=== PATIENT | male | born 1950 | race Caucasian/White ===

== ENCOUNTER → 2017-04-11 | Day surgery (SDC) | payer BC ==
[2017-04-01 11:55] VITALS: Ht 175.3 cm; Wt 90.9 kg
[~2017-04-11] VITALS: Ht 175.3 cm; Wt 90.9 kg
[~2017-04-11] MED LIST: ALL300 PO; ALLO300T2 PO; AMOX1TAB44 PO; ASPCH81X PO; ASPI1TAB83 PO; ASPI81TA28 PO; ATROPINE SULFATE 0.1 MG/ML 5ML SYR IV PRN; CHOL1TAB46 PO; CYAN100020 PO; EpHEDrine SULFATE INJ 50 MG/ML AMP IV PRN; FEXO1TAB49 PO; FEXO5TAB2 PO; FLUT0.15 NAE; GABA-113 PO; GABA1CAP4 PO; LIDOCAINE HCL 2% 2 ML VIAL (20MG/ML) ONE; MAGN250T22 PO; METO25TA3 PO; NTRGSL/4 UT; OMEG10007 PO; PLAVIX75 PO; PLV75 PO; PRLSR20 PO; PROPOFOL IV EMULSION 10 MG/ML 20 ML VIAL IV ONE; TELM80TA PO; TPRSR/50 PO; TRAM37.52 PO; VITAMIN B12 PO
[2017-04-11 12:46] VITALS: TEMP 36.5
--- NOTE | 2017-04-11 13:00 | Endo History and Physical ---
History & Physical Date of Service: Apr 11, 2017. Chief Complaint: DYSPHAGIA Referring Physician: DR. CERVANTES History of Present Illness For EGD Past Surgical History Hx Cardiac Surgery: Yes (HEART CATH X 2-2 STENTS PLACED) Hx Internal Defibrillator: No Hx Pacemaker: No Hx Abdominal Surgery: No Hx of Implantable Prosthesis: No Hx Post-Op Nausea and Vomiting: No Hx Cancer Surgery: No Hx Thoracic Surgery: No Hx Orthopedic: No Hx Urinary Tract Surgery: No Family History None Social History Smoking Status: Former Smoker Hx Substance Use: No Hx Alcohol Use: Yes (OCCASIONALLY) Allergies Coded Allergies: Sulfa Drugs (Verified Allergy, Mild, HIVES, 04/11/17) Dairy (Verified Allergy, Unknown, STOMACH PAIN, 04/11/17) Gluten (Verified Allergy, Unknown, ABD PAIN, 04/11/17) Statins (Verified Allergy, Unknown, MUSCLE WEAKNESS, 04/11/17) Current Medications Reported Home Medications Medications Dose Route/Sig Max Daily Dose Days Date Category Toprol-Xl (Metoprolol Succinate) 25 Mg Tabcr 25 Mg PO QAM 04/01/17 Reported Nitrostat (Nitroglycerin) 0.4 Mg Tab 0.4 Mg UT PRN 04/01/17 Reported Prilosec (Omeprazole) 20 Mg Capcr 20 Mg PO QAM 04/01/17 Reported [place]-3 (Fish Oil) 1 Ea Cap 1 Cap PO QAM 04/01/17 Reported Micardis (Telmisartan) 80 Mg Tab 80 Mg PO QAM 04/01/17 Reported Neurontin (Gabapentin) 300 Mg Cap 300 Mg PO QAM 04/01/17 Reported Conchis Allergy (Fexofenadine Hcl) 180 Mg Tab 1 Tab PO QAM 14 04/01/17 Reported Flonase Allergy Relief (Fluticasone Propionate (Nasal)) 50 Mcg/Act Spr 2 [place] JOSE LUIS QAM 04/01/17 Reported Plavix (Clopidogrel Bisulfate) 75 Mg Tab 1 Tab PO QAM 90 04/01/17 Reported [Vitamin B12] 2,500 Mg PO QAM 04/01/17 Reported Vitamin D3 (Cholecalciferol) 5,000 Unit Tab 1 Tab PO QAM 04/01/17 Reported Aspirin Chewable (Aspirin) 81 Mg Chew 81 Mg PO QAM 04/01/17 Reported Zyloprim (Allopurinol) 300 Mg Tab 300 Mg PO QAM 04/01/17 Reported Vital Signs Weight (Kilograms): 90.91 Height (Feet): 5 Height (Inches): 9 Date Time Temp Pulse Resp B/P (MAP) Pulse Ox O2 Delivery O2 Flow Rate FiO2 04/11/17 12:46 36.5 20 134/90 (105) 99 Room Air Physical Exam General Appearance: + obese Respiratory/Chest: Respiratory effort: no dyspnea Cardiovascular: Heart Auscultation: RRR Abdomen: Inspection & Palpation: soft Assessment and Plan Dysphagia for EGD and dilation
--- NOTE | 2017-04-11 13:27 | Discharge Instructions ---
Endoscopy Patient Instructions Date / Procedure(s) Performed Apr 11, 2017. EGD Allergy Information Coded Allergies: Sulfa Drugs (Verified Allergy, Mild, HIVES, 04/11/17) Dairy (Verified Allergy, Unknown, STOMACH PAIN, 04/11/17) Gluten (Verified Allergy, Unknown, ABD PAIN, 04/11/17) Statins (Verified Allergy, Unknown, MUSCLE WEAKNESS, 04/11/17) Discharge Date / Findings Apr 11, 2017. Stricture-dilated Medication Instructions Restart Stopped Medication(s): resume meds Reported Home Medications Medications Dose Route/Sig Max Daily Dose Days Date Category Toprol-Xl (Metoprolol Succinate) 25 Mg Tabcr 25 Mg PO QAM 04/01/17 Reported Nitrostat (Nitroglycerin) 0.4 Mg Tab 0.4 Mg UT PRN 04/01/17 Reported Prilosec (Omeprazole) 20 Mg Capcr 20 Mg PO QAM 04/01/17 Reported [place]-3 (Fish Oil) 1 Ea Cap 1 Cap PO QAM 04/01/17 Reported Micardis (Telmisartan) 80 Mg Tab 80 Mg PO QAM 04/01/17 Reported Neurontin (Gabapentin) 300 Mg Cap 300 Mg PO QAM 04/01/17 Reported Conchis Allergy (Fexofenadine Hcl) 180 Mg Tab 1 Tab PO QAM 14 04/01/17 Reported Flonase Allergy Relief (Fluticasone Propionate (Nasal)) 50 Mcg/Act Spr 2 [place] JOSE LUIS QAM 04/01/17 Reported Plavix (Clopidogrel Bisulfate) 75 Mg Tab 1 Tab PO QAM 90 04/01/17 Reported [Vitamin B12] 2,500 Mg PO QAM 04/01/17 Reported Vitamin D3 (Cholecalciferol) 5,000 Unit Tab 1 Tab PO QAM 04/01/17 Reported Aspirin Chewable (Aspirin) 81 Mg Chew 81 Mg PO QAM 04/01/17 Reported Zyloprim (Allopurinol) 300 Mg Tab 300 Mg PO QAM 04/01/17 Reported Provider Instructions Activity Restrictions - No exercising or heavy lifting for 24 hours. - Do not drink alcohol the day of the procedure. - Do not drive a car or operate machinery until the day after the procedure. - Do not make any important decisions or sign important papers in 24 hours after the procedure. Following Day: - Return to full activity which may include returning to work/school. Diet Start your diet with liquids and light foods (jello, soup, juice, toast). Then eat your usual diet if not nauseated. Treatment For Common After Affects For mild abdominal pain, bloating, or excessive gas: - Rest - Eat lightly - Lie on right side Follow-Up Information Follow-up with DR. CERVANTES as scheduled Anesthesia Information What You Should Know You have had a procedure that required some medicine to reduce anxiety and discomfort. This treatment is called moderate sedation. After receiving the treatment, you may be sleepy, but you will be able to breathe on your own. The effects of the treatment may last for several hours. Follow these instructions along with Activity/Diet recommendations noted above: * Do NOT do anything where dizziness or clumsiness would be dangerous. * Rest quietly at home today, then you can be up and about tomorrow. * Have a responsible person stay with you the rest of today. * You may have had an I.V. today. If so, you may take the dressing off later today. Recommendations Call your doctor if: * Trouble breathing * Continuous vomiting for more than 24 hours * Temperature above 101 degrees * Severe abdominal pain or bloating * Pain not relieved by pain medicine ordered * There is increased drainage or redness from any incision * A large amount of rectal bleeding greater than 2-3 tablespoons. (If you had a polyp/s removed or have hemorrhoids, a small amount of blood - from the rectum is to be expected.) * You have any unanswered questions or concerns. IN THE EVENT OF A SERIOUS EMERGENCY, GO TO THE NEAREST EMERGENCY ROOM Your discharge instructions were prepared by provider Damon Leyva. Patient Instructions Signature Page Marcus Smith Patient (or Guardian) Signature/Date: I have read and understand the instructions given to me by my caregivers. Caregiver/RN/Doctor Signature/Date: The above-named patient and/or guardian has received patient instructions on this date. + Original Patient Signature Page (only) stays with chart. Please make copy for patient.
--- NOTE | 2017-04-11 13:33 | GI REPORT ---
Procedure Date: 04/11/2017 1:15 PM Procedure: Upper GI endoscopy Indications: Dysphagia Medicines: Propofol total dose 320 mg IV, Lidocaine 80 mg IV Complications: No immediate complications. Estimated Blood Loss: Estimated blood loss was minimal. Procedure: Pre-Anesthesia Assessment: - Prior to the procedure, a History and Physical was performed, and patient medications, allergies and sensitivities were reviewed. The patient's tolerance of previous anesthesia was reviewed. - The risks and benefits of the procedure and the sedation options and risks were discussed with the patient. All questions were answered and informed consent was obtained. After obtaining informed consent, the endoscope was passed under direct vision. Throughout the procedure, the patient's blood pressure, pulse, and oxygen saturations were monitored continuously. The scope was introduced through the mouth, and advanced to the second part of duodenum. The upper GI endoscopy was accomplished without difficulty. The patient tolerated the procedure well. Findings: A small hiatus hernia was present. A mild Schatzki ring (acquired) was found at the gastroesophageal junction. A guidewire was placed and the scope was withdrawn. Dilation was performed at the gastroesophageal junction with a Savary dilator with no resistance at 48 Fr, 51 Fr and 54 Fr. Localized mild inflammation characterized by erosions and erythema was found in the gastric antrum. The examined duodenum was normal. Impression: - Small hiatus hernia. - Mild Schatzki ring. - Gastritis. - Normal examined duodenum. - Dilation attempted at the gastroesophageal junction. Successful. - No specimens collected. Recommendation: - Discharge patient to home (ambulatory). - Continue present medications. - Return to GI clinic at appointment to be scheduled. Damon Leyva M.D. Damon Leyva MD 04/11/2017 1:32:18 PM This report has been signed electronically. Note Initiated On: 04/11/2017 1:15 PM I attest to the content of the Intraoperative Record and orders documented therein, exceptions below
--- NOTE | 2017-04-11 13:38 | Anesthesiology Progress Note ---
Anesthesia Post Op Note Date & Time Apr 11, 2017 at 13:37 Vital Signs Vital Signs Past 12 Hours Date Time Temp Pulse Resp B/P (MAP) Pulse Ox O2 Delivery O2 Flow Rate FiO2 04/11/17 12:46 36.5 20 134/90 (105) 99 Room Air Notes Mental Status: alert / awake / arousable, participated in evaluation Pt Amnestic to Procedure: Yes Nausea / Vomiting: adequately controlled Pain: adequately controlled Airway Patency, RR, SpO2: stable & adequate BP & HR: stable & adequate Hydration State: stable & adequate Anesthetic Complications: no major complications apparent
[2017-04-11 14:11] VITALS: BP 127/84; PULSE 73; O2SAT 98
== END | disposition home or self-care (01) ==
LOC: C.GI 12:07
PROVIDERS: ATTEND Internal Medicine Gastroenterology
DX: R13.10 Dysphagia, unspecified (principal); K44.9 Diaphragmatic hernia without obstruction or gangrene; K22.2 Esophageal obstruction; K29.70 Gastritis, unspecified, without bleeding; I10 Essential (primary) hypertension; I25.10 Atherosclerotic heart disease of native coronary artery without angina pectoris; I25.2 Old myocardial infarction; E66.9 Obesity, unspecified; Z68.29 Body mass index [BMI] 29.0-29.9, adult; Z90.89 Acquired absence of other organs; Z88.2 Allergy status to sulfonamides; Z91.011 Allergy to milk products; Z98.818 Other dental procedure status; Z87.891 Personal history of nicotine dependence; Z79.02 Long term (current) use of antithrombotics/antiplatelets

== ENCOUNTER 2017-04-29 15:12 | Emergency (ER) | payer BC ==
[~2017-04-29] VITALS: Ht 177.8 cm; Wt 96.0 kg
[~2017-04-29 15:12] MED LIST changes: -ALL300 PO; -AMOX1TAB44 PO; -ASPI1TAB83 PO; -ASPI81TA28 PO; -ATROPINE SULFATE 0.1 MG/ML 5ML SYR IV PRN; -CYAN100020 PO; -EpHEDrine SULFATE INJ 50 MG/ML AMP IV PRN; -FEXO5TAB2 PO; -GABA1CAP4 PO; -LIDOCAINE HCL 2% 2 ML VIAL (20MG/ML) ONE; -MAGN250T22 PO; -PLV75 PO; -PROPOFOL IV EMULSION 10 MG/ML 20 ML VIAL IV ONE; -TPRSR/50 PO; -TRAM37.52 PO
[2017-04-29 15:17] VITALS: TEMP 36.4; Ht 177.8 cm; Wt 96.0 kg
[2017-04-29 16:05] LABS: BASO % 0.7 %; BASO ABS # 0.04 K/uL (0-0.2); COMPLETE YES; EOS % 10.7 %; HEMATOCRIT 47.9 % (42-52); IG% 0.4 %; LYMPH % 39.9 %; LYMPH ABS # 2.23 K/uL (1.2-3.4); MEAN CELL VOLUME 105.5 fL (80-100); MEAN CORPUSCULAR HGB CONC 35.1 g/dl (32-36); MEAN PLATELET VOLUME 9.7 fL (7.4-10.4); MONO % 8.1 %; NEUT % 40.2 %; PLATELET COUNT 181 K/uL (130-400); RED BLOOD COUNT 4.54 M/uL (4.7-6.1); WHITE BLOOD COUNT 5.59 K/uL (4.8-10.8)
--- NOTE | 2017-04-29 16:05 | DIAGNOSTIC IMAGING REPORT ---
CHEST ONE VIEW PORTABLE CLINICAL HISTORY: Evaluate Fever/Sepsis fever COMPARISON STUDY: 07/19/2015 FINDINGS: The bones soft tissues and hemidiaphragms are normal. The cardiomediastinal silhouette is normal. The lungs are clear. The pulmonary vasculature is normal. IMPRESSION: Negative chest. The above report was generated using voice recognition software. It may contain grammatical, syntax or spelling errors. Electronically signed by: Roman Alaniz M.D. 04/29/2017 4:04 PM Dictated Date/Time: 04/29/2017 4:03 PM
[2017-04-29] MEDS ORDERED: CYAN100020 PO (16:12)
[2017-04-29] MEDS ORDERED: ALL300 PO (16:12)
[2017-04-29] MEDS ORDERED: PLV75 PO (16:12)
[2017-04-29] MEDS ORDERED: FEXO5TAB2 PO (16:12)
[2017-04-29] MEDS ORDERED: TPRSR/50 PO (16:12)
[2017-04-29] MEDS ORDERED: GABA1CAP4 PO (16:12)
[2017-04-29] MEDS ORDERED: ASPI81TA28 PO (16:12)
[2017-04-29] MEDS ORDERED: MAGN250T22 PO (16:12)
[2017-04-29 16:14] LABS: PROTHROMBIN TIME (PATIENT) 10.5 SECONDS (9.0-12.0)
[2017-04-29 16:51] LABS: ALT/SGPT 40 U/L (12-78); BLOOD UREA NITROGEN 15 mg/dl (7-18); CALCIUM 8.7 mg/dl (8.5-10.1); CARBON DIOXIDE 26 mmol/L (21-32); CHLORIDE 110 mmol/L (98-107); CREATININE 0.84 mg/dl (0.60-1.40); GLUCOSE 86 mg/dl (70-99); SODIUM 146 mmol/L (136-145)
[2017-04-29 16:53] LABS: ALKALINE PHOSPHATASE 72 U/L (45-117)
[2017-04-29 17:36] LABS: POTASSIUM 3.7 mmol/L (3.5-5.1)
[2017-04-29 18:31] VITALS: BP 152/96; PULSE 74; O2SAT 95
--- NOTE | 2017-04-29 18:44 | EMERGENCY ROOM VISIT NOTE ---
History Report prepared by Jermaine: Michelle Miller Under the Supervision of: Dr. Jac Hillman D.O. First contact with patient: 15:42 Chief Complaint: DIZZY Stated Complaint: HEART Nursing Triage Summary: pt to the ED today after being seen at [facility] for dizziness and diaphoresis, pt had a ekg there and they declined transport pt has no c/o chest pain History of Present Illness The patient is a 67 year old male who presents to the Emergency Room with complaints of dizziness starting yesterday. The patient was walking [place] when he started having severe diaphoresis, fatigue, dizziness, and nausea. He has a history of similar symptoms occurring with heart attack and just prior to his stent placement in 2011. 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 The patient also has a history of vertigo. He currently denies any pain. He denies chest pain, shortness of breath, or any other complaints. Source of History: patient Onset: yesterday Position: other (global) Symptom Intensity: No pain Quality: other (dizziness) Associated Symptoms: + diaphoresis, + nausea, + fatigue, No chest pain, No SOB Review of Systems See HPI for pertinent positives & negatives. A total of 10 systems reviewed and were otherwise negative. Past Medical & Surgical Medical Problems: (1) Benign essential hypertension (2) Bronchitis (3) Hx of 3 stents (4) Hx of myocardial infarction (5) Hypertension (6) Kidney stone (7) Kidney stones (8) Stented coronary artery (9) Stomach problems Family History Cancer Diabetes mellitus Heart disease Hypertension Social History Smoking Status: Former Smoker Alcohol Use: other Marital Status: Housing Status: lives with significant other Occupation Status: unemployed Current/Historical Medications Scheduled Allopurinol (Allopurinol), 300 MG PO QAM Aspirin (Aspirin Ec), 81 MG PO QAM Cholecalciferol (Vitamin D3), 5,000 INTER.UNIT PO QAM Clopidogrel Bisulfate (Clopidogrel), 75 MG PO QAM Cyanocobalamin (Vitamin B12), 1,000 MCG PO QAM Fish Oil ([place]-3), 1 CAP PO QAM Fluticasone Propionate (Nasal) (Flonase Allergy Relief), 2 SPRAYS JOSE LUIS QAM Gabapentin (Gabapentin), 300 MG PO QAM Magnesium Oxide (Magnesium), 250 MG PO QAM Metoprolol Succinate (Metoprolol Succinate ER), 50 MG PO QAM Omeprazole (Prilosec), 20 MG PO BID Telmisartan (Micardis), 80 MG PO QAM Scheduled PRN Fexofenadine-Pseudoephedrine (Conchis-D 12 Hour Allergy), 1 TAB PO DAILY PRN for Allergy Symptoms Nitroglycerin (Nitrostat), 0.4 MG UT UD PRN for Chest Pain Allergies Coded Allergies: Sulfa Drugs (Verified Allergy, Mild, HIVES, 04/11/17) Dairy (Verified Allergy, Unknown, STOMACH PAIN, 04/11/17) Gluten (Verified Allergy, Unknown, ABD PAIN, 04/11/17) Statins (Verified Allergy, Unknown, MUSCLE WEAKNESS, 04/11/17) Baclofen (Verified Adverse Reaction, Unknown, Tired and sluggish, 04/29/17) Physical Exam Vital Signs Date Time Temp Pulse Resp B/P (MAP) Pulse Ox O2 Delivery O2 Flow Rate FiO2 04/29/17 18:31 74 20 152/96 95 Room Air 04/29/17 17:02 72 16 149/104 98 Room Air 04/29/17 16:23 67 16 98 Room Air 04/29/17 15:42 70 04/29/17 15:17 36.4 68 18 137/88 95 Room Air Physical Exam CONSTITUTIONAL/VITAL SIGNS: Reviewed / noted above. GENERAL: Non-toxic in appearance. INTEGUMENTARY: Warm, dry, and [place]. HEAD: Normocephalic. EYES: without scleral icterus or trauma. ENT/OROPHARYNX: clear and moist. LYMPHADENOPATHY/NECK: Is supple without lymphadenopathy or meningismus. RESPIRATORY: Lungs clear and equal. CARDIOVASCULAR: Regular rate and rhythm. GI/ABDOMEN: Soft and nontender. No organomegaly or pulsatile mass. No rebound or guarding. Normal bowel sounds. EXTREMITIES: Warm and well perfused. BACK: No CVA tenderness. NEUROLOGICAL: Intact without focal deficits. PSYCHIATRIC: normal affect. MUSCULOSKELETAL: Normally developed with good muscle tone. Medical Decision & Procedures ER Provider Diagnostic Interpretation: X ray results and stated below per my interpretation and radiology interpretation. CHEST ONE VIEW PORTABLE CLINICAL HISTORY: Evaluate Fever/Sepsis fever COMPARISON STUDY: 07/19/2015 FINDINGS: The bones soft tissues and hemidiaphragms are normal. The cardiomediastinal silhouette is normal. The lungs are clear. The pulmonary vasculature is normal. IMPRESSION: Negative chest. The above report was generated using voice recognition software. It may contain grammatical, syntax or spelling errors. Electronically signed by: Roman Alaniz M.D. 04/29/2017 4:04 PM Dictated Date/Time: 04/29/2017 4:03 PM Laboratory Results 04/29/17 15:50 Red Blood Count 4.54, Mean Corpuscular Volume 105.5, Mean Corpuscular Hemoglobin 37.0, Mean Corpuscular Hemoglobin Concent 35.1, Mean Platelet Volume 9.7, Neutrophils (%) (Auto) 40.2, Lymphocytes (%) (Auto) 39.9, Monocytes (%) ( Auto) 8.1, Eosinophils (%) (Auto) 10.7, Basophils (%) (Auto) 0.7, Neutrophils # (Auto) 2.25, Lymphocytes # (Auto) 2.23, Monocytes # (Auto) 0.45, Eosinophils # ( Auto) 0.60, Basophils # (Auto) 0.04 04/29/17 15:50 04/29/17 17:09 Test 04/29/17 15:50 04/29/17 17:09 White Blood Count 5.59 K/uL (4.8-10.8) Red Blood Count 4.54 M/uL (4.7-6.1) Hemoglobin 16.8 g/dL (14.0-18.0) Hematocrit 47.9 % (42-52) Mean Corpuscular Volume 105.5 fL (80-100) Mean Corpuscular Hemoglobin 37.0 pg (25-34) Mean Corpuscular Hemoglobin Concent 35.1 g/dl (32-36) Platelet Count 181 K/uL (130-400) Mean Platelet Volume 9.7 fL (7.4-10.4) Neutrophils (%) (Auto) 40.2 % Lymphocytes (%) (Auto) 39.9 % Monocytes (%) (Auto) 8.1 % Eosinophils (%) (Auto) 10.7 % Basophils (%) (Auto) 0.7 % Neutrophils # (Auto) 2.25 K/uL (1.4-6.5) Lymphocytes # (Auto) 2.23 K/uL (1.2-3.4) Monocytes # (Auto) 0.45 K/uL (0.11-0.59) Eosinophils # (Auto) 0.60 K/uL (0-0.5) Basophils # (Auto) 0.04 K/uL (0-0.2) RDW Standard Deviation 55.5 fL (36.4-46.3) RDW Coefficient of Variation 14.3 % (11.5-14.5) Immature Granulocyte % (Auto) 0.4 % Immature Granulocyte # (Auto) 0.02 K/uL (0.00-0.02) Prothrombin Time 10.5 SECONDS (9.0-12.0) Prothromb Time International Ratio 1.0 (0.9-1.1) Activated Partial Thromboplast Time 25.9 SECONDS (21.0-31.0) Partial Thromboplastin Ratio 1.0 Anion Gap 10.0 mmol/L (3-11) Est Creatinine Clear Calc Drug Dose 97.9 ml/min Estimated GFR () 104.3 Estimated GFR (Non- 90.0 BUN/Creatinine Ratio 18.0 (10-20) Calcium Level 8.7 mg/dl (8.5-10.1) Total Bilirubin 0.6 mg/dl (0.2-1) Alanine Aminotransferase (ALT/SGPT) 40 U/L (12-78) Alkaline Phosphatase 72 U/L (45-117) Creatine Kinase MB < 0.5 ng/ml (0.5-3.6) Creatine Kinase MB Ratio (0-3.0) Troponin I < 0.015 ng/ml (0-0.045) Total Protein 7.1 gm/dl (6.4-8.2) Albumin 3.5 gm/dl (3.4-5.0) Direct Bilirubin 0.2 mg/dl (0-0.2) Aspartate Amino Transf (AST/SGOT) 29 U/L (15-37) Total Creatine Kinase 92 U/L (39-308) Laboratory results as stated above per my review. ECG Indication: other (Dizziness) Rate (beats per minute): 63 Rhythm: normal sinus Findings: no acute ischemic change, no ectopy, other (Low voltage) ED Course 1542: Previous medical records were reviewed. The patient was evaluated in room B08. A complete history and physical examination was performed. 1839: On reevaluation, the patient is feeling better. I discussed the results and findings with the patient. He verbalized agreement of the treatment plan. He was discharged home. Medical Decision Medication Reconciliation: I attest that I have personally reviewed the patient' s current medication list. Blood pressure Screening: Patient was found to have normal blood pressure on screening and does not require follow-up. Differential includes acute coronary syndrome, myocardial infarction, CVA, TIA, anemia, infection, pneumonia, UTI, pyelonephritis, poor nutrition, dehydration, electrolyte disturbance,hypoglycemia. This is a 67-year-old male who presents to the ED with a chief complaint of fatigue and a little dizziness as well as a little nausea. The patient states that also he [place] His vital signs are normal. His physical exam was unremarkable. An EKG shows a normal sinus rhythm. His blood work was unremarkable including his cardiac enzymes, CBC and chemistry panel. Chest x-ray did not show acute disease. The patient was told results. He is felt to be stable for discharge and outpatient follow-up. Impression Primary Impression: Dizziness Additional Impression: Fatigue Scribe Attestation The scribe's documentation has been prepared under my direction and personally reviewed by me in its entirety. I confirm that the note above accurately reflects all work, treatment, procedures, and medical decision making performed by me. Departure Information Dispostion Home / Self-Care Referrals Jay Shearer M.D. (PCP) Forms HOME CARE DOCUMENTATION FORM, IMPORTANT VISIT INFORMATION Patient Instructions My [facility] Additional Instructions Follow-up with your doctor for further care and evaluation in 1-2 days. Return to the emergency department for worsening or new symptoms or any concerns. You have been examined and treated today on an emergency basis only. This is not a substitute for, or an effort to provide, complete comprehensive medical care. It is impossible to recognize and treat all injuries or illnesses in a single emergency department visit. It is therefore important that you follow up closely with your doctor. Call as soon as possible for an appointment. Problem Qualifiers
== END 2017-04-29 18:52 | disposition home or self-care (01) ==
LOC: C.EDB 15:20
DX: R42 Dizziness and giddiness (principal); R53.83 Other fatigue; I25.2 Old myocardial infarction; Z95.5 Presence of coronary angioplasty implant and graft; I10 Essential (primary) hypertension; Z87.442 Personal history of urinary calculi; Z80.9 Family history of malignant neoplasm, unspecified; Z83.3 Family history of diabetes mellitus; Z82.49 Family history of ischemic heart disease and other diseases of the circulatory system; Z87.891 Personal history of nicotine dependence; Z79.82 Long term (current) use of aspirin; Z79.899 Other long term (current) drug therapy

== ENCOUNTER → 2017-06-28 | Outpatient (CLI) | payer BC ==
[~2017-06-28] MED LIST changes: +ALL300 PO; -ALLO300T2 PO; +AMOX1TAB44 PO; -ASPCH81X PO; +ASPI1TAB83 PO; +ASPI81TA28 PO; +CYAN100020 PO; -FEXO1TAB49 PO; +FEXO5TAB2 PO; -GABA-113 PO; +GABA1CAP4 PO; +MAGN250T22 PO; -METO25TA3 PO; -PLAVIX75 PO; +PLV75 PO; +TPRSR/50 PO; -VITAMIN B12 PO
--- NOTE | 2017-06-28 16:43 | DIAGNOSTIC IMAGING REPORT ---
SINUSES WITH BRAIN LAB CLINICAL HISTORY: CHRONIC SINUSITIS. COMPARISON STUDY: No previous studies for comparison. FINDINGS: Visualized portions of the intracranial contents are unremarkable on this unenhanced exam. Mastoid air cells are clear. There is no fluid within the middle ears. Ossicles are intact. Orbits are unremarkable. There is moderate polypoid mucosal thickening of the ethmoid and frontal sinuses. There is mild mucosal thickening of the maxillary and sphenoid sinuses. Ostiomeatal complexes are patent. Frontoethmoidal recesses are occluded. Sphenoethmoidal recesses are occluded. There is no bony destruction. No mass is identified within the nasal cavity or the sinuses. There is a miguel angel bullosa of the right middle turbinate. There is mild leftward deviation of the nasal septum with spur formation. The cribriform plate is intact. IMPRESSION: 1. Moderate mucosal thickening of the ethmoid and frontal sinuses with mild mucosal thickening of the maxillary and sphenoid sinuses. Occluded bilateral frontoethmoidal and sphenoethmoidal recesses. 2. Cocha bullosa of the right middle turbinate. 3. No bone destruction. Electronically signed by: Minh Leon M.D. 06/28/2017 4:41 PM Dictated Date/Time: 06/28/2017 4:36 PM
== END | disposition home or self-care (01) ==
LOC: C.CTS 16:14
PROVIDERS: ATTEND Otolaryngology
DX: J32.9 Chronic sinusitis, unspecified (principal)

== ENCOUNTER → 2017-08-26 | Day surgery (SDC) | payer BC ==
--- NOTE | 2017-07-13 16:09 | PAT Medication Instructions ---
Service Date Jul 13, 2017. Current Home Medication List Allopurinol (Allopurinol), 300 MG PO QAM Amoxicillin & Pot Clavulanate (Amoxicillin/Clavulanate P), 875 MG PO BID Aspirin (Aspirin Ec), 81 MG PO QAM Cholecalciferol (Vitamin D3), 5,000 INTER.UNIT PO QAM Clopidogrel Bisulfate (Clopidogrel), 75 MG PO QAM Cyanocobalamin (Vitamin B12), 1,000 MCG PO QAM Fexofenadine-Pseudoephedrine (Conchis-D 12 Hour Allergy), 1 TAB PO DAILY PRN for Allergy Symptoms Fish Oil ([place]-3), 1 CAP PO QAM Fluticasone Propionate (Nasal) (Flonase Allergy Relief), 2 SPRAYS JOSE LUIS QAM PRN for sinus congestion Magnesium Oxide (Magnesium), 500 MG PO QAM Nitroglycerin (Nitrostat), 0.4 MG UT UD PRN for Chest Pain Omeprazole (Prilosec), 20 MG PO QPM Telmisartan (Micardis), 80 MG PO QAM Medication Instructions For Your Scheduled Surgery - Check with surgeon and compliance intern for instructions: Aspirin (Aspirin Ec), 81 MG PO QAM Clopidogrel Bisulfate (Clopidogrel), 75 MG PO QAM - Hold the following medications starting 07/14/17: Fish Oil ([place]-3), 1 CAP PO QAM - Hold the following medications the morning of surgery: Telmisartan (Micardis), 80 MG PO QAM Magnesium Oxide (Magnesium), 500 MG PO QAM Fexofenadine-Pseudoephedrine (Conchis-D 12 Hour Allergy), 1 TAB PO DAILY PRN for Allergy Symptoms Cholecalciferol (Vitamin D3), 5,000 INTER.UNIT PO QAM Cyanocobalamin (Vitamin B12), 1,000 MCG PO QAM - Take the following medications the morning of surgery with a sip of water: Nitroglycerin (Nitrostat), 0.4 MG UT UD PRN for Chest Pain (if needed) Allopurinol (Allopurinol), 300 MG PO QAM. Amoxicillin & Pot Clavulanate (Amoxicillin/Clavulanate P), 875 MG PO BID Fluticasone Propionate (Nasal) (Flonase Allergy Relief), 2 SPRAYS JOSE LUIS QAM PRN for sinus congestion (if needed) - Take the following medications as scheduled the night before surgery: Omeprazole (Prilosec), 20 MG PO QPM Nitroglycerin (Nitrostat), 0.4 MG UT UD PRN for Chest Pain (if needed) Fluticasone Propionate (Nasal) (Flonase Allergy Relief), 2 SPRAYS JOSE LUIS QAM PRN for sinus congestion (if needed) Fexofenadine-Pseudoephedrine (Conchis-D 12 Hour Allergy), 1 TAB PO DAILY PRN for Allergy Symptoms (if needed) Amoxicillin & Pot Clavulanate (Amoxicillin/Clavulanate P), 875 MG PO BID If you have any questions please call us at [phone] or [phone] or [phone]
[2017-07-13 16:36] LABS: BASO % 0.7 %; BASO ABS # 0.05 K/uL (0-0.2); COMPLETE YES; EOS % 2.9 %; HEMATOCRIT 44.7 % (42-52); IG% 0.5 %; LYMPH % 24.9 %; LYMPH ABS # 1.83 K/uL (1.2-3.4); MEAN CELL VOLUME 103.7 fL (80-100); MEAN CORPUSCULAR HEMOGLOBIN 36.7 pg (25-34); MEAN CORPUSCULAR HGB CONC 35.3 g/dl (32-36); MEAN PLATELET VOLUME 9.5 fL (7.4-10.4); MONO % 9.3 %; NEUT % 61.7 %; PLATELET COUNT 159 K/uL (130-400); RED BLOOD COUNT 4.31 M/uL (4.7-6.1); WHITE BLOOD COUNT 7.34 K/uL (4.8-10.8)
[2017-07-13 16:44] LABS: BUN/CREATININE RATIO 19.1 (10-20); CALCIUM 9.4 mg/dl (8.5-10.1); CREATININE 1.2 mg/dl (0.60-1.40)
--- NOTE | 2017-08-25 14:06 | History and Physical ---
History & Physical Date Aug 25, 2017. Chief Complaint sinus infections History of Present Illness The patient is a 67 year old male with complaints of chronic sinusitis and polyposis Past Medical/Surgical History Medical Problems: (1) Benign essential hypertension (2) Bronchitis (3) Hx of 3 stents (4) Hx of myocardial infarction (5) Hypertension (6) Kidney stone (7) Kidney stones (8) Stented coronary artery (9) Stomach problems Additional History Hepatic Disease: No Endocrine Disorder: No Kidney Disease: Yes Hypertension: Yes Heart Disease: Yes Bleeding Tendencies: No Infectious Diseases: No Allergies Coded Allergies: Sulfa Drugs (Verified Allergy, Mild, HIVES, 07/13/17) Baclofen (Verified Adverse Reaction, Unknown, Tired and sluggish, 07/13/17) Dairy (Unverified Adverse Reaction, Unknown, STOMACH PAIN, 08/23/17) Gluten (Unverified Adverse Reaction, Unknown, ABD PAIN, 08/23/17) Statins (Unverified Adverse Reaction, Unknown, MUSCLE WEAKNESS, 08/23/17) Home Medications Scheduled Allopurinol (Allopurinol), 300 MG PO QAM Amoxicillin & Pot Clavulanate (Amoxicillin/Clavulanate P), 875 MG PO BID Aspirin (Aspirin Ec), 81 MG PO QAM Aspirin (Aspirin), 1 TAB PO DAILY Cholecalciferol (Vitamin D3), 5,000 INTER.UNIT PO QAM Clopidogrel Bisulfate (Clopidogrel), 75 MG PO QAM Cyanocobalamin (Vitamin B12), 1,000 MCG PO QAM Fish Oil (Girdler-3), 1 CAP PO QAM Magnesium Oxide (Magnesium), 500 MG PO QAM Omeprazole (Prilosec), 20 MG PO QPM Telmisartan (Micardis), 80 MG PO QAM Scheduled PRN Fexofenadine-Pseudoephedrine (Conchis-D 12 Hour Allergy), 1 TAB PO DAILY PRN for Allergy Symptoms Fluticasone Propionate (Nasal) (Flonase Allergy Relief), 2 SPRAYS JOSE LUIS QAM PRN for sinus congestion Nitroglycerin (Nitrostat), 0.4 MG UT UD PRN for Chest Pain Physical Examination Skin: warm/dry, no rash Eyes: normal inspection, EOMI, sclerae normal ENT: normal ENT inspection, pharynx normal Head: normocephalic, atraumatic Neck: supple, no adenopathy, trachea midline Respiratory/Chest: lungs clear, normal breath sounds, no respiratory distress Cardiovascular: regular rate, rhythm, no edema, no murmur Abdomen / GI: normal bowel sounds, non tender Back: normal inspection Extremities: normal inspection, normal range of motion Neurologic/Psych: no motor/sensory deficits, alert, normal reflexes, oriented x 3 Diagnosis chronic sinusitis and polyposis Plan of Treatment endoscopic sinus surgery
[~2017-08-26] VITALS: Ht 177.8 cm; Wt 96.4 kg
[~2017-08-26] MED LIST changes: +ACETAMINOPHEN 1000 MG/100 ML IV IV ONE; +ATROPINE SULFATE 0.1 MG/ML 5ML SYR IV PRN; +BACITRACIN OINT 15 GM TUBE ONE; +CEFAZOLIN 2000MG IV PUSH 10 ML IV SCH; +CISATRACURIUM BESYLATE IV SOLN 2 MG/ML 10 ML VIAL ONE; +ESMOLOL HCL 10 MG/ML 10 ML VIAL ONE; +EpHEDrine SULFATE INJ 50 MG/ML AMP IV PRN; +EpINEphrine INJ 1MG/ML AMP 1 MG/ML AMP ONE; +FENTANYL CITRATE INJ 50 MCG/1 ML 2 ML VIAL IV PRN; +FENTANYL CITRATE INJ 50 MCG/1 ML 2 ML VIAL ONE; +FLUMAZENIL 0.1 MG/1 ML 10 ML VIAL IV PRN; -GABA1CAP4 PO; +GELATIN SPONGE 12-7MM ONE; +GLYCOPYRROLATE INJ 0.2 MG/ML VIAL ONE; +HYDROCODONE/ACETAMOPHEN 5/325MG TAB PO PRN; +HydrALAZINE HCL 20 MG/ML VIAL IV. PRN; +HydrALAZINE HCL 20 MG/ML VIAL ONE; +LACTATED RINGER'S 1000ML 1,000 ML IV SCH; +LIDO 2%/EPINEPHRINE 1:100000 20 ML VIAL INFIL ONE; +LIDOCAINE 4% INH SOLN 4 ML BTL ONE; +METOPROLOL TARTRATE 1 MG/ML VIAL ONE; +MIDAZOLAM HCL 1 MG/ML 2ML VIAL ONE; +NALOXONE HCL 0.4 MG/1 ML VIAL/CARP IV PRN; +NEOSTIGMINE METHYLSULFATE 5 MG/5 ML SYR ONE; +NURSING VERBAL MED ORDER ONE; +ONDANSETRON INJ 2 MG/ML 2 ML VIAL IV PRN; +ONDANSETRON INJ 2 MG/ML 2 ML VIAL ONE; +PROPOFOL IV EMULSION 10 MG/ML 20 ML VIAL IV ONE; +SODIUM CHLORIDE 0.9% 1000ML 1,000 ML IV SCH; +SUCCINYLCHOLINE CHLORIDE 20 MG/ML 10 ML VIAL IV ONE; -TPRSR/50 PO; +TRAM37.52 PO
--- NOTE | 2017-08-26 07:10 | History & Physical Bridge Note ---
H&P Re-Evaluation Bridge Note: I have examined the patient, reviewed the History & Physical and in the interval since the performance of the History & Physical I have noted the following changes of clinical significance: No changes noted
[2017-08-26 07:30] VITALS: BP 127/91; PULSE 75; TEMP 36.4; O2SAT 98; Ht 177.8 cm; Wt 96.4 kg
--- NOTE | 2017-08-26 10:48 | Discharge Instructions-SurgCtr ---
Discharge Instructions Date of Service Aug 26, 2017. Visit Reason for Visit: Chronic Sinusitis, Polyps Discharge Discharge Diagnosis / Problem: same Discharge Goals Goal(s): Improve function, Improve disease control Activity Recommendations Activity Limitations: resume your previous activity Anesthesia . Post Anesthesia Instructions: If you have had General Anesthesia or IV Sedation: * Do not drive today. * Resume driving when surgeon permits. * Do not make important decisions or sign legal documents today. * Call surgeon for: 1. Temperature elevations greater than 101 degrees F. 2. Uncontrollable pain. 3. Excessive bleeding. 4. Persistent nausea and vomiting. 5. Medication intolerance (nausea, vomiting or rash). * For nausea and vomiting use only clear liquids such as: tea, soda, bouillon until nausea subsides, then gradually increase diet as tolerated. * If you have any concerns or questions, call your surgeon's office. If physician is unavailable and it is an emergency, call 911 or go to the nearest emergency room. . Instructions / Follow-Up Instructions / Follow-Up ACTIVITY RECOMMENDATIONS: * Being up and around is good, but no strenuous activity, heavy lifting or physical exertion for one week. * Keep your head elevated 30 degrees when lying down or sleeping. * Do not blow your nose for 48 hours, sniff back instead. * Avoid hot showers. OVER THE COUNTER MEDICATIONS: * You may use Tylenol * Avoid aspirin or aspirin containing products, e.g. as they may increase bleeding. SPECIAL CARE INSTRUCTIONS: * Expect to have bloody drainage from your nose and/or down your throat for one to three days. Change drip pad as needed. * Begin irrigating your nose with saline solution today, at least six to ten times per day and sniff back to help remove old clots or crust. * You may experience nasal and facial congestion, pain and pressure, this is normal. * Please call with any significant and/or progressive pain, redness, swelling around the eyes, visual changes, fever of 101.5 degrees F, active bleeding or any problems or concerns. * If active bleeding occurs, spray the nose three times at one minute intervals with Afrin spray and call or cell phone: . If unable to reach the doctor, go to the nearest Emergency Department. Special Diet: * Avoid extremely hot fluids. FOLLOW UP VISIT: Follow-up Visit with Dr. Pollock If not already scheduled, please call to schedule. Diet Recommendations Home Diet: no limitations Procedures Procedures Performed: Endoscopic Sinus Surgery of Right and Left Frontal and sphenoid sinusotomies, Right and left total ethmoidectomies, right and left maxillary sinusotomies with computer guidance Pending Studies Studies pending at discharge: no Medical Emergencies . Who to Call and When: Medical Emergencies: If at any time you feel your situation is an emergency, please call 911 immediately. . Non-Emergent Contact Non-Emergency issues call your: Primary Care Provider . . "Provider Documentation" section prepared by Linda Pollock. . [place] Drug Monitoring Program Search Results: no issues identified
--- NOTE | 2017-08-26 11:49 | Anesthesiology Progress Note ---
Anesthesia Post Op Note Date & Time Aug 26, 2017 at 11:49 Vital Signs Pain Intensity: 5 Vital Signs Past 12 Hours Date Time Temp Pulse Resp B/P (MAP) Pulse Ox O2 Delivery O2 Flow Rate FiO2 08/26/17 11:40 80 20 140/98 94 Room Air 08/26/17 11:30 78 12 121/90 94 Room Air 08/26/17 11:20 73 13 146/97 93 Room Air 08/26/17 11:10 79 18 145/90 97 Oxymask 2 08/26/17 11:00 79 13 146/91 99 Oxymask 10 08/26/17 10:50 83 16 150/95 95 Oxymask 10 08/26/17 10:44 36.2 81 12 144/98 95 Oxymask 10 08/26/17 07:30 36.4 75 20 127/91 (103) 98 Room Air Notes Mental Status: alert / awake / arousable, participated in evaluation Pt Amnestic to Procedure: Yes Nausea / Vomiting: adequately controlled Pain: adequately controlled Airway Patency, RR, SpO2: stable & adequate BP & HR: stable & adequate Hydration State: stable & adequate Anesthetic Complications: no major complications apparent
[2017-08-26 12:35] VITALS: BP 144/90; PULSE 96; TEMP 36.4; O2SAT 94
[2017-08-26 13:06] VITALS: BP 147/85; PULSE 96; O2SAT 95
[2017-08-26 13:35] VITALS: BP 139/85; PULSE 110; TEMP 36.5; O2SAT 94
--- NOTE | 2017-08-26 13:53 | Anesthesiology Progress Note ---
Anesthesia Progress Note Date of Service Aug 26, 2017. Progress Notes at 1350, pt was administered metoprolol 3 mg iv for HR 114
[2017-08-26 14:20] VITALS: BP 143/90; PULSE 98; TEMP 36.5; O2SAT 94
--- NOTE | 2017-08-29 07:02 | OPERATIVE REPORT ---
DATE OF OPERATION: 08/26/2017 PREOPERATIVE DIAGNOSES: Chronic sinusitis and polyposis. POSTOPERATIVE DIAGNOSES: Same. PROCEDURES: Right and left frontal, right and left sphenoid, right and left total ethmoid and right and left maxillary sinus antrostomies. SURGEON: Dr. Pollock ANESTHESIA: General endotracheal. COMPLICATIONS: None. BLOOD LOSS: 50 mL. HISTORY OF PRESENT ILLNESS: This gentleman presented with significant recurrent chronic sinusitis and significant polyposis, aggravating his sleep apnea. DESCRIPTION OF PROCEDURE: The patient was brought to the operating room and placed in the supine position. General endotracheal anesthesia was induced, prepped with Betadine paint and draped in the usual sterile manner. Nose decongested with cottonoids with a solution of 4 mL of 4% Xylocaine mixed with 1 mL of epinephrine. Injection of 2% Xylocaine, 1:100,000 strength epinephrine was also used. BrainLAB device calibrated and used for an entire procedure. The right sphenoid was cannulated with a guidewire and dilated using the 6-mm balloon with BrainLAB computer guidance. The left sphenoid was also dilated. The right maxillary sinus was cannulated with the guidewire and dilated using the 6-mm balloon as was the left maxillary sinus. The left nasofrontal duct was cannulated with the guidewire with BrainLAB computer guidance and dilated using the 6-mm balloon. The guidewire was left in place as a marker as the catheter was withdrawn. The frontal sinusotomy was performed by following the guidewire superiorly using the shaver coupled with the BrainLAB device to remove the anterior wall and then the posterior wall of the agger nasi cell, which was filled with polyps and also removing polyps from around the nasofrontal duct that leaving most of the mucosa and the nasofrontal duct intact. At this point, total ethmoidectomy was performed, removing a large polyp for biopsy and then opening up the bullae ethmoidalis and then going through the ground lamella into the posterior ethmoid air cells. The posterior most ethmoid air cell was delineated along with the skull base and lamina papyracea. These structures were followed anteriorly with the BrainLAB device and with the shaver to exonerate all the posterior and then all the anterior ethmoid air cell. The ethmoids were totally filled with polyps. At this point, the sphenoid ostia was identified and then opened by removing polypoid mucosa at the anterior face and also at the inferior border of the superior turbinate. Maxillary sinus had been opened by removing polyps at the anterior wall of the bullae ethmoidalis blocking the maxillary ostia. The right frontal sinusotomy, sphenoidotomy, total ethmoidectomy and maxillary sinus antrostomy was performed in a similar manner. Propel stents were placed with a mini stent in each nasofrontal duct and with 1 regular stent in each ethmoid cavity. The patient tolerated the procedure well and was taken to recovery area in satisfactory condition. I attest to the content of the Intraoperative Record and any orders documented therein. Any exception s are noted below.
== END | disposition home or self-care (01) ==
LOC: C.ACU 06:16
PROVIDERS: ATTEND Otolaryngology
DX: J32.9 Chronic sinusitis, unspecified (principal); J33.8 Other polyp of sinus; I25.10 Atherosclerotic heart disease of native coronary artery without angina pectoris; I25.2 Old myocardial infarction; I10 Essential (primary) hypertension; Z95.5 Presence of coronary angioplasty implant and graft; Z79.82 Long term (current) use of aspirin; Z79.899 Other long term (current) drug therapy

== ENCOUNTER → 2017-09-02 | Outpatient (CLI) | payer BC ==
[~2017-09-02] MED LIST changes: -ACETAMINOPHEN 1000 MG/100 ML IV IV ONE; -AMOX1TAB44 PO; -ASPI1TAB83 PO; -ATROPINE SULFATE 0.1 MG/ML 5ML SYR IV PRN; -BACITRACIN OINT 15 GM TUBE ONE; -CEFAZOLIN 2000MG IV PUSH 10 ML IV SCH; -CISATRACURIUM BESYLATE IV SOLN 2 MG/ML 10 ML VIAL ONE; -ESMOLOL HCL 10 MG/ML 10 ML VIAL ONE; -EpHEDrine SULFATE INJ 50 MG/ML AMP IV PRN; -EpINEphrine INJ 1MG/ML AMP 1 MG/ML AMP ONE; -FENTANYL CITRATE INJ 50 MCG/1 ML 2 ML VIAL IV PRN; -FENTANYL CITRATE INJ 50 MCG/1 ML 2 ML VIAL ONE; -FLUMAZENIL 0.1 MG/1 ML 10 ML VIAL IV PRN; -GELATIN SPONGE 12-7MM ONE; -GLYCOPYRROLATE INJ 0.2 MG/ML VIAL ONE; -HYDROCODONE/ACETAMOPHEN 5/325MG TAB PO PRN; -HydrALAZINE HCL 20 MG/ML VIAL IV. PRN; -HydrALAZINE HCL 20 MG/ML VIAL ONE; -LACTATED RINGER'S 1000ML 1,000 ML IV SCH; -LIDO 2%/EPINEPHRINE 1:100000 20 ML VIAL INFIL ONE; -LIDOCAINE 4% INH SOLN 4 ML BTL ONE; -METOPROLOL TARTRATE 1 MG/ML VIAL ONE; -MIDAZOLAM HCL 1 MG/ML 2ML VIAL ONE; -NALOXONE HCL 0.4 MG/1 ML VIAL/CARP IV PRN; -NEOSTIGMINE METHYLSULFATE 5 MG/5 ML SYR ONE; -NURSING VERBAL MED ORDER ONE; -ONDANSETRON INJ 2 MG/ML 2 ML VIAL IV PRN; -ONDANSETRON INJ 2 MG/ML 2 ML VIAL ONE; -PROPOFOL IV EMULSION 10 MG/ML 20 ML VIAL IV ONE; -SODIUM CHLORIDE 0.9% 1000ML 1,000 ML IV SCH; -SUCCINYLCHOLINE CHLORIDE 20 MG/ML 10 ML VIAL IV ONE
== END | disposition home or self-care (01) ==
LOC: C.LAB1850 13:20
PROVIDERS: ATTEND Internal Medicine Cardiovascular Disease
DX: E78.00 Pure hypercholesterolemia, unspecified (principal)

== ENCOUNTER → 2017-12-22 | Outpatient (CLI) | payer BC ==
[~2017-12-22] MED LIST changes: -TRAM37.52 PO
--- NOTE | 2017-12-22 16:12 | DIAGNOSTIC IMAGING REPORT ---
R HAND MIN 3 VIEWS ROUTINE HISTORY: 67 years-old Male UNSPECIFIED INJURY OF RIGHT WRIST, HAND, AND FINGERS acute right hand pain status post fall COMPARISON: None available TECHNIQUE: 3 views of the right hand FINDINGS: The bones are mildly demineralized. Mild radiocarpal with moderate first carpometacarpal and [id number] multidigit interphalangeal degenerative changes are noted. Mild marginal spurring about the distal radioulnar joint. Subcortical cystic changes seen within the scaphoid and capitate. No acute fracture or subluxation is identified. No opaque foreign body. IMPRESSION: Degenerative changes as above without acute fracture or subluxation. The above report was generated using voice recognition software. It may contain grammatical, syntax or spelling errors. Electronically signed by: Carlos Jackson M.D. 12/22/2017 4:11 PM Dictated Date/Time: 12/22/2017 4:09 PM
== END | disposition home or self-care (01) ==
LOC: C.RAD1850 15:44
PROVIDERS: ATTEND Family Medicine
DX: M19.041 Primary osteoarthritis, right hand (principal); M19.031 Primary osteoarthritis, right wrist

== ENCOUNTER → 2018-05-31 | Outpatient (CLI) | payer BC ==
[~2018-05-31] MED LIST changes: +LIDO1PAD2 TD
== END | disposition home or self-care (01) ==
LOC: C.RDSM 14:30
PROVIDERS: ATTEND Orthopaedic Surgery
DX: M25.561 Pain in right knee (principal)

== ENCOUNTER 2019-02-24 07:19 | Observation (INO) ==
[2019-02-24] MEDS ORDERED: ONDANSETRON INJ 2 MG/ML 2 ML VIAL IV STA (07:31)
[2019-02-24] MEDS ORDERED: NITROGLYCERIN 2% OINTMENT 30GM TUBE EXT STA (07:31)
[2019-02-24] MEDS ORDERED: ASPIRIN CHEW 324 MG PO STA (07:31)
--- NOTE | 2019-02-24 07:45 | Emergency Department Note ---
Entered by Dinah Nicolas acting as a scribe for History of Present Illness General Chief complaint: Chest Pain Stated complaint: THINKS HAVING HEART ATTACK Time Seen by Provider: 02/24/19 07:25 Source: patient History of Present Illness Onset (ago): hour(s) 6 Location: chest Pain Consistency: + other (episode) Maximum Pain Intensity: 2 Quality: + other (pressure) Relieved By: not by medication (metoprolol) Associated symptoms: + diaphoresis, + nausea/vomiting (nausea) and + other (hypertension); no chest pain and no shortness of breath The patient is a 69 year old male that is presenting to the Emergency Room with complaints of an episode of chest pressure that started this morning around 0100. The patient reports that he has some associated diaphoresis, nausea and hypertension that started at the same time. He denies any shortness of breath. He notes that he is currently experiencing the same symptoms. The patient states that he took one Metoprolol this morning without relief in symptoms. He reports that he has a history of heart disease and has had two coronary stents placed. He notes that he had a heart attack in 2006 and had the first stent place. He states that he had the second stent placed after a near heart attack in 2011. He reports that he did not experience any chest pain with his past heart attacks. He notes that he was prescribed nitroglycerin but that he did not take it today. The patient reports that he was taking blood pressure medication in the past but discontinued it due to recurrent hypotensive episodes. He notes that his blood pressure is usually within range but that it was a little high when it was measured 4 days ago. The patients notes that the patient had a nerve cauterization procedure earlier in the week and that the patient is currently experiencing post-concussion symptoms following a fall at [facility]. Home Medications Home Medications Medication Instructions Recorded Confirmed Type allopurinol 300 mg PO DAILY 07/07/18 02/24/19 History clopidogrel [Plavix] 75 mg PO DAILY 07/07/18 02/24/19 History multivitamin 1 tab PO DAILY 07/07/18 02/24/19 History rosuvastatin [Crestor] 5 mg PO DAILY 07/07/18 02/24/19 History cholecalciferol (vitamin D3) 5,000 unit PO DAILY 09/03/18 02/24/19 History [Vitamin D3] cyanocobalamin (vitamin B-12) 1,000 mcg PO DAILY 09/03/18 02/24/19 History [Vitamin B-12] fluticasone propionate [Flonase 1 spray INTRANASAL DAILY PRN 09/03/18 02/24/19 History Allergy Relief] magnesium oxide 400 mg PO DAILY 09/03/18 02/24/19 History omeprazole magnesium [Prilosec OTC] 20 mg PO DAILY PRN 09/03/18 02/24/19 History ondansetron HCl [Zofran] 4 mg PO DAILY #10 tab 09/03/18 02/24/19 Rx tramadol 50 mg tablet 50 mg PO DAILY PRN tab 02/13/19 02/24/19 History Allergies Allergy/AdvReac Type Severity Reaction Status Date / Time Sulfa (Sulfonamide Allergy Mild HIVES AND Verified 02/24/19 08:08 Antibiotics) ITHCING baclofen AdvReac Mild Tired and Verified 02/24/19 08:08 sluggish gluten AdvReac Mild ABD PAIN Verified 02/24/19 08:08 milk AdvReac Mild STOMACH Verified 02/24/19 08:08 PAIN Wevywcx-Jim-Fty Reductase AdvReac Mild MUSCLE Verified 02/24/19 08:08 Inhibitor WEAKNESS Past Med/Surg History Medical History Encounter for pre-operative examination Hx of myocardial infarction (Resolved) Hypertension (Chronic) Bronchitis (Chronic) Stomach problems (Chronic) Kidney stones (Chronic) Hiatal hernia (Acute) GERD (gastroesophageal reflux disease) Hyperlipidemia Hypertension Kidney stones Myocardial Infarction 7-10 YEARS AGO Osteoarthritis Surgical History History of cardiac cath History of heart artery stent 7-10 YEARS AGO INSERTED>ODESSA History of tonsillectomy Polyp, nasal Family History Mother Family history of diabetes mellitus Social History Preferred Language: Chilean Communication Ability: Effective Visual Impairment: Limited Hearing Ability: Normal 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 and A total of 10 systems reviewed and were otherwise negative Physical Exam Vital Signs Vital Signs - 24 hr 02/24/19 07:21 02/24/19 07:31 02/24/19 08:06 Temperature 36.5 C Temperature Source Oral Sepsis Recent Fever Within 48 Hours No Sepsis New/Unexplained Change in Mental Status No Sepsis Action Taken by Nursing No Action Required Pulse Rate 92 H 76 78 Pulse Rate [Right Finger] Pulse Rate from SpO2 Sensor 79 Pulse Rhythm Regular Pulse Rhythm [Right Finger] Pulse Strength [Right Finger] Respiratory Rate 18 20 19 Respiratory Effort / Characteristics Non-Labored Spontaneous Respiratory Depth Normal Respiratory Pattern Regular Blood Pressure 218/127 H 179/118 H Blood Pressure [Right Arm] Blood Pressure Mean 157 138 Blood Pressure Mean [Right Arm] Blood Pressure Position Sitting Blood Pressure Position [Right Arm] Pulse Oximetry 94 93 93 Oxygen Delivery Method Room Air Room Air 02/24/19 08:16 02/24/19 08:20 02/24/19 08:30 Temperature Temperature Source Sepsis Recent Fever Within 48 Hours Sepsis New/Unexplained Change in Mental Status Sepsis Action Taken by Nursing Pulse Rate 63 73 78 Pulse Rate [Right Finger] Pulse Rate from SpO2 Sensor 70 67 79 Pulse Rhythm Pulse Rhythm [Right Finger] Pulse Strength [Right Finger] Respiratory Rate 11 L 13 15 Respiratory Effort / Characteristics Respiratory Depth Respiratory Pattern Blood Pressure 179/110 H Blood Pressure [Right Arm] Blood Pressure Mean 133 Blood Pressure Mean [Right Arm] Blood Pressure Position Blood Pressure Position [Right Arm] Pulse Oximetry 92 92 92 Oxygen Delivery Method 02/24/19 08:40 02/24/19 08:50 02/24/19 08:55 Temperature Temperature Source Sepsis Recent Fever Within 48 Hours Sepsis New/Unexplained Change in Mental Status Sepsis Action Taken by Nursing Pulse Rate 80 83 83 Pulse Rate [Right Finger] Pulse Rate from SpO2 Sensor 81 82 83 Pulse Rhythm Pulse Rhythm [Right Finger] Pulse Strength [Right Finger] Respiratory Rate 14 13 16 Respiratory Effort / Characteristics Respiratory Depth Respiratory Pattern Blood Pressure 170/110 H Blood Pressure [Right Arm] Blood Pressure Mean 130 Blood Pressure Mean [Right Arm] Blood Pressure Position Blood Pressure Position [Right Arm] Pulse Oximetry 91 93 93 Oxygen Delivery Method 02/24/19 09:00 02/24/19 09:10 02/24/19 09:20 Temperature Temperature Source Sepsis Recent Fever Within 48 Hours Sepsis New/Unexplained Change in Mental Status Sepsis Action Taken by Nursing Pulse Rate 81 84 84 Pulse Rate [Right Finger] Pulse Rate from SpO2 Sensor 83 84 84 Pulse Rhythm Pulse Rhythm [Right Finger] Pulse Strength [Right Finger] Respiratory Rate 16 16 17 Respiratory Effort / Characteristics Respiratory Depth Respiratory Pattern Blood Pressure 174/105 H Blood Pressure [Right Arm] Blood Pressure Mean 128 Blood Pressure Mean [Right Arm] Blood Pressure Position Blood Pressure Position [Right Arm] Pulse Oximetry 94 94 92 Oxygen Delivery Method 02/24/19 09:50 02/24/19 12:14 Temperature 36.6 C 36.5 C Temperature Source Oral Oral Sepsis Recent Fever Within 48 Hours Sepsis New/Unexplained Change in Mental Status Sepsis Action Taken by Nursing Pulse Rate 77 Pulse Rate [Right Finger] 73 66 Pulse Rate from SpO2 Sensor Pulse Rhythm Pulse Rhythm [Right Finger] Regular Pulse Strength [Right Finger] Normal Respiratory Rate 18 18 Respiratory Effort / Characteristics Non-Labored Spontaneous Respiratory Depth Normal Respiratory Pattern Regular Blood Pressure Blood Pressure [Right Arm] 178/100 H 165/96 H Blood Pressure Mean Blood Pressure Mean [Right Arm] 126 119 Blood Pressure Position Blood Pressure Position [Right Arm] Sitting Sitting Pulse Oximetry 93 95 Oxygen Delivery Method Room Air Room Air GENERAL: Patient is in no acute distress. HEENT: No acute trauma, normocephalic atraumatic, mucous membranes moist, no nasal congestion, no scleral icterus. NECK: No stridor, no adenopathy, no meningismus, trachea is midline. LUNGS: Clear to auscultation bilaterally, no wheeze, no rhonchi, breath sounds equal. HEART: Without murmurs gallops or rubs, regular rate and rhythm. ABDOMEN: Soft, nontender, bowel sounds positive, no hernias, no peritonitis. EXTREMITIES: No cyanosis or edema, full range of motion of all the joints without pain or difficulty, no signs for acute trauma. NEUROLOGIC: Oriented x 3, no acute motor or sensory deficits, no focal weakness. SKIN: No rash, no jaundice, no diaphoresis. Course 07:The patient was evaluated in room A03. A complete history and physical examination was performed. 0804: I updated the patient on his current lab and imaging results. The patient is resting comfortably but states that he continues to experience some nausea at this time. 0827: I discussed the patient's case with SARKIS Donis, who will evaluate the patient for further management and care. 0835: Upon reevaluation, the patient is resting comfortably. I discussed laboratory and radiographic results with the patient. He verbalized agreement of the treatment plan. The patient will be evaluated for further management and care. Consultations Consultation #1: I discussed the patient's case with SARKIS Donis, who will evaluate the patient for further management and care. Time: 08:27 Administered Medications Heparin Sodium (Porcine) (Heparin Sodium (Porcine)) 5,000 units SQ Q8 EDMUND Stop: 03/26/19 13:59 Last Admin: 02/24/19 14:08 Dose: Not Given Documented by: [id number] Ioversol (Optiray 320 125ml) 120 ml IV ONCE PRN PRN Reason: Interaction Checking Stop: 02/28/19 11:42 Last Admin: 02/24/19 11:44 Dose: 120 ml Documented by: [id number] Discontinued Medications Aspirin (Aspirin) 324 mg PO NOW STA Stop: 02/24/19 07:32 Last Admin: 02/24/19 07:50 Dose: 324 mg Documented by: [id number] Hydralazine HCl (Hydralazine Hcl) 5 mg IV NOW ONE Stop: 02/24/19 08:08 Last Admin: 02/24/19 08:22 Dose: 5 mg Documented by: [id number] Nitroglycerin (Nitro-Bid 2%) 2 inch EXT NOW STA Stop: 02/24/19 07:32 Last Admin: 02/24/19 07:50 Dose: 2 inch Documented by: [id number] Ondansetron HCl (Zofran) 4 mg IV NOW STA Stop: 02/24/19 07:32 Last Admin: 02/24/19 07:51 Dose: 4 mg Documented by: [id number] Medical Decision Making Differential Diagnosis Differential diagnosis includes: Etiologies such as angina, [place], hypertensive emergency, electrolyte, imbalance, anemia, musculoskeletal pain, pneumonia as well as other were entertained. Medical Records Attestation: I reviewed the patient's medical records. Home Medications Current Medication List: was personally reviewed by me Laboratory Data Attestation: I reviewed the patient's lab results. Result diagrams: 02/24/19 07:44 02/24/19 10:04 Lab Results 02/24/19 02/24/19 02/24/19 Range/Units 07:44 07:44 07:44 WBC 5.28 (4.8-10.8) K/uL RBC 4.64 L (4.7-6.1) M/uL Hgb 16.8 (14.0-18.0) g/dL Hct 46.0 (42-52) % MCV 99.1 (80-100) fL MCH 36.2 H (25-34) pg MCHC 36.5 H (32-36) g/dL RDW Std Deviation 47.0 H (36.4-46.3) fL RDW Coeff of Joseph 13.0 (11.5-14.5) % Plt Count 144 (130-400) K/uL MPV 9.4 (7.4-10.4) fL Immature Gran % (Auto) 2.1 % Neut % (Auto) 70.2 % Lymph % (Auto) 18.4 % [place] % (Auto) 9.1 % Eos % (Auto) 0.0 % Baso % (Auto) 0.2 % Immature Gran # (Auto) 0.11 H (0.00-0.02) K/uL Neut # (Auto) 3.71 (1.4-6.5) K/uL Lymph # (Auto) 0.97 L (1.2-3.4) K/uL [place] # (Auto) 0.48 (0.11-0.59) K/uL Eos # (Auto) 0.00 (0-0.5) K/uL Baso # (Auto) 0.01 (0-0.2) K/uL PT 9.9 (9.0-12.0) Seconds INR 1.0 (0.9-1.1) APTT 25.6 (21.0-31.0) Seconds PTT Ratio 0.9 D-Dimer (0-500) ug/L FEU Sodium 140 (136-145) mmol/L Potassium 3.7 (3.5-5.1) mmol/L Chloride 105 (98-107) mmol/L Carbon Dioxide 23 (21-32) mmol/L Anion Gap 12.0 H (3-11) BUN 17 (7-18) mg/dl Creatinine 0.78 (0.6-1.4) mg/dl Est Cr Clr Drug Dosing 102.5 ml/min Est GFR ( Amer) 106.0 Est GFR (Non-Af Amer) 91.5 BUN/Creatinine Ratio 21.8 H (10-20) Glucose 100 H (70-99) mg/dl Estimat Average Glucose mg/dl Hemoglobin A1c (4.5-5.6) % Calcium 9.0 (8.5-10.1) mg/dl Magnesium 1.8 (1.8-2.4) mg/dl Total Bilirubin 0.6 (0.2-1) mg/dl AST 39 H (15-37) U/L ALT 49 (12-78) U/L Alkaline Phosphatase 67 (45-117) U/L Troponin I < 0.015 (0-0.045) ng/ml Total Protein 7.3 (6.4-8.2) gm/dl Albumin 3.6 (3.4-5.0) gm/dl Globulin 3.7 (2.5-4.0) gm/dl Albumin/Globulin Ratio 1.0 (0.9-2) Lipase 156 (73-393) U/L 02/24/19 02/24/19 02/24/19 Range/Units 10:04 10:04 10:04 WBC (4.8-10.8) K/uL RBC (4.7-6.1) M/uL Hgb (14.0-18.0) g/dL Hct (42-52) % MCV (80-100) fL MCH (25-34) pg MCHC (32-36) g/dL RDW Std Deviation (36.4-46.3) fL RDW Coeff of Joseph (11.5-14.5) % Plt Count (130-400) K/uL MPV (7.4-10.4) fL Immature Gran % (Auto) % Neut % (Auto) % Lymph % (Auto) % [place] % (Auto) % Eos % (Auto) % Baso % (Auto) % Immature Gran # (Auto) (0.00-0.02) K/uL Neut # (Auto) (1.4-6.5) K/uL Lymph # (Auto) (1.2-3.4) K/uL [place] # (Auto) (0.11-0.59) K/uL Eos # (Auto) (0-0.5) K/uL Baso # (Auto) (0-0.2) K/uL PT (9.0-12.0) Seconds INR (0.9-1.1) APTT (21.0-31.0) Seconds PTT Ratio D-Dimer 1560 H* (0-500) ug/L FEU Sodium 139 (136-145) mmol/L Potassium 3.9 (3.5-5.1) mmol/L Chloride 107 (98-107) mmol/L Carbon Dioxide 23 (21-32) mmol/L Anion Gap 9.0 (3-11) BUN 18 (7-18) mg/dl Creatinine 0.71 (0.6-1.4) mg/dl Est Cr Clr Drug Dosing 112.6 ml/min Est GFR ( Amer) 110.2 Est GFR (Non-Af Amer) 95.1 BUN/Creatinine Ratio 24.9 H (10-20) Glucose 109 H (70-99) mg/dl Estimat Average Glucose mg/dl Hemoglobin A1c (4.5-5.6) % Calcium 8.9 (8.5-10.1) mg/dl Magnesium (1.8-2.4) mg/dl Total Bilirubin (0.2-1) mg/dl AST (15-37) U/L ALT (12-78) U/L Alkaline Phosphatase (45-117) U/L Troponin I < 0.015 (0-0.045) ng/ml Total Protein (6.4-8.2) gm/dl Albumin (3.4-5.0) gm/dl Globulin (2.5-4.0) gm/dl Albumin/Globulin Ratio (0.9-2) Lipase (73-393) U/L 02/24/19 Range/Units 10:04 WBC (4.8-10.8) K/uL RBC (4.7-6.1) M/uL Hgb (14.0-18.0) g/dL Hct (42-52) % MCV (80-100) fL MCH (25-34) pg MCHC (32-36) g/dL RDW Std Deviation (36.4-46.3) fL RDW Coeff of Joseph (11.5-14.5) % Plt Count (130-400) K/uL MPV (7.4-10.4) fL Immature Gran % (Auto) % Neut % (Auto) % Lymph % (Auto) % [place] % (Auto) % Eos % (Auto) % Baso % (Auto) % Immature Gran # (Auto) (0.00-0.02) K/uL Neut # (Auto) (1.4-6.5) K/uL Lymph # (Auto) (1.2-3.4) K/uL [place] # (Auto) (0.11-0.59) K/uL Eos # (Auto) (0-0.5) K/uL Baso # (Auto) (0-0.2) K/uL PT (9.0-12.0) Seconds INR (0.9-1.1) APTT (21.0-31.0) Seconds PTT Ratio D-Dimer (0-500) ug/L FEU Sodium (136-145) mmol/L Potassium (3.5-5.1) mmol/L Chloride (98-107) mmol/L Carbon Dioxide (21-32) mmol/L Anion Gap (3-11) BUN (7-18) mg/dl Creatinine (0.6-1.4) mg/dl Est Cr Clr Drug Dosing ml/min Est GFR ( Amer) Est GFR (Non-Af Amer) BUN/Creatinine Ratio (10-20) Glucose (70-99) mg/dl Estimat Average Glucose 108 mg/dl Hemoglobin A1c 5.4 (4.5-5.6) % Calcium (8.5-10.1) mg/dl Magnesium (1.8-2.4) mg/dl Total Bilirubin (0.2-1) mg/dl AST (15-37) U/L ALT (12-78) U/L Alkaline Phosphatase (45-117) U/L Troponin I (0-0.045) ng/ml Total Protein (6.4-8.2) gm/dl Albumin (3.4-5.0) gm/dl Globulin (2.5-4.0) gm/dl Albumin/Globulin Ratio (0.9-2) Lipase (73-393) U/L Imaging Data Radiologist's Impression: Radiology results as stated below per my review and the radiologist's interpretation: XR chest 1V portable CLINICAL HISTORY: Chest Pain dyspnea COMPARISON STUDY: 04/19/2018 FINDINGS: The bones soft tissues and hemidiaphragms are normal. The cardiomediastinal silhouette is normal. The lungs are clear. The pulmonary vasculature is normal. IMPRESSION: Negative chest. The above report was generated using voice recognition software. It may contain grammatical, syntax or spelling errors. Electronically signed by: Roman Alaniz M.D. 02/24/2019 7:55 AM ECG Data Attestation: I personally reviewed and interpreted this ECG as follows: Indication: chest pain Rate (beats per minute): 85 Rhythm: normal sinus Findings: + RBBB (incomplete); no PVC and no ST elevation Blood Pressure Blood Pressure Findings: Elevated blood pressure Blood Pressure Disposition: further management by hospitalist MDM Narrative There is no leukocytosis or concerning anemia. No coagulopathy. No significant electrolyte abnormality or kidney failure. No findings suggestive of hepatitis or pancreatitis. EKG shows a sinus rhythm, no acute ischemia. Cardiac enzyme testing x1 is not consistent with acute cardiac injury. Chest film does not show mediastinal widening, pneumothorax or pneumonia. The patient presents with left-sided chest pressure, sweating and nausea. He has a cardiac history. He was quite hypertensive upon ED arrival. Patient received Nitropaste, 2 inches. He was given 4 baby aspirin orally. He received 4 mg of IV Zofran for nausea. He received IV hydralazine. Patient's blood pressure is improving but still high, he feels slightly better overall. The patient requires a hospital stay. His blood pressure is quite high, he presents with chest pain which certainly could be cardiac in etiology. Further cardiac work-up and monitoring is required. I talked to the patient, I spoke with case management. The on-call hospitalist was consulted. Impression & Plan Precordial chest pain, Hypertensive emergency Discharge Plan Visit Data *Final* Discharge Date/Time: 02/24/19 09:32 Chief Complaint: Chest Pain Stated Complaint: THINKS HAVING HEART ATTACK ED Provider: Geoffrey Cruz Discharge Problem: Precordial chest pain, Hypertensive emergency Patient Disposition: Admitted As Inpatient Discharge Instructions Interventions: ED Discharge Assessment Last Done: 02/24/19 09:32 The scribe's documentation has been prepared under my direction and personally reviewed by me in its entirety. I confirm that the note above accurately reflects all work, treatment, procedures, and medical decision making performed by me.
--- NOTE | 2019-02-24 07:57 | XRay Report ---
XR chest 1V portable CLINICAL HISTORY: Chest Pain dyspnea COMPARISON STUDY: 04/19/2018 FINDINGS: The bones soft tissues and hemidiaphragms are normal. The cardiomediastinal silhouette is n ormal. The lungs are clear. The pulmonary vasculature is normal. IMPRESSION: Negative chest. The above report was generated using voice recognition software. It may contain grammatical, syntax or spelling errors. Electronically signed by: Roman Alaniz M.D. 02/24/2019 7:55 AM
[2019-02-24 07:58] LABS: Basophils # (auto) 0.01 K/uL (0-0.2); Basophils % (auto) 0.2 %; Hemoglobin 16.8 g/dL (14.0-18.0); Immature Granulocytes # (auto) 0.11 K/uL (0.00-0.02); Immature Granulocytes % (auto) 2.1 %; Lymphocytes # (auto) 0.97 K/uL (1.2-3.4); Lymphocytes % (auto) 18.4 %; Mean Corpuscular Hgb Conc 36.5 g/dL (32-36); Mean Corpuscular Volume 99.1 fL (80-100); Mean Platelet Volume 9.4 fL (7.4-10.4); Monocytes # (auto) 0.48 K/uL (0.11-0.59); Monocytes % (auto) 9.1 %; Neutrophils # (auto) 3.71 K/uL (1.4-6.5); Neutrophils % (auto) 70.2 %; Platelet Count 144 K/uL (130-400); Red Blood Count 4.64 M/uL (4.7-6.1); White Blood Count 5.28 K/uL (4.8-10.8)
[2019-02-24] MEDS ORDERED: HydrALAZINE HCL 20 MG/ML VIAL IV ONE (08:07)
[2019-02-24 08:08] LABS: Partial Thromboplastin Ratio 0.9; Partial Thromboplastin Time 25.6 Seconds (21.0-31.0); Prothrombin Time 9.9 Seconds (9.0-12.0)
[2019-02-24 08:13] LABS: Blood Urea Nitrogen 17 mg/dl (7-18); Carbon Dioxide 23 mmol/L (21-32); Chloride 105 mmol/L (98-107); Est GFR (Non-African American) 91.5; Potassium 3.7 mmol/L (3.5-5.1); Sodium 140 mmol/L (136-145)
[2019-02-24 08:14] LABS: Alanine Aminotransferase 49 U/L (12-78); Albumin Level 3.6 gm/dl (3.4-5.0); Aspartate Aminotransferase 39 U/L (15-37); BUN Creatinine Ratio 21.8 (10-20); Creatinine Clr Calc Pharmacy 102.5 ml/min; Glucose 100 mg/dl (70-99); Magnesium 1.8 mg/dl (1.8-2.4)
[2019-02-24 08:18] LABS: Alkaline Phosphatase 67 U/L (45-117); Bilirubin,Total 0.6 mg/dl (0.2-1); Globulin 3.7 gm/dl (2.5-4.0); Total Protein 7.3 gm/dl (6.4-8.2); Troponin I < 0.015 ng/ml (0-0.045)
[2019-02-24] MEDS ORDERED: ONDANSETRON INJ 2 MG/ML 2 ML VIAL IV PRN (09:09)
[2019-02-24] MEDS ORDERED: ALUMINUM/MAGNESIUM SUSP 30 ML UDC PO PRN (09:09)
[2019-02-24] MEDS ORDERED: ACETAMINOPHEN 325 MG TAB PO PRN (09:09)
[2019-02-24] MEDS ORDERED: MoRPHine SULFATE 2 MG/ML CARP IV PRN (09:09)
[2019-02-24] MEDS ORDERED: MAGNESIUM HYDROXIDE SUSP 30 ML UDC PO PRN (09:09)
[2019-02-24] MEDS ORDERED: POLYETHYLENE (MIRALAX) 17 GM PACK PO PRN (09:09)
[2019-02-24] MEDS ORDERED: NITROGLYCERIN SL 0.4 MG/TAB TAB SL PRN (09:09)
[2019-02-24] MEDS ORDERED: ZOLPIDEM TARTRATE 5 MG TAB PO PRN (09:09)
--- NOTE | 2019-02-24 09:15 | History & Physical Report ---
Date of Service February 24, 2019 Assessment & Plan (1) Precordial chest pain: Patient has history of CAD acute MS with 2 stents, now has left chest pain, Cardiac enzymes troponin is negative x1 for now, EKG unremarkable, Will observation, cardiac enzymes troponin x2 Set more, checking d-dimer, Continue home cardiac medicine, which include aspirin, Plavix, Crestor, patient currently not on beta-tevin, now has accelerated hypertension, will start beta-tevin, Check a fasting lipid panel, adjust Crestor as needed Check HbA1c, Optimize blood pressure control, Because a history of MS and stent will have cardiology consultation Present on Admission?: Yes (2) Hypertensive emergency: See above, hydralazine as needed, (3) Headache above the eye region: Recent pain management orbital injection for the nerve block local has some bluish well follow-up (4) Compression fracture: Is not new, and L4-L5, will follow up, (5) Frequent falls: Increase activity, PT OT evaluation and treatment (6) Gait instability: (7) Thoracic facet syndrome: See above (8) Spinal stenosis: See above (9) Lumbar facet joint syndrome: See above Discussed with patient about patient's condition and care plan, answered all questions, Patient is a full code, DVT prophylaxis ordered with heparin every 8, History of Present Illness Chest pain and accelerated hypertension, 69 year old male with past medical history of hypertension, headache, compression fracture L4-L5, frequent fall, gait instability, spinal stenosis, history of myocardial infarction and stent, hypertension presenting to the Emergency Room with complaints of an episode of chest pressure that started this morning around 0100. The patient reports he did not fall asleep last night because of seasonal allergy , with drainage and nose congestion, he has chest pain started in the onset, in the left anterior chest, 2.5 out of 10, constant, without pain, some associated diaphoresis, nausea and hypertension that started at the same time. He denies any shortness of breath, or he arrived to the emergency room he was continued experiencing the same symptoms, took one Metoprolol this morning without relief in symptoms. History of heart disease and has had two coronary stents placed, had a heart attack in 2006 and had the first stent place. He states that he had the second stent placed after a heart attack in 2011m , reports that he did not experience any chest pain with his past heart attacks. He was prescribed nitroglycerin but that he did not take it today Has been taking blood pressure medication in the past but discontinued it due to recurrent hypotensive episodes. Had a nerve cauterization procedure in both left and right because of lower back pain back pain management earlier in the week and that the patient is currently experiencing post-concussion symptoms following a fall at [facility]. He had a nerve block by pain management for near right-sided headache, no recent remaining bluish in their right orbital skin. Currently patient has no chest pain after unable to Nitropatch. Review of system is unremarkable, denies fever chills, denies chest pain, denies cough sputum sinus uppercase, denied nausea vomiting abdominal pain diarrhea constipation, denies dysuria urgency and frequency is, no facial droop is noted speech is a local weakness, Primary Care Provider: Jay Shearer MD Allergies Allergy/AdvReac Type Severity Reaction Status Date / Time Sulfa (Sulfonamide Allergy Mild HIVES AND Verified 02/24/19 08:08 Antibiotics) ITHCING baclofen AdvReac Mild Tired and Verified 02/24/19 08:08 sluggish gluten AdvReac Mild ABD PAIN Verified 02/24/19 08:08 milk AdvReac Mild STOMACH Verified 02/24/19 08:08 PAIN [id number]-Qpo Reductase AdvReac Mild MUSCLE Verified 02/24/19 08:08 Inhibitor WEAKNESS Home Medications Home Medications Medication Instructions Recorded Confirmed Type allopurinol 300 mg PO DAILY 07/07/18 02/24/19 History clopidogrel [Plavix] 75 mg PO DAILY 07/07/18 02/24/19 History multivitamin 1 tab PO DAILY 07/07/18 02/24/19 History rosuvastatin [Crestor] 5 mg PO DAILY 07/07/18 02/24/19 History cholecalciferol (vitamin D3) 5,000 unit PO DAILY 09/03/18 02/24/19 History [Vitamin D3] cyanocobalamin (vitamin B-12) 1,000 mcg PO DAILY 09/03/18 02/24/19 History [Vitamin B-12] fluticasone propionate [Flonase 1 spray INTRANASAL DAILY PRN 09/03/18 02/24/19 History Allergy Relief] magnesium oxide 400 mg PO DAILY 09/03/18 02/24/19 History omeprazole magnesium [Prilosec OTC] 20 mg PO DAILY PRN 09/03/18 02/24/19 History ondansetron HCl [Zofran] 4 mg PO DAILY #10 tab 09/03/18 02/24/19 Rx tramadol 50 mg tablet 50 mg PO DAILY PRN tab 02/13/19 02/24/19 History Past Med/Surg History Medical History Encounter for pre-operative examination Hx of myocardial infarction (Resolved) Hypertension (Chronic) Bronchitis (Chronic) Stomach problems (Chronic) Kidney stones (Chronic) Hiatal hernia (Acute) GERD (gastroesophageal reflux disease) Hyperlipidemia Hypertension Kidney stones Myocardial Infarction 7-10 YEARS AGO Osteoarthritis Surgical History History of cardiac cath History of heart artery stent 7-10 YEARS AGO INSERTED>[facility] History of tonsillectomy Polyp, nasal Family History Mother Family history of diabetes mellitus Social History Preferred Language: Beninese Communication Ability: Effective Visual Impairment: Limited Hearing Ability: Normal Beliefs That Will Affect Care: None marital status: Current Living Situation: Spouse Feels Safe at Home: Yes Smoking Status: Former smoker Second Hand Exposure: No Hx Alcohol Use: Yes Alcohol type: wine Hx Substance Use: No Physical Exam Physical Exam: General Appearance: Moderate obesity, no uncomfortable, WD/WN, no apparent distress, Eyes: Right orbital Medial part has bluish, no local swelling or bleeding, normal inspection, PERRL, EOMI, sclerae normal ENT: normal ENT inspection, hearing grossly normal, pharynx normal Neck: supple, no adenopathy, thyroid normal, no JVD, no carotid bruits, trachea midline Respiratory/Chest: chest non-tender, normal breath sounds, no respiratory distress, no accessory muscle use, breath sounds, rales, wheezing Cardiovascular: regular rate, rhythm, no JVD, no murmur Abdomen: normal bowel sounds, non tender, soft, no organomegaly, Extremities: normal range of motion, non-tender, normal inspection, no pedal edema, no calf tenderness, normal capillary refill, pelvis stable, joint has no limited range of motion, capillary refill is normal, no cyanosis clubbing Neurologic/Psychiatric: prepress operator II-XII nml as tested, no motor/sensory deficits, alert, normal mood/affect, oriented x 3 Skin: normal color, warm/dry, no rash Lymphatic: no adenopathy Results & Data Vital Signs (Past 12 Hours) Vital Signs Temp Pulse Resp BP Pulse Ox 02/24/19 08:20 73 13 92 02/24/19 08:16 63 11 L 92 02/24/19 08:06 78 19 179/118 H 93 02/24/19 07:31 76 20 93 02/24/19 07:21 36.5 C 92 H 18 218/127 H 94 Laboratory Results - last 24 hr 02/24/19 02/24/19 02/24/19 07:44 07:44 07:44 WBC 5.28 RBC 4.64 L Hgb 16.8 Hct 46.0 MCV 99.1 MCH 36.2 H MCHC 36.5 H RDW Std Deviation 47.0 H RDW Coeff of Joseph 13.0 Plt Count 144 MPV 9.4 Immature Gran % (Auto) 2.1 Neut % (Auto) 70.2 Lymph % (Auto) 18.4 [place] % (Auto) 9.1 Eos % (Auto) 0.0 Baso % (Auto) 0.2 Immature Gran # (Auto) 0.11 H Neut # (Auto) 3.71 Lymph # (Auto) 0.97 L [place] # (Auto) 0.48 Eos # (Auto) 0.00 Baso # (Auto) 0.01 PT 9.9 INR 1.0 APTT 25.6 PTT Ratio 0.9 Sodium 140 Potassium 3.7 Chloride 105 Carbon Dioxide 23 Anion Gap 12.0 H BUN 17 Creatinine 0.78 Est Cr Clr Drug Dosing 102.5 Est GFR ( Amer) 106.0 Est GFR (Non-Af Amer) 91.5 BUN/Creatinine Ratio 21.8 H Glucose 100 H Calcium 9.0 Magnesium 1.8 Total Bilirubin 0.6 AST 39 H ALT 49 Alkaline Phosphatase 67 Troponin I < 0.015 Total Protein 7.3 Albumin 3.6 Globulin 3.7 Albumin/Globulin Ratio 1.0 Lipase 156 Code Status & VTE Plan Code Status Full code, VTE Prophylaxis Plan VTE Prophylaxis will be ordered: Yes
[2019-02-24] MEDS ORDERED: FLUTICASONE PROPIONATE NA SPR 16 GM BTL NAE PRN (09:32)
[2019-02-24] MEDS ORDERED: TRAMADOL HCL 50 MG TABLET PO PRN (09:32)
[2019-02-24] MEDS ORDERED: PANTOprazole 40 MG TAB PO PRN (09:32)
[2019-02-24 10:56] LABS: D Dimer 1560 ug/L FEU (0-500)
[2019-02-24 11:14] LABS: BUN Creatinine Ratio 24.9 (10-20); Calcium 8.9 mg/dl (8.5-10.1); Creatinine Clr Calc Pharmacy 112.6 ml/min; Est GFR (African American) 110.2; Est GFR (Non-African American) 95.1; Potassium 3.9 mmol/L (3.5-5.1)
[2019-02-24] MEDS ORDERED: OPTIRAY 320 125ml IV PRN (11:43)
[2019-02-24 11:49] LABS: Estimated Average Glucose 108 mg/dl; Hemoglobin A1C 5.4 % (4.5-5.6)
--- NOTE | 2019-02-24 12:00 | CT Scan Report ---
CT angio chest PE protocol CT DOSE: 790.78 mGy.cm HISTORY: Chest pain PE TECHNIQUE: Multiaxial CT images of the chest were performed following the intravenous administration of contrast to evaluate the pulmonary arteries. Maximal intensity projection images were also obtaine d. A dose lowering technique was utilized adhering to the principles of ALARA. COMPARISON STUDY: None. FINDINGS: There is a normal caliber thoracic aorta with no evidence for dissection. There is no evide nce for pulmonary embolus. No pleural effusions. No pneumothorax. The liver and spleen are unremarkab le. No mediastinal or hilar lymphadenopathy. The central airways are patent. The lungs are clear. Sub sternal extension of the right thyroid. IMPRESSION: No evidence for pulmonary embolus. The lungs are clear. The above report was generated using voice recognition software. It may contain grammatical, syntax or spelling errors. Electronically signed by: Roman Alaniz M.D. 02/24/2019 11:58 AM
[2019-02-24] MEDS ORDERED: HEPARIN SOD 5,000 UNIT/0.5 ML VIAL SQ SCH (14:00)
--- NOTE | 2019-02-24 15:20 | Cardiology Consultation ---
Date of Consultation February 24, 2019 Assessment & Plan (1) Precordial chest pain: Patient of fairly extended episode of chest discomfort. The chest discomfort itself was atypical in that it was not associated with exertion and somewhat positional in nature. He also described the character as similar to discomfort he has had lying on the left side previously. Patient was more concerned about the diaphoresis and nausea. However, despite prolonged episodes of the symptoms he has not had elevations in his biomarkers. I do not believe this symptoms represented acute coronary syndrome. I think he can continue his outpatient medical therapy which consists of clopidogrel and rosuvastatin (2) Hypertension: Patient blood pressure is mildly elevated over the course of this week. In the past he has had some difficulty with hypotension. However, this was on multiple antihypertensive agents. I think given his history of myocardial infarction and recent blood pressures he could be discharged on 20/5 milligrams of metoprolol succinate taken once daily. (3) Hx of myocardial infarction: The patient had discontinued his Plavix recently in order to facilitate his pain interventions. However, he was taking it later in the week. I do not believe his current symptoms represent an acute coronary syndrome or any problems related to missing his Plavix. However, he should reinstitute the Plavix and resume the statin. As noted above I think he could probably tolerate some low-dose metoprolol succinate as well. He did not have symptoms of chest discomfort associated with his prior interventions. According to his in the patient's some of his symptoms involve diaphoresis and nausea. However, he has frequent sweating at nighttime. He also had some nausea possibly related to his allergies. Again, he had a prolonged episode of symptoms without elevation of biomarkers and is feeling well this morning. History of Present Illness Reason for Consultation: Chest pain Requesting Physician: Allison Attending Physician: Nik Cooper MD, PhD, [facility] History of Present Illness The patient is a 69-year-old gentleman with a history of coronary disease having previously undergone percutaneous intervention on 2 occasions who experienced an episode of chest discomfort last evening. Patient states that he has been suffering from seasonal allergies and associated postnasal drainage. This kept him awake for most of the evening. He states that approximately 1 a.m. he began to experience some left upper pectoral and shoulder discomfort. This felt as if it was discomfort associated with lying on his left side. In fact, it was positional. The symptoms resolved significantly when lying on his back. However, the symptoms waxed and waned in severity for several hours. Patient has some associated diaphoresis and also felt somewhat nauseated. He took his blood pressure over the course of the evening and found that this was elevated. Based on this constellation of symptoms he sought medical attention at [facility]. He was administered nitroglycerin on arrival with some improvement in his symptoms. He has not had a recurrence of the symptoms since admission. The patient and his states that at the time of his prior interventions he did experience some diaphoresis and nausea. He has not experienced chest pain associated with heart attacks in the past. Patient states that he generally were sweat pants to bed at night and often times will have sweating. He felt that the nausea he had was related to his postnasal drainage. His nausea has resolved currently in 8th a small breakfast today. In the past patient was quite active, but he did suffer a fall this past year which resulted in a right orbital fracture. He also has some persistent back discomfort. The patient recently was evaluated by the pain management service and underwent nerve ablation as well as injection around the right orbit for pain control. Currently ambulates with a walking stick. He is limited by his back pain. Allergies Allergy/AdvReac Type Severity Reaction Status Date / Time Sulfa (Sulfonamide Allergy Mild HIVES AND Verified 02/24/19 08:08 Antibiotics) ITHCING baclofen AdvReac Mild Tired and Verified 02/24/19 08:08 sluggish gluten AdvReac Mild ABD PAIN Verified 02/24/19 08:08 milk AdvReac Mild STOMACH Verified 02/24/19 08:08 PAIN Jxyfehh-[id number]-Tnk Reductase AdvReac Mild MUSCLE Verified 02/24/19 08:08 Inhibitor WEAKNESS Home Medications Home Medications Medication Instructions Recorded Confirmed Type allopurinol 300 mg PO DAILY 07/07/18 02/24/19 History clopidogrel [Plavix] 75 mg PO DAILY 07/07/18 02/24/19 History multivitamin 1 tab PO DAILY 07/07/18 02/24/19 History rosuvastatin [Crestor] 5 mg PO DAILY 07/07/18 02/24/19 History cholecalciferol (vitamin D3) 5,000 unit PO DAILY 09/03/18 02/24/19 History [Vitamin D3] cyanocobalamin (vitamin B-12) 1,000 mcg PO DAILY 09/03/18 02/24/19 History [Vitamin B-12] fluticasone propionate [Flonase 1 spray INTRANASAL DAILY PRN 09/03/18 02/24/19 History Allergy Relief] magnesium oxide 400 mg PO DAILY 09/03/18 02/24/19 History omeprazole magnesium [Prilosec OTC] 20 mg PO DAILY PRN 09/03/18 02/24/19 History ondansetron HCl [Zofran] 4 mg PO DAILY #10 tab 09/03/18 02/24/19 Rx tramadol 50 mg tablet 50 mg PO DAILY PRN tab 02/13/19 02/24/19 History Patient History Medical History Encounter for pre-operative examination Hx of myocardial infarction (Resolved) Hypertension (Chronic) Bronchitis (Chronic) Stomach problems (Chronic) Kidney stones (Chronic) Hiatal hernia (Acute) GERD (gastroesophageal reflux disease) Hyperlipidemia Hypertension Kidney stones Myocardial Infarction 7-10 YEARS AGO Osteoarthritis Surgical History History of cardiac cath History of heart artery stent 7-10 YEARS AGO INSERTED>[place] History of tonsillectomy Polyp, nasal Family History Mother Family history of diabetes mellitus Social History Preferred Language: Setswana Communication Ability: Effective Visual Impairment: Limited Hearing Ability: Normal Ticket Marker Required: No Beliefs That Will Affect Care: None marital status: Current Living Situation: Spouse Other Information That Helps Us Care for You: No Feels Safe at Home: Yes Safety Concerns: Feels Safe At This Time Smoking Status: Former smoker Tobacco Type: cigarettes Do You Dip or Chew Tobacco: No Smoking End Date: 2008 Second Hand Exposure: No Tobacco Cessation Education Requested by Patient: No Hx Alcohol Use: Yes Alcohol type: wine Hx Substance Use: No Review of Systems Review of Systems: All systems reviewed & are unremarkable except as noted in HPI & below Patient did have diaphoresis and chills last night. No objective fevers. His blood pressures been slightly elevated over the course of the last week. He denies any lower extremity edema. He has not had orthopnea. Physical Exam Physical Exam: The patient is alert and oriented. Mood and affect appeared normal. He answered all questions appropriately. HEENT: Pupils are equal and reactive to light and accommodation. Extraocular movements are intact. The sclerae are anicteric. Neuro: Cranial nerves intact Neck: Patient's neck is supple. He has palpable carotid pulses bilaterally without bruits on auscultation. There is no evidence of jugular venous distention. The thyroid is not enlarged. Lungs: Clear to auscultation bilaterally. He has good air movement without use of accessory muscles. No rales wheezes or rhonchi. Cardiac: Heart demonstrates a regular rate and rhythm. Normal S1 and S2. No murmurs on examination. Chest: No reproducible pain with palpation in left upper pectoral area. Pulses: The patient has palpable radial pulses bilaterally that are equal in intensity Extremities: There was no evidence of hypoperfusion. There is no cyanosis or clubbing. There is no edema. Skin: I did not appreciate any rashes on examination today. Results & Data Vital Signs (Past 12 Hours) Vital Signs Temp Pulse Pulse Resp BP BP Pulse Ox 02/24/19 15:04 36.8 C 57 L 16 156/90 H 96 02/24/19 12:14 36.5 C 66 18 165/96 H 95 02/24/19 09:50 36.6 C 77 73 18 178/100 H 93 02/24/19 09:20 84 17 92 02/24/19 09:10 84 16 94 02/24/19 09:00 81 16 174/105 H 94 02/24/19 08:55 83 16 170/110 H 93 02/24/19 08:50 83 13 93 02/24/19 08:40 80 14 91 02/24/19 08:30 78 15 179/110 H 92 02/24/19 08:20 73 13 92 02/24/19 08:16 63 11 L 92 02/24/19 08:06 78 19 179/118 H 93 02/24/19 07:31 76 20 93 02/24/19 07:21 36.5 C 92 H 18 218/127 H 94 Laboratory Results Abnormal Lab Results 02/24/19 02/24/19 02/24/19 07:44 07:44 07:44 WBC 5.28 RBC 4.64 L Hgb 16.8 Hct 46.0 MCV 99.1 MCH 36.2 H MCHC 36.5 H RDW Std Deviation 47.0 H RDW Coeff of Joseph 13.0 Plt Count 144 MPV 9.4 Immature Gran % (Auto) 2.1 Neut % (Auto) 70.2 Lymph % (Auto) 18.4 [place] % (Auto) 9.1 Eos % (Auto) 0.0 Baso % (Auto) 0.2 Immature Gran # (Auto) 0.11 H Neut # (Auto) 3.71 Lymph # (Auto) 0.97 L [place] # (Auto) 0.48 Eos # (Auto) 0.00 Baso # (Auto) 0.01 PT 9.9 INR 1.0 APTT 25.6 PTT Ratio 0.9 D-Dimer Sodium 140 Potassium 3.7 Chloride 105 Carbon Dioxide 23 Anion Gap 12.0 H BUN 17 Creatinine 0.78 Est Cr Clr Drug Dosing 102.5 Est GFR ( Amer) 106.0 Est GFR (Non-Af Amer) 91.5 BUN/Creatinine Ratio 21.8 H Glucose 100 H Estimat Average Glucose Hemoglobin A1c Calcium 9.0 Magnesium 1.8 Total Bilirubin 0.6 AST 39 H ALT 49 Alkaline Phosphatase 67 Troponin I < 0.015 Total Protein 7.3 Albumin 3.6 Globulin 3.7 Albumin/Globulin Ratio 1.0 Lipase 156 02/24/19 02/24/19 02/24/19 10:04 10:04 10:04 WBC RBC Hgb Hct MCV MCH MCHC RDW Std Deviation RDW Coeff of Joseph Plt Count MPV Immature Gran % (Auto) Neut % (Auto) Lymph % (Auto) [place] % (Auto) Eos % (Auto) Baso % (Auto) Immature Gran # (Auto) Neut # (Auto) Lymph # (Auto) [place] # (Auto) Eos # (Auto) Baso # (Auto) PT INR APTT PTT Ratio D-Dimer 1560 H* Sodium 139 Potassium 3.9 Chloride 107 Carbon Dioxide 23 Anion Gap 9.0 BUN 18 Creatinine 0.71 Est Cr Clr Drug Dosing 112.6 Est GFR ( Amer) 110.2 Est GFR (Non-Af Amer) 95.1 BUN/Creatinine Ratio 24.9 H Glucose 109 H Estimat Average Glucose Hemoglobin A1c Calcium 8.9 Magnesium Total Bilirubin AST ALT Alkaline Phosphatase Troponin I < 0.015 Total Protein Albumin Globulin Albumin/Globulin Ratio Lipase 02/24/19 10:04 WBC RBC Hgb Hct MCV MCH MCHC RDW Std Deviation RDW Coeff of Joseph Plt Count MPV Immature Gran % (Auto) Neut % (Auto) Lymph % (Auto) [place] % (Auto) Eos % (Auto) Baso % (Auto) Immature Gran # (Auto) Neut # (Auto) Lymph # (Auto) [place] # (Auto) Eos # (Auto) Baso # (Auto) PT INR APTT PTT Ratio D-Dimer Sodium Potassium Chloride Carbon Dioxide Anion Gap BUN Creatinine Est Cr Clr Drug Dosing Est GFR ( Amer) Est GFR (Non-Af Amer) BUN/Creatinine Ratio Glucose Estimat Average Glucose 108 Hemoglobin A1c 5.4 Calcium Magnesium Total Bilirubin AST ALT Alkaline Phosphatase Troponin I Total Protein Albumin Globulin Albumin/Globulin Ratio Lipase Diagnostic Findings Chest x-ray obtained at the time admission not reveal any acute cardiopulmonary process Chest CTA at the time of admission did not reveal any evidence of aortic dissection or pulmonary embolus ECG Additional Comments: Normal sinus rhythm with right bundle branch block. No acute ST or T-wave changes
--- NOTE | 2019-02-24 18:36 | Discharge Summary ---
Date of Service February 24, 2019 Principal Diagnosis 25 min, Discharge Data Allergies Allergy/AdvReac Type Severity Reaction Status Date / Time Sulfa (Sulfonamide Allergy Mild HIVES AND Verified 02/24/19 08:08 Antibiotics) ITHCING baclofen AdvReac Mild Tired and Verified 02/24/19 08:08 sluggish gluten AdvReac Mild ABD PAIN Verified 02/24/19 08:08 milk AdvReac Mild STOMACH Verified 02/24/19 08:08 PAIN Muxgony-Irw-Mfw Reductase AdvReac Mild MUSCLE Verified 02/24/19 08:08 Inhibitor WEAKNESS Consultations 02/24/19 08:28 ED Decision to Admit Stat 02/24/19 12:28 Consult Cardiology Routine Ordered Studies 02/24/19 10:58 CT angio chest PE protocol Stat Hospital Course (1) Precordial chest pain: Patient has history of CAD acute IA with 2 stents, now has left chest pain, Cardiac enzymes troponin is negative x1 for now, EKG unremarkable, Will observation, cardiac enzymes troponin x2 Set more, checking d-dimer, Continue home cardiac medicine, which include aspirin, Plavix, Crestor, patient currently not on beta-tevin, now has accelerated hypertension, will start beta-tevin, Check a fasting lipid panel, adjust Crestor as needed Check HbA1c, Optimize blood pressure control, Because a history of IA and stent will have cardiology consultation In the afternoon, Patient went to go home, I feel he is not ready to be discharged yet He has Precordial chest pain and Hypertension emergency , And he has significant history of blood pressure fluctuation, Patient has significant medical history of medicine noncompliant, he discontinued medications by himself, I believe he needs more observation and education in the hospital, Even through for the fast lipid panel, HbA1c studies etc, I need to get the information to optimize his care and follow-up to find out what is going on, His recent blood pressure was 156/91, He needs to have 3 sets of cardiac enzymes troponin negative now I can discharge him home, He now only has 2 sets therefore, based on all of the above medical conditions I do not feel he is ready to be discharged pt is [id number], competent to make decision for him self, I told him that [facility] is not ready fro me to discharge him yet, he will be in risks of worsening medical conditions, chest pain, worsening BP, and even .. he is competent to make decision for himself, and want to leave with all risks by himself, I told him he can come back to emergency room, or call pcp if he change minds and want to be treated. (2) Hypertensive emergency: See above, hydralazine as needed, (3) Headache above the eye region: Recent pain management orbital injection for the nerve block local has some bluish well follow-up (4) Compression fracture: Is not new, and L4-L5, will follow up, (5) Frequent falls: Increase activity, PT OT evaluation and treatment (6) Gait instability: (7) Thoracic facet syndrome: See above (8) Spinal stenosis: See above (9) Lumbar facet joint syndrome: See above Discussed with patient about patient's condition and care plan, answered all questions, Patient is a full code, DVT prophylaxis ordered with heparin every 8, Total Time Total Time Spent Total Time Spent (In Minutes): 25 Discharge Plan Discharge Items Disposition: Against Medical Advice Admission Data Admit Date/Time: 02/24/19 09:11 Attending Provider: Nik Cooper Admit Provider: Nik Cooper Primary Care Provider: Jay Shearer Other Providers: Marcos Villa ; Roque Feldman Service: Telemetry Other HI Date/Time DO NOT enter until pt leaves facility: 02/24/19 16:05
[2019-02-25] MEDS ORDERED: ONDANSETRON 4 MG TAB PO PRN (09:00)
[2019-02-25] MEDS ORDERED: MULTIVITAMIN TAB PO SCH (09:00)
[2019-02-25] MEDS ORDERED: CHOLECALCIFEROL 1,000 UNITS TAB PO SCH (09:00)
[2019-02-25] MEDS ORDERED: ROSUVASTATIN CALCIUM 5 MG TAB PO SCH (09:00)
[2019-02-25] MEDS ORDERED: ASPIRIN 81 MG ECTAB PO SCH (09:00)
[2019-02-25] MEDS ORDERED: CLOPIDOGREL BISULFATE 75 MG TAB PO SCH (09:00)
[2019-02-25] MEDS ORDERED: ALLOPURINOL 300 MG TAB PO SCH (09:00)
[2019-02-25] MEDS ORDERED: MAGNESIUM OXIDE 400 MG TAB PO SCH (09:00)
[2019-02-25] MEDS ORDERED: CYANOCOBALAMIN 500 MCG TABLET (VITAMIN B-12) PO SCH (09:00)
== END 2019-02-24 16:05 | disposition left against medical advice (07) ==
LOC: 2S 07:19 → ED 07:19 → 2S 09:32

== ENCOUNTER 2019-10-22 03:11 | Observation (INO) ==
[2019-10-22] MEDS ORDERED: NITROGLYCERIN 2% OINTMENT 30GM TUBE EXT ONE (03:25)
[2019-10-22] MEDS ORDERED: ASPIRIN 81 MG CHEW PO STA (03:25)
[2019-10-22] MEDS ORDERED: NITROGLYCERIN 2% OINTMENT 30GM TUBE ONE (03:31)
[2019-10-22] MEDS ORDERED: ASPIRIN CHEW 324 MG ONE (03:32)
[2019-10-22 03:43] LABS: Basophils # (auto) 0.03 K/uL (0-0.2); Basophils % (auto) 0.3 %; Eosinophils # (auto) 0.21 K/uL (0-0.5); Eosinophils % (auto) 2.1 %; Hematocrit (blood only) 43.9 % (42-52); Hemoglobin 14.8 g/dL (14.0-18.0); Immature Granulocytes # (auto) 0.04 K/uL (0.00-0.02); Immature Granulocytes % (auto) 0.4 %; Lymphocytes % (auto) 19.8 %; Mean Corpuscular Hgb Conc 33.7 g/dL (32-36); Mean Corpuscular Volume 106.8 fL (80-100); Mean Platelet Volume 9.7 fL (7.4-10.4); Monocytes # (auto) 1.18 K/uL (0.11-0.59); Monocytes % (auto) 11.7 %; Neutrophils # (auto) 6.63 K/uL (1.4-6.5); Neutrophils % (auto) 65.7 %; Platelet Count 191 K/uL (130-400); RDW Coefficient of Variation 13.1 % (11.5-14.5); RDW Standard Deviation 51.4 fL (36.4-46.3); Red Blood Count 4.11 M/uL (4.7-6.1); White Blood Count 10.09 K/uL (4.8-10.8)
[2019-10-22 04:01] LABS: Alanine Aminotransferase 16 U/L (12-78); Albumin Level 3.1 gm/dl (3.4-5.0); Aspartate Aminotransferase 15 U/L (15-37); BUN Creatinine Ratio 16.4 (10-20); Blood Urea Nitrogen 9 mg/dl (7-18); Calcium 8.7 mg/dl (8.5-10.1); Carbon Dioxide 24 mmol/L (21-32); Chloride 107 mmol/L (98-107); Creatinine Clr Calc Pharmacy 151.7 ml/min; Est GFR (African American) 123.3; Est GFR (Non-African American) 106.4; Glucose 101 mg/dl (70-99); Lipase 168 U/L (73-393); Magnesium 1.6 mg/dl (1.8-2.4); Potassium 3.7 mmol/L (3.5-5.1); Sodium 137 mmol/L (136-145)
[2019-10-22 04:12] LABS: Albumin Globulin Ratio 0.8 (0.9-2); Alkaline Phosphatase 63 U/L (45-117); Bilirubin,Total 0.4 mg/dl (0.2-1); Globulin 4.1 gm/dl (2.5-4.0); Total Protein 7.2 gm/dl (6.4-8.2); Troponin I < 0.015 ng/ml (0-0.045)
[2019-10-22 04:16] LABS: Partial Thromboplastin Time 27.3 Seconds (21.0-31.0); Prothrombin Time 9.8 Seconds (9.0-12.0)
[2019-10-22] MEDS ORDERED: NITROGLYCERIN SL 0.4 MG/TAB TAB SL STA (04:18)
--- NOTE | 2019-10-22 04:30 | Emergency Department Note ---
ED Visit Note I saw this patient in conjunction with Kong Campbell PA-C. The patient was complaining of some more discomfort in the upper chest/neck as well as his elbow which she describes as being consistent with a previous heart attack. The patient currently has nitroglycerin paste in place but will receive some sublingual nitro. His blood pressure is stable at this time. The patient will require further evaluation for inpatient care. .
--- NOTE | 2019-10-22 04:45 | Emergency Department Note ---
History of Present Illness General Chief complaint: Cardiac Assessment Stated complaint: CHEST DISCOMFORT,LFT SHOULDER AND ARM PAIN Time Seen by Provider: 10/22/19 03:23 History of Present Illness Maximum Pain Intensity: 6 This is a 69-year-old male presenting to the emergency department for evaluation of chest pain for the past 1-1/2 days. The patient states that at times his pain will radiate into his left side shoulder and left neck. He does have a history of heart attack in the past and is on Plavix. The patient does not identify aggravating or alleviating factors. He has some chronic shortness of breath that is not different from normal. He describes the pain as an aching bone sensation. He does have nitroglycerin at home, but did not try using this. He does not take aspirin on a daily basis as he has difficulty using it regularly. The patient's discomfort is currently rated a 6/10. No recent travel history. No recent URI symptoms. Home Medications Home Medications Medication Instructions Recorded Confirmed Type allopurinol 300 mg PO DAILY 07/07/18 10/22/19 History multivitamin 1 tab PO DAILY 07/07/18 10/22/19 History cholecalciferol (vitamin D3) 5,000 unit PO DAILY 09/03/18 10/22/19 History [Vitamin D3] cyanocobalamin (vitamin B-12) 1,000 mcg PO DAILY 09/03/18 10/22/19 History [Vitamin B-12] fluticasone propionate [Flonase 1 spray INTRANASAL DAILY PRN 09/03/18 10/22/19 History Allergy Relief] magnesium oxide 400 mg PO DAILY 09/03/18 10/22/19 History tramadol 50 mg tablet 50 mg PO DAILY PRN tab 02/13/19 10/22/19 History metoprolol succinate 25 mg 75 mg PO DAILY tab 03/26/19 10/22/19 History tablet,extended release 24 hr rosuvastatin 5 mg tablet 5 mg PO DAILY #90 tab 07/27/19 10/22/19 Rx nitroglycerin 0.4 mg sublingual 0.4 mg SL Q5M PRN #100 tab 08/01/19 10/22/19 Rx tablet clopidogrel 75 mg tablet 75 mg PO DAILY #90 tab 09/12/19 10/22/19 Rx famotidine [Pepcid] 20 mg PO DAILY 10/22/19 10/22/19 History Allergies Allergy/AdvReac Type Severity Reaction Status Date / Time zolpidem [From Ambien] Allergy Severe " Verified 10/22/19 04:28 Hallucinates and sleepwalks" gabapentin Allergy Intermediate " [place] Verified 10/22/19 04:28 like " out of body" Sulfa (Sulfonamide Allergy Mild HIVES AND Verified 10/22/19 04:28 Antibiotics) ITHCING baclofen AdvReac Mild Tired and Verified 10/22/19 04:28 sluggish gluten AdvReac Mild ABD PAIN Verified 10/22/19 04:28 milk AdvReac Mild STOMACH Verified 10/22/19 04:28 PAIN Myypyzm-[id number]-[id number] Reductase AdvReac Mild MUSCLE Verified 10/22/19 04:28 Inhibitor WEAKNESS Past Med/Surg History Medical History Bronchitis (Chronic) Encounter for pre-operative examination GERD (gastroesophageal reflux disease) Hiatal hernia (Acute) Hx of myocardial infarction (Resolved) Hyperlipidemia Hypertension (Chronic) Hypertension Kidney stones (Chronic) Kidney stones Myocardial Infarction 7-10 YEARS AGO Osteoarthritis Stomach problems (Chronic) Surgical History History of cardiac cath History of heart artery stent 7-10 YEARS AGO INSERTED>[place] History of tonsillectomy Polyp, nasal Social History Preferred Language: Estonian Communication Ability: Effective Visual Impairment: Limited Hearing Ability: Normal Mechanical Detailer Required: No Beliefs That Will Affect Care: None marital status: Current Living Situation: Spouse Feels Safe at Home: Yes Smoking Status: Never smoker Tobacco Type: cigarettes ; Second Hand Exposure: No ; Hx Alcohol Use: Yes Alcohol type: wine Hx Substance Use: No Review of Systems A total of 10 systems reviewed and were otherwise negative Physical Exam Vital Signs Vital Signs - 24 hr 10/22/19 03:13 10/22/19 03:24 10/22/19 03:38 Temperature 36.6 C Temperature Source Oral Pulse Rate 96 H Pulse Rate [Right Finger] Pulse Rhythm [Right Finger] Pulse Strength [Right Finger] Respiratory Rate 20 Respiratory Effort / Characteristics Non-Labored Spontaneous Respiratory Depth Normal Respiratory Pattern Blood Pressure 135/82 Blood Pressure [Right Arm] Blood Pressure Mean 99 Blood Pressure Mean [Right Arm] Blood Pressure Position Sitting Pulse Oximetry 95 94 98 Oxygen Delivery Method Room Air Room Air Room Air Oxygen Flow Rate Sepsis Recent Fever Within 48 Hours No Sepsis Action Taken by Nursing No Action Required 10/22/19 04:21 10/22/19 04:29 Temperature Temperature Source Pulse Rate Pulse Rate [Right Finger] 92 H Pulse Rhythm [Right Finger] Regular Pulse Strength [Right Finger] Normal Respiratory Rate 20 Respiratory Effort / Characteristics Non-Labored Spontaneous Respiratory Depth Normal Respiratory Pattern Regular Blood Pressure Blood Pressure [Right Arm] 128/72 Blood Pressure Mean Blood Pressure Mean [Right Arm] 90 Blood Pressure Position Pulse Oximetry 95 94 Oxygen Delivery Method Room Air Nasal Cannula Oxygen Flow Rate 2 Sepsis Recent Fever Within 48 Hours Sepsis Action Taken by Nursing VITALS: Vitals are noted on the nurse's note and reviewed by myself. Vital signs stable. GENERAL: Well-developed, well-nourished, white male, who is in no acute distress and resting comfortably. Patient is cooperative with the examination. HEAD: Normocephalic atraumatic. EARS: External ear normal. External auditory canals clear, tympanic membranes pearly vargas without erythema or effusion bilaterally. EYES: Pupils equal round and reactive to light and accommodation. Conjunctivae without injection, sclerae without icterus. Extraocular movements intact. NOSE: Patent, turbinates without inflammation or discharge. MOUTH: Mucous membranes moist. Tonsils are not enlarged. Pharynx without erythema, blood, or exudate. Uvula midline. Airway patent. NECK: Supple without nuchal rigidity. No lymphadenopathy. No thyromegaly. Cervical spine is nontender. HEART: Regular rate and rhythm without murmurs gallops or rubs. LUNGS: Clear to auscultation bilaterally without wheezes, rales or rhonchi. No retractions or accessory muscle use. ABDOMEN: Positive normal bowel sounds x 4. Soft, nontender, without masses or organomegaly. No guarding or rebound tenderness. MUSCULOSKELETAL: No muscle atrophy, erythema, or edema noted. Full range of motion in all extremities. NEURO: Patient was alert and oriented to person place and time. CN II through XII grossly intact. SKIN: The skin was without rashes, erythema, edema, or bruising. Capillary refill less than 2 seconds. Course Administered Medications Discontinued Medications Aspirin (Aspirin Chew) 324 mg PO NOW STA Stop: 10/22/19 03:26 Last Admin: 10/22/19 03:40 Dose: 324 mg Documented by: [id number] Aspirin (Aspirin) Confirm Administered Dose 324 mg .ROUTE .STK-MED ONE Stop: 10/22/19 03:33 Last Admin: 10/22/19 03:40 Dose: Not Given Documented by: [id number] Nitroglycerin (Nitro-Bid 2%) 1 inch EXT NOW ONE Stop: 10/22/19 03:26 Last Admin: 10/22/19 03:40 Dose: 1 inch Documented by: [id number] Nitroglycerin (Nitro-Bid 2%) Confirm Administered Dose 18 inch .ROUTE .STK-MED ONE Stop: 10/22/19 03:32 Last Admin: 10/22/19 03:40 Dose: Not Given Documented by: [id number] Nitroglycerin (Nitrostat) 0.4 mg SL NOW STA Stop: 10/22/19 04:19 Last Admin: 10/22/19 04:22 Dose: 0.4 mg Documented by: [id number] Medical Decision Making Differential Diagnosis Differential diagnosis includes, but is not limited to: Myocardial infarction, dysrhythmia, pericarditis, pneumothorax, aortic aneurysm/dissection, DVT/PE, anxiety, GERD, PUD, electrolyte imbalance, thyroid disorder, pneumonia, bronchitis, pancreatitis, and others Laboratory Data Result diagrams: 10/22/19 03:34 10/22/19 03:34 Lab Results 10/22/19 10/22/19 10/22/19 Range/Units 03:34 03:34 03:34 WBC 10.09 (4.8-10.8) K/uL RBC 4.11 L (4.7-6.1) M/uL Hgb 14.8 (14.0-18.0) g/dL Hct 43.9 (42-52) % MCV 106.8 H (80-100) fL MCH 36.0 H (25-34) pg MCHC 33.7 (32-36) g/dL RDW Std Deviation 51.4 H (36.4-46.3) fL RDW Coeff of Joseph 13.1 (11.5-14.5) % Plt Count 191 (130-400) K/uL MPV 9.7 (7.4-10.4) fL Immature Gran % (Auto) 0.4 % Neut % (Auto) 65.7 % Lymph % (Auto) 19.8 % [place] % (Auto) 11.7 % Eos % (Auto) 2.1 % Baso % (Auto) 0.3 % Immature Gran # (Auto) 0.04 H (0.00-0.02) K/uL Neut # (Auto) 6.63 H (1.4-6.5) K/uL Lymph # (Auto) 2.00 (1.2-3.4) K/uL [place] # (Auto) 1.18 H (0.11-0.59) K/uL Eos # (Auto) 0.21 (0-0.5) K/uL Baso # (Auto) 0.03 (0-0.2) K/uL PT 9.8 (9.0-12.0) Seconds INR 1.0 (0.9-1.1) APTT 27.3 (21.0-31.0) Seconds PTT Ratio 1.0 Sodium 137 (136-145) mmol/L Potassium 3.7 (3.5-5.1) mmol/L Chloride 107 (98-107) mmol/L Carbon Dioxide 24 (21-32) mmol/L Anion Gap 6.0 (3-11) BUN 9 (7-18) mg/dl Creatinine 0.54 L (0.6-1.4) mg/dl Est Cr Clr Drug Dosing 151.7 ml/min Est GFR ( Amer) 123.3 Est GFR (Non-Af Amer) 106.4 BUN/Creatinine Ratio 16.4 (10-20) Glucose 101 H (70-99) mg/dl Calcium 8.7 (8.5-10.1) mg/dl Magnesium 1.6 L (1.8-2.4) mg/dl Total Bilirubin 0.4 (0.2-1) mg/dl AST 15 (15-37) U/L ALT 16 (12-78) U/L Alkaline Phosphatase 63 (45-117) U/L Troponin I < 0.015 (0-0.045) ng/ml Total Protein 7.2 (6.4-8.2) gm/dl Albumin 3.1 L (3.4-5.0) gm/dl Globulin 4.1 H (2.5-4.0) gm/dl Albumin/Globulin Ratio 0.8 L (0.9-2) Lipase 168 (73-393) U/L TSH 2.650 (0.300-4.500) uIu/ml ECG Data Additional Comments: Sinus rhythm @[address] elevation Incomplete right bundle branch block ECG When compared with ECG of 24-FEB-2019 07:28, Fusion complexes are now Present QT has shortened MDM Narrative Physical exam and history were performed. Nursing notes, EMR, and Medication List were personally reviewed. Patient appears to have chest pain symptoms bringing him to the ER tonight. On examination the patient does not appear toxic, but his story is concerning as he does have a history of cardiac disease. EKG was performed as above without acute ST elevation. He was placed on the nuclear monitoring technician. IV access was established and labs were obtained. The patient was given 324 mg aspirin as well as Nitropaste. The case was discussed with my attending who also independently evaluated the patient. The patient's blood work is as above and was reviewed. He does not have a significantly elevated white blood cell count or gross anemia. Lipase and transaminases are not diagnostic. Magnesium is normal. TSH shows euthyroid state. Troponin x1 is negative. Chest x-ray is without significant obvious a cute findings. He remained in normal sinus rhythm with a rate in the low 90s on the nuclear monitoring technician. On reevaluation the patient did not have significant relief with the Nitropaste. I did give him a sublingual nitro, and this almost completely relieved his symptoms. He continues to be stable and nontoxic. Overall he does not appear well for discharge home. The case was discussed with the on-call hospitalist who agreed to evaluate the patient here in the ER. Please see their dictation for further patient course, plan, and disposition. The chart was completed utilizing [employer] Speech Voice Recognition Software. Grammatical errors, random word insertions, pronoun errors, and incomplete sentences are an occasional consequence of this system due to software limitations, ambient noise, and hardware issues. Any formal questions or concerns about the content, text, or information contained within the body of this dictation should be directly addressed to the provider for clarification. . Impression & Plan Atypical chest pain, Unstable angina pectoris Discharge Plan Visit Data Chief Complaint: Cardiac Assessment Stated Complaint: CHEST DISCOMFORT,LFT SHOULDER AND ARM PAIN ED Provider: Botti,Judith A ED Midlevel Provider: Kong Campbell Discharge Problem: Atypical chest pain, Unstable angina pectoris Forms Stand Alone Forms: My [facility] Prescriptions Prescriptions: No Action tramadol 50 mg tablet 50 mg PO DAILY PRN (Reason: Pain) RF: 0 metoprolol succinate 25 mg tablet extended release 24 hr 75 mg PO DAILY RF: 0 rosuvastatin [Crestor] 5 mg tablet 5 mg PO DAILY Qty: 90 RF: 3 nitroglycerin 0.4 mg tablet, sublingual 0.4 mg SL Q5M PRN (Reason: chest pain) Qty: 100 RF: 1 clopidogrel [Plavix] 75 mg tablet 75 mg PO DAILY Qty: 90 RF: 3 famotidine [Pepcid] 20 mg Tablet 20 mg PO DAILY RF: 0 multivitamin Tablet 1 tab PO DAILY RF: 0 allopurinol 300 mg Tablet 300 mg PO DAILY RF: 0 cyanocobalamin (vitamin B-12) [Vitamin B-12] 1,000 mcg Tablet 1,000 mcg PO DAILY RF: 0 magnesium oxide 400 mg (241.3 mg magnesium) Tablet 400 mg PO DAILY RF: 0 fluticasone propionate [Flonase Allergy Relief] 50 mcg/actuation [place],Suspension 1 spray INTRANASAL DAILY PRN (Reason: Allergy Symptoms) RF: 0 cholecalciferol (vitamin D3) [Vitamin D3] 5,000 unit Tablet 5,000 unit PO DAILY RF: 0 Referrals Referrals: Jay Shearer MD [Primary Care Provider] -
[2019-10-22] MEDS ORDERED: MAGNESIUM SULFATE / D5W 1 GM/100 ML BAG IV ONE (04:46)
--- NOTE | 2019-10-22 05:13 | History & Physical Report ---
Date of Service October 22, 2019 Assessment & Plan (1) Chest pain: obs PCU serial trops prn NTG Consult cardiology known to Dr. Lozano DVT prophlaxis = SCDs and Lovenox. (2) CAD (coronary artery disease): Continue Plavix Aspirin has caused increased GERD symptoms. Continue metoprolol (3) Lumbago: continue prn tramadol (4) Esophageal reflux: continue Pepcid (5) Hypertension: stable (6) Hypomagnesemia: minimally low. Will replace. recheck with next trop. History of Present Illness 69 y/o male presented to the ED with intermittent chest pain over the previous 36 hours. Pain radiates to his left neck and left shoulder. He is concerned in that this is similar to the symptoms he had with previous PA. He has chronic SOB in which there has been no change. Pain was initially 6/10. After NTG he is pain free. No F/C, cough, N/V/D, or headache. Primary Care Provider: Jay Shearer MD Allergies Allergy/AdvReac Type Severity Reaction Status Date / Time zolpidem [From Ambien] Allergy Severe " Verified 10/22/19 04:28 Hallucinates and sleepwalks" gabapentin Allergy Intermediate " [place] Verified 10/22/19 04:28 like " out of body" Sulfa (Sulfonamide Allergy Mild HIVES AND Verified 10/22/19 04:28 Antibiotics) ITHCING baclofen AdvReac Mild Tired and Verified 10/22/19 04:28 sluggish gluten AdvReac Mild ABD PAIN Verified 10/22/19 04:28 milk AdvReac Mild STOMACH Verified 10/22/19 04:28 PAIN [id number] Reductase AdvReac Mild MUSCLE Verified 10/22/19 04:28 Inhibitor WEAKNESS Home Medications Home Medications Medication Instructions Recorded Confirmed Type allopurinol 300 mg PO DAILY 07/07/18 10/22/19 History multivitamin 1 tab PO DAILY 07/07/18 10/22/19 History cholecalciferol (vitamin D3) 5,000 unit PO DAILY 09/03/18 10/22/19 History [Vitamin D3] cyanocobalamin (vitamin B-12) 1,000 mcg PO DAILY 09/03/18 10/22/19 History [Vitamin B-12] fluticasone propionate [Flonase 1 spray INTRANASAL DAILY PRN 09/03/18 10/22/19 History Allergy Relief] magnesium oxide 400 mg PO DAILY 09/03/18 10/22/19 History tramadol 50 mg tablet 50 mg PO DAILY PRN tab 02/13/19 10/22/19 History metoprolol succinate 25 mg 75 mg PO DAILY tab 03/26/19 10/22/19 History tablet,extended release 24 hr rosuvastatin 5 mg tablet 5 mg PO DAILY #90 tab 07/27/19 10/22/19 Rx nitroglycerin 0.4 mg sublingual 0.4 mg SL Q5M PRN #100 tab 08/01/19 10/22/19 Rx tablet clopidogrel 75 mg tablet 75 mg PO DAILY #90 tab 09/12/19 10/22/19 Rx famotidine [Pepcid] 20 mg PO DAILY 10/22/19 10/22/19 History Past Med/Surg History Medical History Bronchitis (Chronic) Encounter for pre-operative examination GERD (gastroesophageal reflux disease) Hiatal hernia (Acute) Hx of myocardial infarction (Resolved) Hyperlipidemia Hypertension (Chronic) Hypertension Kidney stones (Chronic) Kidney stones Myocardial Infarction 7-10 YEARS AGO Osteoarthritis Stomach problems (Chronic) Surgical History History of cardiac cath History of heart artery stent 7-10 YEARS AGO INSERTED>[place] History of tonsillectomy Polyp, nasal Family History Mother Family history of diabetes mellitus Social History Preferred Language: Bel[place]ian Communication Ability: Effective Visual Impairment: Limited Hearing Ability: Normal Railway Station Manager Required: No Beliefs That Will Affect Care: None marital status: Current Living Situation: Spouse Feels Safe at Home: Yes Smoking Status: Never smoker Tobacco Type: cigarettes ; Second Hand Exposure: No ; Hx Alcohol Use: Yes Alcohol type: wine Hx Substance Use: No Review of Systems Review of Systems: Constitutional- no fever; no weight loss Eyes- no acute visual changes ENT- no sinus drainage; no pharyngitis Pulmonary- As in HPI Cardiac- As in HPI GI- no nausea, no vomiting, no diarrhea, no melena, no hematochezia - no dysuria, no hematuria Musculoskeletal- + chronic back pain, no myalgias Derm- no rashes, no new skin lesions. Hematologic- no unusual bruising, no unusual bleeding Lymphatics- no adenopathy Endocrine- no polyuria or polydipsia; no heat or cold intolerance Neuro- no headaches, no focal neurologic symptoms Psych- no anxiety, no depression Physical Exam Physical Exam: General- adult male, NAD Head- atraumatic Eyes- PERRL, EOMI, anicteric ENT- oropharynx clear Neck- supple, no JVD, no adenopathy, no thyromegaly. Lungs- CTA b/l no R/R/W. Heart- regular rhythm; no murmur, no gallop, no rub appreciated Abdomen- normal bowel sounds, soft, nontender. Extremities- no pretibial edema, no calf tenderness; peripheral pulses intact Neuro- alert, oriented x 3; PERRL, EOMI; relationship specialist II-XII grossly intact, non-focal. Skin- warm & dry Results & Data Vital Signs (Past 12 Hours) Vital Signs Temp Pulse Pulse Resp BP BP Pulse Ox 10/22/19 04:29 94 10/22/19 04:21 92 H 20 128/72 95 10/22/19 03:38 98 10/22/19 03:24 94 10/22/19 03:13 36.6 C 96 H 20 135/82 95 Laboratory Results Laboratory Results WBC 10.09 K/uL (4.8-10.8) 10/22/19 03:34 RBC 4.11 M/uL (4.7-6.1) L 10/22/19 03:34 Hgb 14.8 g/dL (14.0-18.0) 10/22/19 03:34 Hct 43.9 % (42-52) 10/22/19 03:34 MCV 106.8 fL (80-100) H 10/22/19 03:34 MCH 36.0 pg (25-34) H 10/22/19 03:34 MCHC 33.7 g/dL (32-36) 10/22/19 03:34 RDW Std Deviation 51.4 fL (36.4-46.3) H 10/22/19 03:34 RDW Coeff of Joseph 13.1 % (11.5-14.5) 10/22/19 03:34 Plt Count 191 K/uL (130-400) 10/22/19 03:34 MPV 9.7 fL (7.4-10.4) 10/22/19 03:34 Immature Gran % (Auto) 0.4 % 10/22/19 03:34 Neut % (Auto) 65.7 % 10/22/19 03:34 Lymph % (Auto) 19.8 % 10/22/19 03:34 [place] % (Auto) 11.7 % 10/22/19 03:34 Eos % (Auto) 2.1 % 10/22/19 03:34 Baso % (Auto) 0.3 % 10/22/19 03:34 Immature Gran # (Auto) 0.04 K/uL (0.00-0.02) H 10/22/19 03:34 Neut # (Auto) 6.63 K/uL (1.4-6.5) H 10/22/19 03:34 Lymph # (Auto) 2.00 K/uL (1.2-3.4) 10/22/19 03:34 [place] # (Auto) 1.18 K/uL (0.11-0.59) H 10/22/19 03:34 Eos # (Auto) 0.21 K/uL (0-0.5) 10/22/19 03:34 Baso # (Auto) 0.03 K/uL (0-0.2) 10/22/19 03:34 PT 9.8 Seconds (9.0-12.0) 10/22/19 03:34 INR 1.0 (0.9-1.1) 10/22/19 03:34 APTT 27.3 Seconds (21.0-31.0) 10/22/19 03:34 PTT Ratio 1.0 10/22/19 03:34 Sodium 137 mmol/L (136-145) 10/22/19 03:34 Potassium 3.7 mmol/L (3.5-5.1) 10/22/19 03:34 Chloride 107 mmol/L (98-107) 10/22/19 03:34 Carbon Dioxide 24 mmol/L (21-32) 10/22/19 03:34 Anion Gap 6.0 (3-11) 10/22/19 03:34 BUN 9 mg/dl (7-18) 10/22/19 03:34 Creatinine 0.54 mg/dl (0.6-1.4) L 10/22/19 03:34 Est Cr Clr Drug Dosing 151.7 ml/min 10/22/19 03:34 Est GFR ( Amer) 123.3 10/22/19 03:34 Est GFR (Non-Af Amer) 106.4 10/22/19 03:34 BUN/Creatinine Ratio 16.4 (10-20) 10/22/19 03:34 Glucose 101 mg/dl (70-99) H 10/22/19 03:34 Calcium 8.7 mg/dl (8.5-10.1) 10/22/19 03:34 Magnesium 1.6 mg/dl (1.8-2.4) L 10/22/19 03:34 Total Bilirubin 0.4 mg/dl (0.2-1) 10/22/19 03:34 AST 15 U/L (15-37) 10/22/19 03:34 ALT 16 U/L (12-78) 10/22/19 03:34 Alkaline Phosphatase 63 U/L (45-117) 10/22/19 03:34 Troponin I < 0.015 ng/ml (0-0.045) 10/22/19 03:34 Total Protein 7.2 gm/dl (6.4-8.2) 10/22/19 03:34 Albumin 3.1 gm/dl (3.4-5.0) L 10/22/19 03:34 Globulin 4.1 gm/dl (2.5-4.0) H 10/22/19 03:34 Albumin/Globulin Ratio 0.8 (0.9-2) L 10/22/19 03:34 Lipase 168 U/L (73-393) 10/22/19 03:34 TSH 2.650 uIu/ml (0.300-4.500) 10/22/19 03:34 Code Status & VTE Plan VTE Prophylaxis Plan VTE Prophylaxis will be ordered: Yes PG Care Time/CCT Total # of Minutes Spent Total Time Spent: 55 Total Time Spent with Patient: Total time spent is greater than 50% in coordination of care (as documented) at patient's floor/unit and/or counseling patient:
[2019-10-22] MEDS ORDERED: MoRPHine SULFATE 4 MG/ML 1 ML CARP\\VIAL IV PRN (05:24)
[2019-10-22] MEDS ORDERED: TRAMADOL HCL 50 MG TABLET PO PRN (05:24)
[2019-10-22] MEDS ORDERED: ONDANSETRON INJ 2 MG/ML 2 ML VIAL IV PRN (05:24)
[2019-10-22] MEDS ORDERED: NITROGLYCERIN SL 0.4 MG/TAB TAB SL PRN (05:24)
[2019-10-22] MEDS ORDERED: ACETAMINOPHEN 325 MG TAB PO PRN (05:24)
--- NOTE | 2019-10-22 06:34 | XRay Report ---
XR chest 2V PA/lateral CLINICAL HISTORY: Chest pain COMPARISON STUDY: Chest radiograph and chest CT February 24, 2019. FINDINGS: Patient is rotated. A small hiatal hernia is present. There is cardiomegaly without evidenc e for pulmonary edema. Linear bibasilar opacities favor atelectasis. There is no evidence for pulmona ry edema. Cardiomediastinal silhouette is stable. IMPRESSION: 1. No acute cardiopulmonary findings. 2. Linear bibasilar opacities suggestive of atelectasis. 3. Cardiomegaly without evidence for pulmonary edema. ACT 112: Negative or not required by law. Electronically signed by: Minh Leon M.D. 10/22/2019 6:33 AM
[2019-10-22] MEDS ORDERED: ENOXAPARIN INJ 40 MG/0.4 ML SYR SQ SCH (07:00)
[2019-10-22] MEDS ORDERED: MAGNESIUM OXIDE 400 MG TAB PO SCH (09:00)
[2019-10-22] MEDS ORDERED: CHOLECALCIFEROL 1,000 UNITS TAB PO SCH (09:00)
[2019-10-22] MEDS ORDERED: CLOPIDOGREL BISULFATE 75 MG TAB PO SCH (09:00)
[2019-10-22] MEDS ORDERED: MULTIVITAMIN TAB PO SCH (09:00)
[2019-10-22] MEDS ORDERED: allopurinoL 300 MG TAB PO SCH (09:00)
[2019-10-22] MEDS ORDERED: FAMOTIDINE 20 MG TAB PO SCH (09:00)
[2019-10-22] MEDS ORDERED: CYANOCOBALAMIN 500 MCG TABLET (VITAMIN B-12) PO SCH (09:00)
[2019-10-22] MEDS ORDERED: ROSUVASTATIN CALCIUM 5 MG TAB PO SCH (09:00)
[2019-10-22] MEDS ORDERED: METOPROLOL SUCC 25MG EXT REL TAB PO SCH (09:00)
[2019-10-22 10:05] LABS: Magnesium 1.8 mg/dl (1.8-2.4); Troponin I < 0.015 ng/ml (0-0.045)
[2019-10-22] MEDS ORDERED: ATROPINE SULFATE 0.1 MG/ML 10ML SYR IV ONE (12:08)
[2019-10-22] MEDS ORDERED: METOPROLOL TARTRATE 1 MG/ML VIAL IV ONE (12:09)
[2019-10-22] MEDS ORDERED: DOBUTamine HCL 12.5 MG/ML 20 ML VIAL IV ONE (12:09)
--- NOTE | 2019-10-22 13:48 | Discharge Summary ---
Date of Service October 22, 2019 Admission HPI Per Admitting Provider 69 y/o male presented to the ED with intermittent chest pain over the previous 36 hours. Pain radiates to his left neck and left shoulder. He is concerned in that this is similar to the symptoms he had with previous FL. He has chronic SOB in which there has been no change. Pain was initially 6/10. After NTG he is pain free. No F/C, cough, N/V/D, or headache. Primary Care Provider: Jay Shearer MD Principal Diagnosis Chest pain Discharge Exam Constitutional WD/WN, vitals as above Eyes PERRL, conjunctivae normal, anicteric sclerae ENMT external ear and nose normal, oropharynx normal Neck trachea midline, no thyromegaly Respiratory normal respiratory effort, lungs clear to auscultation Cardiovascular RRR, no murmur, no edema Gastrointestinal (Abdomen) normal bowel sounds, soft, nontender, no hepatosplenomegaly Musculoskeletal no cyanosis or clubbing, extremities motor strength 5/5 Skin no rashes, warm and dry Neurologic patellar DTR's 2+ bilat, sensation intact and PERRL, EOMI, accommodation nl, no face palsy, no dysarthria Psychiatric A+Ox3, euthymic affect Lymphatic no cervical or axillary lymphadenopathy Discharge Data Allergies Allergy/AdvReac Type Severity Reaction Status Date / Time zolpidem [From Ambien] Allergy Severe " Verified 10/22/19 04:28 Hallucinates and sleepwalks" gabapentin Allergy Intermediate " [place] Verified 10/22/19 04:28 like " out of body" Sulfa (Sulfonamide Allergy Mild HIVES AND Verified 10/22/19 04:28 Antibiotics) ITHCING baclofen AdvReac Mild Tired and Verified 10/22/19 04:28 sluggish gluten AdvReac Mild ABD PAIN Verified 10/22/19 04:28 milk AdvReac Mild STOMACH Verified 10/22/19 04:28 PAIN [id number]-Ext Reductase AdvReac Mild MUSCLE Verified 10/22/19 04:28 Inhibitor WEAKNESS Consultations 10/22/19 04:38 ED Decision to Admit Stat 10/22/19 05:24 Consult Cardiology Routine Hospital Course (1) Chest pain: EKG without ischemic changes troponin negative x [address] Lozano, his outpatient release coordinator recommended dobutamine stress echo this was normal, no signs of ischemia discharged to home (2) CAD (coronary artery disease): Continue Plavix continue Crestor 5mg Continue metoprolol 75mg daily (3) Lumbago: continue prn tramadol (4) Esophageal reflux: continue Pepcid (5) Hypertension: stable (6) Hypomagnesemia: minimally low. replaced IV Total Time Total Time Spent Total Time Spent (In Minutes): 25 minutes Total Time Includes: Examination of the Patient, Discharge Planning and Medication Reconciliation Discharge Plan Discharge Items Patient Disposition: Home - Self-Care Reason For Visit: CHEST PAIN Discharge Diagnosis: Chest pain, non-cardiac negative dobutamine stress echo today Condition on Discharge: Good Goals: improve nutrition, get rest follow up with PCP Activity: Resume your previous activity Driving/Machine Use: No limitations Weightbearing: Full weightbearing Non-emergency contact: Primary Care Provider Call non-emergency contact if: you have any medication questions, your symptoms worsen and you have a fever Follow-up/Referrals: Jay Shearer MD [Primary Care Provider] - Diet: Heart Healthy Addtl Attending Provider Instructions: Medications: no changes Chest pain: no evidence of acute ischemia troponin negative x 2 sets dobutamine stress echo normal okay for d/c to home per cardiology FOLLOW UP - no need for acute follow up as the chest pain is non-cardiac if you continue to have issues then call for appt with Dr. Shearer Pending Studies at Discharge: No Stand-Alone Forms: My [facility], Smoking Cessation Medications and DC Order Prescriptions: Continued tramadol 50 mg tablet 50 mg PO DAILY PRN (Reason: Pain) RF: 0 metoprolol succinate 25 mg tablet extended release 24 hr 75 mg PO DAILY RF: 0 rosuvastatin [Crestor] 5 mg tablet 5 mg PO DAILY Qty: 90 RF: 3 nitroglycerin 0.4 mg tablet, sublingual 0.4 mg SL Q5M PRN (Reason: chest pain) Qty: 100 RF: 1 clopidogrel [Plavix] 75 mg tablet 75 mg PO DAILY Qty: 90 RF: 3 famotidine [Pepcid] 20 mg Tablet 20 mg PO DAILY RF: 0 multivitamin Tablet 1 tab PO DAILY RF: 0 allopurinol 300 mg Tablet 300 mg PO DAILY RF: 0 cyanocobalamin (vitamin B-12) [Vitamin B-12] 1,000 mcg Tablet 1,000 mcg PO DAILY RF: 0 magnesium oxide 400 mg (241.3 mg magnesium) Tablet 400 mg PO DAILY RF: 0 fluticasone propionate [Flonase Allergy Relief] 50 mcg/actuation [place],Suspension 1 spray INTRANASAL DAILY PRN (Reason: Allergy Symptoms) RF: 0 cholecalciferol (vitamin D3) [Vitamin D3] 5,000 unit Tablet 5,000 unit PO DAILY RF: 0 Discharge Orders: Discharge Order (Routine); Ordered 10/22/19 Ordered By: Rajesh Vo Admission Data Admit Date/Time: 10/22/19 04:46 Attending Provider: Rajesh Vo Admit Provider: Paco Evans Primary Care Provider: Jay Shearer Other Providers: Paco Evans ; Stevan Lozano Other Interventions: Discharge Summary Assessment (RN) Last Done: 10/22/19 14:23 DC Date/Time DO NOT enter until pt leaves facility: 10/22/19 15:10
--- NOTE | 2019-10-22 14:05 | Cardiology Consultation ---
Date of Consultation October 22, 2019 Assessment & Plan (1) Chest pain: The patient's description of chest discomfort is not consistent with classic angina pectoris. If his 2nd troponin is normal, would proceed with a dobutamine stress test to rule out myocardial ischemia. (2) CAD (coronary artery disease): The patient has known coronary artery disease having suffered an inferoposterior WA back in October 2006. This resulted in a BALAJI in the mid RCA. Also had a BALAJI placed in the proximal LAD back in March 2012 because of an acute coronary syndrome. Continue medical management. (3) Hypertension: Adequate control on current medical regimen. (4) Hyperlipidemia: Continue rosuvastatin. History of Present Illness Attending Physician: Rajesh Vo DO History of Present Illness Mr. Smith is a 69-year-old male admitted earlier today with a chest pain syndrome. Discussed size was order to assist in his management. Of note, the patient is well known to me from the outpatient setting. The patient was in his usual state of health until approximately 1 a.m. today. He woke from sleep because of right upper chest discomfort along with left shoulder and left elbow discomfort. There were no other associated symptoms such as shortness of breath, nausea, vomiting, or diaphoresis. The patient was quite concerned and therefore, presented to the emergency room for further care. The patient has been active on a daily basis caring for his home. He has not experienced any exertional angina pectoris. He further denies syncope, presyncope, PND, orthopnea, palpitations, lower extremity edema, and claudication. The patient does carry a history of coronary artery disease. He suffered infero posterior WA back in October 2006. He had a BALAJI placed in the mid RCA at that time. He also had a BALAJI placed in the proximal LAD back in March of 2012 because of an acute coronary syndrome. Lad had luminal irregularities at the time of that catheterization. The patient has done well from a cardiac perspective since that time. His medications reviewed in detail. Past medical and surgical history 1. Coronary artery disease-see above 2. Mid RCA BALAJI-October 2016 3. Proximal LAD BALAJI-March 2012 4. Hypertension 5. Hypercholesterolemia 6. GERD 7. Depression 8. Allergic rhinitis 9. Right renal artery PTCA Social history and with his No tobacco Social alcohol Family history Father is 98 and has a pacemaker Mother from CHF at age 78 Review of systems A 10 point review of systems was undertaken and negative except for that described above. Allergies Allergy/AdvReac Type Severity Reaction Status Date / Time zolpidem [From Ambien] Allergy Severe " Verified 10/22/19 04:28 Hallucinates and sleepwalks" gabapentin Allergy Intermediate " [place] Verified 10/22/19 04:28 like " out of body" Sulfa (Sulfonamide Allergy Mild HIVES AND Verified 10/22/19 04:28 Antibiotics) ITHCING baclofen AdvReac Mild Tired and Verified 10/22/19 04:28 sluggish gluten AdvReac Mild ABD PAIN Verified 10/22/19 04:28 milk AdvReac Mild STOMACH Verified 10/22/19 04:28 PAIN [id number]-Hbs Reductase AdvReac Mild MUSCLE Verified 10/22/19 04:28 Inhibitor WEAKNESS Home Medications Home Medications Medication Instructions Recorded Confirmed Type allopurinol 300 mg PO DAILY 07/07/18 10/22/19 History multivitamin 1 tab PO DAILY 07/07/18 10/22/19 History cholecalciferol (vitamin D3) 5,000 unit PO DAILY 09/03/18 10/22/19 History [Vitamin D3] cyanocobalamin (vitamin B-12) 1,000 mcg PO DAILY 09/03/18 10/22/19 History [Vitamin B-12] fluticasone propionate [Flonase 1 spray INTRANASAL DAILY PRN 09/03/18 10/22/19 History Allergy Relief] magnesium oxide 400 mg PO DAILY 09/03/18 10/22/19 History tramadol 50 mg tablet 50 mg PO DAILY PRN tab 02/13/19 10/22/19 History metoprolol succinate 25 mg 75 mg PO DAILY tab 03/26/19 10/22/19 History tablet,extended release 24 hr rosuvastatin 5 mg tablet 5 mg PO DAILY #90 tab 07/27/19 10/22/19 Rx nitroglycerin 0.4 mg sublingual 0.4 mg SL Q5M PRN #100 tab 08/01/19 10/22/19 Rx tablet clopidogrel 75 mg tablet 75 mg PO DAILY #90 tab 09/12/19 10/22/19 Rx famotidine [Pepcid] 20 mg PO DAILY 10/22/19 10/22/19 History Patient History Medical History Bronchitis (Chronic) Encounter for pre-operative examination GERD (gastroesophageal reflux disease) Hiatal hernia (Acute) Hx of myocardial infarction (Resolved) Hyperlipidemia Hypertension (Chronic) Hypertension Kidney stones (Chronic) Kidney stones Myocardial Infarction 7-10 YEARS AGO Osteoarthritis Stomach problems (Chronic) Surgical History History of cardiac cath History of heart artery stent 7-10 YEARS AGO INSERTED>[place] History of tonsillectomy Polyp, nasal Family History Mother Family history of diabetes mellitus Social History Preferred Language: Turkmen Communication Ability: Effective Visual Impairment: Limited Hearing Ability: Normal 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 HEENT exam is negative. Neck is supple with full carotid upstrokes. There are no carotid bruits. Jugular venous pressure is flat at 90. There is no thyromegaly. Cardiovascular exam reveals a regular rhythm with a normal S1 and S2. No S3, S4, or murmurs are noted. Lungs are clear without rales, rhonchi, or wheezes. Abdomen is soft and nontender without bruits. Extremities reveal intact radial artery and posterior tibial pulses bilaterally. There is no peripheral edema. Results & Data Vital Signs (Past 12 Hours) Vital Signs Temp Pulse Pulse Resp BP BP Pulse Ox 10/22/19 11:15 36.8 C 81 18 128/83 94 10/22/19 07:53 37.0 C 90 22 154/96 H 93 10/22/19 05:25 36.7 C 84 18 145/95 H 95 10/22/19 04:29 94 10/22/19 04:21 92 H 20 128/72 95 10/22/19 03:38 98 10/22/19 03:24 94 10/22/19 03:13 36.6 C 96 H 20 135/82 95 Laboratory Results CBC notes a hemoglobin of 14.8, hematocrit 43.4, white count 10.1, platelet count [id number]. Electrolytes notice sodium 137, potassium 3.7, chloride 107, bicarb 24, BUN 9, creatinine 0.54, glucose of 101. Initial troponin was undetectable less than 0.015. Diagnostic Findings EKG notes normal sinus rhythm and incomplete right bundle-branch block. Chest x-ray shows no acute disease. PG Care Time/CCT Total # of Minutes Spent Total Time Spent with Patient: Total time spent is greater than 50% in coordination of care (as documented) at patient's floor/unit and/or counseling patient:
--- NOTE | 2019-10-22 15:09 | Electrocardiogram Report ---
Test Reason : Blood Pressure : / mmHG Vent. Rate : 095 BPM Atrial Rate : 095 BPM P-R Int : 168 ms QRS Dur : 104 ms QT Int : 358 ms P-R-T Axes : 061 -14 024 degrees QTc Int : 449 ms Sinus rhythm Low voltage QRS Incomplete right bundle branch block Borderline ECG When compared with ECG of 24-FEB-2019 07:28, QT has shortened Confirmed by Stevan Lozano ([id number]) on 10/22/2019 3:09:06 PM Referred By: REFERRED SELF Confirmed By:Stevan Lozano
== END 2019-10-22 15:10 | disposition home or self-care (01) ==
LOC: ED 03:11 → 2S 03:11 → SUATTDRO 04:46 → 2S 05:11

== ENCOUNTER 2022-11-27 18:18 | Inpatient (IN) ==
--- NOTE | 2022-11-27 18:51 | Emergency Department Note ---
Impression & Plan Generalized weakness, Rhabdomyolysis, Leukocytosis, Acute hypokalemia, Hypomagnesemia, Elevated lactic acid level, Non-ST elevation [place] (NSTEMI) ED Provider Note HISTORY OF PRESENT ILLNESS: Patient is a 72-year-old male presenting with generalized weakness. Patient reportedly has been "sliding" out of bed in his recliner multiple times over the last week. He reports he tries to stand up but is unable to secondary to bilateral lower extremity weakness. Denies any recent cough or fevers. He slid out of bed this morning and was on the ground for 3 hours unable to get up befo re his found him and called 911. Patient denies striking his head or loss of consciousness with the falls. Denies any chest pain, shortness of breath or lightheadedness prior to the episodes. He is currently complaining of pain in his lower back. Denies any bowel or bladder incontinence. Denies any saddle anesthesia denies any numbness or tingling down the legs. Patient is normally ambulatory without assistive devices. However, over the last week he has been using a walker that he got from his sister secondary to his worsening weakness. ROS: as above PHYSICAL EXAM: Constitutional: Patient appears in no acute distress. HENT: Head: Normocephalic and atraumatic. Eyes: EOMI, PERRL Mouth/Throat: Mucous membranes moist. Neck: Trachea midline. Neck supple. Cardiovascular: RRR, No murmurs, rubs or gallops. Intact distal pulses. Pulmonary/Chest: No respiratory distress. Breath sounds clear and equal bilaterally. No wheezes or rales. No chest wall tenderness to palpation. Abdominal: BS +. Abdomen soft, no tenderness, rebound or guarding. Back: No paraspinal tenderness, no CVA tenderness. Lower lumbar midline TTP. No stepoffs. Musculoskeletal: No edema, tenderness or deformity noted. Skin: Warm and dry. No rash, erythema, pallor or cyanosis Psychiatric: Appropriate mood and affect for situation. Neurological: Alert and keenly responsive. CN II-XII grossly intact, moving al l extremities equally and fully. MDM: - Vitals signs stable. - History obtained via patient. Patient presents with generalized weakness for the last week. Patient reportedly has been having generalized weakness and inability to ambulate for the last week. He is normally ambulatory without assistive devices, but in the last week he has been using a walker that he got from his sister to help him ambulate. Patient has had multiple episodes in which he slides out of his recliner onto the floor slides out of bed onto the floor secondary to his weakness throughout this week. Denies any fevers. Denies any saddle anesthesia. Denies any bowel or bladder incontinence. Denies any chest pain or shortness of breath. Patient slid out of bed this morning and laid on the ground for 3 hours prior to his finding him and calling 911 for assistance. - Chronic conditions affecting care: CAD (s/p PCI); HTN; HLD - Differential diagnoses include, but are not limited to: ACS; pneumonia; UTI; viral syndrome; spinal fracture - Order placed for continuous cardiac monitoring. At this time, monitor showed rate of 82 bpm with normal sinus rhythm, per my interpretation. - External medical records reviewed. - EKG reviewed by myself showed normal sinus rhythm. No acute ischemic changes. Rate 80 bpm. QTc 482. Normal intervals. Noted to have a poor baseline. - Laboratory workup interpreted by myself showed leukocytosis (WBC 22.27); hypokalemia (K 3.3); slightly elevated anion gap (13 - likely secondary to lactic acidosis); normal creatinine (1.02); hypomagnesemia (Mg 1.5); elevated CK (1786); elevated troponin (23.6); elevated lactate (2.4); elevated procalcitonin - CXR negative for acute cardiopulmonary pathology, per my interpretation. - CT lumbar spine negative for acute fractures, but noted to have old L2 compression deformity. - Patient's weakness likely secondary to his sepsis. Unknown source at this time. UA to be collected. - Patient given 2L NS in ER. Blood cultures obtained. IV vancomycin and cefepime ordered for sepsis coverage. - Hospitalist, Dr. Paredes, consulted for admission. - [facility] I provided 42 minutes of critical care time to this patient's care outside of billable procedures. ASSESSMENT AND PLAN: Diagnosis: generalized weakness; rhabdomyolysis; NSTEMI; hypokalemia; leukocytosis; hypomagnesemia; elevated lactate; sepsis; elevated procalcitonin Plan: admit Past Med/Surg History Medical History Allergic rhinitis Angina pectoris Arteriosclerotic coronary artery disease Benign essential hypertension (10/09/12) Bronchitis Depression Encounter for pre-operative examination Excessive sweating GERD (gastroesophageal reflux disease) Hiatal hernia Hx of myocardial infarction Hyperlipidemia Hypertension Hypertension Kidney stones Kidney stones Lateral plantar neuropathy Lightheadedness Myocardial Infarction Nasal congestion with rhinorrhea Numbness Osteoarthritis Post concussion syndrome Presence of stent in artery Stomach problems Surgical History History of cardiac cath History of heart artery stent History of tonsillectomy Polyp, nasal Stented coronary artery (10/09/12) Family History Mother Family history of diabetes mellitus Heart disease Father Heart disease Sister Asthma Other No family history of adverse response to anesthesia No family history of bleeding disorder Social History Smoking Status: Never smoker Second Hand Exposure: No; Hx Alcohol Use: Yes Alcohol type: wine Alcohol Intake Frequency: 4 or More x per/Week Alcohol Intake Frequency Comment: 1-2 glasses per day Hx Substance Use: No Preferred Language: Slovenian Communication Ability: Effective Visual Impairment: Limited Hearing Ability: Normal Cooker Operator Required: No Beliefs That Will Affect Care: None marital status: Current Living Situation: Spouse current occupational status: retired Feels Safe at Home: Yes Assistive Devices: Cane Allergies Allergies Allergy/AdvReac Type Severity Reaction Status Date / Time soy Allergy Severe THROAT Verified 11/27/22 20:01 TIGHTENED W/SOY SAUCE Sulfa (Sulfonamide Allergy Intermediate HIVES AND Verified 11/27/22 19:57 Antibiotics) ITHCING zolpidem [From Ambien] AdvReac Severe " Verified 11/27/22 19:57 Hallucinates and sleepwalks" baclofen AdvReac Intermediate Tired and Verified 11/27/22 19:57 sluggish gabapentin AdvReac Intermediate " [place] Verified 11/27/22 19:57 like " out of body" gluten AdvReac Intermediate ABD PAIN Verified 11/27/22 19:57 milk AdvReac Intermediate STOMACH Verified 11/27/22 19:57 PAIN Lofxjlp-DOF-ZdA Reductase AdvReac Intermediate MUSCLE Verified 11/27/22 19:57 Inhibitor WEAKNESS [Qtipwzf-Fth-Adi Reductase Inhibitor] Home Meds Home Medications Medication Instructions Recorded Confirmed allopurinol 300 mg tablet 300 mg PO DAILY 07/07/18 11/27/22 multivitamin 1 tab PO DAILY 07/07/18 11/27/22 cholecalciferol (vitamin D3) 125 5,000 unit PO DAILY 09/03/18 11/27/22 mcg (5,000 unit) tablet (Vitamin D3) fluticasone propionate 50 1 spray intranasal DAILY PRN 09/03/18 11/27/22 mcg/actuation nasal Congestion spray,suspension (Flonase Allergy Relief) tramadol 50 mg tablet 50 mg PO DAILY PRN Pain 02/13/19 11/27/22 omeprazole 20 mg capsule,delayed 20 mg PO DAILY 05/12/20 11/27/22 release azelastine 137 mcg (0.1 %) nasal 2 spray intranasal DAILY PRN 11/27/22 11/27/22 spray aerosol Congestion Previous Rx's Medication Instructions Recorded nitroglycerin 0.4 mg sublingual 0.4 mg sublingual Q5M PRN chest 08/01/19 tablet pain #100 tabs magnesium chloride 64 mg 64 mg PO BID #180 tabs 03/19/22 (magnesium chloride) tablet,delayed release clopidogrel 75 mg tablet (Plavix) 75 mg PO DAILY #90 tabs 07/16/22 metoprolol succinate 25 mg 75 mg PO DAILY 90 days #270 tabs 07/16/22 tablet,extended release 24 hr rosuvastatin 5 mg tablet (Crestor) 5 mg PO DAILY #90 tabs 07/16/22 cyanocobalamin (vitamin B-12) 1,000 mcg IM .COMPLEX #1 mL 09/02/22 1,000 mcg/mL injection solution Results & Data (ED) Vital Signs Vital Signs - 24 hr 11/27/22 18:27 11/27/22 19:53 Temperature 36.5 C Temperature Source Oral Pulse Rate 83 75 Pulse Rhythm Regular Pulse Strength Normal Respiratory Rate 18 18 Respiratory Effort / Characteristics Non-Labored Respiratory Depth Normal Blood Pressure 115/69 Blood Pressure Mean 84 Pulse Oximetry 96 95 Oxygen Delivery Method Room Air Room Air Sepsis Recent Fever Within 48 Hours No Sepsis New/Unexplained Change in Mental Status No Sepsis Action Taken by Nursing No Action Required Laboratory Data 11/27/22 18:34 11/27/22 18:34 Lab Results 11/27/22 11/27/22 11/27/22 Range/Units 18:34 18:34 18:34 WBC 22.27 H (4.8-10.8) K/ul RBC 4.04 L (4.70-6.10) M/uL Hgb 15.1 (14.0-18.0) g/dl Hct 42.2 (42.0-52.0) % MCV 104.5 H (80.0-100.0) fL MCH 37.4 H (25.0-34.0) pg MCHC 35.8 (32.0-36.0) g/dL RDW Std Deviation 51.2 H (36.4-46.3) fL RDW Coeff of Joseph 13.2 (11.5-14.5) % Plt Count 299 (130-400) K/uL MPV 9.3 L (9.4-12.4) fL Immature Gran % (Auto) 1.8 % Neut % (Auto) 86.8 % Lymph % (Auto) 3.3 % [place] % (Auto) 7.3 % Eos % (Auto) 0.1 % Baso % (Auto) 0.7 % Neut # (Auto) 19.33 H (1.40-6.50) K/uL Lymph # (Auto) 0.73 L (1.2-3.4) K/uL [place] # (Auto) 1.63 H (0.11-0.59) K/uL Eos # (Auto) 0.02 (0-0.50) K/uL Baso # (Auto) 0.15 (0-0.2) K/uL Immature Gran # (Auto) 0.41 H (0.01-0.20) K/uL Toxic Granulation 2+ Dohle Bodies 1+ Tear Drop Cells 1+ Acanthocytes (Spur) 1+ Sodium 134 L (136-145) mmol/L Potassium 3.3 L (3.5-5.1) mmol/L Chloride 95 L (98-107) mmol/L Carbon Dioxide 26 (21-32) mmol/L Anion Gap 13 H (3-11) BUN 19 (6-23) mg/dl Creatinine 1.02 (0.6-1.4) mg/dl Est Cr Clr Drug Dosing Not Reportable Est GFR ( Amer) 84.1 ml/min Est GFR (Non-Af Amer) 72.6 ml/min BUN/Creatinine Ratio 18.6 (10-20) Glucose 107 H (70-99(Fasting)) mg/dl Lactate (0.4-2.0) mmol/L Calcium 9.7 (8.5-10.1) mg/dl Magnesium 1.5 L (1.7-2.4) mg/dl Total Bilirubin 1.1 H (0.2-1.0) mg/dl AST 46 H (13-39) U/L ALT 14 (7-52) U/L Alkaline Phosphatase 109 H (34-104) U/L Total Creatine Kinase 1786 H (30-223) U/L Troponin I High Sens 23.6 H (0-20) pg/ml Total Protein 7.5 (6.0-8.3) gm/dl Albumin 3.6 (3.4-5.0) gm/dl Globulin 3.9 (2.5-4.0) gm/dl Albumin/Globulin Ratio 0.9 (0.9-2) Procalcitonin (0-0.5) ng/ml TSH 2.813 (0.300-4.500) uIu/ml 11/27/22 11/27/22 Range/Units 18:34 19:16 WBC (4.8-10.8) K/ul RBC (4.70-6.10) M/uL Hgb (14.0-18.0) g/dl Hct (42.0-52.0) % MCV (80.0-100.0) fL MCH (25.0-34.0) pg MCHC (32.0-36.0) g/dL RDW Std Deviation (36.4-46.3) fL RDW Coeff of Joseph (11.5-14.5) % Plt Count (130-400) K/uL MPV (9.4-12.4) fL Immature Gran % (Auto) % Neut % (Auto) % Lymph % (Auto) % [place] % (Auto) % Eos % (Auto) % Baso % (Auto) % Neut # (Auto) (1.40-6.50) K/uL Lymph # (Auto) (1.2-3.4) K/uL [place] # (Auto) (0.11-0.59) K/uL Eos # (Auto) (0-0.50) K/uL Baso # (Auto) (0-0.2) K/uL Immature Gran # (Auto) (0.01-0.20) K/uL Toxic Granulation Dohle Bodies Tear Drop Cells Acanthocytes (Spur) Sodium (136-145) mmol/L Potassium (3.5-5.1) mmol/L Chloride (98-107) mmol/L Carbon Dioxide (21-32) mmol/L Anion Gap (3-11) BUN (6-23) mg/dl Creatinine (0.6-1.4) mg/dl Est Cr Clr Drug Dosing Est GFR ( Amer) ml/min Est GFR (Non-Af Amer) ml/min BUN/Creatinine Ratio (10-20) Glucose (70-99(Fasting)) mg/dl Lactate 2.4 H* (0.4-2.0) mmol/L Calcium (8.5-10.1) mg/dl Magnesium (1.7-2.4) mg/dl Total Bilirubin (0.2-1.0) mg/dl AST (13-39) U/L ALT (7-52) U/L Alkaline Phosphatase (34-104) U/L Total Creatine Kinase (30-223) U/L Troponin I High Sens (0-20) pg/ml Total Protein (6.0-8.3) gm/dl Albumin (3.4-5.0) gm/dl Globulin (2.5-4.0) gm/dl Albumin/Globulin Ratio (0.9-2) Procalcitonin 6.22 H (0-0.5) ng/ml TSH (0.300-4.500) uIu/ml Administered Medications Sodium Chloride (Nss 1000ml) 2,000 mls @ 999 mls/hr IV .Q2H1M ONE Stop: 11/27/22 21:28 Last Admin: 11/27/22 19:56 Dose: 999 mls/hr Documented By: BJB Discontinued Medications Cefepime HCl (Maxipime) 2,000 mg in 20 mls @ 5 mls/min IV NOW STA; Protocol Stop: 11/27/22 19:44 Last Admin: 11/27/22 19:57 Dose: 5 mls/min Documented By: BJB Imaging Data Radiologist's Impression: Chest X-Ray 11/27/22 18:44 XR chest 1V portable HISTORY: weakness COMPARISON: Chest and left rib series 11/23/2022. FINDINGS: A few bibasilar linear densities likely representing subsegmental atelectasis. Emphysema is noted. No evidence for pulmonary edema. The heart is top normal in size. Old, healed bilateral rib fractures. IMPRESSION: Emphysema. Otherwise, no acute process within the chest. ACT 112: Negative or not required by law. Electronically signed by: Chase Quarles M.D. 11/27/2022 6:[address] 11/27/22 18:[address] DOSE: 799.27 mGy.cm HISTORY: low back pain; bilateral lower extremity weakness TECHNIQUE: Multiaxial CT images of the lumbar spine were performed and reformatted in the sagittal and coronal plane without the use of contrast. A dose lowering technique was utilized adhering to the principles of ALARA. COMPARISON: Lumbar spine MRI 10/02/2022. FINDINGS: There is an old moderate super endplate compression fracture at L2, unchanged. No acute fracture or subluxation within the lumbar spine. Ikez-[id number]-azqsxnzx central canal narrowing at L4-L5, unchanged. Paravertebral soft tissues are unremarkable. IMPRESSION: 1. No acute fracture or subluxation within the lumbar spine. 2. Old L2 compression deformity again noted. ACT 112: Negative or not required by law. Electronically signed by: Chase Quarles M.D. 11/27/2022 7:34 PM Discharge Plan Visit Data Chief Complaint: Fall ED Provider: Bella Barragan Discharge Problem: Generalized weakness, Rhabdomyolysis, Leukocytosis, Acute hypokalemia, Hypomagnesemia, Elevated lactic acid level, Non-ST elevation [place] (NSTEMI) Patient Disposition: Admitted As Inpatient Forms Stand Alone Forms: [facility] [place] [facility] Prescriptions Prescriptions: No Action tramadol 50 mg tablet 50 mg PO DAILY PRN (Reason: Pain) nitroglycerin 0.4 mg tablet, sublingual 0.4 mg SL Q5M PRN (Reason: chest pain) Qty: 100 1RF Rx Instructions: until response; do not exceed 3 doses per episode magnesium chloride 64 mg tablet,delayed release (DR/EC) 64 mg PO BID Qty: 180 1RF rosuvastatin [Crestor] 5 mg tablet 5 mg PO DAILY Qty: 90 3RF metoprolol succinate 25 mg tablet extended release 24 hr 75 mg PO DAILY 90 Days Qty: 270 3RF Rx Instructions: 3 tablet dose clopidogrel [Plavix] 75 mg tablet 75 mg PO DAILY Qty: 90 3RF cyanocobalamin (vitamin B-12) 1,000 mcg/mL solution 1,000 mcg IM .COMPLEX Qty: 1 4RF Rx Instructions: ON HOLD PER SPOUSE1,000 mcg IM ONCE A MONTH; omeprazole 20 mg capsule,delayed release(DR/EC) 20 mg PO DAILY multivitamin Tablet 1 tab PO DAILY allopurinol 300 mg Tablet 300 mg PO DAILY fluticasone propionate [Flonase Allergy Relief] 50 mcg/actuation [place],Suspension 1 spray INTRANASAL DAILY PRN (Reason: Congestion) cholecalciferol (vitamin D3) [Vitamin D3] 5,000 unit Tablet 5,000 unit PO DAILY azelastine 137 mcg (0.1 %) aerosol,spray 2 spray intranasal DAILY PRN (Reason: Congestion) Referrals Referrals: Jay Shearer MD [Primary Care Provider] -
--- NOTE | 2022-11-27 19:01 | XRay Report ---
XR chest 1V portable HISTORY: weakness COMPARISON: Chest and left rib series 11/23/2022. FINDINGS: A few bibasilar linear densities likely representing subsegmental atelectasis. Emphysema is noted. No evidence for pulmonary edema. The heart is top normal in size. Old, healed bilateral rib f ractures. IMPRESSION: Emphysema. Otherwise, no acute process within the chest. ACT 112: Negative or not required by law. Electronically signed by: Chase Quarles M.D. 11/27/2022 6:59 PM
[2022-11-27 19:26] LABS: Alanine Aminotransferase 14 U/L (7-52); Albumin Globulin Ratio 0.9 (0.9-2); Albumin Level 3.6 gm/dl (3.4-5.0); Alkaline Phosphatase 109 U/L (34-104); Anion Gap 13 (3-11); Aspartate Aminotransferase 46 U/L (13-39); BUN Creatinine Ratio 18.6 (10-20); Bilirubin,Total 1.1 mg/dl (0.2-1.0); Blood Urea Nitrogen 19 mg/dl (6-23); Calcium 9.7 mg/dl (8.5-10.1); Carbon Dioxide 26 mmol/L (21-32); Chloride 95 mmol/L (98-107); Creatine Kinase 1786 U/L (30-223); Est GFR (African American) 84.1 ml/min; Est GFR (Non-African American) 72.6 ml/min; Globulin 3.9 gm/dl (2.5-4.0); Glucose 107 mg/dl (70-99(Fasting)); Magnesium 1.5 mg/dl (1.7-2.4); Potassium 3.3 mmol/L (3.5-5.1); Sodium 134 mmol/L (136-145); Total Protein 7.5 gm/dl (6.0-8.3)
[2022-11-27 19:27] LABS: Hematocrit (blood only) 42.2 % (42.0-52.0); Hemoglobin 15.1 g/dl (14.0-18.0); Mean Corpuscular Hemoglobin 37.4 pg (25.0-34.0); Mean Corpuscular Hgb Conc 35.8 g/dL (32.0-36.0); Mean Corpuscular Volume 104.5 fL (80.0-100.0); Mean Platelet Volume 9.3 fL (9.4-12.4); Platelet Count 299 K/uL (130-400); RDW Coefficient of Variation 13.2 % (11.5-14.5); RDW Standard Deviation 51.2 fL (36.4-46.3); Red Blood Count 4.04 M/uL (4.70-6.10); White Blood Count 22.27 K/ul (4.8-10.8)
[2022-11-27] MEDS ORDERED: SODIUM CHLORIDE 0.9% 1000ML 2,000 ML IV ONE (19:28)
[2022-11-27] MEDS ORDERED: MAG SULFATE 50% 1GM/2ML VIAL IV ONE (19:29)
[2022-11-27 19:32] LABS: Troponin I High Sensitivity 23.6 pg/ml (0-20)
--- NOTE | 2022-11-27 19:37 | CT Scan Report ---
LUMBAR SPINE CT CT DOSE: 799.27 mGy.cm HISTORY: low back pain; bilateral lower extremity weakness TECHNIQUE: Multiaxial CT images of the lumbar spine were performed and reformatted in the sagittal an d coronal plane without the use of contrast. A dose lowering technique was utilized adhering to the principles of ALARA. COMPARISON: Lumbar spine MRI 10/02/2022. FINDINGS: There is an old moderate super endplate compression fracture at L2, unchanged. No acute fra cture or subluxation within the lumbar spine. Uozk-ws-qzzurvyh central canal narrowing at L4-L5, unch anged. Paravertebral soft tissues are unremarkable. IMPRESSION: 1. No acute fracture or subluxation within the lumbar spine. 2. Old L2 compression deformity again noted. ACT 112: Negative or not required by law. Electronically signed by: Chase Quarles M.D. 11/27/2022 7:34 PM
[2022-11-27] MEDS ORDERED: VANCOMYCIN HCL 2,000 MG in SODIUM CHLORIDE 0.9% 500 ML IV ONE (19:41)
[2022-11-27] MEDS ORDERED: VANCOMYCIN CONSULT ACTIVE PRN (19:41)
[2022-11-27] MEDS ORDERED: CEFEPIME 2,000 MG/20 ML VIAL IV STA (19:41)
[2022-11-27 20:00] LABS: Acanthocytes 1+; Basophils # (auto) 0.15 K/uL (0-0.2); Basophils % (auto) 0.7 %; Dohle Bodies 1+; Eosinophils # (auto) 0.02 K/uL (0-0.50); Eosinophils % (auto) 0.1 %; Immature Granulocytes # (auto) 0.41 K/uL (0.01-0.20); Immature Granulocytes % (auto) 1.8 %; Lymphocytes # (auto) 0.73 K/uL (1.2-3.4); Lymphocytes % (auto) 3.3 %; Monocytes # (auto) 1.63 K/uL (0.11-0.59); Monocytes % (auto) 7.3 %; Neutrophils # (auto) 19.33 K/uL (1.40-6.50); Neutrophils % (auto) 86.8 %; Tear Drop Cells 1+; Toxic Granulation 2+
[2022-11-27] MEDS ORDERED: MAGNESIUM SULFATE / D5W 1 GM/100 ML BAG IV SCH (20:00)
[2022-11-27 20:21] LABS: Base Excess ABG 0.9 mEq/L (-9-1.8); HCO3 ABG 24 mmol/L (19-24); Oxygen Saturation ABG 98.4 % (90-95); PCO2 ABG 33 mmHg (35-46); PO2 ABG 88 mmHg (80-95); pH ABG 7.47 (7.35-7.45)
[2022-11-27 20:22] LABS: Allen Test POS (Pos)
[2022-11-27] MEDS ORDERED: POTASSIUM CHLORIDE CRTAB 20 MEQ TABCR PO STA (22:02)
[2022-11-27] MEDS ORDERED: MAGNESIUM SULFATE / D5W 1 GM/100 ML BAG IV ONE (22:02)
[2022-11-27] MEDS ORDERED: ONDANSETRON INJ 2 MG/ML 2 ML VIAL IV PRN (22:02)
[2022-11-27] MEDS ORDERED: POLYETHYLENE (MIRALAX) 17 GM PACK PO PRN (22:02)
[2022-11-27] MEDS ORDERED: ACETAMINOPHEN 325 MG TAB PO PRN (22:02)
--- NOTE | 2022-11-27 22:06 | History & Physical Report ---
Date of Service November 27, 2022 Assessment & Plan (1) Generalized weakness: Plan: 72yo male with history of HTN, HLP, CAD with progressive weakness an functional decline over the last 3 weeks. Patient now ambulating with a walker. He has had frequent falls at home requiring assistance to get off the floor. Most recently fell today and was on the floor for several hours before his called him and called EMS. Concern for underlying infectious process - patient with neutrophil predominant leukocytosis with WBC=22.27 with elevated N:L ratio and bands. He had slightly elevated lactate level of 2.4 on arrival which has normalized to 1.6 after IVF as well as an elevated procalcitonin of 6.22. Infectious workup thus far shows CXR with no infiltrate. Blood cultures have been ordered, not yet drawn. Of note, patient received Cefepime prior to blood cultures. UA is ordered and not yet sent. Possible sources include skin/soft tissue infection of buttocks vs perirectal abscess. Also must consider epidural abscess in patient with worsening back pain, bilateral LE weakness and suspected infection. Patient is presently afebrile and HD stable. Overall non-toxic in appearance. -Admit to medical with telemetry -Follow blood culture results -Follow UA results -CT of the Abdomen and Pelvis ordered -Continue empiric Vancomycin and Cefepime -Tylenol as needed for fever -Morphine as needed for pain -PT/OT evaluation -Fall precautions (2) Leukocytosis: Plan: Patient with leukocytosis, elevated lactate and procalcitonin. Unclear source of infection thus far. Awaiting further workup - blood cultures, UA, CT Abd/Pelvis -Empiric Vancomycin and Cefepime -Repeat CBC in AM (3) Rhabdomyolysis: Plan: Elevation of EX=1828 in setting of fall with down time of approximately 3 hours earlier today. Renal function is intact. UA is pending. Patient has received 2L IVF thus far -Continue LR 125mL/hr x 2 liters -Repeat CK in AM (4) Hypertension: Plan: Blood pressure well controlled. -Continue Metoprolol 75mg po daily -Continue to monitor (5) Hypercholesterolemia: Plan: Chronic. On Crestor 5mg po daily -Hold Crestor in setting of elevated CK (6) CAD (coronary artery disease): Plan: Patient with history of CAD. No chest pain or SOB. He does have a mild elevation of troponin of 23.6 -Holding Crestor -Continue Metoprolol -Continue Plavix 75mg po daily -Telemetry monitoring -Repeat troponin in AM F/E/N - LR at 125mL/hr x 2 liters, K 40mEq PO, Mg x 2 gm, repeat chemistry and Mg in AM, AHA diet as tolerated Ppx - Lovenox Code - Full per discussion with patient Dispo - Admit to medical with telemetry History of Present Illness Chief Complaint: generalized weakness, fatigue and falls Primary Care Provider: Jay Shearer MD Marcus Smith is a 72yo male with history of HTN, HLP, CAD, GERD and idiopathic neuropathy presenting with progressive weakness and multiple falls. Patient reports that he fell and hit his ribs three weeks ago. He was seen in clinic - no fractures - thought possibly ribs were bruised. Since then he has had progressive functional decline. He reports worsening pain in his low back as well as equal weakness in his legs bilaterally. Due to his back pain and weakness he has been using a walker to ambulate in his home. He fell earlier this week and was unable to get up from the floor. His called the neighbor to assist him. Over the last two days patient has not been able to sit up due to pain in his back. He has been sitting in a recliner chair and laying in bed. This morning he slid out of bed and was unable to get up. He was on the ground for 3 hours. His found him and called 911. Patient denies head trauma or LOC. He denies chest pain, cough, SOB, palpitations. He has full recollection of his falling events. He denies saddle anesthesia or change in bowels or bladder function. He does report subjective fevers and chills as well as pain in the buttock and perirectal area. He has nausea associated with the pain, poor appetite and decreased oral intake. measured a Tm at home of 100. In the ER he is afebrile, HD stable, NAD. ER Course: NSS x 2L Cefepime 2gm Magnesium 1gm Vancomycin being infused presently Allergies Allergy/AdvReac Type Severity Reaction Status Date / Time soy Allergy Severe THROAT Verified 11/27/22 20:01 TIGHTENED W/SOY SAUCE Sulfa (Sulfonamide Allergy Intermediate HIVES AND Verified 11/27/22 19:57 Antibiotics) ITHCING zolpidem [From Ambien] AdvReac Severe " Verified 11/27/22 19:57 Hallucinates and sleepwalks" baclofen AdvReac Intermediate Tired and Verified 11/27/22 19:57 sluggish gabapentin AdvReac Intermediate " [place] Verified 11/27/22 19:57 like " out of body" gluten AdvReac Intermediate ABD PAIN Verified 11/27/22 19:57 milk AdvReac Intermediate STOMACH Verified 11/27/22 19:57 PAIN Bfqdtzb-LRC-TzO Reductase AdvReac Intermediate MUSCLE Verified 11/27/22 19:57 Inhibitor WEAKNESS [Vqgywdo-Yez-Mbo Reductase Inhibitor] Home Medications Medication Instructions Recorded Confirmed Type allopurinol 300 mg tablet 300 mg PO DAILY 07/07/18 11/27/22 History multivitamin 1 tab PO DAILY 07/07/18 11/27/22 History cholecalciferol (vitamin D3) 125 5,000 unit PO DAILY 09/03/18 11/27/22 History mcg (5,000 unit) tablet (Vitamin D3) fluticasone propionate 50 1 spray intranasal DAILY PRN 09/03/18 11/27/22 History mcg/actuation nasal Congestion spray,suspension (Flonase Allergy Relief) tramadol 50 mg tablet 50 mg PO DAILY PRN Pain 02/13/19 11/27/22 History nitroglycerin 0.4 mg sublingual 0.4 mg sublingual Q5M PRN chest 08/01/19 11/27/22 Rx tablet pain #100 tabs omeprazole 20 mg capsule,delayed 20 mg PO DAILY 05/12/20 11/27/22 History release magnesium chloride 64 mg 64 mg PO BID #180 tabs 03/19/22 11/27/22 Rx (magnesium chloride) tablet,delayed release clopidogrel 75 mg tablet (Plavix) 75 mg PO DAILY #90 tabs 07/16/22 11/27/22 Rx metoprolol succinate 25 mg 75 mg PO DAILY 90 days #270 tabs 07/16/22 11/27/22 Rx tablet,extended release 24 hr rosuvastatin 5 mg tablet (Crestor) 5 mg PO DAILY #90 tabs 07/16/22 11/27/22 Rx cyanocobalamin (vitamin B-12) 1,000 mcg IM .COMPLEX #1 mL 09/02/22 11/27/22 Rx 1,000 mcg/mL injection solution azelastine 137 mcg (0.1 %) nasal 2 spray intranasal DAILY PRN 11/27/22 11/27/22 History spray aerosol Congestion Past Med/Surg History Medical History Allergic rhinitis Angina pectoris Arteriosclerotic coronary artery disease Benign essential hypertension (10/09/12) Bronchitis Depression Excessive sweating GERD (gastroesophageal reflux disease) Hiatal hernia Hx of myocardial infarction Hyperlipidemia Kidney stones Lateral plantar neuropathy Lightheadedness Myocardial Infarction 7-10 YEARS AGO Nasal congestion with rhinorrhea Numbness Osteoarthritis Post concussion syndrome Presence of stent in artery Stomach problems Surgical History History of cardiac cath History of heart artery stent 7-10 YEARS AGO INSERTED>[place] History of tonsillectomy Polyp, nasal Stented coronary artery (10/09/12) Family History Mother Family history of diabetes mellitus Heart disease Father Heart disease Sister Asthma Other No family history of adverse response to anesthesia No family history of bleeding disorder Social History Smoking Status: Never smoker Second Hand Exposure: No; Hx Alcohol Use: Yes Alcohol type: wine Alcohol Intake Frequency: 4 or More x per/Week Alcohol Intake Frequency Comment: 1-2 glasses per day Hx Substance Use: No Preferred Language: Croatian Communication Ability: Effective Visual Impairment: Limited Hearing Ability: Normal Nurse Quality Required: No Beliefs That Will Affect Care: None marital status: Current Living Situation: Spouse current occupational status: retired Feels Safe at Home: Yes Assistive Devices: Cane Review of Systems Review of Systems: All systems reviewed & are unremarkable except as noted in HPI & below Physical Exam Physical Exam: General: patient uncomfortable in bed, NAD, non-toxic in appearance, AA&O x 4 Skin: warm, dry, intact HEENT: NC/AT, PERRL, EOMI, anicteric sclera, conjunctiva without injection, external ear normal to inspection and nontender, nares patent, moist mucus membranes, dentition intact, no oropharyngeal lesions, neck supple, trachea midline, no LAD, no thyromegaly, no JVD Heart: +S1/S2, regular, no m/r/g Lungs: equal air entry bilaterally, no rales/rhonchi/wheezes Abd: +BS, soft, NT/ND, no masses/organomegaly/ascites Ext: warm, 2+ pulses in UE/LE bilaterally, no clubbing/cyanosis or edema Neuro: nonfocal, patient AA&O x 4, speech intact, no facial droop, moving all extremities on command with equal strength 5/5 Warmth, tenderness and induration of buttocks, no fluctuance. No obvious perirectal abscess on palpation. No crepitus. Tenderness at left lumbar paraspinal musculature. No fullness or fluctuance Results & Data Results & Data ([facility]) Vital Signs (Past 12 Hours) Vital Signs Temp Pulse Resp BP BP Pulse Ox O2 Del Method 11/27/22 20:07 16 138/80 98 11/27/22 19:53 75 18 95 Room Air 11/27/22 18:27 36.5 C 83 18 115/69 96 Room Air Laboratory Results Laboratory Results WBC 22.27 K/ul (4.8-10.8) H 11/27/22 18:34 RBC 4.04 M/uL (4.70-6.10) L 11/27/22 18:34 Hgb 15.1 g/dl (14.0-18.0) 11/27/22 18:34 Hct 42.2 % (42.0-52.0) 11/27/22 18:34 MCV 104.5 fL (80.0-100.0) H 11/27/22 18:34 MCH 37.4 pg (25.0-34.0) H 11/27/22 18:34 MCHC 35.8 g/dL (32.0-36.0) 11/27/22 18:34 RDW Std Deviation 51.2 fL (36.4-46.3) H 11/27/22 18:34 RDW Coeff of Joseph 13.2 % (11.5-14.5) 11/27/22 18:34 Plt Count 299 K/uL (130-400) 11/27/22 18:34 MPV 9.3 fL (9.4-12.4) L 11/27/22 18:34 Immature Gran % (Auto) 1.8 % 11/27/22 18:34 Neut % (Auto) 86.8 % 11/27/22 18:34 Lymph % (Auto) 3.3 % 11/27/22 18:34 [place] % (Auto) 7.3 % 11/27/22 18:34 Eos % (Auto) 0.1 % 11/27/22 18:34 Baso % (Auto) 0.7 % 11/27/22 18:34 Neut # (Auto) 19.33 K/uL (1.40-6.50) H 11/27/22 18:34 Lymph # (Auto) 0.73 K/uL (1.2-3.4) L 11/27/22 18:34 [place] # (Auto) 1.63 K/uL (0.11-0.59) H 11/27/22 18:34 Eos # (Auto) 0.02 K/uL (0-0.50) 11/27/22 18:34 Baso # (Auto) 0.15 K/uL (0-0.2) 11/27/22 18:34 Immature Gran # (Auto) 0.41 K/uL (0.01-0.20) H 11/27/22 18:34 Toxic Granulation 2+ 11/27/22 18:34 Dohle Bodies 1+ 11/27/22 18:34 Tear Drop Cells 1+ 11/27/22 18:34 Acanthocytes (Spur) 1+ 11/27/22 18:34 ABG pH 7.47 (7.35-7.45) H 11/27/22 20:13 ABG pCO2 33 mmHg (35-46) L 11/27/22 20:13 ABG pO2 88 mmHg (80-95) 11/27/22 20:13 ABG HCO3 24 mmol/L (19-24) 11/27/22 20:13 ABG O2 Saturation 98.4 % (90-95) H 11/27/22 20:13 ABG Base Excess 0.9 mEq/L (-9-1.8) 11/27/22 20:13 Miguel Test POS (Pos) 11/27/22 20:13 Oxygen Given ROOM AIR 11/27/22 20:13 Sodium 134 mmol/L (136-145) L 11/27/22 18:34 Potassium 3.3 mmol/L (3.5-5.1) L 11/27/22 18:34 Chloride 95 mmol/L (98-107) L 11/27/22 18:34 Carbon Dioxide 26 mmol/L (21-32) 11/27/22 18:34 Anion Gap 13 (3-11) H 11/27/22 18:34 BUN 19 mg/dl (6-23) 11/27/22 18:34 Creatinine 1.02 mg/dl (0.6-1.4) 11/27/22 18:34 Est Cr Clr Drug Dosing Not Reportable 11/27/22 18:34 Est GFR ( Amer) 84.1 ml/min 11/27/22 18:34 Est GFR (Non-Af Amer) 72.6 ml/min 11/27/22 18:34 BUN/Creatinine Ratio 18.6 (10-20) 11/27/22 18:34 Glucose 107 mg/dl (70-99(Fasting)) H 11/27/22 18:34 Lactate 1.6 mmol/L (0.4-2.0) 11/27/22 21:05 Calcium 9.7 mg/dl (8.5-10.1) 11/27/22 18:34 Magnesium 1.5 mg/dl (1.7-2.4) L 11/27/22 18:34 Total Bilirubin 1.1 mg/dl (0.2-1.0) H 11/27/22 18:34 AST 46 U/L (13-39) H 11/27/22 18:34 ALT 14 U/L (7-52) 11/27/22 18:34 Alkaline Phosphatase 109 U/L (34-104) H 11/27/22 18:34 Total Creatine Kinase 1786 U/L (30-223) H 11/27/22 18:34 Troponin I High Sens 23.6 pg/ml (0-20) H 11/27/22 18:34 Total Protein 7.5 gm/dl (6.0-8.3) 11/27/22 18:34 Albumin 3.6 gm/dl (3.4-5.0) 11/27/22 18:34 Globulin 3.9 gm/dl (2.5-4.0) 11/27/22 18:34 Albumin/Globulin Ratio 0.9 (0.9-2) 11/27/22 18:34 Procalcitonin 6.22 ng/ml (0-0.5) H 11/27/22 18:34 TSH 2.813 uIu/ml (0.300-4.500) 11/27/22 18:34 SARS-CoV-2, RNA, NAAT NEGATIVE (NEGATIVE) 11/27/22 19:56 Impressions Chest X-Ray 11/27/22 18:44 XR chest 1V portable HISTORY: weakness COMPARISON: Chest and left rib series 11/23/2022. FINDINGS: A few bibasilar linear densities likely representing subsegmental atelectasis. Emphysema is noted. No evidence for pulmonary edema. The heart is top normal in size. Old, healed bilateral rib fractures. IMPRESSION: Emphysema. Otherwise, no acute process within the chest. ACT 112: Negative or not required by law. Electronically signed by: Chase Quarles M.D. 11/27/2022 6:[address] 11/27/22 18:[address] DOSE: 799.27 mGy.cm HISTORY: low back pain; bilateral lower extremity weakness TECHNIQUE: Multiaxial CT images of the lumbar spine were performed and reformatted in the sagittal and coronal plane without the use of contrast. A dose lowering technique was utilized adhering to the principles of ALARA. COMPARISON: Lumbar spine MRI 10/02/2022. FINDINGS: There is an old moderate super endplate compression fracture at L2, unchanged. No acute fracture or subluxation within the lumbar spine. Sglg-na-qmzjuhwe central canal narrowing at L4-L5, unchanged. Paravertebral soft tissues are unremarkable. IMPRESSION: 1. No acute fracture or subluxation within the lumbar spine. 2. Old L2 compression deformity again noted. ACT 112: Negative or not required by law. Electronically signed by: Chase Quarles M.D. 11/27/2022 7:34 PM Code Status & VTE Plan VTE Prophylaxis Plan VTE Prophylaxis will be ordered: Yes PG Care Time/CCT Total # of Minutes Spent Total Time Spent with Patient: Total time spent is greater than 50% in coordination of care (as documented) at patient's floor/unit and/or counseling patient: Coding Level of Care Code 77771 INT INP/OBS CARE 3/75MIN Diagnoses Generalized weakness R53.1 Leukocytosis D72.829 Rhabdomyolysis M62.82 Hypertension I10 Hypercholesterolemia E78.00 CAD (coronary artery disease) I25.10
[2022-11-28] MEDS: LACTATED RINGER'S 1,000 ML IV SCH ×2 (00:51→08:09)
[2022-11-28] MEDS: ENOXAPARIN INJ 40 MG/0.4 ML SYR SQ SCH ×2 (00:52→20:05)
[2022-11-28] MEDS: MoRPHine SULFATE 2 MG/ML CARP IV PRN ×2 (01:51→13:45)
[2022-11-28] MEDS ORDERED: CEFEPIME 2,000 MG in SYRINGE 0 ML IV SCH (04:00)
[2022-11-28] MEDS ORDERED: VANCOMYCIN HCL 750 MG in SODIUM CHLORIDE 0.9% 250 ML IV SCH (06:00)
[2022-11-28 06:42] LABS: Hematocrit (blood only) 36.5 % (42.0-52.0); Mean Corpuscular Hemoglobin 36.8 pg (25.0-34.0); Mean Corpuscular Hgb Conc 35.6 g/dL (32.0-36.0); Mean Corpuscular Volume 103.4 fL (80.0-100.0); Mean Platelet Volume 9.4 fL (9.4-12.4); Platelet Count 260 K/uL (130-400); RDW Coefficient of Variation 13.2 % (11.5-14.5); RDW Standard Deviation 49.6 fL (36.4-46.3); Red Blood Count 3.53 M/uL (4.70-6.10); White Blood Count 18.18 K/ul (4.8-10.8)
[2022-11-28 07:32] LABS: Albumin Level 2.8 gm/dl (3.4-5.0); BUN Creatinine Ratio 25.8 (10-20); Bilirubin Direct 0.3 mg/dl (0-0.2); Bilirubin,Total 0.9 mg/dl (0.2-1.0); Calcium 8.5 mg/dl (8.5-10.1); Creatinine Clr Calc Pharmacy 125.5 ml/min; Est GFR (African American) 114.1 ml/min; Est GFR (Non-African American) 98.4 ml/min; Magnesium 1.7 mg/dl (1.7-2.4); Potassium 3.3 mmol/L (3.5-5.1); Total Protein 6.1 gm/dl (6.0-8.3); Troponin I High Sensitivity 28.9 pg/ml (0-20)
[2022-11-28] MEDS ORDERED: POTASSIUM CHLORIDE CRTAB 20 MEQ TABCR PO ONE (07:37)
[2022-11-28 07:40] LABS: Appearance Urine Cloudy (Clear); Bacteria Urine Automated Negative (Negative); Blood Urine Negative (Negative); Color Urine Dark Yellow; Epithelial Cell Urine Auto >30 /lpf (0-5); Glucose Urine UA Negative (Negative); Ketones Urine 1+ (Negative); Leukocyte Esterase Urine 1+ (Negative); Nitrite Urine Negative (Negative); Protein Urine 1+ (Negative); RBC Urine Automated 0-4 /hpf (0-4); Urobilinogen Urine Negative (Negative)
[2022-11-28 07:45] LABS: Bilirubin Urine 1+ (Negative)
--- NOTE | 2022-11-28 08:04 | Hospitalist Progress Note ---
Date of Service November 28, 2022 Assessment & Plan (1) Generalized weakness: (2) Leukocytosis: (3) Rhabdomyolysis: (4) Hypertension: (5) Hypercholesterolemia: (6) CAD (coronary artery disease): Plan Pt is a 72 yo male with PMH of HTN, HLD, DC s/p stenting, GERD, and arthritis p resenting with increasing weakness over the past few weeks culminating in a fall where he was unable to get up. He was on the floor for several hours before he was found and EMS was called. Perirectal abscess - pt with neutrophil predominant leukocytosis with WBC 22.27, procal 6.22 upon admission - slightly elevated lactate level of 2.4 on arrival which decreased to 1.6 after IVF - CTAP showed complex multiloculated perirectal abscess, concern for gas forming infection - blood cultures pending (patient received cefepime x1 prior to blood cultures) - d/c cefepime, start zosyn for additional anaerobic coverage, continue vanco - continue morphine for pain, tylenol for fever - surgery consulted for abscess management Generalized weakness - multifactorial including perirectal abscess, progression of neuropathy, and deconditioning - lumbar CT neg for fracture, showed old L2 compression deformity - PT/OT ordered Rhabdomyolysis - CK 1786 upon admission in setting of fall with down time of approximately 3 hours earlier today; repeat CK 1553 - Cr stable, UA neg for blood - pt received 2L in ER, another 2L on the floor Hypertension - continue metoprolol 75mg PO daily Hypercholesterolemia - on home crestor 5mg PO daily - continue to hold crestor in setting of elevated CK CAD (coronary artery disease) - denies chest pain, SOB - troponin slightly elevated at 23, will trend to peak - hold crestor, continue metoprolol and plavix 75mg po daily FEN: LR at 125mL/hr, K 40mEq PO, gluten free/lactose intolerant diet DVT ppx: lovenox 40 mg daily Code status: Full Dispo: med/surg w/ tele Admission and Anticipated Discharge Date Admission Date: November 27, 2022 Supervising Physician Co-Signing Physician Notes Resident Physician Supervision Note: I independently interviewed and examined the patient and verified the mahmood history and physical, reviewed labs and image studies and agree with resident findings and care plan. Subjective Pt is a 72 yo male with PMH of HTN, HLD, DC s/p stenting, GERD, and arthritis presenting with increasing weakness over the past few weeks culminating in a fall where he was unable to get up. He was on the floor for several hours before he was found and EMS was called. Pt seen at bedside this AM. He explains that he is "tired of falling." He has a hx of bilateral lower extremity neuropathy. He cannot feel his feet and he says his entire legs are numb. He is experiencing some back pain which make it hard for him to move even in bed. He does not recall any inciting invite that may have triggered a fall other than his neuropathy. He denies fevers/chills, N/V/D, and productive cough at home. He denies new chest pain, SOB, abdominal pain, or leg pains. Review of Systems Review of Systems: All systems reviewed & are unremarkable except as noted in HPI & below Physical Exam Constitutional: NAD. Vitals WNL. Eyes: no conjunctival abnormality Respiratory: Limited d/t patient's inability to sit forward/roll. CTA bilaterally while listening anteriorly. Non labored breathing. Cardiovascular: RRR. No murmur noted. No LE edema. Gastrointestinal (Abdomen): Nontender, +BS. No masses noted. Skin: no rashes, warm and dry Neurologic: Sensation changed/decreased in BL lower extremities. Psychiatric: Alert. Mood and affect congruent. Results & Data Results & Data ([facility]) Vital Signs (Past 12 Hours) Vital Signs Temp Pulse Pulse Resp BP BP Pulse Ox 11/28/22 07:50 94 H 11/27/22 22:47 83 11/27/22 21:49 11/27/22 21:49 36.7 C 83 18 146/91 H 95 11/28/22 04:00 37.7 C H 79 20 126/76 92 11/27/22 20:07 16 138/80 98 O2 Del Method 11/28/22 07:50 11/27/22 22:47 11/27/22 21:49 Room Air 11/27/22 21:49 Room Air 11/28/22 04:00 Room Air 11/27/22 20:07 Resident Activity Tracking Resident Involvement: Resident Care Provided Care Provided: Adult Hospital Medicine
[2022-11-28] MEDS: CLOPIDOGREL BISULFATE 75 MG TAB PO SCH (08:05)
[2022-11-28] MEDS: allopurinoL 300 MG TAB PO SCH (08:05)
[2022-11-28] MEDS: METOPROLOL SUCC 25MG EXT REL TAB PO SCH (08:05)
[2022-11-28] MEDS: PANTOprazole 40 MG TAB PO SCH (08:05)
[2022-11-28] MEDS: traMADol HCL 50 MG TABLET PO PRN (08:07)
[2022-11-28] MEDS: DOCUSATE SODIUM 100 MG CAP PO PRN (08:07)
[2022-11-28] MEDS ORDERED: ROSUVASTATIN CALCIUM 5 MG TAB PO SCH (09:00)
[2022-11-28] MEDS ORDERED: OPTIRAY 350 100ml IV ONE (09:42)
--- NOTE | 2022-11-28 10:19 | CT Scan Report ---
CT OF THE ABDOMEN AND PELVIS WITH CONTRAST CLINICAL HISTORY: Leukocytosis. Evaluate for perirectal abscess. COMPARISON STUDY: CT of the abdomen and pelvis November 16, 2011 and abdominal ultrasound March 23 2. TECHNIQUE: Following IV administration of 90 mL of Optiray, axial images of the abdomen and pelvis we re obtained from the lung bases to the proximal femurs. Images were reviewed in the axial, sagittal, and coronal planes. IV contrast was administered without complication. Automated exposure control wa s utilized for the study. A dose lowering technique was utilized adhering to the principles of ALARA . CT DOSE: 786.48 mGy.cm FINDINGS: A trace left pleural effusion is noted within the lower hemithorax. Multiple healing bilate ral lower rib fractures are noted. No pneumatosis, free air or portal venous gas is present. There is a moderate sized hiatal hernia. A 2 cm lateral segment hepatic cyst is present. There is no biliary or pancreatic ductal dilatation. Spleen, adrenal glands and pancreas are unremarkable. Multiple small bilateral renal calculi measure up to 4 mm. There are no ureteral calculi. No hydronephrosis. The bl adder is distended. 1.3 cm left renal lesion is difficult to characterize given its small size but fa vors a cyst. There is no evidence for a bowel obstruction. There is colonic diverticulosis. The appen krista is normal. Note is made of a large complex left perirectal gas and fluid containing collection consistent with a n abscess with mass effect upon the rectum. There is associated rectal wall thickening with stranding . The largest component of the abscess measures 8.7 x 7.1 x 5.9 cm. This communicates with an additio nal component within the medial for the right buttock that measures 6.8 x 5.1 x 3.7 cm. This multiloc ulated abscess has associated transsphincteric and supralevator components. In addition, there are mu ltiple locules of gas within the subcutaneous tissues of the left inferior buttock. This could be due to a gas-forming infectious process or contained perforation. Associated prominent lymph nodes are l ikely reactive. IMPRESSION: 1. Large complex multiloculated perirectal abscess with transsphincteric and supralevator components, as described above. Largest component of the abscess along the left lateral wall of the rectum with mass effect upon the rectum, measures 8.7 x 7.1 x 5.9 cm. This communicates with a smaller abscess wi thin the medial fold of the right buttock that measures 6.8 x 5.1 x 3.7 cm. Locules of soft tissue ga s within the left buttock could represent a gas forming infectious process such as necrotizing fascii tis or be due to a contained perforation. Surgical consultation is recommended. 2. Bilateral nephrolithiasis. No ureteral calculi or hydronephrosis. Distended bladder. 3. Multiple healing bilateral lower rib fractures. Trace left pleural effusion. 4. No bowel obstruction. Colonic diverticulosis. ACT 112: Negative or not required by law. Electronically signed by: Minh Leon M.D. 11/28/2022 10:17 AM
[2022-11-28] MEDS ORDERED: PIPERACILLIN/TAZOBACTAM 3.375 GM (over 30 mins) IV ONE (11:15)
--- NOTE | 2022-11-28 12:02 | Anesthesiology Consultation ---
Date of Service November 28, 2022 Assessment & Plan Chart Review Chart Review: Acceptable Risk for Surgery and Patient NOT seen in Pre Admission Testing Consults Requested none ASA [id number] Proposed Anesthesia Anesthesia Type: General History Height/Weight Height: 5 ft 10 in Weight: 99.5 kg Allergies Allergy/AdvReac Type Severity Reaction Status Date / Time soy Allergy Severe THROAT Verified 11/27/22 20:01 TIGHTENED W/SOY SAUCE Sulfa (Sulfonamide Allergy Intermediate HIVES AND Verified 11/27/22 19:57 Antibiotics) ITHCING zolpidem [From Ambien] AdvReac Severe " Verified 11/27/22 19:57 Hallucinates and sleepwalks" baclofen AdvReac Intermediate Tired and Verified 11/27/22 19:57 sluggish gabapentin AdvReac Intermediate " [place] Verified 11/27/22 19:57 like " out of body" gluten AdvReac Intermediate ABD PAIN Verified 11/27/22 19:57 milk AdvReac Intermediate STOMACH Verified 11/27/22 19:57 PAIN [id number] Reductase AdvReac Intermediate MUSCLE Verified 11/27/22 19:57 Inhibitor WEAKNESS [Khucgnt-Wpt-Tot Reductase Inhibitor] Medications Home Medications Medication Instructions Recorded Confirmed Last Taken allopurinol 300 mg tablet 300 mg PO DAILY 07/07/18 11/27/22 11/27/22 multivitamin 1 tab PO DAILY 07/07/18 11/27/22 11/27/22 cholecalciferol (vitamin D3) 125 5,000 unit PO DAILY 09/03/18 11/27/22 11/27/22 mcg (5,000 unit) tablet (Vitamin D3) fluticasone propionate 50 1 spray intranasal DAILY PRN 09/03/18 11/27/22 Unknown mcg/actuation nasal Congestion spray,suspension (Flonase Allergy Relief) tramadol 50 mg tablet 50 mg PO DAILY PRN Pain 02/13/19 11/27/22 Unknown nitroglycerin 0.4 mg sublingual 0.4 mg sublingual Q5M PRN chest 08/01/19 11/27/22 Unknown tablet pain #100 tabs omeprazole 20 mg capsule,delayed 20 mg PO DAILY 05/12/20 11/27/22 11/27/22 release magnesium chloride 64 mg 64 mg PO BID #180 tabs 03/19/22 11/27/22 11/27/22 08:00 (magnesium chloride) tablet,delayed release clopidogrel 75 mg tablet (Plavix) 75 mg PO DAILY #90 tabs 07/16/22 11/27/22 11/27/22 metoprolol succinate 25 mg 75 mg PO DAILY 90 days #270 tabs 07/16/22 11/27/22 11/27/22 tablet,extended release 24 hr rosuvastatin 5 mg tablet (Crestor) 5 mg PO DAILY #90 tabs 07/16/22 11/27/22 11/27/22 cyanocobalamin (vitamin B-12) 1,000 mcg IM .COMPLEX #1 mL 09/02/22 11/27/22 Unknown 1,000 mcg/mL injection solution azelastine 137 mcg (0.1 %) nasal 2 spray intranasal DAILY PRN 11/27/22 11/27/22 Unknown spray aerosol Congestion Active Medications Generic Name Dose Route Start Last Admin Trade Name Freq PRN Reason Stop Dose Admin Allopurinol 300 mg 11/28/22 09:00 11/28/22 08:05 Allopurinol 300 Mg Tab PO 12/28/22 08:59 300 mg DAILY EDMUND Administration Clopidogrel Bisulfate 75 mg 11/28/22 09:00 11/28/22 08:05 Clopidogrel Bisulfate 75 Mg Tab PO 12/28/22 08:59 75 mg DAILY EDMUND Administration Docusate Sodium 100 mg 11/27/22 22:02 11/28/22 08:07 Docusate Sodium 100 Mg Cap PO 12/27/22 22:01 100 mg BID PRN Administration Constipation Enoxaparin Sodium 40 mg 11/27/22 22:15 11/28/22 00:52 Enoxaparin Inj 40 Mg/0.4 Ml Syr SQ 12/27/22 22:14 40 mg HS EDMUND Administration Lactated Ringer's 1,000 mls @ 125 mls/hr 11/27/22 22:02 11/28/22 08:09 Lr IV 11/28/22 14:01 125 mls/hr .Q8H EDMUND Administration Vancomycin HCl 750 mg/ Sodium 265 mls @ 200 mls/hr 11/28/22 06:00 11/28/22 08:33 Chloride IV 11/30/22 05:59 Infused Q12H EDMUND Infusion Protocol Metoprolol Succinate 75 mg 11/28/22 09:00 02/12/23 08:05 Metoprolol Succ 25mg Ext Rel Tab PO 12/28/22 08:59 75 mg DAILY EDMUND Administration Morphine Sulfate 2 mg 11/27/22 22:24 11/28/22 01:51 Morphine Sulfate 2 Mg/Ml Carp IV 12/11/22 22:23 2 mg Q4H PRN Administration Pain Pantoprazole Sodium 40 mg 11/28/22 09:00 11/28/22 08:05 Pantoprazole 40 Mg Tab PO 12/28/22 08:59 40 mg DAILY EDMUND Administration Polyethylene Glycol 17 gm 11/27/22 22:02 11/28/22 08:07 Polyethylene (Miralax) 17 Gm Pack PO 12/27/22 22:01 17 gm DAILY PRN Administration Constipation Tramadol HCl 50 mg 11/27/22 22:02 11/28/22 08:07 Tramadol Hcl 50 Mg Tablet PO 12/27/22 22:01 50 mg DAILY PRN Administration Pain Past Medical History Medical History Allergic rhinitis Angina pectoris Arteriosclerotic coronary artery disease Benign essential hypertension (10/09/12) Bronchitis Depression Excessive sweating GERD (gastroesophageal reflux disease) Hiatal hernia Hx of myocardial infarction Hyperlipidemia Kidney stones Lateral plantar neuropathy Lightheadedness Myocardial Infarction 7-10 YEARS AGO Nasal congestion with rhinorrhea Numbness Osteoarthritis Post concussion syndrome Presence of stent in artery Stomach problems Exercise / Class Metabolic Activity III < 4 Walking/Shop/Light housework Past Family History Family History Mother Family history of diabetes mellitus Heart disease Father Heart disease Sister Asthma Other No family history of adverse response to anesthesia No family history of bleeding disorder Past Surgical History Surgical History History of cardiac cath History of heart artery stent 7-10 YEARS AGO INSERTED>[place] History of tonsillectomy Polyp, nasal Stented coronary artery (10/09/12) Past Anesthesia History No Hx of Anesthesia Complications and No Family Hx of Anesthesia Complications History of PONV No Hx of PONV and No Hx of Motion Sickness Social History Smoking Status: Never smoker tobacco type: cigarettes Hx Alcohol Use: Yes Alcohol type: wine alcohol intake frequency: holidays/special occasions only Hx Substance Use: No substance use type: does not use Physical Exam Vital Signs Last Vital Signs Temp 37.4 C 11/28/22 11:32 Pulse 92 H 11/28/22 11:32 Resp 16 11/28/22 11:32 BP 123/69 11/28/22 11:32 Pulse Ox 95 11/28/22 11:32 O2 Del Method 11/28/22 11:32 Testing Laboratory Results 11/28/22 06:02 11/28/22 06:02 Urine Color Dark Yellow 11/28/22 06:45 Urine Appearance Cloudy (Clear) A 11/28/22 06:45 Urine pH 5.0 (4.5-7.5) 11/28/22 06:45 Ur Specific [place] 1.030 (1.000-1.030) 11/28/22 06:45 Urine Protein 1+ (Negative) H 11/28/22 06:45 Urine Glucose (UA) Negative (Negative) 11/28/22 06:45 Urine Ketones 1+ (Negative) H 11/28/22 06:45 Urine Nitrite Negative (Negative) 11/28/22 06:45 Ur Leukocyte Esterase 1+ (Negative) H 11/28/22 06:45 Urine WBC (Auto) 10-30 /hpf (0-5) H 11/28/22 06:45 Urine RBC (Auto) 0-4 /hpf (0-4) 11/28/22 06:45 U Hyaline Cast (Auto) 5-10 /lpf (0-5) H 11/28/22 06:45 U Epithel Cells (Auto) >30 /lpf (0-5) H 11/28/22 06:45 Urine Bacteria (Auto) Negative (Negative) 11/28/22 06:45 Electrocardiogram Date: 11/27/22 Findings: + NSR @ (@ 80;low voltage qrs;septal infarct age?) and + NSST changes Chest X-Ray Date: 11/27/22 Findings: + NAD and + other (c/w COPD/emphysema) Stress Test Date: 10/22/19 Type: DSE Findings: + WNL
--- NOTE | 2022-11-28 12:32 | Pharmacy Report ---
Pharmacy PK ABX Note - Date of Service November 28, 2022 - Assessment and Plan Assessment 72 year old M receiving vancomycin and zosyn for treatment of perirectal abscess. Blood cultures pending. Renal function stable. Day # 2 of antimicrobial therapy. Plan Vancomycin * Loading dose: 2000 mg IV x 1 * Maintenance dose: 1250 mg IV every 12 hours * Regimen is predicted to achieve target AUC/KIMBERLY of 400-600 mg/L.hr * Will obtain a level around steady state, or sooner if clinically indicated Pharmacy will continue to follow and will adjust dose/frequency as necessary. Thank you. Pharmacy has transitioned to AUC monitoring for vancomycin. AUC/KIMBERLY is the preferred PK/PD target and is associated with decreased risk of nephrotoxicity compared to traditional trough targets.
--- NOTE | 2022-11-28 12:47 | Surgery Consultation ---
Date of Consultation November 28, 2022 Assessment & Plan (1) Emily-rectal abscess: pt is a 72 year-old male who was admitted to hospital for CT scan finding- emily- rectal abscess, IMP: emily-rectal abscess, plan, I recommend to do I/D emily-rectal abscess, D/W benefits, risks and alternatives of the surgery, the risks - infection, bleeding, sepsis. multiple organs failure, fistula, injury other organs, may need more surgery, [place], DVT, stroke, , pt and his understood, they agreed with the surgery, pt signed informed consent, I answered all questions, pt had food at 8: 00AM this morning, may go to OR at 4:00 PM History of Present Illness Reason for Consultation: perirectal abscess Requesting Physician: Geena Savage MD Attending Physician: Geena Savage MD History of Present Illness Chief Complaint: generalized weakness, fatigue and falls Primary Care Provider: Jay Shearer MD Marcus Smith is a 72yo male with history of HTN, HLP, CAD, GERD and idiopathic neuropathy presenting with progressive weakness and multiple falls. Patient reports that he fell and hit his ribs three weeks ago. He was seen in clinic - no fractures - thought possibly ribs were bruised. Since then he has had progressive functional decline. He reports worsening pain in his low back as well as equal weakness in his legs bilaterally. Due to his back pain and weakness he has been using a walker to ambulate in his home. He fell earlier this week and was unable to get up from the floor. His called the neighbor to assist him. Over the last two days patient has not been able to sit up due to pain in his back. He has been sitting in a recliner chair and laying in bed. This morning he slid out of bed and was unable to get up. He was on the ground for 3 hours. His found him and called 911. Patient denies head trauma or LOC. He denies chest pain, cough, SOB, palpitations. He has full recollection of his falling events. He denies saddle anesthesia or change in bowels or bladder function. He does report subjective fevers and chills as well as pain in the buttock and perirectal area. He has nausea associated with the pain, poor appetite and decreased oral intake. measured a Tm at home of 100. In the ER he is afebrile, HD stable, NAD. ER Course: NSS x 2L Cefepime 2gm Magnesium 1gm Vancomycin being infused presently I ( Katarina Aburto MD ) got a call for consult perirectal abscess, I reviewed pt's H/P, labs and Ct scan with pt and his , Allergies Allergy/AdvReac Type Severity Reaction Status Date / Time soy Allergy Severe THROAT Verified 11/27/22 20:01 TIGHTENED W/SOY SAUCE Sulfa (Sulfonamide Allergy Intermediate HIVES AND Verified 11/27/22 19:57 Antibiotics) ITHCING zolpidem [From Ambien] AdvReac Severe " Verified 11/27/22 19:57 Hallucinates and sleepwalks" baclofen AdvReac Intermediate Tired and Verified 11/27/22 19:57 sluggish gabapentin AdvReac Intermediate " [place] Verified 11/27/22 19:57 like " out of body" gluten AdvReac Intermediate ABD PAIN Verified 11/27/22 19:57 milk AdvReac Intermediate STOMACH Verified 11/27/22 19:57 PAIN Wxtoqjc-XZO-HhX Reductase AdvReac Intermediate MUSCLE Verified 11/27/22 19:57 Inhibitor WEAKNESS [Tkizdad-Dnm-Wnx Reductase Inhibitor] Home Medications Medication Instructions Recorded Confirmed Type allopurinol 300 mg tablet 300 mg PO DAILY 07/07/18 11/27/22 Histo ry multivitamin 1 tab PO DAILY 07/07/18 11/27/22 History cholecalciferol (vitamin D3) 125 5,000 unit PO DAILY 09/03/18 3 History mcg (5,000 unit) tablet (Vitamin D3) fluticasone propionate 50 1 spray intranasal DAILY PRN 09/03/1811/27 History mcg/actuation nasal Congestion spray,suspension (Flonase Allergy Relief) tramadol 50 mg tablet 50 mg PO DAILY PRN Pain 02/13/19 11/27/22 Histo ry nitroglycerin 0.4 mg sublingual 0.4 mg sublingual Q5M PRN chest 08/01/19 11/27/22 Rx tablet pain #100 tabs omeprazole 20 mg capsule,delayed 20 mg PO DAILY 05/12/20 3 History release magnesium chloride 64 mg 64 mg PO BID #180 tabs 03/19/22 11/27/22 Rx (magnesium chloride) tablet,delayed release clopidogrel 75 mg tablet (Plavix) 75 mg PO DAILY #90 tabs 07/16/22 Rx metoprolol succinate 25 mg 75 mg PO DAILY 90 days #270 tabs 07/16/22 11/27/22 Rx tablet,extended release 24 hr rosuvastatin 5 mg tablet (Crestor) 5 mg PO DAILY #90 tabs 07/16/22 Rx cyanocobalamin (vitamin B-12) 1,000 mcg IM .COMPLEX #1 mL 09/02/22 Rx 1,000 mcg/mL injection solution azelastine 137 mcg (0.1 %) nasal 2 spray intranasal DAILY PRN 11/27/22 11/27/22 History spray aerosol Congestion Past Med/Surg History Medical History Allergic rhinitis Angina pectoris Arteriosclerotic coronary artery disease Benign essential hypertension (10/09/12) Bronchitis Depression Excessive sweating GERD (gastroesophageal reflux disease) Hiatal hernia Hx of myocardial infarction Hyperlipidemia Kidney stones Lateral plantar neuropathy Lightheadedness Myocardial Infarction 7-10 YEARS AGONasal congestion with rhinorrhea Numbness Osteoarthritis Post concussion syndrome Presence of stent in artery Stomach problems Surgical History History of cardiac cath History of heart artery stent 7-10 YEARS AGO [place] Polyp, nasal Stented coronary artery (10/09/12) Family History Mother Family history of diabetes mellitus Heart diseaseFather Heart diseaseSister AsthmaOther No family history of adverse response to anesthesia No family history of bleeding disorder Social History Smoking Status: Never smoker Second Hand Exposure: No; Hx Alcohol Use: Yes Alcohol type: wine Alcohol Intake Frequency: 4 or More x per/Week Alcohol Intake Frequency Comment: 1-2 glasses per day Hx Substance Use: No Preferred Language: Georgian Communication Ability: Effective Visual Impairment: Limited Hearing Ability: Normal Practical Nursing Teacher Required: No Beliefs That Will Affect Care: None marital status: Current Living Situation: Spouse current occupational status: retired Feels Safe at Home: Yes Assistive Devices: Cane Review of Systems Review of Systems: All systems reviewed & are unremarkable except as noted in HPI & below Allergies Allergy/AdvReac Type Severity Reaction Status Date / Time soy Allergy Severe THROAT Verified 11/27/22 20:01 TIGHTENED W/SOY SAUCE Sulfa (Sulfonamide Allergy Intermediate HIVES AND Verified 11/27/22 19:57 Antibiotics) ITHCING zolpidem [From Ambien] AdvReac Severe " Verified 11/27/22 19:57 Hallucinates and sleepwalks" baclofen AdvReac Intermediate Tired and Verified 11/27/22 19:57 sluggish gabapentin AdvReac Intermediate " [place] Verified 11/27/22 19:57 like " out of body" gluten AdvReac Intermediate ABD PAIN Verified 11/27/22 19:57 milk AdvReac Intermediate STOMACH Verified 11/27/22 19:57 PAIN Yqcytdw-IRF-ApB Reductase AdvReac Intermediate MUSCLE Verified 11/27/22 19:57 Inhibitor WEAKNESS [Pordfiv-Zby-Wpx Reductase Inhibitor] Home Medications Medication Instructions Recorded Confirmed Type allopurinol 300 mg tablet 300 mg PO DAILY 07/07/18 11/27/22 History multivitamin 1 tab PO DAILY 07/07/18 11/27/22 History cholecalciferol (vitamin D3) 125 5,000 unit PO DAILY 09/03/18 11/27/22 History mcg (5,000 unit) tablet (Vitamin D3) fluticasone propionate 50 1 spray intranasal DAILY PRN 09/03/18 11/27/22 History mcg/actuation nasal Congestion spray,suspension (Flonase Allergy Relief) tramadol 50 mg tablet 50 mg PO DAILY PRN Pain 02/13/19 11/27/22 History nitroglycerin 0.4 mg sublingual 0.4 mg sublingual Q5M PRN chest 08/01/19 11/27/22 Rx tablet pain #100 tabs omeprazole 20 mg capsule,delayed 20 mg PO DAILY 05/12/20 11/27/22 History release magnesium chloride 64 mg 64 mg PO BID #180 tabs 03/19/22 11/27/22 Rx (magnesium chloride) tablet,delayed release clopidogrel 75 mg tablet (Plavix) 75 mg PO DAILY #90 tabs 07/16/22 11/27/22 Rx metoprolol succinate 25 mg 75 mg PO DAILY 90 days #270 tabs 07/16/22 11/27/22 Rx tablet,extended release 24 hr rosuvastatin 5 mg tablet (Crestor) 5 mg PO DAILY #90 tabs 07/16/22 11/27/22 Rx cyanocobalamin (vitamin B-12) 1,000 mcg IM .COMPLEX #1 mL 09/02/22 11/27/22 Rx 1,000 mcg/mL injection solution azelastine 137 mcg (0.1 %) nasal 2 spray intranasal DAILY PRN 11/27/22 11/27/22 History spray aerosol Congestion Patient History Medical History Allergic rhinitis Angina pectoris Arteriosclerotic coronary artery disease Benign essential hypertension (10/09/12) Bronchitis Depression Excessive sweating GERD (gastroesophageal reflux disease) Hiatal hernia Hx of myocardial infarction Hyperlipidemia Kidney stones Lateral plantar neuropathy Lightheadedness Myocardial Infarction 7-10 YEARS AGO Nasal congestion with rhinorrhea Numbness Osteoarthritis Post concussion syndrome Presence of stent in artery Stomach problems Surgical History History of cardiac cath History of heart artery stent 7-10 YEARS AGO INSERTED>[place] History of tonsillectomy Polyp, nasal Stented coronary artery (10/09/12) Family History Mother Family history of diabetes mellitus Heart disease Father Heart disease Sister Asthma Other No family history of adverse response to anesthesia No family history of bleeding disorder Social History Smoking Status: Never smoker Second Hand Exposure: No; Hx Alcohol Use: Yes Alcohol type: wine Alcohol Intake Frequency: 4 or More x per/Week Alcohol Intake Frequency Comment: 1-2 glasses per day Hx Substance Use: No Preferred Language: Georgian Communication Ability: Effective Visual Impairment: Limited Hearing Ability: Normal Practical Nursing Teacher Required: No Beliefs That Will Affect Care: None marital status: Current Living Situation: Spouse current occupational status: retired Other Information That Helps Us Care for You: No Feels Safe at Home: Yes Safety Concerns: Feels Safe At This Time Assistive Devices: Cane and Walker Assistive Devices Comment: uses cane and walker at home at times; not always Physical Exam Constitutional: WD/WN, vitals as above Eyes: PERRL, conjunctivae normal, anicteric sclerae Neck: trachea midline, no thyromegaly Respiratory: normal respiratory effort, lungs clear to auscultation Cardiovascular: RRR, no murmur, no edema Gastrointestinal (Abdomen): soft, NT, Nd , BS +, rectal exam- redness and tenderness at right and left buttock area, size about 10 x 12 cm, each, no drainage, Neurologic: patellar DTR's 2+ bilat, sensation intact Psychiatric: A+Ox3, euthymic affect Results & Data ([facility]) Vital Signs (Past 12 Hours) Vital Signs Temp Pulse Pulse Resp BP Pulse Ox O2 Del Method 11/28/22 11:32 37.4 C 92 H 16 123/69 95 Room Air 11/28/22 09:24 Room Air 11/28/22 08:14 36.7 C 93 H 18 159/80 H 96 Room Air 11/28/22 07:50 94 H 11/28/22 04:00 37.7 C H 79 20 126/76 92 Room Air Laboratory Results Abnormal lab results 11/27/22 11/27/22 11/27/22 Range/Units 18:34 18:34 18:34 WBC 22.27 H (4.8-10.8) K/ul RBC 4.04 L (4.70-6.10) M/uL Hgb (14.0-18.0) g/dl Hct (42.0-52.0) % MCV 104.5 H (80.0-100.0) fL MCH 37.4 H (25.0-34.0) pg RDW Std Deviation 51.2 H (36.4-46.3) fL MPV 9.3 L (9.4-12.4) fL Neut # (Auto) 19.33 H (1.40-6.50) K/uL Lymph # (Auto) 0.73 L (1.2-3.4) K/uL [place] # (Auto) 1.63 H (0.11-0.59) K/uL Immature Gran # (Auto) 0.41 H (0.01-0.20) K/uL ABG pH (7.35-7.45) ABG pCO2 (35-46) mmHg ABG O2 Saturation (90-95) % Sodium 134 L (136-145) mmol/L Potassium 3.3 L (3.5-5.1) mmol/L Chloride 95 L (98-107) mmol/L Anion Gap 13 H (3-11) BUN/Creatinine Ratio (10-20) Glucose 107 H (70-99(Fasting)) mg/dl Lactate (0.4-2.0) mmol/L Magnesium 1.5 L (1.7-2.4) mg/dl Total Bilirubin 1.1 H (0.2-1.0) mg/dl Direct Bilirubin (0-0.2) mg/dl AST 46 H (13-39) U/L Alkaline Phosphatase 109 H (34-104) U/L Total Creatine Kinase 1786 H (30-223) U/L Troponin I High Sens 23.6 H (0-20) pg/ml Albumin (3.4-5.0) gm/dl Procalcitonin 6.22 H (0-0.5) ng/ml Urine Appearance (Clear) Urine Protein (Negative) Urine Ketones (Negative) Urine Bilirubin (Negative) Ur Leukocyte Esterase (Negative) Urine WBC (Auto) (0-5) /hpf U Hyaline Cast (Auto) (0-5) /lpf U Epithel Cells (Auto) (0-5) /lpf Granular Casts (0) /lpf 11/27/22 11/27/22 11/28/22 Range/Units 19:16 20:13 06:02 WBC 18.18 H (4.8-10.8) K/ul RBC 3.53 L (4.70-6.10) M/uL Hgb 13.0 L (14.0-18.0) g/dl Hct 36.5 L (42.0-52.0) % MCV 103.4 H (80.0-100.0) fL MCH 36.8 H (25.0-34.0) pg RDW Std Deviation 49.6 H (36.4-46.3) fL MPV (9.4-12.4) fL Neut # (Auto) (1.40-6.50) K/uL Lymph # (Auto) (1.2-3.4) K/uL [place] # (Auto) (0.11-0.59) K/uL Immature Gran # (Auto) (0.01-0.20) K/uL ABG pH 7.47 H (7.35-7.45) ABG pCO2 33 L (35-46) mmHg ABG O2 Saturation 98.4 H (90-95) % Sodium (136-145) mmol/L Potassium (3.5-5.1) mmol/L Chloride (98-107) mmol/L Anion Gap (3-11) BUN/Creatinine Ratio (10-20) Glucose (70-99(Fasting)) mg/dl Lactate 2.4 H* (0.4-2.0) mmol/L Magnesium (1.7-2.4) mg/dl Total Bilirubin (0.2-1.0) mg/dl Direct Bilirubin (0-0.2) mg/dl AST (13-39) U/L Alkaline Phosphatase (34-104) U/L Total Creatine Kinase (30-223) U/L Troponin I High Sens (0-20) pg/ml Albumin (3.4-5.0) gm/dl Procalcitonin (0-0.5) ng/ml Urine Appearance (Clear) Urine Protein (Negative) Urine Ketones (Negative) Urine Bilirubin (Negative) Ur Leukocyte Esterase (Negative) Urine WBC (Auto) (0-5) /hpf U Hyaline Cast (Auto) (0-5) /lpf U Epithel Cells (Auto) (0-5) /lpf Granular Casts (0) /lpf 11/28/22 11/28/22 Range/Units 06:02 06:45 WBC (4.8-10.8) K/ul RBC (4.70-6.10) M/uL Hgb (14.0-18.0) g/dl Hct (42.0-52.0) % MCV (80.0-100.0) fL MCH (25.0-34.0) pg RDW Std Deviation (36.4-46.3) fL MPV (9.4-12.4) fL Neut # (Auto) (1.40-6.50) K/uL Lymph # (Auto) (1.2-3.4) K/uL [place] # (Auto) (0.11-0.59) K/uL Immature Gran # (Auto) (0.01-0.20) K/uL ABG pH (7.35-7.45) ABG pCO2 (35-46) mmHg ABG O2 Saturation (90-95) % Sodium 135 L (136-145) mmol/L Potassium 3.3 L (3.5-5.1) mmol/L Chloride (98-107) mmol/L Anion Gap (3-11) BUN/Creatinine Ratio 25.8 H (10-20) Glucose 126 H (70-99(Fasting)) mg/dl Lactate (0.4-2.0) mmol/L Magnesium (1.7-2.4) mg/dl Total Bilirubin (0.2-1.0) mg/dl Direct Bilirubin 0.3 H (0-0.2) mg/dl AST 41 H (13-39) U/L Alkaline Phosphatase (34-104) U/L Total Creatine Kinase 1553 H (30-223) U/L Troponin I High Sens 28.9 H (0-20) pg/ml Albumin 2.8 L (3.4-5.0) gm/dl Procalcitonin (0-0.5) ng/ml Urine Appearance Cloudy A (Clear) Urine Protein 1+ H (Negative) Urine Ketones 1+ H (Negative) Urine Bilirubin 1+ H (Negative) Ur Leukocyte Esterase 1+ H (Negative) Urine WBC (Auto) 10-30 H (0-5) /hpf U Hyaline Cast (Auto) 5-10 H (0-5) /lpf U Epithel Cells (Auto) >30 H (0-5) /lpf Granular Casts 1-5 H (0) /lpf Diagnostic Findings CT OF THE ABDOMEN AND PELVIS WITH CONTRAST CLINICAL HISTORY: Leukocytosis. Evaluate for perirectal abscess. COMPARISON STUDY: CT of the abdomen and pelvis November 16, 2011 and abdominal ultrasound March 23, 2022. TECHNIQUE: Following IV administration of 90 mL of Optiray, axial images of the abdomen and pelvis were obtained from the lung bases to the proximal femurs. Images were reviewed in the axial, sagittal, and coronal planes. IV contrast was administered without complication. Automated exposure control was utilized for the study. A dose lowering technique was utilized adhering to the principles of ALARA. CT DOSE: 786.48 mGy.cm FINDINGS: A trace left pleural effusion is noted within the lower hemithorax. Multiple healing bilateral lower rib fractures are noted. No pneumatosis, free air or portal venous gas is present. There is a moderate sized hiatal hernia. A 2 cm lateral segment hepatic cyst is present. There is no biliary or pancreatic ductal dilatation. Spleen, adrenal glands and pancreas are unremarkable. Multiple small bilateral renal calculi measure up to 4 mm. There are no ureteral calculi. No hydronephrosis. The bladder is distended. 1.3 cm left renal lesion is difficult to characterize given its small size but favors a cyst. There is no evidence for a bowel obstruction. There is colonic diverticulosis. The appendix is normal. Note is made of a large complex left perirectal gas and fluid containing collection consistent with an abscess with mass effect upon the rectum. There is associated rectal wall thickening with stranding. The largest component of the abscess measures 8.7 x 7.1 x 5.9 cm. This communicates with an additional component within the medial for the right buttock that measures 6.8 x 5.1 x 3.7 cm. This multiloculated abscess has associated transsphincteric and supralevator components. In addition, there are multiple locules of gas within the subcutaneous tissues of the left inferior buttock. This could be due to a gas- forming infectious process or contained perforation. Associated prominent lymph nodes are likely reactive. IMPRESSION: 1. Large complex multiloculated perirectal abscess with transsphincteric and supralevator components, as described above. Largest component of the abscess along the left lateral wall of the rectum with mass effect upon the rectum, measures 8.7 x 7.1 x 5.9 cm. This communicates with a smaller abscess within the medial fold of the right buttock that measures 6.8 x 5.1 x 3.7 cm. Locules of soft tissue gas within the left buttock could represent a gas forming infectious process such as necrotizing fasciitis or be due to a contained perforation. Surgical consultation is recommended. 2. Bilateral nephrolithiasis. No ureteral calculi or hydronephrosis. Distended bladder. 3. Multiple healing bilateral lower rib fractures. Trace left pleural effusion. 4. No bowel obstruction. Colonic diverticulosis.
--- NOTE | 2022-11-28 12:59 | History & Physical Bridge Note ---
Date of Service November 28, 2022 History & Physical Bridge Note I have examined the patient, reviewed the History & Physical and in the interval since the performance of the History & Physical I have noted the following changes of clinical significance: no changes noted
[2022-11-28] MEDS ORDERED: BACITRACIN OINT 15 GM TUBE ONE (14:28)
[2022-11-28] MEDS ORDERED: LIDOCAINE 1% LOCAL 20 ML VIAL ONE (14:29)
[2022-11-28] MEDS ORDERED: GELATIN SPONGE 12-7MM ONE (14:29)
[2022-11-28] MEDS ORDERED: BUPIVACAINE 0.5 % 5 MG/1 ML MPF 30ML VIAL ONE (14:29)
[2022-11-28] MEDS ORDERED: fentaNYL citrate 100 MCG/2 ML VIAL ONE (14:34)
[2022-11-28] MEDS ORDERED: LIDOCAINE 2% MPF LOCAL 5 ML VIAL INFIL ONE (14:35)
[2022-11-28] MEDS ORDERED: PROPOFOL IV EMULSION 10 MG/ML 20 ML VIAL IV ONE ×3 (14:35→15:34)
[2022-11-28] MEDS ORDERED: ONDANSETRON INJ 2 MG/ML 2 ML VIAL ONE (14:35)
[2022-11-28] MEDS ORDERED: ROCURONIUM BROMIDE 10 MG/ML 5 ML VIAL IV ONE (14:36)
[2022-11-28] MEDS ORDERED: ePHEDrine sulfate 50 MG/ML AMP IV PRN (14:59)
[2022-11-28] MEDS ORDERED: LABETALOL HCL IV 5 MG/ML 20ML IV PRN (14:59)
[2022-11-28] MEDS ORDERED: NALOXONE HCL 0.4 MG/1 ML VIAL/CARP IV PRN (14:59)
[2022-11-28] MEDS ORDERED: PROMETHAZINE HCL 12.5 MG in SODIUM CHLORIDE 0.9% 50 ML IV PRN (14:59)
[2022-11-28] MEDS ORDERED: FLUMAZENIL 0.1 MG/1 ML 10 ML VIAL IV PRN (14:59)
[2022-11-28] MEDS ORDERED: fentaNYL citrate 100 MCG/2 ML VIAL IV PRN (14:59)
[2022-11-28] MEDS ORDERED: ONDANSETRON INJ 2 MG/ML 2 ML VIAL IV PRN (14:59)
[2022-11-28] MEDS ORDERED: ATROPINE SULFATE 0.1 MG/ML 10ML SYR IV PRN (14:59)
[2022-11-28] MEDS ORDERED: PHENYLEPHRINE 100MCG/ML 5ML SYR ONE (15:18)
[2022-11-28] MEDS ORDERED: SUCCINYLCHOLINE 100MG/5ML SYR IV ONE (15:18)
[2022-11-28] MEDS ORDERED: PHENYLEPHRINE HCL 10 MG/ML VIAL ONE (15:28)
[2022-11-28] MEDS ORDERED: ceFAZolin 330 MG/ML 1 GM VIAL ONE (15:29)
[2022-11-28] MEDS ORDERED: SODIUM CHLORIDE 0.9% INJ 10 ML VIAL ONE (15:29)
[2022-11-28] MEDS ORDERED: ceFAZolin 330 MG/ML 1 GM VIAL IM ONE (15:33)
--- NOTE | 2022-11-28 15:50 | Post Operative Brief Note ---
Immediate Post Op Note v1 Date of Surgery November 28, 2022 Pre & Post Diagnosis Operation Date: 11/28/22 13:00 Pre-Op Diagnosis: Emily-rectal abscess Post-Op Diagnosis: Emily-rectal abscess I identified the patient and participated in the time-out.: Yes Procedure Operation Date: 11/28/22 13:00 Incision and drainage bilateral emily-rectal abscess Surgeon Katarina Aburto MD [employer] Estimated Blood Loss 5 Findings Consistent with Post-Op Diagnosis significant bilateral perirectal abscess, wound culture sent Fluids 400ml Drains Stoll Catheter (stoll catheter present upon arrival to floor) and Filomena Drain Complications 2 filomena drainage at right and left buttock, packing wound with 1/4 inch kerlex Disposition Accompanied Patient To Recovery: Yes
--- NOTE | 2022-11-28 16:43 | Anesthesiology Progress Note ---
Date of Service November 28, 2022 Anesthesia Post Procedure Vital Signs Vital Signs: Temp Pulse Pulse Pulse Resp BP BP 11/28/22 16:20 89 11/28/22 16:36 37.1 C 82 20 11/28/22 16:25 86 24 11/28/22 16:15 85 20 11/28/22 16:06 36.2 C L 81 18 11/28/22 11:32 37.4 C 92 H 16 11/28/22 09:24 11/28/22 08:14 36.7 C 93 H 18 11/28/22 07:50 94 H 11/27/22 22:47 83 11/27/22 21:49 11/27/22 21:49 36.7 C 83 18 11/28/22 04:00 37.7 C H 79 20 11/27/22 20:07 16 138/80 11/27/22 19:53 75 18 11/27/22 18:27 36.5 C 83 18 115/69 BP Pulse Ox O2 Del Method O2 Flow Rate 11/28/22 16:20 11/28/22 16:36 101/67 93 Room Air 11/28/22 16:25 116/76 94 Oxymask 4 11/28/22 16:15 108/72 95 Oxymask 6 11/28/22 16:06 109/75 96 Oxymask 10 11/28/22 11:32 123/69 95 Room Air 11/28/22 09:24 Room Air 11/28/22 08:14 159/80 H 96 Room Air 11/28/22 07:50 11/27/22 22:47 11/27/22 21:49 Room Air 11/27/22 21:49 146/91 H 95 Room Air 11/28/22 04:00 126/76 92 Room Air 11/27/22 20:07 98 11/27/22 19:53 95 Room Air 11/27/22 18:27 96 Room Air Pain Intensity Buttock: Pain Intensity: 7 Left Ribs: Pain Intensity: 7 Transfer of Care Handoff Completed per policy Notes Mental Status: alert / awake / arousable Patient Amnestic to Procedure: Yes Nausea / Vomiting: adequately controlled Pain: adequately controlled Airway Patency, RR, SpO2: stable & adequate BP & HR: stable & adequate Hydration State: stable & adequate Anesthetic Complications: no major complications apparent
[2022-11-28] MEDS ORDERED: AZELASTINE HCL 0.1% NASAL 200 SPRAYS/27,400 MCG BTL PRN (17:03)
[2022-11-28] MEDS ORDERED: CYANOCOBALAMIN 1000 MCG/ML VIAL IM SCH (17:03)
[2022-11-28] MEDS ORDERED: FLUTICASONE PROPIONATE NA SPR 16 GM BTL PRN (17:03)
[2022-11-28] MEDS ORDERED: NITROGLYCERIN SL 0.4 MG/TAB TAB SL PRN (17:03)
[2022-11-28] MEDS: VANCOMYCIN HCL 1,250 MG in SODIUM CHLORIDE 0.9% 250 ML IV SCH (17:10)
[2022-11-28] MEDS: PIPERACILLIN/TAZOBACTAM 3.375 GM in DEXTROSE 5% 100 ML IV SCH (17:33)
[2022-11-28] MEDS: MAGNESIUM CHLORIDE W/CALCIUM 64MG DELAYED REL TAB PO SCH (20:07)
[2022-11-29] MEDS: PIPERACILLIN/TAZOBACTAM 3.375 GM in DEXTROSE 5% 100 ML IV SCH ×3 (00:44→16:18)
[2022-11-29] MEDS: VANCOMYCIN HCL 1,250 MG in SODIUM CHLORIDE 0.9% 250 ML IV SCH ×2 (04:56→16:18)
--- NOTE | 2022-11-29 05:48 | Electrocardiogram Report ---
Test Reason : Blood Pressure : / mmHG Vent. Rate : 080 BPM Atrial Rate : 080 BPM P-R Int : 164 ms QRS Dur : 088 ms QT Int : 418 ms P-R-T Axes : 015 -07 -52 degrees QTc Int : 482 ms Poor data quality, interpretation may be adversely affected Normal sinus rhythm Low voltage QRS Possible Septal infarct (cited on or before 29-OCT-2022) Abnormal ECG When compared with ECG of 29-OCT-2022 15:05, Questionable change in initial forces of Anteroseptal leads T wave inversion now evident in Anterolateral leads Confirmed by Edward Jones ([id number]) on 11/29/2022 5:48:05 AM Referred By: REFERRED SELF Confirmed By:Edward Jones
[2022-11-29 06:02] LABS: Hematocrit (blood only) 32.1 % (42.0-52.0); Hemoglobin 11.5 g/dl (14.0-18.0); Mean Corpuscular Hemoglobin 37.8 pg (25.0-34.0); Mean Corpuscular Hgb Conc 35.8 g/dL (32.0-36.0); Mean Corpuscular Volume 105.6 fL (80.0-100.0); Mean Platelet Volume 9.5 fL (9.4-12.4); Platelet Count 204 K/uL (130-400); RDW Coefficient of Variation 13.5 % (11.5-14.5); RDW Standard Deviation 52.7 fL (36.4-46.3); Red Blood Count 3.04 M/uL (4.70-6.10)
[2022-11-29 06:14] LABS: Albumin Globulin Ratio 0.9 (0.9-2); Albumin Level 2.6 gm/dl (3.4-5.0); BUN Creatinine Ratio 19.7 (10-20); Calcium 8.1 mg/dl (8.5-10.1); Creatinine Clr Calc Pharmacy 127.5 ml/min; Est GFR (African American) 114.8 ml/min; Est GFR (Non-African American) 99.1 ml/min; Globulin 2.9 gm/dl (2.5-4.0); Potassium 3.2 mmol/L (3.5-5.1); Total Protein 5.5 gm/dl (6.0-8.3)
[2022-11-29 06:30] LABS: Basophils # (auto) 0.05 K/uL (0-0.2); Basophils % (auto) 0.4 %; Dohle Bodies 1+; Eosinophils # (auto) 0.02 K/uL (0-0.50); Eosinophils % (auto) 0.2 %; Immature Granulocytes # (auto) 0.19 K/uL (0.01-0.20); Immature Granulocytes % (auto) 1.5 %; Lymphocytes # (auto) 0.87 K/uL (1.2-3.4); Lymphocytes % (auto) 6.6 %; Monocytes % (auto) 6.1 %; Neutrophils # (auto) 11.17 K/uL (1.40-6.50); Neutrophils % (auto) 85.2 %; Toxic Granulation 2+
--- NOTE | 2022-11-29 07:11 | Hospitalist Progress Note ---
Date of Service November 29, 2022 Assessment & Plan (1) Generalized weakness: (2) Leukocytosis: (3) Rhabdomyolysis: (4) Hypertension: (5) Hypercholesterolemia: (6) CAD (coronary artery disease): Plan Pt is a 72 yo male with PMH of HTN, HLD, [place] s/p stenting, GERD, and arthritis p resenting with increasing weakness over the past few weeks culminating in a fall where he was unable to get up. He was on the floor for several hours before he was found and EMS was called. Perirectal abscess s/p I&D (11/28) - pt with neutrophil predominant leukocytosis with WBC 22.27, procal 6.22 upon admission - slightly elevated lactate level of 2.4 on arrival which decreased to 1.6 after IVF - CTAP showed complex multiloculated perirectal abscess, concern for gas forming infection - blood cultures neg (patient received cefepime x1 prior to blood cultures) - wound cultures pending, MRSA nares pending - continue zosyn and vanco today, consider dropping vanco and switching to augmentin tomorrow - continue morphine for pain, tylenol for fever Generalized weakness - multifactorial including perirectal abscess, progression of neuropathy, and deconditioning - lumbar CT neg for fracture, showed old L2 compression deformity - PT/OT ordered; recommending short term rehab Rhabdomyolysis - CK 1786 upon admission in setting of fall with down time of approximately 3 hours earlier today; repeat CK 1553 - Cr stable, UA neg for blood - pt received 2L in ER, another 2L on the floor Hypertension - continue metoprolol 75mg PO daily Hypercholesterolemia - on home crestor 5mg PO daily - continue to hold crestor in setting of elevated CK CAD (coronary artery disease) - denies chest pain, SOB - troponin 28 - hold crestor, continue metoprolol and plavix 75mg po daily FEN: K 60mEq IV, gluten free/lactose intolerant diet DVT ppx: lovenox 40 mg daily Code status: Full Dispo: med/surg w/ tele Admission and Anticipated Discharge Date Admission Date: November 27, 2022 Supervising Physician Co-Signing Physician Notes I personally examined the patient and verified all mahmood points of history and exam, discussed case, and agree with decision making with Dr Belle nuñez. no new complaints. appreciate surgical input. vitals noted nad heent nc at mmm breathing unlabored no accessory muscles good effort skin no rashes no pallor or icterus perirectal abscess - s/p I&D. continue abx - can drop vanco - likely wean to augmentin weakness/deconditioning - continue PT/OT will need rehab placement - agreeable. otherwise as above Subjective Pt is a 72 yo male with PMH of HTN, HLD, [place] s/p stenting, GERD, and arthritis presenting with increasing weakness over the past few weeks culminating in a fall where he was unable to get up. He was on the floor for several hours before he was found and EMS was called. Pt feeling much better this morning. Yesterday, he underwent I&D of bilateral perirectal abscesses. He denies new symptoms of chest pain or SOB. Review of Systems Review of Systems: All systems reviewed & are unremarkable except as noted in HPI & below Physical Exam Constitutional: NAD. Vitals WNL. Eyes: no conjunctival abnormality Respiratory: CTA bilaterally. No rhonchi, wheezing, or crackles. Non labored breathing. Cardiovascular: RRR. No murmur noted. No LE edema. Psychiatric: Alert. Mood and affect congruent. Results & Data Results & Data ([facility]) Vital Signs (Past 12 Hours) Vital Signs Temp Pulse Pulse Resp BP Pulse Ox O2 Del Method 11/29/22 07:04 70 11/29/22 03:31 37 C 82 18 128/77 92 Room Air 11/28/22 23:19 86 11/28/22 22:51 37.2 C 83 18 136/76 94 Room Air 11/28/22 19:15 36.9 C 82 18 107/68 94 Room Air Resident Activity Tracking Resident Involvement: Resident Care Provided Care Provided: Adult Hospital Medicine
[2022-11-29] MEDS: POTASSIUM CHLORIDE / WTR 10 MEQ/100 ML PLCT IV SCH ×6 (07:32→12:38)
[2022-11-29] MEDS: MULTIVITAMIN TAB PO SCH (08:23)
[2022-11-29] MEDS: METOPROLOL SUCC 25MG EXT REL TAB PO SCH (08:23)
[2022-11-29] MEDS: CLOPIDOGREL BISULFATE 75 MG TAB PO SCH (08:23)
[2022-11-29] MEDS: allopurinoL 300 MG TAB PO SCH (08:23)
[2022-11-29] MEDS: PANTOprazole 40 MG TAB PO SCH (08:23)
[2022-11-29] MEDS: MAGNESIUM CHLORIDE W/CALCIUM 64MG DELAYED REL TAB PO SCH ×2 (08:23→22:03)
[2022-11-29] MEDS: CHOLECALCIFEROL 5,000 UNITS 125 MCG TAB PO SCH (08:23)
--- NOTE | 2022-11-29 08:50 | Operative Report (OR) ---
DATE OF PROCEDURE: 11/28/2022. PREOPERATIVE DIAGNOSIS: Perirectal abscess. POSTOPERATIVE DIAGNOSIS: Bilateral perirectal abscess. OPERATION: Incision and drainage of bilateral perirectal abscess. SURGEON: Katarina Aburto MD. ANESTHESIA: General. ESTIMATED BLOOD LOSS: About 5 mL FINDINGS: Bilateral perirectal abscess. The wound culture sent. Significant larger abscess on the pelvic area. COMPLICATIONS: None. INDICATIONS FOR THE PROCEDURE: This is a 72-year-old gentleman who was admitted to the hospital for CT finding of perirectal abscess and after I reviewed the patient's history and physical exam, labs, and CT scan with the patient and the patient's , I recommended to do incision and drainage of perirectal abscess bilateral. I did talk to the patient and about the benefit, risk, alternate procedure. I indicated the risks may include, but not limited to, such as bleeding, infection, recurrence, fistula, sepsis, multiple organ failure, myocardial infarction, DVT, stroke, even . The patient and patient's understands. The patient signed informed consent and I answered all questions. DETAILS OF PROCEDURE: After we identified the patient and verified the procedure, we brought the patient to the OR, put the patient in the supine position on the OR table. The patient received SCD on bilateral legs to prevent DVT. Also, patient received 1 gram vancomycin IV for prophylactic antibiotic. The patient received general anesthesia without difficulty. Then, we put the patient in the lithotomy position on the OR table. The rectal area was prepped and draped in routine sterile fashion. After timeout, I made a right-sided buttock area incision near the rectal about a 3 cm length, immediately a lot of pus with gas came out. We sent a wound culture. The patient had a large pelvic area with abscess. At this moment, we made another 2 cm incision on the left side buttock area about 2 cm and then there was some pus and gas come out also. Once we cleared all the pus and the area come out, we used 1 gram Ancef to 1 liter normal saline to flush the abscess. Hemostasis obtained. Then put one- quarter inch Fabens on the right side incision deep to the abscess pelvic area. Then, I used 3-0 nylon to fix the Filomena drainage on the skin. Then, we did packing with one-inch Kerlix packing the wound and then we put another Filomena drainage on the left side incision into the abscess cavity. Then, I used 3-0 nylon to fix the Fabens drainage on the skin. Again, we used one-inch Kerlix packing on the incision, left side. Hemostasis obtained. Then put the dressing on. The patient tolerated the procedure well. All instrument, needle and sponge counts were correct x2 at the end of the case, also on the left side incision area, we also sent a wound culture. The patient was transferred to recovery room in stable condition. After the procedure, I did talk to the patient's about the OR finding and the procedure we did. She understands. Job ID: [id number] MTDD
[2022-11-29] MEDS ORDERED: NON-FORMULARY MEDICATION (Omeprazole 20 mg capsule,delayed release(DR/EC)) PO SCH (09:00)
[2022-11-29] MEDS: traMADol HCL 50 MG TABLET PO PRN (09:09)
--- NOTE | 2022-11-29 16:46 | Surgery Progress Note ---
Date of Service November 29, 2022 Assessment & Plan (1) Marsha-rectal abscess: Plan: pt is a 72 year-old male who was admitted to hospital for CT scan finding- marsha- rectal abscess, IMP: marsha-rectal abscess, plan, I recommend to do I/D marsha-rectal abscess, D/W benefits, risks and alternatives of the surgery, the risks - infection, bleeding, sepsis. multiple organs failure, fistula, injury other organs, may need more surgery, [place], DVT, stroke, , pt and his understood, they agreed with the surgery, pt signed informed consent, I answered all questions, pt had food at 8: 00AM this morning, may go to OR at 4:00 PM 11/29/2022 4:[address] Aburto F/U S/P I/D marsha-rectal abscess, POD 1 pt is doing better, no fever, continue iv antibiotic, OOB will F/U, Admission and Anticipated Discharge Date Admission Date: November 27, 2022 Supervising Physician Co-Signing Physician Notes Resident Physician Supervision Note: I independently interviewed and examined the patient and verified the mahmood history and physical, reviewed labs and image studies and agree with resident findings and care plan. Subjective Pt is a 72 yo male with PMH of HTN, HLD, [place] s/p stenting, GERD, and arthritis presenting with increasing weakness over the past few weeks culminating in a fall where he was unable to get up. He was on the floor for several hours before he was found and EMS was called. Pt feeling much better this morning. Yesterday, he underwent I&D of bilateral perirectal abscesses. He denies new symptoms of chest pain or SOB. 11/29/2022 4:42Pm Dr. Aburto, F/U S/P I/D marsha-rectal abscess, POD 1 pt is doing much better, no fever, no pain on wound sites, Physical Exam Constitutional: WD/WN, vitals as above Eyes: PERRL, conjunctivae normal, anicteric sclerae Neck: trachea midline, no thyromegaly Respiratory: normal respiratory effort, lungs clear to auscultation Cardiovascular: RRR, no murmur, no edema Gastrointestinal (Abdomen): the wound is less drainage, less redness, Neurologic: patellar DTR's 2+ bilat, sensation intact Psychiatric: A+Ox3, euthymic affect Results & Data ([facility]) Vital Signs (Past 12 Hours) Vital Signs Temp Pulse Pulse Resp BP Pulse Ox O2 Del Method 11/29/22 16:00 36.6 C 68 20 116/76 95 Room Air 11/29/22 15:29 65 11/29/22 12:00 36.7 C 67 18 109/70 93 Room Air 11/29/22 08:00 37 C 76 18 119/72 94 Room Air 11/29/22 07:04 70 Laboratory Results Abnormal lab results 11/29/22 11/29/22 Range/Units 05:39 05:39 WBC 13.10 H (4.8-10.8) K/ul RBC 3.04 L (4.70-6.10) M/uL Hgb 11.5 L (14.0-18.0) g/dl Hct 32.1 L (42.0-52.0) % MCV 105.6 H (80.0-100.0) fL MCH 37.8 H (25.0-34.0) pg RDW Std Deviation 52.7 H (36.4-46.3) fL Neut # (Auto) 11.17 H (1.40-6.50) K/uL Lymph # (Auto) 0.87 L (1.2-3.4) K/uL Fountain # (Auto) 0.80 H (0.11-0.59) K/uL Potassium 3.2 L (3.5-5.1) mmol/L Calcium 8.1 L (8.5-10.1) mg/dl Total Protein 5.5 L (6.0-8.3) gm/dl Albumin 2.6 L (3.4-5.0) gm/dl
--- NOTE | 2022-11-29 17:08 | Billing Data ---
Date of Service November 29, 2022 Coding Level of Care Code 05500 SUB INP/OBS CARE
[2022-11-29] MEDS: ENOXAPARIN INJ 40 MG/0.4 ML SYR SQ SCH (22:02)
[2022-11-29] MEDS: oxyCODONE/ACETAMINOPHEN 5mg/325mg TAB PO PRN (22:05)
[2022-11-30] MEDS: PIPERACILLIN/TAZOBACTAM 3.375 GM in DEXTROSE 5% 100 ML IV SCH ×2 (01:23→09:21)
[2022-11-30] MEDS ORDERED: VANCOMYCIN LEVEL ONE (04:30)
[2022-11-30] MEDS: MoRPHine SULFATE 2 MG/ML CARP IV PRN ×2 (05:06→09:31)
[2022-11-30] MEDS: VANCOMYCIN HCL 1,250 MG in SODIUM CHLORIDE 0.9% 250 ML IV SCH (05:06)
[2022-11-30 07:26] LABS: Hematocrit (blood only) 33.6 % (42.0-52.0); Hemoglobin 11.8 g/dl (14.0-18.0); Mean Corpuscular Hgb Conc 35.1 g/dL (32.0-36.0); Mean Corpuscular Volume 105.3 fL (80.0-100.0); Mean Platelet Volume 9.5 fL (9.4-12.4); Platelet Count 193 K/uL (130-400); RDW Coefficient of Variation 13.5 % (11.5-14.5); Red Blood Count 3.19 M/uL (4.70-6.10); White Blood Count 9.35 K/ul (4.8-10.8)
[2022-11-30 07:40] LABS: BUN Creatinine Ratio 19.6 (10-20); Calcium 8.3 mg/dl (8.5-10.1); Creatinine Clr Calc Pharmacy 150.1 ml/min; Est GFR (African American) 123.6 ml/min; Est GFR (Non-African American) 106.6 ml/min; Potassium 3.5 mmol/L (3.5-5.1)
--- NOTE | 2022-11-30 07:42 | Hospitalist Progress Note ---
Date of Service November 30, 2022 Assessment & Plan (1) Generalized weakness: (2) Leukocytosis: (3) Rhabdomyolysis: (4) Hypertension: (5) Hypercholesterolemia: (6) CAD (coronary artery disease): Plan Pt is a 72 yo male with PMH of HTN, HLD, [place] s/p stenting, GERD, and arthritis presenting with increasing weakness over the past few weeks culminating in a fall where he was unable to get up. He was on the floor for several hours before he was found and EMS was called. Perirectal abscess s/p I&D (11/28) - pt with neutrophil predominant leukocytosis with WBC 22.27, procal 6.22 upon admission - slightly elevated lactate level of 2.4 on arrival which decreased to 1.6 after IVF - CTAP showed complex multiloculated perirectal abscess, concern for gas forming infection - blood cultures neg (patient received cefepime x1 prior to blood cultures) - wound cultures show GI microbiota, MRSA nares neg - d/c vanco, switch zosyn to augmentin 875 mg BID - continue morphine for pain, tylenol for fever Generalized weakness - multifactorial including perirectal abscess, progression of neuropathy, and deconditioning - lumbar CT neg for fracture, showed old L2 compression deformity - PT/OT ordered; recommending short term rehab - CM working on referrals Rhabdomyolysis - CK 1786 upon admission in setting of fall with down time of approximately 3 hours; repeat CK 1553 - Cr stable, UA neg for blood - pt received 4L IVF total Hypertension - continue metoprolol 75mg PO daily Hypercholesterolemia - on home crestor 5mg PO daily - continue to hold crestor in setting of elevated CK CAD (coronary artery disease) - denies chest pain, SOB - troponin 28 - hold crestor, continue metoprolol and plavix 75mg po daily FEN: K 40 meq PO, gluten free/lactose intolerant diet DVT ppx: lovenox 40 mg daily Code status: Full Dispo: med/surg w/ tele, pending short term rehab Admission and Anticipated Discharge Date Admission Date: November 27, 2022 Subjective Pt is a 72 yo male with PMH of HTN, HLD, [place] s/p stenting, GERD, and arthritis presenting with increasing weakness over the past few weeks culminating in a fall where he was unable to get up. He was on the floor for several hours before he was found and EMS was called. Pt states he is feeling the same this AM. No new chest pain or SOB. He is having some sacral pain, mostly at night. He is also having some trouble sleeping. He has taken melatonin in the past but it led to sleep walking. Review of Systems Review of Systems: All systems reviewed & are unremarkable except as noted in HPI & below Physical Exam Constitutional: NAD. Vitals WNL. Eyes: no conjunctival abnormality Respiratory: CTA bilaterally. No rhonchi, wheezing, or crackles. Non labored breathing. Cardiovascular: RRR. No murmur noted. No LE edema. Psychiatric: Alert. Mood and affect congruent. Results & Data Results & Data ([facility]) Vital Signs (Past 12 Hours) Vital Signs Temp Pulse Pulse Resp BP BP Pulse Ox 11/30/22 07:36 85 11/30/22 07:21 36.8 C 84 18 130/72 90 11/30/22 04:00 36.8 C 79 20 132/77 93 11/30/22 00:11 79 11/29/22 23:00 36.9 C 75 18 123/72 94 O2 Del Method 11/30/22 07:36 11/30/22 07:21 Room Air 11/30/22 04:00 Room Air 11/30/22 00:11 11/29/22 23:00 Room Air Resident Activity Tracking Resident Involvement: Resident Care Provided Care Provided: Adult Hospital Medicine
[2022-11-30] MEDS ORDERED: POTASSIUM CHLORIDE CRTAB 20 MEQ TABCR PO ONE (07:44)
[2022-11-30] MEDS: METOPROLOL SUCC 25MG EXT REL TAB PO SCH (09:07)
[2022-11-30] MEDS: MAGNESIUM CHLORIDE W/CALCIUM 64MG DELAYED REL TAB PO SCH ×2 (09:07→19:23)
[2022-11-30] MEDS: PANTOprazole 40 MG TAB PO SCH (09:08)
[2022-11-30] MEDS: CLOPIDOGREL BISULFATE 75 MG TAB PO SCH (09:08)
[2022-11-30] MEDS: MULTIVITAMIN TAB PO SCH (09:08)
[2022-11-30] MEDS: CHOLECALCIFEROL 5,000 UNITS 125 MCG TAB PO SCH (09:08)
[2022-11-30] MEDS: allopurinoL 300 MG TAB PO SCH (09:08)
[2022-11-30] MEDS: oxyCODONE/ACETAMINOPHEN 5mg/325mg TAB PO PRN ×2 (10:45→19:22)
--- NOTE | 2022-11-30 14:09 | Surgery Progress Note ---
Date of Service November 30, 2022 Assessment & Plan (1) Emily-rectal abscess: Plan: POD # 2 s/p incision and drainage or perirectal abscess x 2 -afebrile, vss - moderate pain - adequate urine output via stoll Plan: Continue antibiotics Continue pain management as needed Wound dressing as needed Wound care per wound nurse, will need wound care follow-up on discharge bowel regimen: stool softener bid discontinue stoll catheter highly recommended pt/ot ambulate Dr. milligan has seen patient agrees with above. Admission and Anticipated Discharge Date Admission Date: November 27, 2022 Subjective still having moderate perirectal pain still having drainage no fevers tolerating diet still has stoll catheter in Physical Exam Constitutional: WD/WN, vitals as above cooperative, comfortable and + overweight; no acute distress and not ill appearing sitting up at bedside chair Neck: normal visual inspection and trachea midline Respiratory: normal respiratory effort; no respiratory distress Gastrointestinal (Abdomen): Perirectal /wound exam not completed today: wound nurse note and wound images reviewed. Skin: no rashes, warm and dry Psychiatric: Orientation: alert and oriented x 3 Results & Data ([facility]) Vital Signs (Past 12 Hours) Vital Signs Temp Pulse Pulse Resp BP Pulse Ox O2 Del Method 11/30/22 12:05 75 158/92 H 11/30/22 10:46 36.6 C 79 18 166/101 H 95 Room Air 11/30/22 07:36 85 11/30/22 07:21 36.8 C 84 18 130/72 90 Room Air 11/30/22 04:00 36.8 C 79 20 132/77 93 Room Air Laboratory Results 11/30/22 11/30/22 Range/Units 06:56 06:56 WBC 9.35 (4.8-10.8) K/ul RBC 3.19 L (4.70-6.10) M/uL Hgb 11.8 L (14.0-18.0) g/dl Hct 33.6 L (42.0-52.0) % MCV 105.3 H (80.0-100.0) fL MCH 37.0 H (25.0-34.0) pg MCHC 35.1 (32.0-36.0) g/dL RDW Std Deviation 52.0 H (36.4-46.3) fL RDW Coeff of Joseph 13.5 (11.5-14.5) % Plt Count 193 (130-400) K/uL MPV 9.5 (9.4-12.4) fL Sodium 136 (136-145) mmol/L Potassium 3.5 (3.5-5.1) mmol/L Chloride 105 (98-107) mmol/L Carbon Dioxide 25 (21-32) mmol/L Anion Gap 6 (3-11) BUN 10 (6-23) mg/dl Creatinine 0.51 L (0.6-1.4) mg/dl Est Cr Clr Drug Dosing 150.1 ml/min Est GFR ( Amer) 123.6 ml/min Est GFR (Non-Af Amer) 106.6 ml/min BUN/Creatinine Ratio 19.6 (10-20) Glucose 93 (70-99(Fasting)) mg/dl Calcium 8.3 L (8.5-10.1) mg/dl Microbiology 11/28/22 15:28 Gram Stain - Final Buttock,Right Aerobic and Anaerobic Culture - Preliminary Moderate counts mixed probable gastrointestinal microbiota. 11/28/22 15:28 Gram Stain - Final Buttock,Left Aerobic and Anaerobic Culture - Preliminary Moderate counts mixed probable gastrointestinal microbiota. 11/28/22 06:45 Urine Culture - Final Urine,Clean Catch No growth - less than 1,000 colonies/mL. 11/27/22 22:32 Aerobic Blood Culture - Preliminary Blood No growth in Aerobic bottle after 48 hours. Anaerobic Blood Culture - Final 11/27/22 22:32 Aerobic Blood Culture - Preliminary Blood No growth in Aerobic bottle after 48 hours. Anaerobic Blood Culture - Preliminary No growth in Anaerobic bottle after 48 hours.
[2022-11-30] MEDS: AMOXICILLIN/CLAVULANATE 875 MG TAB PO SCH (16:56)
--- NOTE | 2022-11-30 19:09 | Billing Data ---
Date of Service November 30, 2022 Coding Level of Care Code 68126 SUB INP/OBS CARE
[2022-11-30] MEDS: ENOXAPARIN INJ 40 MG/0.4 ML SYR SQ SCH (19:22)
[2022-12-01 04:36] LABS: A calco-baum cmplx NotReported Not Detected (NotDetected); Bact fragilis Not Reported Not Detected (NotDetected); C auris Not Reported Not Detected (NotDetected); Calbicans Not Reported Not Detected (NotDetected); Candida glabrata Not Reported Not Detected (NotDetected); Candida krusei Not Reported Not Detected (NotDetected); Cneoformans/gatti Not Reported Not Detected (NotDetected); Cparapsilosis Not Reported Not Detected (NotDetected); Ctropicalis Not Reported Not Detected (NotDetected); E cloacae compx Not Reported Not Detected (NotDetected); Efaecalis Not Reported Not Detected (NotDetected); Efaecium Not Reported Not Detected (NotDetected); Enterobacterales Not Reported Not Detected (NotDetected); Escherichia coli Not Reported Not Detected (NotDetected); H influenzae Not Reported Not Detected (NotDetected); K aerogenes Not Reported Not Detected (NotDetected); Koxytoca Not Reported Not Detected (NotDetected); Kpneumoniae grp Not Reported Not Detected (NotDetected); Lmonocyt Not Reported Not Detected (NotDetected); N meningitidis Not Reported Not Detected (NotDetected); P aeruginosa Not Reported Not Detected (NotDetected); Proteus spp Not Reported Not Detected (NotDetected); Salmonella spp Not Reported Not Detected (NotDetected); Smarcescens Not Reported Not Detected (NotDetected); Staph lugdunensis Not Reported Not Detected (NotDetected); Staph spp. Not Reported Not Detected (NotDetected); Staphaureus Not Reported Not Detected (NotDetected); Staphepi Not Reported Not Detected (NotDetected); Stenmaltophilia Not Reported Not Detected (NotDetected); Strep agal(GrpB) Not Reported Not Detected (NotDetected); Strep pneum Not Reported Not Detected (NotDetected); Strep pyog (GrpA) Not Reported Not Detected (NotDetected); Strep spp Not Reported Not Detected (NotDetected)
--- NOTE | 2022-12-01 07:14 | Hospitalist Progress Note ---
Date of Service December 01, 2022 Assessment & Plan (1) Emily-rectal abscess: (2) Generalized weakness: (3) Rhabdomyolysis: (4) Hypertension: (5) Hypercholesterolemia: (6) CAD (coronary artery disease): (7) Frequent falls: Plan Pt is a 72 yo male with PMH of HTN, HLD, [place] s/p stenting, GERD, and arthritis presenting with increasing weakness over the past few weeks culminating in a fall where he was unable to get up. He was on the floor for several hours before he was found and EMS was called. Perirectal abscess s/p I&D (11/28) - pt with neutrophil predominant leukocytosis with WBC 22.27, procal 6.22 upon admission - slightly elevated lactate level of 2.4 on arrival which decreased to 1.6 after IVF - CTAP showed complex multiloculated perirectal abscess, concern for gas forming infection - 1/2 anaerobic blood cultures grew gram pos bacilli- most likely a contaminant(patient received cefepime x1 prior to blood cultures) - wound cultures show GI microbiota, MRSA nares neg - continue augmentin 875 mg BID (day 4 of total ABX use) - continue morphine for pain, tylenol for fever - pt to follow with wound care upon discharge Generalized weakness - multifactorial including perirectal abscess, progression of neuropathy, and deconditioning - lumbar CT neg for fracture, showed old L2 compression deformity - PT/OT ordered; recommending short term rehab - CM working on referrals; P2P today Rhabdomyolysis- stable - CK 1786 upon admission in setting of fall with down time of approximately 3 hours; repeat CK 1553 - Cr stable, UA neg for blood - pt received 4L IVF total Hypertension - continue metoprolol 75mg PO daily Hypercholesterolemia - on home crestor 5mg PO daily - continue to hold crestor in setting of elevated CK CAD (coronary artery disease) - denies chest pain, SOB - troponin 28 - hold crestor, continue metoprolol and plavix 75mg po daily FEN: gluten free/lactose intolerant diet DVT ppx: lovenox 40 mg daily Code: Full Dispo: med/surg w/ tele, pending short term rehab Admission and Anticipated Discharge Date Admission Date: November 27, 2022 Supervising Physician Co-Signing Physician Notes I personally examined the patient and verified all mahmood points of history and exam, discussed case, and agree with decision making with Dr Odonnell doing better overall, no new complaints. Awaiting rehab. vitals noted nad heent nc at mmm breathing unlabored no accessory muscles good effort skin no rashes no pallor or icterus perirectal abscess - s/p I&D. Continue wound care and antibiotics (now on P.o. Augmentin) weakness/deconditioning - continue PT/OT will need rehab placementawaiting bedstable once bed available. Dysphagiahas had prior esophageal strictures. Nothing compatible with need for acute intervention at this time, discussed close outpatient follow-up. otherwise as above Subjective Pt is a 72 yo male with PMH of HTN, HLD, [place] s/p stenting, GERD, and arthritis presenting with increasing weakness over the past few weeks culminating in a fall where he was unable to get up. He was on the floor for several hours before he was found and EMS was called. Pt seen this morning. He is feeling about the same as yesterday. His left sided buttock seems to be bothering him moreso than the right (which is different than previously). Otherwise, he denies any new chest pains, SOB, abdominal pains, or leg pains. Review of Systems Review of Systems: All systems reviewed & are unremarkable except as noted in HPI & below Physical Exam Constitutional: NAD. Vitals WNL. Eyes: no conjunctival abnormality Respiratory: CTA bilaterally. No rhonchi, wheezing, or crackles. Non labored breathing. Cardiovascular: RRR. No murmur noted. No LE edema. Skin: no rashes, warm and dry Psychiatric: Alert. Mood and affect congruent. Results & Data Results & Data ([facility]) Vital Signs (Past 12 Hours) Vital Signs Temp Pulse Pulse Resp BP Pulse Ox O2 Del Method 12/01/22 03:00 37.8 C H 80 20 173/92 H 92 Room Air 12/01/22 00:00 84 11/30/22 22:00 36.9 C 85 18 154/82 H 96 Room Air Resident Activity Tracking Resident Involvement: Resident Care Provided Care Provided: Adult Hospital Medicine
[2022-12-01 08:24] LABS: Hematocrit (blood only) 34.2 % (42.0-52.0); Hemoglobin 12.1 g/dl (14.0-18.0); Mean Corpuscular Hemoglobin 37.3 pg (25.0-34.0); Mean Corpuscular Hgb Conc 35.4 g/dL (32.0-36.0); Mean Corpuscular Volume 105.6 fL (80.0-100.0); Mean Platelet Volume 9.7 fL (9.4-12.4); Platelet Count 203 K/uL (130-400); RDW Coefficient of Variation 13.5 % (11.5-14.5); RDW Standard Deviation 52.8 fL (36.4-46.3); Red Blood Count 3.24 M/uL (4.70-6.10); White Blood Count 8.74 K/ul (4.8-10.8)
[2022-12-01] MEDS: oxyCODONE/ACETAMINOPHEN 5mg/325mg TAB PO PRN ×2 (08:28→16:11)
[2022-12-01] MEDS: AMOXICILLIN/CLAVULANATE 875 MG TAB PO SCH ×2 (08:28→16:10)
[2022-12-01 09:12] LABS: Creatinine Clr Calc Pharmacy 153.2 ml/min; Est GFR (African American) 124.6 ml/min; Est GFR (Non-African American) 107.5 ml/min; Potassium 3.6 mmol/L (3.5-5.1)
[2022-12-01] MEDS: MAGNESIUM CHLORIDE W/CALCIUM 64MG DELAYED REL TAB PO SCH ×2 (09:22→19:50)
[2022-12-01] MEDS: allopurinoL 300 MG TAB PO SCH (09:22)
[2022-12-01] MEDS: traMADol HCL 50 MG TABLET PO PRN (09:22)
[2022-12-01] MEDS: CHOLECALCIFEROL 5,000 UNITS 125 MCG TAB PO SCH (09:22)
[2022-12-01] MEDS: MULTIVITAMIN TAB PO SCH (09:22)
[2022-12-01] MEDS: PANTOprazole 40 MG TAB PO SCH (09:22)
[2022-12-01] MEDS: CLOPIDOGREL BISULFATE 75 MG TAB PO SCH (09:23)
[2022-12-01] MEDS: METOPROLOL SUCC 25MG EXT REL TAB PO SCH (09:23)
[2022-12-01] MEDS: DOCUSATE SODIUM 100 MG CAP PO PRN (09:24)
--- NOTE | 2022-12-01 12:35 | Surgery Progress Note ---
Date of Service December 01, 2022 Assessment & Plan (1) Emily-rectal abscess: Plan: POD # 3 s/p incision and drainage or perirectal abscess x 2 -afebrile, vss - moderate pain - 1/2 + blood cultures for gram + bacilli Plan: Continue antibiotics Continue pain management as needed Wound dressing as needed Wound care per wound nurse, will need wound care follow-up on discharge bowel regimen: stool softener bid, miralax as needed pt/ot ambulate Okay from surgical standpoint for discharge to rehab once bed available and follow-up with wound care center established. Dr. milligan has seen patient agrees with above. Admission and Anticipated Discharge Date Admission Date: November 27, 2022 Subjective still having moderate pain but seems to slowly be improving. Percocet helps with pain. no n,v, tolerating diet urinating without difficulty since stoll removed Physical Exam Constitutional: WD/WN, vitals as above cooperative; no acute distress and not ill appearing Neck: normal visual inspection and trachea midline Skin: no rashes, warm and dry Psychiatric: Orientation: alert and oriented x 3 Results & Data ([facility]) Vital Signs (Past 12 Hours) Vital Signs Temp Pulse Pulse Resp BP Pulse Ox O2 Del Method 12/01/22 11:51 36.7 C 74 18 143/97 H 94 Room Air 12/01/22 07:50 Room Air 12/01/22 07:54 36.5 C 80 18 152/85 H 93 Room Air 12/01/22 06:00 81 12/01/22 03:00 37.8 C H 80 20 173/92 H 92 Room Air Laboratory Results 12/01/22 12/01/22 11/27/22 Range/Units 07:34 07:34 22:32 WBC 8.74 (4.8-10.8) K/ul RBC 3.24 L (4.70-6.10) M/uL Hgb 12.1 L (14.0-18.0) g/dl Hct 34.2 L (42.0-52.0) % MCV 105.6 H (80.0-100.0) fL MCH 37.3 H (25.0-34.0) pg MCHC 35.4 (32.0-36.0) g/dL RDW Std Deviation 52.8 H (36.4-46.3) fL RDW Coeff of Joseph 13.5 (11.5-14.5) % Plt Count 203 (130-400) K/uL MPV 9.7 (9.4-12.4) fL Sodium 136 (136-145) mmol/L Potassium 3.6 (3.5-5.1) mmol/L Chloride 103 (98-107) mmol/L Carbon Dioxide 25 (21-32) mmol/L Anion Gap 8 (3-11) BUN 7 (6-23) mg/dl Creatinine 0.50 L (0.6-1.4) mg/dl Est Cr Clr Drug Dosing 153.2 ml/min Est GFR ( Amer) 124.6 ml/min Est GFR (Non-Af Amer) 107.5 ml/min BUN/Creatinine Ratio 14.0 (10-20) Glucose 89 (70-99(Fasting)) mg/dl Calcium 8.0 L (8.5-10.1) mg/dl Bld Cult ID Panel PCR PCR Panel Negative (NotDetected) Microbiology 11/27/22 22:32 Aerobic Blood Culture - Preliminary Blood No growth in Aerobic bottle after 48 hours. Anaerobic Blood Culture - Preliminary Gram positive bacilli 11/28/22 15:28 Gram Stain - Final Buttock,Right Aerobic and Anaerobic Culture - Preliminary Moderate counts mixed probable gastrointestinal microbiota. 11/28/22 15:28 Gram Stain - Final Buttock,Left Aerobic and Anaerobic Culture - Preliminary Moderate counts mixed probable gastrointestinal microbiota. 11/28/22 06:45 Urine Culture - Final Urine,Clean Catch No growth - less than 1,000 colonies/mL.
--- NOTE | 2022-12-01 17:40 | Billing Data ---
Date of Service December 01, 2022 Coding Level of Care Code 87110 SUB INP/OBS CARE
--- NOTE | 2022-12-01 17:40 | Billing Data ---
Date of Service December 01, 2022 Coding Level of Care Code 38404 SUB INP/OBS CARE
[2022-12-01] MEDS: MoRPHine SULFATE 2 MG/ML CARP IV PRN (19:49)
[2022-12-01] MEDS: ENOXAPARIN INJ 40 MG/0.4 ML SYR SQ SCH (19:50)
[2022-12-02] MEDS: MoRPHine SULFATE 2 MG/ML CARP IV PRN ×3 (03:04→21:08)
[2022-12-02] MEDS: oxyCODONE/ACETAMINOPHEN 5mg/325mg TAB PO PRN ×3 (08:31→21:58)
[2022-12-02 08:35] LABS: Hematocrit (blood only) 35.3 % (42.0-52.0); Hemoglobin 12.5 g/dl (14.0-18.0); Mean Corpuscular Hemoglobin 36.8 pg (25.0-34.0); Mean Corpuscular Hgb Conc 35.4 g/dL (32.0-36.0); Mean Corpuscular Volume 103.8 fL (80.0-100.0); Mean Platelet Volume 9.2 fL (9.4-12.4); Platelet Count 190 K/uL (130-400); RDW Coefficient of Variation 13.6 % (11.5-14.5); RDW Standard Deviation 52.5 fL (36.4-46.3); White Blood Count 8.81 K/ul (4.8-10.8)
[2022-12-02 09:05] LABS: BUN Creatinine Ratio 9.8 (10-20); Calcium 8.4 mg/dl (8.5-10.1); Creatinine Clr Calc Pharmacy 125.3 ml/min; Est GFR (African American) 114.8 ml/min; Est GFR (Non-African American) 99.1 ml/min; Potassium 3.8 mmol/L (3.5-5.1)
[2022-12-02] MEDS: MAGNESIUM CHLORIDE W/CALCIUM 64MG DELAYED REL TAB PO SCH ×2 (09:34→21:08)
[2022-12-02] MEDS: METOPROLOL SUCC 25MG EXT REL TAB PO SCH (09:37)
[2022-12-02] MEDS: AMOXICILLIN/CLAVULANATE 875 MG TAB PO SCH ×2 (09:39→18:40)
[2022-12-02] MEDS: MULTIVITAMIN TAB PO SCH (09:40)
[2022-12-02] MEDS: CHOLECALCIFEROL 5,000 UNITS 125 MCG TAB PO SCH (09:41)
[2022-12-02] MEDS: PANTOprazole 40 MG TAB PO SCH (09:42)
[2022-12-02] MEDS: CLOPIDOGREL BISULFATE 75 MG TAB PO SCH (09:43)
[2022-12-02] MEDS: allopurinoL 300 MG TAB PO SCH (09:43)
--- NOTE | 2022-12-02 12:37 | Surgery Progress Note ---
Date of Service December 02, 2022 Assessment & Plan (1) Emily-rectal abscess: Plan: POD # 3 s/p incision and drainage or perirectal abscess x 2 -afebrile, vss - moderate pain - 1/2 + blood cultures for gram + bacilli Plan: Continue antibiotics Continue pain management as needed Wound dressing as needed Wound care per wound nurse, will need wound care follow-up on discharge bowel regimen: stool softener bid, miralax as needed pt/ot ambulate Okay from surgical standpoint for discharge to rehab once bed available and follow-up with wound care center established. Dr. milligan has seen patient agrees with above. 12/02/2022 12:[address] Milligan POD # 4 s/p incision and drainage or perirectal abscess x 2 -afebrile, vss - moderate pain - 1/2 + blood cultures for gram + bacilli Plan: Continue antibiotics Continue pain management as needed Wound dressing as needed Wound care per wound nurse, will need wound care follow-up on discharge bowel regimen: stool softener bid, miralax as needed pt/ot ambulate Okay from surgical standpoint for discharge to rehab once bed available and follow-up with [facility] wound care center established. Follow up Dr. Milligan 2 weeks, Admission and Anticipated Discharge Date Admission Date: November 27, 2022 Supervising Physician Co-Signing Physician Notes I personally examined the patient and verified all mahmood points of history and exam, discussed case, and agree with decision making with Dr Odonnell doing better overall, no new complaints. Awaiting rehab. vitals noted nad heent nc at mmm breathing unlabored no accessory muscles good effort skin no rashes no pallor or icterus perirectal abscess - s/p I&D. Continue wound care and antibiotics (now on P.o. Augmentin) weakness/deconditioning - continue PT/OT will need rehab placementawaiting bedstable once bed available. Dysphagiahas had prior esophageal strictures. Nothing compatible with need for acute intervention at this time, discussed close outpatient follow-up. otherwise as above Subjective still having moderate pain but seems to slowly be improving. Percocet helps with pain. no n,v, tolerating diet urinating without difficulty since stoll removed 12/02/2022 12:[address] Milligan 1) Emily-rectal abscess: Plan: POD # 4 s/p incision and drainage or perirectal abscess x 2 -afebrile, vss - moderate pain - 1/2 + blood cultures for gram + bacilli Physical Exam Constitutional: WD/WN, vitals as above Eyes: PERRL, conjunctivae normal, anicteric sclerae Neck: trachea midline, no thyromegaly Respiratory: normal respiratory effort, lungs clear to auscultation Cardiovascular: RRR, no murmur, no edema Skin: the wounds are dry, mild redness, no significant drainage, Neurologic: patellar DTR's 2+ bilat, sensation intact Psychiatric: A+Ox3, euthymic affect Results & Data ([facility]) Vital Signs (Past 12 Hours) Vital Signs Temp Pulse Pulse Resp BP BP Pulse Ox 12/02/22 11:11 36.7 C 76 16 143/88 H 95 12/02/22 11:01 12/02/22 10:45 12/02/22 09:57 90 124/80 12/02/22 07:32 36.7 C 81 16 158/88 H 95 12/02/22 07:13 77 12/02/22 03:20 37.1 C 79 18 160/97 H 96 O2 Del Method 12/02/22 11:11 Room Air 12/02/22 11:01 Room Air 12/02/22 10:45 Room Air 12/02/22 09:57 12/02/22 07:32 Room Air 12/02/22 07:13 12/02/22 03:20 Room Air Laboratory Results Abnormal lab results 12/02/22 12/02/22 Range/Units 08:12 08:12 RBC 3.40 L (4.70-6.10) M/uL Hgb 12.5 L (14.0-18.0) g/dl Hct 35.3 L (42.0-52.0) % MCV 103.8 H (80.0-100.0) fL MCH 36.8 H (25.0-34.0) pg RDW Std Deviation 52.5 H (36.4-46.3) fL MPV 9.2 L (9.4-12.4) fL BUN/Creatinine Ratio 9.8 L (10-20) Calcium 8.4 L (8.5-10.1) mg/dl
--- NOTE | 2022-12-02 15:37 | Hospitalist Progress Note ---
Date of Service December 02, 2022 Assessment & Plan (1) Emily-rectal abscess: (2) Generalized weakness: (3) Rhabdomyolysis: (4) Hypertension: (5) Hypercholesterolemia: (6) CAD (coronary artery disease): (7) Frequent falls: (8) Gram-negative bacteremia: Plan Pt is a 72 yo male with PMH of HTN, HLD, [place] s/p stenting, GERD, and arthritis presenting with increasing weakness over the past few weeks culminating in a fall where he was unable to get up. He was on the floor for several hours before he was found and EMS was called. Perirectal abscess s/p I&D (11/28) - pt with neutrophil predominant leukocytosis with WBC 22.27, procal 6.22 upon admission - slightly elevated lactate level of 2.4 on arrival which decreased to 1.6 after IVF - CTAP showed complex multiloculated perirectal abscess, concern for gas forming infection - 1/2 anaerobic blood cultures grew gram neg bacilli (patient received cefepime x1 prior to blood cultures) - wound cultures show GI microbiota, MRSA nares neg - continue augmentin 875 mg BID (day 5/14 of total ABX use) - continue morphine for pain, tylenol for fever - pt to follow with wound care after completing rehab Gram neg bacteremia - as above Generalized weakness - multifactorial including perirectal abscess, progression of neuropathy, and deconditioning - lumbar CT neg for fracture, showed old L2 compression deformity - PT/OT ordered; recommending short term rehab - CM working on placement- auth approved, waiting on a bed Rhabdomyolysis- stable - CK 1786 upon admission in setting of fall with down time of approximately 3 hours; repeat CK 1553 - Cr stable, UA neg for blood - pt received 4L IVF total Hypertension - continue metoprolol 75mg PO daily Hypercholesterolemia - on home crestor 5mg PO daily - continue to hold crestor in setting of elevated CK CAD (coronary artery disease) - denies chest pain, SOB - troponin 28 - hold crestor, continue metoprolol and plavix 75mg po daily FEN: gluten free/lactose intolerant diet DVT ppx: lovenox 40 mg daily Code: Full Dispo: med/surg w/ tele, pending rehab, hopeful d/c tomorrow Admission and Anticipated Discharge Date Admission Date: November 27, 2022 Supervising Physician Co-Signing Physician Notes I personally examined the patient and verified all mamhood points of history and exam, discussed case, and agree with decision making with Dr Odonnell Feels okay, no new complaints. Awaiting rehab. Hopefully for tomorrow. vitals noted nad heent nc at mmm breathing unlabored no accessory muscles good effort skin no rashes no pallor or icterus perirectal abscess - s/p I&D. Continue wound care and antibiotics (now on P.o. Augmentin), given that blood culture is actually gram-negative rods and gram-positive after further clarification with lab, it probably is bacteremia subsequent to his perirectal abscess. Fortunately I anticipate no need for change in antibiotics, and honestly the duration for his perirectal abscess will probably exceed the duration needed for the bacteremia. weakness/deconditioning - continue PT/OT will need rehab placementawaiting bedstable once bed available, anticipate tomorrow Dysphagiahas had prior esophageal strictures. Nothing compatible with need for acute intervention at this time, discussed close outpatient follow-up. otherwise as above Subjective Pt is a 72 yo male with PMH of HTN, HLD, [place] s/p stenting, GERD, and arthritis presenting with increasing weakness over the past few weeks culminating in a fall where he was unable to get up. He was on the floor for several hours before he was found and EMS was called. Pt seen at bedside this AM. No new complaints. His bottom is still sore. No chest pain, SOB, or leg pains. Review of Systems Review of Systems: All systems reviewed & are unremarkable except as noted in HPI & below Physical Exam Constitutional: NAD. Vitals WNL. Eyes: no conjunctival abnormality Respiratory: CTA bilaterally. No rhonchi, wheezing, or crackles. Non labored breathing. Cardiovascular: RRR. No murmur noted. No LE edema. Gastrointestinal (Abdomen): Nontender, +BS. No masses noted. Skin: no rashes, warm and dry Psychiatric: Alert. Mood and affect congruent. Results & Data Results & Data ([facility]) Vital Signs (Past 12 Hours) Vital Signs Temp Pulse Pulse Resp BP BP Pulse Ox 12/02/22 15:30 71 12/02/22 15:00 36.6 C 66 16 151/95 H 96 12/02/22 11:11 36.7 C 76 16 143/88 H 95 12/02/22 11:01 12/02/22 10:45 12/02/22 09:57 90 124/80 12/02/22 07:32 36.7 C 81 16 158/88 H 95 12/02/22 07:13 77 O2 Del Method 12/02/22 15:30 12/02/22 15:00 Room Air 12/02/22 11:11 Room Air 12/02/22 11:01 Room Air 12/02/22 10:45 Room Air 12/02/22 09:57 12/02/22 07:32 Room Air 12/02/22 07:13 Resident Activity Tracking Resident Involvement: Resident Care Provided Care Provided: Adult Hospital Medicine
--- NOTE | 2022-12-02 20:05 | Billing Data ---
Date of Service December 02, 2022 Coding Level of Care Code 40707 SUB INP/OBS CARE
[2022-12-02] MEDS: ENOXAPARIN INJ 40 MG/0.4 ML SYR SQ SCH (21:07)
[2022-12-03] MEDS: oxyCODONE/ACETAMINOPHEN 5mg/325mg TAB PO PRN ×2 (06:20→10:26)
[2022-12-03] MEDS: AMOXICILLIN/CLAVULANATE 875 MG TAB PO SCH ×2 (07:51→16:57)
[2022-12-03] MEDS: MoRPHine SULFATE 2 MG/ML CARP IV PRN ×3 (07:51→20:16)
[2022-12-03 08:43] LABS: Hematocrit (blood only) 35.3 % (42.0-52.0); Hemoglobin 12.4 g/dl (14.0-18.0); Mean Corpuscular Hemoglobin 36.6 pg (25.0-34.0); Mean Corpuscular Hgb Conc 35.1 g/dL (32.0-36.0); Mean Corpuscular Volume 104.1 fL (80.0-100.0); Mean Platelet Volume 9.8 fL (9.4-12.4); Platelet Count 233 K/uL (130-400); RDW Coefficient of Variation 13.2 % (11.5-14.5); RDW Standard Deviation 50.5 fL (36.4-46.3); Red Blood Count 3.39 M/uL (4.70-6.10); White Blood Count 8.29 K/ul (4.8-10.8)
[2022-12-03 08:55] LABS: BUN Creatinine Ratio 10.6 (10-20); Calcium 8.2 mg/dl (8.5-10.1); Creatinine Clr Calc Pharmacy 162.4 ml/min; Est GFR (African American) 127.8 ml/min; Est GFR (Non-African American) 110.3 ml/min; Potassium 3.6 mmol/L (3.5-5.1)
[2022-12-03] MEDS: MAGNESIUM CHLORIDE W/CALCIUM 64MG DELAYED REL TAB PO SCH ×2 (09:05→20:11)
[2022-12-03] MEDS: CHOLECALCIFEROL 5,000 UNITS 125 MCG TAB PO SCH (09:05)
[2022-12-03] MEDS: CLOPIDOGREL BISULFATE 75 MG TAB PO SCH (09:05)
[2022-12-03] MEDS: allopurinoL 300 MG TAB PO SCH (09:05)
[2022-12-03] MEDS: METOPROLOL SUCC 25MG EXT REL TAB PO SCH (09:05)
[2022-12-03] MEDS: MULTIVITAMIN TAB PO SCH (09:05)
[2022-12-03] MEDS: PANTOprazole 40 MG TAB PO SCH (09:06)
[2022-12-03] MEDS: DOCUSATE SODIUM 100 MG CAP PO PRN (09:07)
[2022-12-03] MEDS: traMADol HCL 50 MG TABLET PO PRN (09:07)
--- NOTE | 2022-12-03 15:06 | Hospitalist Progress Note ---
Date of Service December 03, 2022 Assessment & Plan (1) Emily-rectal abscess: (2) Generalized weakness: (3) Rhabdomyolysis: (4) Hypertension: (5) Hypercholesterolemia: (6) CAD (coronary artery disease): (7) Frequent falls: (8) Gram-negative bacteremia: Plan Pt is a 72 yo male with PMH of HTN, HLD, [place] s/p stenting, GERD, and arthritis presenting with increasing weakness over the past few weeks culminating in a fall where he was unable to get up. He was on the floor for several hours before he was found and EMS was called. Perirectal abscess s/p I&D (11/28) - pt with neutrophil predominant leukocytosis with WBC 22.27, procal 6.22 upon admission - slightly elevated lactate level of 2.4 on arrival which decreased to 1.6 after IVF - CTAP showed complex multiloculated perirectal abscess, concern for gas forming infection - 1/2 anaerobic blood cultures grew gram neg bacilli (patient received cefepime x1 prior to blood cultures) - wound cultures show GI microbiota, MRSA nares neg - continue augmentin 875 mg BID (day 614 of total ABX use) - continue morphine for pain, tylenol for fever - pt to follow with wound care after completing rehab Gram neg bacteremia - as above Generalized weakness - multifactorial including perirectal abscess, progression of neuropathy, and deconditioning - lumbar CT neg for fracture, showed old L2 compression deformity - PT/OT ordered; recommending short term rehab - CM working on placement- auth approved, bed available 12/06 Rhabdomyolysis- stable - CK 1786 upon admission in setting of fall with down time of approximately 3 hours; repeat CK 1553 - Cr stable, UA neg for blood - pt received 4L IVF total Hypertension - continue metoprolol 75mg PO daily Hypercholesterolemia - on home crestor 5mg PO daily - continue to hold crestor in setting of elevated CK CAD (coronary artery disease) - denies chest pain, SOB - troponin 28 - hold crestor, continue metoprolol and plavix 75mg po daily FEN: gluten free/lactose intolerant diet DVT ppx: lovenox 40 mg daily Code: Full Dispo: med/surg, [facility] on 12/06 for rehab Admission and Anticipated Discharge Date Admission Date: November 27, 2022 Supervising Physician Co-Signing Physician Notes I personally examined the patient and verified all mahmood points of history and exam, discussed case, and agree with decision making with Dr Odonnell Had a little bit of worsening buttocks pain. Otherwise no new complaints. Still waiting on rehab. vitals noted nad heent nc at mmm breathing unlabored no accessory muscles good effort skin no rashes no pallor or icterus. Perirectal buttocks tissue dull reddish-purple with some mild degree of induration, no real fluctuance, consistent with resolving cellulitis. perirectal abscess - s/p I&D. Continue wound care and antibiotics (now on P.o. Augmentin), as well as secondary bacteremiaawait sensitivities, but clinically doing better, and I suspect that the duration of antibiotics needed for his perirectal cellulitis and abscess will actually exceed the duration needed for these secondary bacteremia. weakness/deconditioning - continue PT/OT will need rehab placementawaiting bedstable once bed available, unfortunately not till next week Dysphagiahas had prior esophageal strictures. Nothing compatible with need for acute intervention at this time, discussed close outpatient follow-up. otherwise as above Subjective Pt is a 72 yo male with PMH of HTN, HLD, [place] s/p stenting, GERD, and arthritis presenting with increasing weakness over the past few weeks culminating in a fall where he was unable to get up. He was on the floor for several hours before he was found and EMS was called. Pt seen at bedside this AM. His bottom is still painful; however, pain is well managed with medications. His catheter was removed and he has had no issues urinating since. No chest pain, SOB, abdominal pains, or leg pains. Review of Systems Review of Systems: All systems reviewed & are unremarkable except as noted in HPI & below Physical Exam Constitutional: NAD. Vitals WNL. Eyes: no conjunctival abnormality Respiratory: CTA bilaterally. No rhonchi, wheezing, or crackles. Non labored breathing. Cardiovascular: RRR. No murmur noted. No LE edema. Gastrointestinal (Abdomen): Nontender, +BS. No masses noted. Skin: no rashes, warm and dry Psychiatric: Alert. Mood and affect congruent. Results & Data Results & Data ([facility]) Vital Signs (Past 12 Hours) Vital Signs Temp Pulse Pulse Resp BP Pulse Ox O2 Del Method 12/03/22 11:16 36.5 C 81 18 139/78 94 Room Air 12/03/22 07:46 Room Air 12/03/22 07:43 36.4 C L 74 18 173/96 H 97 Room Air 12/03/22 05:55 83 Resident Activity Tracking Resident Involvement: Resident Care Provided Care Provided: Adult Hospital Medicine
--- NOTE | 2022-12-03 16:01 | Billing Data ---
Date of Service December 03, 2022 Coding Level of Care Code 73419 SUB INP/OBS CARE
[2022-12-03] MEDS: ENOXAPARIN INJ 40 MG/0.4 ML SYR SQ SCH (20:10)
--- NOTE | 2022-12-04 06:58 | Hospitalist Progress Note ---
Date of Service December 04, 2022 Assessment & Plan (1) Emily-rectal abscess: (2) Generalized weakness: (3) Rhabdomyolysis: (4) Hypertension: (5) Hypercholesterolemia: (6) CAD (coronary artery disease): (7) Frequent falls: (8) Gram-negative bacteremia: Plan Pt is a 72 yo male with PMH of HTN, HLD, [place] s/p stenting, GERD, and arthritis presenting with increasing weakness over the past few weeks culminating in a fall where he was unable to get up. He was on the floor for several hours before he was found and EMS was called. Perirectal abscess s/p I&D (11/28) - pt with neutrophil predominant leukocytosis with WBC 22.27, procal 6.22 upon admission - slightly elevated lactate level of 2.4 on arrival which decreased to 1.6 after IVF - CTAP showed complex multiloculated perirectal abscess, concern for gas forming infection - 1/2 anaerobic blood cultures grew gram neg bacilli (patient received cefepime x1 prior to blood cultures) - wound cultures show GI microbiota, MRSA nares neg - continue Augmentin 875 mg BID (day 7/14 of total ABX use) - continue morphine for pain, Tylenol for fever - pt to follow with wound care after completing rehab Gram neg bacteremia - as above Generalized weakness - multifactorial including perirectal abscess, progression of neuropathy, and deconditioning - lumbar CT neg for fracture, showed old L2 compression deformity - PT/OT ordered; recommending short term rehab - CM working on placement- auth approved, bed available 12/06 Rhabdomyolysis- stable - CK 1786 upon admission in setting of fall with down time of approximately 3 hours; repeat CK 1553 - Cr stable, UA neg for blood - pt received 4L IVF total Hypertension - continue metoprolol 75mg PO daily Hypercholesterolemia - on home crestor 5mg PO daily - continue to hold crestor in setting of elevated CK CAD (coronary artery disease) - denies chest pain, SOB - troponin 28 - hold crestor, continue metoprolol and plavix 75mg po daily FEN: gluten free/lactose intolerant diet DVT ppx: lovenox 40 mg daily Code: Full Dispo: med/surg, [facility] on 12/06 for rehab Admission and Anticipated Discharge Date Admission Date: November 27, 2022 Supervising Physician Co-Signing Physician Notes I personally examined the patient and verified all mahmood points of history and exam, discussed case, and agree with decision making with Dr Silverio Again discussed need for rehab. vitals noted nad heent nc at mmm breathing unlabored no accessory muscles good effort skin no rashes no pallor or icterus. perirectal abscess - s/p I&D. Continue wound care and antibiotics (now on P.o. Augmentin), as well as secondary bacteremiafollow-up cultures no growth to date. weakness/deconditioning - continue PT/OT will need rehab placementawaiting bed stable once bed available, unfortunately not till next weekhopefully Tuesday Dysphagiahas had prior esophageal strictures. Nothing compatible with need for acute intervention at this time, discussed close outpatient follow-up. otherwise as above Subjective Pt is a 72 yo male with PMH of HTN, HLD, [place] s/p stenting, GERD, and arthritis presenting with increasing weakness over the past few weeks culminating in a fall where he was unable to get up. He was on the floor for several hours before he was found and EMS was called. Patient was seen and examined at bedside this morning. No acute events overnight. He was laying on his left side, notes that it is still very painful to sit on his bottom. He denies any fever, body aches/chills, shortness of breath or chest pain. He notes that he is eating and drinking without issue. Awaiting discharge to [facility] on Tuesday. Review of Systems 2 Review of Systems: As per above Physical Exam Constitutional: WD/WN, vitals as above Eyes: + anicteric sclerae Respiratory: normal respiratory effort, lungs clear to auscultation Cardiovascular: RRR, no murmur, no edema Gastrointestinal (Abdomen): normal bowel sounds, soft, nontender, no hepatosplenomegaly Skin: no rashes, warm and dry Psychiatric: A+Ox3, euthymic affect Results & Data Results & Data ([facility]) Vital Signs (Past 12 Hours) Vital Signs Temp Pulse Resp BP BP Pulse Ox O2 Del Method 12/04/22 04:00 36.7 C 71 18 157/83 H 100 Room Air 12/03/22 22:59 37.0 C 78 18 154/94 H 95 Room Air 12/03/22 22:30 Room Air 12/03/22 19:56 36.6 C 74 18 155/63 H 94 Room Air Resident Activity Tracking Resident Involvement: Resident Care Provided Care Provided: Adult Hospital Medicine
[2022-12-04 07:44] LABS: Hematocrit (blood only) 38.9 % (42.0-52.0); Hemoglobin 13.7 g/dl (14.0-18.0); Mean Corpuscular Hemoglobin 36.9 pg (25.0-34.0); Mean Corpuscular Hgb Conc 35.2 g/dL (32.0-36.0); Mean Corpuscular Volume 104.9 fL (80.0-100.0); Mean Platelet Volume 9.6 fL (9.4-12.4); Platelet Count 290 K/uL (130-400); RDW Coefficient of Variation 13.6 % (11.5-14.5); RDW Standard Deviation 52.3 fL (36.4-46.3); Red Blood Count 3.71 M/uL (4.70-6.10); White Blood Count 8.04 K/ul (4.8-10.8)
[2022-12-04 08:06] LABS: BUN Creatinine Ratio 11.3 (10-20); Est GFR (African American) 121.7 ml/min
[2022-12-04] MEDS: CLOPIDOGREL BISULFATE 75 MG TAB PO SCH (08:25)
[2022-12-04] MEDS: MULTIVITAMIN TAB PO SCH (08:25)
[2022-12-04] MEDS: METOPROLOL SUCC 25MG EXT REL TAB PO SCH (08:25)
[2022-12-04] MEDS: PANTOprazole 40 MG TAB PO SCH (08:25)
[2022-12-04] MEDS: AMOXICILLIN/CLAVULANATE 875 MG TAB PO SCH ×2 (08:25→17:11)
[2022-12-04] MEDS: allopurinoL 300 MG TAB PO SCH (08:25)
[2022-12-04] MEDS: CHOLECALCIFEROL 5,000 UNITS 125 MCG TAB PO SCH (08:25)
[2022-12-04] MEDS: oxyCODONE/ACETAMINOPHEN 5mg/325mg TAB PO PRN ×3 (08:25→23:28)
[2022-12-04] MEDS: MAGNESIUM CHLORIDE W/CALCIUM 64MG DELAYED REL TAB PO SCH ×2 (08:25→20:16)
[2022-12-04] MEDS: DOCUSATE SODIUM 100 MG CAP PO PRN (08:25)
[2022-12-04] MEDS: MoRPHine SULFATE 2 MG/ML CARP IV PRN ×2 (12:42→20:15)
[2022-12-04] MEDS: traMADol HCL 50 MG TABLET PO PRN (14:40)
--- NOTE | 2022-12-04 17:29 | Billing Data ---
Date of Service December 04, 2022 Coding Level of Care Code 74499 SUB INP/OBS CARE
[2022-12-04] MEDS: ENOXAPARIN INJ 40 MG/0.4 ML SYR SQ SCH (20:16)
--- NOTE | 2022-12-05 07:07 | Hospitalist Progress Note ---
Date of Service December 05, 2022 Assessment & Plan (1) Emily-rectal abscess: (2) Generalized weakness: (3) Rhabdomyolysis: (4) Hypertension: (5) Hypercholesterolemia: (6) CAD (coronary artery disease): (7) Frequent falls: (8) Gram-negative bacteremia: Plan Pt is a 72 yo male with PMH of HTN, HLD, [place] s/p stenting, GERD, and arthritis presenting with increasing weakness over the past few weeks culminating in a fall where he was unable to get up. He was on the floor for several hours before he was found and EMS was called. Perirectal abscess s/p I&D (11/28) - pt with neutrophil predominant leukocytosis with WBC 22.27, procal 6.22 upon admission - slightly elevated lactate level of 2.4 on arrival which decreased to 1.6 after IVF - CTAP showed complex multiloculated perirectal abscess, concern for gas forming infection - 1/2 anaerobic blood cultures grew gram neg bacilli (patient received cefepime x1 prior to blood cultures) - wound cultures show GI microbiota, MRSA nares neg - continue Augmentin 875 mg BID (day 814 of total ABX use) - continue morphine for pain, Tylenol for fever - pt to follow with wound care after completing rehab - clinically continuing to improve with decreased pain today Gram neg bacteremia - as above Generalized weakness - multifactorial including perirectal abscess, progression of neuropathy, and deconditioning - lumbar CT neg for fracture, showed old L2 compression deformity - PT/OT ordered; recommending short term rehab - CM working on placement- auth approved, bed available 12/06 Rhabdomyolysis- stable - CK 1786 upon admission in setting of fall with down time of approximately 3 hours; repeat CK 1553 - Cr stable, UA neg for blood - pt received 4L IVF total Hypertension - continue metoprolol 75mg PO daily Hypercholesterolemia - on home crestor 5mg PO daily - continue to hold crestor in setting of elevated CK CAD (coronary artery disease) - denies chest pain, SOB - troponin 28 - hold crestor, continue metoprolol and plavix 75mg po daily FEN: gluten free/lactose intolerant diet DVT ppx: lovenox 40 mg daily Code: Full Dispo: med/surg, [facility] on 12/06 for rehab Admission and Anticipated Discharge Date Admission Date: November 27, 2022 Supervising Physician Co-Signing Physician Notes I personally examined the patient and verified all mahmood points of history and exam, discussed case, and agree with decision making with Dr Silverio buttocks pain feeling better. Hopeful for rehab tomorrow. vitals noted nad heent nc at mmm breathing unlabored no accessory muscles good effort skin no rashes no pallor or icterus. Skin around buttocks now barely erythematous at all and nontender, induration seems to have for all intents and purposes resolved. Drains still present. perirectal abscess - s/p I&D. Continue wound care and antibiotics (now on P.o. Augmentin), as well as secondary bacteremiafollow-up cultures no growth to date. Improving nicely in this respect. Would probably treat for at least 14 days of p.o. antibiotics, but full course will be contingent on wound as he follows up weakness/deconditioning - continue PT/OT will need rehab placementawaiting b edstable once bed available, hopefully tomorrow Dysphagiahas had prior esophageal strictures. Nothing compatible with need for acute intervention at this time, discussed close outpatient follow-up. otherwise as above Subjective Patient seen and examined at bedside. No acute events overnight. Marcus is laying supine in bed and notes that his pain is a bit better today. He states that is encouraged that he is moving in the right direction. He denies body aches/chills, shortness of breath. He has been eating and drinking without issue. Is awaiting a bed at [facility], hopefully will be on Tuesday. Review of Systems Review of Systems: As per above Physical Exam Constitutional: WD/WN, vitals as above Eyes: + anicteric sclerae Respiratory: normal respiratory effort, lungs clear to auscultation Cardiovascular: RRR, no murmur, no edema Gastrointestinal (Abdomen): normal bowel sounds, soft, nontender, no hepatosplenomegaly Skin: no rashes, warm and dry (Some light colored drainage from wound, mild erythema w/o streaking) Psychiatric: A+Ox3, euthymic affect Results & Data Results & Data ([facility]) Vital Signs (Past 12 Hours) Vital Signs Temp Pulse Resp BP Pulse Ox O2 Del Method 12/04/22 23:07 36.8 C 63 18 154/98 H 96 Room Air Resident Activity Tracking Resident Involvement: Resident Care Provided Care Provided: Adult Hospital Medicine
[2022-12-05 07:53] LABS: Hematocrit (blood only) 36.8 % (42.0-52.0); Hemoglobin 12.6 g/dl (14.0-18.0); Mean Corpuscular Hemoglobin 36.7 pg (25.0-34.0); Mean Corpuscular Hgb Conc 34.2 g/dL (32.0-36.0); Mean Corpuscular Volume 107.3 fL (80.0-100.0); Mean Platelet Volume 9.5 fL (9.4-12.4); Platelet Count 307 K/uL (130-400); RDW Coefficient of Variation 13.7 % (11.5-14.5); RDW Standard Deviation 54.4 fL (36.4-46.3); Red Blood Count 3.43 M/uL (4.70-6.10); White Blood Count 5.68 K/ul (4.8-10.8)
[2022-12-05 08:01] LABS: BUN Creatinine Ratio 10.9 (10-20); Calcium 8.6 mg/dl (8.5-10.1); Creatinine Clr Calc Pharmacy 119.2 ml/min; Est GFR (African American) 112.6 ml/min; Est GFR (Non-African American) 97.1 ml/min; Potassium 4.3 mmol/L (3.5-5.1)
[2022-12-05] MEDS: AMOXICILLIN/CLAVULANATE 875 MG TAB PO SCH ×2 (08:20→16:54)
[2022-12-05] MEDS: oxyCODONE/ACETAMINOPHEN 5mg/325mg TAB PO PRN ×3 (08:21→18:07)
[2022-12-05] MEDS: MAGNESIUM CHLORIDE W/CALCIUM 64MG DELAYED REL TAB PO SCH ×2 (08:58→19:59)
[2022-12-05] MEDS: METOPROLOL SUCC 25MG EXT REL TAB PO SCH (08:58)
[2022-12-05] MEDS: allopurinoL 300 MG TAB PO SCH (08:58)
[2022-12-05] MEDS: DOCUSATE SODIUM 100 MG CAP PO PRN (08:58)
[2022-12-05] MEDS: MULTIVITAMIN TAB PO SCH (08:58)
[2022-12-05] MEDS: CLOPIDOGREL BISULFATE 75 MG TAB PO SCH (08:58)
[2022-12-05] MEDS: PANTOprazole 40 MG TAB PO SCH (08:58)
[2022-12-05] MEDS: CHOLECALCIFEROL 5,000 UNITS 125 MCG TAB PO SCH (08:58)
[2022-12-05] MEDS: MoRPHine SULFATE 2 MG/ML CARP IV PRN ×3 (10:08→19:49)
--- NOTE | 2022-12-05 14:03 | Billing Data ---
Date of Service December 05, 2022 Coding Level of Care Code 83037 SUB INP/OBS CARE
[2022-12-05] MEDS: traMADol HCL 50 MG TABLET PO PRN (16:53)
[2022-12-05] MEDS: ENOXAPARIN INJ 40 MG/0.4 ML SYR SQ SCH (19:59)
[2022-12-06] MEDS: MoRPHine SULFATE 2 MG/ML CARP IV PRN (06:20)
--- NOTE | 2022-12-06 06:52 | Hospitalist Progress Note ---
Date of Service December 06, 2022 Assessment & Plan (1) Emily-rectal abscess: (2) Generalized weakness: (3) Rhabdomyolysis: (4) Hypertension: (5) Hypercholesterolemia: (6) CAD (coronary artery disease): (7) Frequent falls: (8) Gram-negative bacteremia: Plan Pt is a 72 yo male with PMH of HTN, HLD, PR s/p stenting, GERD, and arthritis presenting with increasing weakness over the past few weeks culminating in a fall where he was unable to get up. He was on the floor for several hours before he was found and EMS was called. Perirectal abscess s/p I&D (11/28) - pt with neutrophil predominant leukocytosis with WBC 22.27, procal 6.22 upon admission - slightly elevated lactate level of 2.4 on arrival which decreased to 1.6 after IVF - CTAP showed complex multiloculated perirectal abscess, concern for gas forming infection - 1/2 anaerobic blood cultures grew gram neg bacilli (patient received cefepime x1 prior to blood cultures) - wound cultures show GI microbiota, MRSA nares neg - continue Augmentin 875 mg BID (day 8/14 of total ABX use) - continue morphine for pain, Tylenol for fever - pt to follow with wound care after completing rehab - clinically continuing to improve with decreased pain today Gram neg bacteremia - as above Generalized weakness - multifactorial including perirectal abscess, progression of neuropathy, and deconditioning - lumbar CT neg for fracture, showed old L2 compression deformity - PT/OT ordered; recommending short term rehab - CM working on placement- auth approved, bed available 12/06 Rhabdomyolysis- stable - CK 1786 upon admission in setting of fall with down time of approximately 3 hours; repeat CK 1553 - Cr stable, UA neg for blood - pt received 4L IVF total Hypertension - continue metoprolol 75mg PO daily Hypercholesterolemia - on home crestor 5mg PO daily - continue to hold crestor in setting of elevated CK CAD (coronary artery disease) - denies chest pain, SOB - troponin 28 - hold crestor, continue metoprolol and plavix 75mg po daily FEN: gluten free/lactose intolerant diet DVT ppx: lovenox 40 mg daily Code: Full Dispo: med/surg, [facility] on 12/06 for rehab Admission and Anticipated Discharge Date Admission Date: November 27, 2022 Review of Systems Review of Systems: As per above Physical Exam Physical Exam: Constitutional: well-appearing, no acute distress HEENT: NCAT, no conjunctival injection CV: regular rhythm, no murmur appreciated, extremities well-perfused, no LE edema Resp: CTABL, no wheezes/rales/rhonchi appreciated, no increased work of breathing GI: soft, nondistended, nontender, BS normoactive MSK: no gross deformities appreciated Skin: warm, dry, no rash appreciated Neuro: alert, oriented, no focal neurologic deficit appreciated Results & Data Results & Data ([facility]) Vital Signs (Past 12 Hours) Vital Signs Temp Pulse Resp BP Pulse Ox O2 Del Method 12/05/22 23:56 36.8 C 65 20 131/78 96 Room Air 12/05/22 21:00 Room Air
[2022-12-06] MEDS: AMOXICILLIN/CLAVULANATE 875 MG TAB PO SCH (07:39)
[2022-12-06] MEDS: MAGNESIUM CHLORIDE W/CALCIUM 64MG DELAYED REL TAB PO SCH (07:39)
[2022-12-06] MEDS: DOCUSATE SODIUM 100 MG CAP PO PRN (07:39)
[2022-12-06] MEDS: allopurinoL 300 MG TAB PO SCH (07:39)
[2022-12-06] MEDS: METOPROLOL SUCC 25MG EXT REL TAB PO SCH (07:39)
[2022-12-06] MEDS: oxyCODONE/ACETAMINOPHEN 5mg/325mg TAB PO PRN ×2 (07:39→12:34)
[2022-12-06] MEDS: MULTIVITAMIN TAB PO SCH (07:39)
[2022-12-06] MEDS: PANTOprazole 40 MG TAB PO SCH (07:39)
[2022-12-06] MEDS: CLOPIDOGREL BISULFATE 75 MG TAB PO SCH (07:39)
[2022-12-06] MEDS: CHOLECALCIFEROL 5,000 UNITS 125 MCG TAB PO SCH (07:39)
[2022-12-06 08:39] LABS: Basophils # (auto) 0.05 K/uL (0-0.2); Basophils % (auto) 0.8 %; Eosinophils # (auto) 0.14 K/uL (0-0.50); Eosinophils % (auto) 2.4 %; Hematocrit (blood only) 36.8 % (42.0-52.0); Hemoglobin 12.7 g/dl (14.0-18.0); Immature Granulocytes # (auto) 0.09 K/uL (0.01-0.20); Immature Granulocytes % (auto) 1.5 %; Lymphocytes # (auto) 1.38 K/uL (1.2-3.4); Lymphocytes % (auto) 23.3 %; Mean Corpuscular Hemoglobin 36.4 pg (25.0-34.0); Mean Corpuscular Hgb Conc 34.5 g/dL (32.0-36.0); Mean Corpuscular Volume 105.4 fL (80.0-100.0); Mean Platelet Volume 9.6 fL (9.4-12.4); Monocytes # (auto) 0.55 K/uL (0.11-0.59); Monocytes % (auto) 9.3 %; Neutrophils # (auto) 3.71 K/uL (1.40-6.50); Neutrophils % (auto) 62.7 %; Platelet Count 378 K/uL (130-400); RDW Coefficient of Variation 13.6 % (11.5-14.5); RDW Standard Deviation 53.1 fL (36.4-46.3); Red Blood Count 3.49 M/uL (4.70-6.10); White Blood Count 5.92 K/ul (4.8-10.8)
[2022-12-06 08:54] LABS: BUN Creatinine Ratio 11.5 (10-20); Calcium 9.1 mg/dl (8.5-10.1); Creatinine Clr Calc Pharmacy 125.1 ml/min; Est GFR (African American) 114.8 ml/min; Est GFR (Non-African American) 99.1 ml/min; Potassium 3.8 mmol/L (3.5-5.1)
--- NOTE | 2022-12-06 13:00 | Discharge Summary ---
Date of Service December 06, 2022 Admission HPI Per Admitting Provider Chief Complaint: generalized weakness, fatigue and falls Primary Care Provider: Jay Shearer MD Marcus Smith is a 72yo male with history of HTN, HLP, CAD, GERD and idiopathic neuropathy presenting with progressive weakness and multiple falls. Patient reports that he fell and hit his ribs three weeks ago. He was seen in clinic - no fractures - thought possibly ribs were bruised. Since then he has had progressive functional decline. He reports worsening pain in his low back as well as equal weakness in his legs bilaterally. Due to his back pain and weakness he has been using a walker to ambulate in his home. He fell earlier this week and was unable to get up from the floor. His called the neighbor to assist him. Over the last two days patient has not been able to sit up due to pain in his back. He has been sitting in a recliner chair and laying in bed. This morning he slid out of bed and was unable to get up. He was on the ground for 3 hours. His found him and called 911. Patient denies head trauma or LOC. He denies chest pain, cough, SOB, palpitations. He has full recollection of his falling events. He denies saddle anesthesia or change in bowels or bladder function. He does report subjective fevers and chills as well as pain in the buttock and perirectal area. He has nausea associated with the pain, poor appetite and decreased oral intake. measured a Tm at home of 100. In the ER he is afebrile, HD stable, NAD. ER Course: NSS x 2L Cefepime 2gm Magnesium 1gm Vancomycin being infused presently Admission Exam Per Admitting Provider General: patient uncomfortable in bed, NAD, non-toxic in appearance, AA&O x 4 Skin: warm, dry, intact HEENT: NC/AT, PERRL, EOMI, anicteric sclera, conjunctiva without injection, external ear normal to inspection and nontender, nares patent, moist mucus membranes, dentition intact, no oropharyngeal lesions, neck supple, trachea midline, no LAD, no thyromegaly, no JVD Heart: +S1/S2, regular, no m/r/g Lungs: equal air entry bilaterally, no rales/rhonchi/wheezes Abd: +BS, soft, NT/ND, no masses/organomegaly/ascites Ext: warm, 2+ pulses in UE/LE bilaterally, no clubbing/cyanosis or edema Neuro: nonfocal, patient AA&O x 4, speech intact, no facial droop, moving all extremities on command with equal strength 5/5 Warmth, tenderness and induration of buttocks, no fluctuance. No obvious perirectal abscess on palpation. No crepitus. Tenderness at left lumbar paraspinal musculature. No fullness or fluctuance Principal Diagnosis Perirectal Abscess Discharge Exam Constitutional: well-appearing, no acute distress HEENT: NCAT, no conjunctival injection CV: regular rhythm, no murmur appreciated, extremities well-perfused, no LE edema Resp: CTABL, no wheezes/rales/rhonchi appreciated, no increased work of breathing GI: soft, nondistended, nontender, BS normoactive MSK: no gross deformities appreciated Skin: warm, dry, no rash appreciated. Perirectal abscess with mild erythema, some light colored discharge Neuro: alert, oriented, no focal neurologic deficit appreciated Discharge Data Allergies Allergy/AdvReac Type Severity Reaction Status Date / Time soy Allergy Severe THROAT Verified 11/27/22 20:01 TIGHTENED W/SOY SAUCE Sulfa (Sulfonamide Allergy Intermediate HIVES AND Verified 11/27/22 19:57 Antibiotics) ITHCING zolpidem [From Ambien] AdvReac Severe " Verified 11/27/22 19:57 Hallucinates and sleepwalks" baclofen AdvReac Intermediate Tired and Verified 11/27/22 19:57 sluggish gabapentin AdvReac Intermediate " [place] Verified 11/27/22 19:57 like " out of body" gluten AdvReac Intermediate ABD PAIN Verified 11/27/22 19:57 milk AdvReac Intermediate STOMACH Verified 11/27/22 19:57 PAIN Viiqvso-YLE-ZmC Reductase AdvReac Intermediate MUSCLE Verified 11/27/22 19:57 Inhibitor WEAKNESS [Lhjwxmg-Fbz-Qsr Reductase Inhibitor] Consultations 11/27/22 20:01 ED Decision to Admit Stat 11/28/22 10:43 Consult General Surgery Routine Procedures Performed Operation Date: 11/28/22 13:00 Actual Procedures p Incision and drainage of perirectal abscess(Not Applicable) - Katarina Aburto MD Ordered Studies 11/27/22 18:44 CT lumbar spine wo con Stat 11/27/22 22:02 CT Abd and Pelvis [CT abd pelvis IV con only] Urgent Laboratory Results WBC 5.92 K/ul (4.8-10.8) 12/06/22 07:31 RBC 3.49 M/uL (4.70-6.10) L 12/06/22 07:31 Hgb 12.7 g/dl (14.0-18.0) L 12/06/22 07:31 Hct 36.8 % (42.0-52.0) L 12/06/22 07:31 MCV 105.4 fL (80.0-100.0) H 12/06/22 07:31 MCH 36.4 pg (25.0-34.0) H 12/06/22 07:31 MCHC 34.5 g/dL (32.0-36.0) 12/06/22 07:31 RDW Std Deviation 53.1 fL (36.4-46.3) H 12/06/22 07:31 RDW Coeff of Joseph 13.6 % (11.5-14.5) 12/06/22 07:31 Plt Count 378 K/uL (130-400) 12/06/22 07:31 MPV 9.6 fL (9.4-12.4) 12/06/22 07:31 Immature Gran % (Auto) 1.5 % 12/06/22 07:31 Neut % (Auto) 62.7 % 12/06/22 07:31 Lymph % (Auto) 23.3 % 12/06/22 07:31 [place] % (Auto) 9.3 % 12/06/22 07:31 Eos % (Auto) 2.4 % 12/06/22 07:31 Baso % (Auto) 0.8 % 12/06/22 07:31 Neut # (Auto) 3.71 K/uL (1.40-6.50) 12/06/22 07:31 Lymph # (Auto) 1.38 K/uL (1.2-3.4) 12/06/22 07:31 [place] # (Auto) 0.55 K/uL (0.11-0.59) 12/06/22 07:31 Eos # (Auto) 0.14 K/uL (0-0.50) 12/06/22 07:31 Baso # (Auto) 0.05 K/uL (0-0.2) 12/06/22 07:31 Immature Gran # (Auto) 0.09 K/uL (0.01-0.20) 12/06/22 07:31 Toxic Granulation 2+ 11/29/22 05:39 Dohle Bodies 1+ 11/29/22 05:39 Tear Drop Cells 1+ 11/27/22 18:34 Acanthocytes (Spur) 1+ 11/27/22 18:34 ABG pH 7.47 (7.35-7.45) H 11/27/22 20:13 ABG pCO2 33 mmHg (35-46) L 11/27/22 20:13 ABG pO2 88 mmHg (80-95) 11/27/22 20:13 ABG HCO3 24 mmol/L (19-24) 11/27/22 20:13 ABG O2 Saturation 98.4 % (90-95) H 11/27/22 20:13 ABG Base Excess 0.9 mEq/L (-9-1.8) 11/27/22 20:13 Miguel Test POS (Pos) 11/27/22 20:13 Oxygen Given ROOM AIR 11/27/22 20:13 Sodium 140 mmol/L (136-145) 12/06/22 07:31 Potassium 3.8 mmol/L (3.5-5.1) 12/06/22 07:31 Chloride 106 mmol/L (98-107) 12/06/22 07:31 Carbon Dioxide 29 mmol/L (21-32) 12/06/22 07:31 Anion Gap 5 (3-11) 12/06/22 07:31 BUN 7 mg/dl (6-23) 12/06/22 07:31 Creatinine 0.61 mg/dl (0.6-1.4) 12/06/22 07:31 Est Cr Clr Drug Dosing 125.1 ml/min 12/06/22 07:31 Est GFR ( Amer) 114.8 ml/min 12/06/22 07:31 Est GFR (Non-Af Amer) 99.1 ml/min 12/06/22 07:31 BUN/Creatinine Ratio 11.5 (10-20) 12/06/22 07:31 Glucose 89 mg/dl (70-99(Fasting)) 12/06/22 07:31 Lactate 1.6 mmol/L (0.4-2.0) 11/27/22 21:05 Calcium 9.1 mg/dl (8.5-10.1) 12/06/22 07:31 Magnesium 1.7 mg/dl (1.7-2.4) 11/28/22 06:02 Total Bilirubin 1.0 mg/dl (0.2-1.0) 11/29/22 05:39 Direct Bilirubin 0.3 mg/dl (0-0.2) H 11/28/22 06:02 AST 34 U/L (13-39) 11/29/22 05:39 ALT 10 U/L (7-52) 11/29/22 05:39 Alkaline Phosphatase 72 U/L (34-104) 11/29/22 05:39 Total Creatine Kinase 1553 U/L (30-223) H 11/28/22 06:02 Troponin I High Sens 28.9 pg/ml (0-20) H 11/28/22 06:02 Total Protein 5.5 gm/dl (6.0-8.3) L 11/29/22 05:39 Albumin 2.6 gm/dl (3.4-5.0) L 11/29/22 05:39 Globulin 2.9 gm/dl (2.5-4.0) 11/29/22 05:39 Albumin/Globulin Ratio 0.9 (0.9-2) 11/29/22 05:39 Procalcitonin 6.22 ng/ml (0-0.5) H 11/27/22 18:34 TSH 2.813 uIu/ml (0.300-4.500) 11/27/22 18:34 Urine Color Dark Yellow 11/28/22 06:45 Urine Appearance Cloudy (Clear) A 11/28/22 06:45 Urine pH 5.0 (4.5-7.5) 11/28/22 06:45 Ur Specific [place] 1.030 (1.000-1.030) 11/28/22 06:45 Urine Protein 1+ (Negative) H 11/28/22 06:45 Urine Glucose (UA) Negative (Negative) 11/28/22 06:45 Urine Ketones 1+ (Negative) H 11/28/22 06:45 Urine Blood Negative (Negative) 11/28/22 06:45 Urine Nitrite Negative (Negative) 11/28/22 06:45 Urine Bilirubin 1+ (Negative) H 11/28/22 06:45 Urine Urobilinogen Negative (Negative) 11/28/22 06:45 Ur Leukocyte Esterase 1+ (Negative) H 11/28/22 06:45 Urine WBC (Auto) 10-30 /hpf (0-5) H 11/28/22 06:45 Urine RBC (Auto) 0-4 /hpf (0-4) 11/28/22 06:45 U Hyaline Cast (Auto) 5-10 /lpf (0-5) H 11/28/22 06:45 U Epithel Cells (Auto) >30 /lpf (0-5) H 11/28/22 06:45 Urine Bacteria (Auto) Negative (Negative) 11/28/22 06:45 Ur Renal Epithelial Cell Not Reportable 11/28/22 06:45 Granular Casts 1-5 /lpf (0) H 11/28/22 06:45 Nasal Screen MRSA (PCR) Negative (Negative) 11/29/22 Unknown SARS-CoV-2, RNA, NAAT NEGATIVE (NEGATIVE) 12/06/22 09:00 Bld Cult ID Panel PCR PCR Panel Negative (NotDetected) 11/27/22 22:32 Impressions Chest X-Ray 11/27/22 18:44 XR chest 1V portable HISTORY: weakness COMPARISON: Chest and left rib series 11/23/2022. FINDINGS: A few bibasilar linear densities likely representing subsegmental atelectasis. Emphysema is noted. No evidence for pulmonary edema. The heart is top normal in size. Old, healed bilateral rib fractures. IMPRESSION: Emphysema. Otherwise, no acute process within the chest. ACT 112: Negative or not required by law. Electronically signed by: Chase Quarles M.D. 11/27/2022 6:[address] 11/27/22 18:[address] DOSE: 799.27 mGy.cm HISTORY: low back pain; bilateral lower extremity weakness TECHNIQUE: Multiaxial CT images of the lumbar spine were performed and reformatted in the sagittal and coronal plane without the use of contrast. A dose lowering technique was utilized adhering to the principles of ALARA. COMPARISON: Lumbar spine MRI 10/02/2022. FINDINGS: There is an old moderate super endplate compression fracture at L2, unchanged. No acute fracture or subluxation within the lumbar spine. Kwts-rv-krrvaxuo central canal narrowing at L4-L5, unchanged. Paravertebral soft tissues are unremarkable. IMPRESSION: 1. No acute fracture or subluxation within the lumbar spine. 2. Old L2 compression deformity again noted. ACT 112: Negative or not required by law. Electronically signed by: Chase Quarles M.D. 11/27/2022 7:34 PM Abdomen/Pelvis CT 11/27/22 22:02 CT OF THE ABDOMEN AND PELVIS WITH CONTRAST CLINICAL HISTORY: Leukocytosis. Evaluate for perirectal abscess. COMPARISON STUDY: CT of the abdomen and pelvis November 16, 2011 and abdominal ultrasound March 23, 2022. TECHNIQUE: Following IV administration of 90 mL of Optiray, axial images of the abdomen and pelvis were obtained from the lung bases to the proximal femurs. Images were reviewed in the axial, sagittal, and coronal planes. IV contrast was administered without complication. Automated exposure control was utilized for the study. A dose lowering technique was utilized adhering to the principles of ALARA. CT DOSE: 786.48 mGy.cm FINDINGS: A trace left pleural effusion is noted within the lower hemithorax. Multiple healing bilateral lower rib fractures are noted. No pneumatosis, free air or portal venous gas is present. There is a moderate sized hiatal hernia. A 2 cm lateral segment hepatic cyst is present. There is no biliary or pancreatic ductal dilatation. Spleen, adrenal glands and pancreas are unremarkable. Multiple small bilateral renal calculi measure up to 4 mm. There are no ureteral calculi. No hydronephrosis. The bladder is distended. 1.3 cm left renal lesion is difficult to characterize given its small size but favors a cyst. There is no evidence for a bowel obstruction. There is colonic diverticulosis. The appendix is normal. Note is made of a large complex left perirectal gas and fluid containing collection consistent with an abscess with mass effect upon the rectum. There is associated rectal wall thickening with stranding. The largest component of the abscess measures 8.7 x 7.1 x 5.9 cm. This communicates with an additional component within the medial for the right buttock that measures 6.8 x 5.1 x 3.7 cm. This multiloculated abscess has associated transsphincteric and supralevator components. In addition, there are multiple locules of gas within the subcutaneous tissues of the left inferior buttock. This could be due to a gas- forming infectious process or contained perforation. Associated prominent lymph nodes are likely reactive. IMPRESSION: 1. Large complex multiloculated perirectal abscess with transsphincteric and supralevator components, as described above. Largest component of the abscess along the left lateral wall of the rectum with mass effect upon the rectum, measures 8.7 x 7.1 x 5.9 cm. This communicates with a smaller abscess within the medial fold of the right buttock that measures 6.8 x 5.1 x 3.7 cm. Locules of soft tissue gas within the left buttock could represent a gas forming infectious process such as necrotizing fasciitis or be due to a contained perforation. Surg ical consultation is recommended. 2. Bilateral nephrolithiasis. No ureteral calculi or hydronephrosis. Distended bladder. 3. Multiple healing bilateral lower rib fractures. Trace left pleural effusion. 4. No bowel obstruction. Colonic diverticulosis. ACT 112: Negative or not required by law. Electronically signed by: Minh Leon M.D. 11/28/2022 10:17 AM Hospital Course (1) Emily-rectal abscess: Pt is a 72 yo male with PMH of HTN, HLD, GA s/p stenting, GERD, and arthritis presenting with increasing weakness over the past few weeks culminating in a fall where he was unable to get up. He was on the floor for several hours before he was found and EMS was called. Perirectal abscess s/p I&D (11/28) - pt with neutrophil predominant leukocytosis with WBC 22.27, procal 6.22 upon admission - slightly elevated lactate level of 2.4 on arrival which decreased to 1.6 after IVF - CTAP showed complex multiloculated perirectal abscess, concern for gas forming infection - 1/2 anaerobic blood cultures grew gram neg bacilli (patient received cefepime x1 prior to blood cultures) - wound cultures show GI microbiota, MRSA nares neg Plan: - continue Augmentin 875 mg BID (day 914 of total ABX use) - for pain plan for scheduled Tylenol with oxycodone for breakthrough. Will hold home tramadol - pt to follow with wound care after completing rehab - Will need dressing changed daily Gram neg bacteremia - as above Generalized weakness - multifactorial including perirectal abscess, progression of neuropathy, and deconditioning - lumbar CT neg for fracture, showed old L2 compression deformity - PT/OT ordered; recommending short term rehab Rhabdomyolysis- stable - CK 1786 upon admission in setting of fall with down time of approximately 3 hours; repeat CK 1553 - Cr stable, UA neg for blood - pt received 4L IVF total Hypertension - continue metoprolol 75mg PO daily Hypercholesterolemia - on home crestor 5mg PO daily CAD (coronary artery disease) - denies chest pain, SOB - troponin 28 - continue metoprolol and plavix 75mg po daily (2) Generalized weakness: (3) Rhabdomyolysis: (4) Hypertension: (5) Hypercholesterolemia: (6) CAD (coronary artery disease): (7) Frequent falls: (8) Gram-negative bacteremia: Total Time Total Time Spent Total Time Spent (In Minutes): 30 Discharge Plan Discharge Items Patient Disposition: Home - Self-Care Reason For Visit: WEAKNESS Discharge Diagnosis: bilateral perirectal abscesses, deconditioning Activity: Per Instructions section Non-emergency contact: Primary Care Provider Call non-emergency contact if: you have any medication questions, your symptoms worsen and you have a fever Follow-up/Referrals: Jay Shearer MD [Primary Care Provider] - Katarina Aburto MD [Physician] - (2 weeks) Diet: Gluten Free and Lactose Intolerant Addtl Attending Provider Instructions: Pt is a 72 yo male with PMH of HTN, HLD, GA s/p stenting, GERD, and arthritis presenting with increasing weakness over the past few weeks culminating in a fall where he was unable to get up. He was on the floor for several hours before he was found and EMS was called. Perirectal abscess s/p I&D (11/28) - pt with neutrophil predominant leukocytosis with WBC 22.27, procal 6.22 upon admission - slightly elevated lactate level of 2.4 on arrival which decreased to 1.6 after IVF - CTAP showed complex multiloculated perirectal abscess, concern for gas forming infection - 1/2 anaerobic blood cultures grew gram neg bacilli (patient received cefepime x1 prior to blood cultures) - wound cultures show GI microbiota, MRSA nares neg - continue Augmentin 875 mg BID (day 06/30 of total ABX use) - pt to follow with wound care after completing rehab - will need dressing changed once a day Gram neg bacteremia - tx as above Generalized weakness - multifactorial including perirectal abscess, progression of neuropathy, and deconditioning - lumbar CT neg for fracture, showed old L2 compression deformity - PT/OT worked with pt and recommended short term rehab Rhabdomyolysis- stable - CK 1786 upon admission in setting of fall with down time of approximately 3 hours; repeat CK 1553 - Cr stable, UA neg for blood - pt received 4L IVF total - pt's statin held; may resume in rehab Hypertension - continue metoprolol 75mg PO daily Hypercholesterolemia - on home crestor 5mg PO daily - may resume upon discharge from hospital CAD (coronary artery disease) - denies chest pain, SOB - troponin 28 - restart crestor, continue metoprolol and plavix 75mg po daily FEN: gluten free/lactose intolerant diet DVT ppx: lovenox 40 mg daily while hospitalized Code: Full Dispo: [facility] Addtl Shredder/Granulator Operator Provider Instructions: GENERAL SURGERY INSTRUCTIONS: ACTIVITY RECOMMENDATIONS: * No heavy lifting for 2 weeks MEDICATIONS: Resume previous medications unless instructed otherwise by your surgeon. * Colace 100 mg 2 times per day * Tylenol 1000mg q8 scheduled for pain, 5mg oxycodone TID as needed for breakthrough pain SPECIAL CARE INSTRUCTIONS: * Change outer dressings as needed and at least daily to keep clean and dry. * Wound care follow-up at wound care center * There are surgical drains in each wound. These are fixed to your skin with a stitch. Packing changes via wound care center. Wounds will heal from inside out * Call the surgeon's office with any questions or concerns - (ex. temperature higher than 101 degrees F, excessive bleeding or pain). FOLLOW UP VISIT: If not already scheduled, please call the office to schedule a two week follow- up appointment. Office number . Pending Studies at Discharge: No Stand-Alone Forms: My [place], Smoking Cessation Medications and DC Order Prescriptions: New acetaminophen [Tylenol Extra Strength] 500 mg tablet 1,000 mg PO Q8 Qty: 60 0RF docusate sodium 100 mg Capsule 100 mg PO BID 30 Days Qty: 60 0RF amoxicillin-pot clavulanate 875-125 mg Tablet 1 tab PO BIDM 5 Days Qty: 11 0RF polyethylene glycol 3350 [Miralax] 17 gram Powder In Packet 17 g PO DAILY PRN (Reason: constipation) 30 Days Qty: 100 0RF oxycodone 5 mg tablet 5 mg PO TID PRN (Reason: pain) 5 Days Qty: 15 0RF Continued nitroglycerin 0.4 mg tablet, sublingual 0.4 mg SL Q5M PRN (Reason: chest pain) Qty: 100 1RF Rx Instructions: until response; do not exceed 3 doses per episode magnesium chloride 64 mg tablet,delayed release (DR/EC) 64 mg PO BID Qty: 180 1RF rosuvastatin [Crestor] 5 mg tablet 5 mg PO DAILY Qty: 90 3RF metoprolol succinate 25 mg tablet extended release 24 hr 75 mg PO DAILY 90 Days Qty: 270 3RF Rx Instructions: 3 tablet dose clopidogrel [Plavix] 75 mg tablet 75 mg PO DAILY Qty: 90 3RF omeprazole 20 mg capsule,delayed release(DR/EC) 20 mg PO DAILY multivitamin Tablet 1 tab PO DAILY allopurinol 300 mg Tablet 300 mg PO DAILY fluticasone propionate [Flonase Allergy Relief] 50 mcg/actuation [place],Suspension 1 spray INTRANASAL DAILY PRN (Reason: Congestion) cholecalciferol (vitamin D3) [Vitamin D3] 5,000 unit Tablet 5,000 unit PO DAILY azelastine 137 mcg (0.1 %) aerosol,spray 2 spray intranasal DAILY PRN (Reason: Congestion) Discontinued tramadol 50 mg tablet 50 mg PO DAILY PRN (Reason: Pain) cyanocobalamin (vitamin B-12) 1,000 mcg/mL solution 1,000 mcg IM .COMPLEX Qty: 1 4RF Rx Instructions: ON HOLD PER SPOUSE1,000 mcg IM ONCE A MONTH; Discharge Orders: Discharge Order (Routine); Ordered 12/06/22 Ordered By: Iliana Garber Admission Data Admit Date/Time: 11/27/22 20:29 Attending Provider: Roque Mckeon Admit Provider: Kae Paredes Primary Care Provider: Jay Shearer Other Providers: Geena Savage ; [facility] ; [facility] ; Katarina Aburto ; Kae Paredes ; Jerry Monzon ; Con Tadeo ; Agapito Lipscomb ; Arpan Brunson Jr ; Zane Singleton ; Supa Best ; Nina Rodriguez ; Nahum Jacobsen ; eJan Jennings ; Elaina Riggins Other Interventions: Discharge Summary Assessment (RN) Last Done: 12/06/22 12:42 Supervising Physician Co-Signing Physician Notes Attending attestation Pt seen and examined in concert with Dr. Garber. In agreement with the documented findings as noted in the resident documentation with any exceptions or additions as noted here. Gradual improvement in pain at site of I&D of perirectal abscess with ongoing drainage. Chronically, doesn't feel like tramadol does much for him. Has been doing well on TID oxycodone/APAP. On examination, S1/S2 nl RRR no MCG. CTAB. Abd NT/ND BS+ve. visible purulent drainage of I&D site. Perirectal abscess s/p I&D - complete course of augmentin. Pain control reviewed - can do q8h APAP and up to TID oxycodone 5mg for breakthrough, Rx sent. Agree w/ wound care follow up post discharge. Else see resident documentation as noted. Total attending physician time spent with this patient's care on the day of discharge: 35 minutes. Resident Activity Tracking Resident Involvement: Resident Care Provided Care Provided: Adult Hospital Medicine
== END 2022-12-06 12:57 | disposition home or self-care (01) | DRG 348 ==
LOC: ED 18:18 → 2N 20:29 → SUATTDRO 20:29 → 2N 21:47

== ENCOUNTER 2024-03-06 13:47 | Observation (INO) ==
--- NOTE | 2024-03-06 14:29 | CT Scan Report ---
CT OF THE HEAD WITHOUT CONTRAST CLINICAL HISTORY: fall, head injury COMPARISON STUDY: Head CT January 05, 2024. CT DOSE: 1250.21 mGy.cm TECHNIQUE: Helical axial images of the head were obtained without IV contrast. Automated exposure con trol was utilized for the study. A dose lowering technique was utilized adhering to the principles o f ALARA. FINDINGS: No acute intracranial hemorrhage, midline shift or mass effect is present. Ventricular dila tation is unchanged. Basal cisterns are patent. There are no extra axial collections. White matter hy podensities are similar to prior exam and favor small vessel disease. There are no calvarial fracture s. Patient is status post right parietal craniotomy. Postoperative findings within the sinuses are no jerry with mild mucosal thickening of the ethmoid sinuses. IMPRESSION: 1. No acute intracranial findings. No change in appearance of the brain. 2. No calvarial fractures. ACT 112: Negative or not required by law. Electronically signed by: Minh Leon M.D. 03/06/2024 2:27 PM
[2024-03-06 14:35] LABS: Basophils # (auto) 0.05 K/uL (0.00-0.20); Basophils % (auto) 0.4 %; Eosinophils # (auto) 0.07 K/uL (0.00-0.50); Eosinophils % (auto) 0.6 %; Hematocrit (blood only) 45.5 % (42.0-52.0); Hemoglobin 15.8 g/dl (14.0-18.0); Immature Granulocytes # (auto) 0.06 K/uL (0.01-0.20); Immature Granulocytes % (auto) 0.5 %; Lymphocytes # (auto) 1.07 K/uL (1.20-3.40); Lymphocytes % (auto) 9.4 %; Mean Corpuscular Hgb Conc 34.7 g/dL (32.0-36.0); Mean Corpuscular Volume 100.7 fL (80.0-100.0); Mean Platelet Volume 10.2 fL (9.4-12.4); Monocytes # (auto) 0.78 K/uL (0.11-0.59); Monocytes % (auto) 6.8 %; Neutrophils # (auto) 9.41 K/uL (1.40-6.50); Neutrophils % (auto) 82.3 %; Platelet Count 151 K/uL (130-400); RDW Coefficient of Variation 12.7 % (11.5-14.5); RDW Standard Deviation 47.1 fL (36.4-46.3); Red Blood Count 4.52 M/uL (4.70-6.10); White Blood Count 11.44 K/ul (4.8-10.8)
--- NOTE | 2024-03-06 14:52 | XRay Report ---
XR chest 1V not portable CLINICAL HISTORY: Chest pain, nonspecific COMPARISON STUDY: Chest CT March 17, 2023. Chest radiograph January 05, 2024. FINDINGS: Lung volumes are normal. Lungs are clear. There is no pneumothorax or pleural effusion. Car diomegaly is unchanged. Upper mediastinal widening with leftward deviation of the trachea is unchange d and due to a thyroid goiter, as shown on on prior CT. There is no evidence for pulmonary edema. Sev eral old left-sided rib fractures. IMPRESSION: No acute cardiopulmonary findings. No change in appearance of the chest. ACT 112: Negative or not required by law. Electronically signed by: Minh Leon M.D. 03/06/2024 2:50 PM
[2024-03-06 14:53] LABS: Alanine Aminotransferase 11 U/L (7-52); Albumin Level 3.8 gm/dl (3.4-5.0); Alkaline Phosphatase 89 U/L (34-104); Anion Gap 11 (3-11); Aspartate Aminotransferase 24 U/L (13-39); Bilirubin,Total 1.9 mg/dl (0.2-1.0); Blood Urea Nitrogen 9 mg/dl (6-23); Calcium 9.2 mg/dl (8.6-10.3); Carbon Dioxide 26 mmol/L (21-32); Chloride 102 mmol/L (98-107); Est GFR (Non-African American) 89.7 ml/min; Globulin 3.7 gm/dl (2.5-4.0); Glucose 118 mg/dl (70-99(Fasting)); Potassium 3.5 mmol/L (3.5-5.1); Sodium 139 mmol/L (136-145); Total Protein 7.5 gm/dl (6.0-8.3)
[2024-03-06 14:56] LABS: Partial Thromboplastin Time 27 Seconds (21-31); Prothrombin Time 10.8 Seconds (9.0-12.0)
[2024-03-06 14:57] LABS: Troponin I High Sensitivity 27.5 pg/ml (0-20)
--- NOTE | 2024-03-06 16:27 | Electrocardiogram Report ---
Test Reason : Blood Pressure : / mmHG Vent. Rate : 105 BPM Atrial Rate : 105 BPM P-R Int : 160 ms QRS Dur : 118 ms QT Int : 376 ms P-R-T Axes : 063 -86 051 degrees QTc Int : 496 ms Sinus tachycardia with occasional Premature ventricular complexes Left axis deviation Incomplete right bundle branch block Abnormal ECG When compared with ECG of 05-JAN-2024 07:10, Premature ventricular complexes are now Present Aberrant conduction is no longer Present Confirmed by Stevan Lozano ([id number]) on 03/06/2024 4:27:10 PM Referred By: Confirmed By:Stevan Lozano
--- NOTE | 2024-03-06 16:57 | Emergency Department Note ---
History of Present Illness General Chief complaint: Head Injury, Minor Stated complaint: HEAD PAIN, LACK OF BALANCE, FALL, HISTORY OF BRAIN Time Seen by Provider: 03/06/24 16:28 Source: patient, RN notes reviewed and old records reviewed (01/09/24-[facility] outpatient visit for sialoadenitis) Mode of arrival: ambulatory Limitations: no limitations History of Present Illness Maximum Pain Intensity: 8 This patient is a 74-year-old male who comes in for evaluation of weakness and a fall. He fell on 24 February and since then he is felt weak. No fall again. He started gabapentin on the or . He has this prescribed he has chronic back pain and neuropathy does not think he injured his back when he fell but he continues to feel weak when he walks he is walking with a walker. He did hit his head. He does have a history of a brain bleed and was concerned about that. No fever no change in bowel or bladder function .no dysuria .no chest pain or shortness of breath .no blood or melena stool. Home Medications Medication Instructions Recorded Confirmed Type allopurinol 300 mg tablet 300 mg PO DAILY 07/07/18 03/06/24 History fluticasone propionate 50 1 spray intranasal DAILY PRN 09/03/18 03/06/24 History mcg/actuation nasal Congestion spray,suspension (Flonase Allergy Relief) omeprazole 20 mg capsule,delayed 20 mg PO DAILY 05/12/20 03/06/24 History release fexofenadine 60 mg tablet 60 mg PO BID PRN Congestion 03/17/23 03/06/24 History tramadol 50 mg tablet 50 mg PO DAILY PRN Pain 03/17/23 03/06/24 History aspirin 81 mg tablet,delayed 81 mg PO DAILY #30 tabs 07/12/23 03/06/24 Rx release acetaminophen 500 mg tablet 1,000 mg PO Q8H PRN pain 12/22/23 03/06/24 History (Tylenol Extra Strength) levocetirizine 5 mg tablet (Xyzal) 5 mg PO DAILY PRN 12/22/23 03/06/24 History Allergies/Congestion multivitamin 1 tab PO DAILY 12/22/23 03/06/24 History magnesium oxide 125 mg PO DAILY 01/05/24 03/06/24 History metoprolol succinate 25 mg 12.5 mg (1/2 x 25 mg) PO DAILY #60 01/17/24 03/06/24 Rx tablet,extended release 24 hr tabs nitroglycerin 0.4 mg sublingual 0.4 mg sublingual Q5M PRN chest 01/17/24 03/06/24 Rx tablet pain #100 tabs rosuvastatin 10 mg tablet 10 mg PO DAILY #90 tabs 01/17/24 03/06/24 Rx Allergies Allergy/AdvReac Type Severity Reaction Status Date / Time lisinopril Allergy Severe Swollen Verified 03/06/24 18:45 Tongue and Throat Tightness soy Allergy Severe THROAT Verified 03/06/24 18:45 TIGHTENED W/SOY SAUCE Sulfa (Sulfonamide Allergy Intermediate HIVES AND Verified 03/06/24 18:45 Antibiotics) ITHCING zolpidem [From Ambien] AdvReac Severe " Verified 03/06/24 18:45 Hallucinates and sleepwalks" baclofen AdvReac Intermediate Tired and Verified 03/06/24 18:45 sluggish gabapentin AdvReac Intermediate " [place] Verified 03/06/24 18:45 like " out of body" gluten AdvReac Intermediate ABD PAIN Verified 03/06/24 18:45 milk AdvReac Intermediate STOMACH Verified 03/06/24 18:45 PAIN Zdbylux-HMN-VqA Reductase AdvReac Intermediate MUSCLE Verified 03/06/24 18:45 Inhibitor WEAKNESS [Qrbmeuc-Ahq-Bzx Reductase Inhibitor] Past Med/Surg History Problem List (Updated 03/06/24 @ 19:06 by Sha Nicole MD) Mass of perirectal soft tissue Back pain (Acute) Abscess, perirectal (Acute) Weakness (Acute) Fall (Acute) Stented coronary artery Gram-negative bacteremia Emily-rectal abscess Generalized weakness (Acute) Rhabdomyolysis (Acute) Acute hypokalemia (Acute) Hypomagnesemia (Acute) Non-ST elevation [place] (NSTEMI) (Acute) Excessive vitamin B6 intake Arthralgia Hypersomnolence Hypertension Fatigue Vitamin B12 deficiency Vitamin D deficiency Post concussion syndrome Sensory ataxia Hypertrophy of both inferior nasal turbinates Nasal septal deviation Chronic pansinusitis Idiopathic peripheral neuropathy Allergic rhinitis (Acute) Angina pectoris (Acute) Depression (Acute) Hypercholesterolemia (Acute) Lateral plantar neuropathy (Acute) Lightheadedness (Acute) Nasal congestion with rhinorrhea (Acute) Post-nasal drip (Acute) Presence of stent in artery (Acute) Stented coronary artery (Acute 10/09/12) Hyperlipidemia CAD (coronary artery disease) Myofascial pain Sacroiliitis Precordial chest pain (Acute) Hypertensive emergency (Acute) Headache above the eye region Compression fracture (Chronic) L2 Frequent falls (Chronic) Gait instability (Chronic) Thoracic facet syndrome (Chronic) Spinal stenosis (Chronic) Lumbar facet joint syndrome (Chronic) Lumbago (Chronic) Encounter for pre-operative examination Hypertension (Chronic) Bronchitis (Chronic) Stomach problems (Chronic) Kidney stones (Chronic) Esophageal reflux (Acute) Hiatal hernia (Acute) Hypotension (Acute) Left arm pain (Acute) Medical History Encounter for recheck of abscess following incision and drainage Arteriosclerotic coronary artery disease Benign essential hypertension (10/09/12) Excessive sweating Numbness Post concussion syndrome Osteoarthritis GERD (gastroesophageal reflux disease) Myocardial Infarction 7-10 YEARS AGO Surgical History Polyp, nasal History of tonsillectomy History of heart artery stent 7-10 YEARS AGO INSERTED>[place] History of cardiac cath Family History Mother Family history of diabetes mellitus Heart disease Father Heart disease Sister Asthma Other No family history of adverse response to anesthesia No family history of bleeding disorder Social History Smoking Status: Never smoker Tobacco Type: Cigarettes Cigarettes Per Day: quit smoking 18 years ago; Second Hand Exposure: No; Do You Dip or Chew Tobacco: No; Hx Alcohol Use: Yes Alcohol type: wine Alcohol Intake Frequency: 4 or More x per/Week Alcohol Intake Frequency Comment: 1-2 glasses per day Hx Substance Use: No Preferred Language: Romansh Communication Ability: Effective Visual Impairment: Limited Hearing Ability: Normal Booth Manager Required: No Beliefs That Will Affect Care: None marital status: Current Living Situation: Spouse current occupational status: retired Feels Safe at Home: Yes Diet: gluten free and lactose free Diet Comment: Soy free Do you think of yourself as: straight/heterosexual Gender Identity: Male Assistive Devices: None Review of Systems A total of 10 systems reviewed and were otherwise negative Physical Exam Vital Signs Vital Signs - 24 hr 03/06/24 13:50 03/06/24 17:29 03/06/24 17:34 Temperature 36.6 C Temperature Source Temporal Artery Scan Pulse Rate 110 H Pulse Rate [Bilateral Apical] 97 H Pulse Rhythm Regular Pulse Rhythm [Bilateral Apical] Regular Pulse Strength Normal Pulse Strength [Bilateral Apical] Normal Respiratory Rate 20 18 Respiratory Effort / Characteristics Non-Labored Spontaneous Non-Labored Respiratory Depth Normal Normal Respiratory Pattern Regular Regular Blood Pressure 130/87 Blood Pressure [Right Arm] 139/100 Blood Pressure Mean 101 Blood Pressure Mean [Right Arm] 113 Blood Pressure Position Sitting Blood Pressure Position [Right Arm] Lying Pulse Oximetry 95 95 95 Oxygen Delivery Method Room Air Room Air Room Air Sepsis Recent Fever Within 48 Hours No Sepsis New/Unexplained Change in Mental Status No Sepsis Action Taken by Nursing No Action Required 03/06/24 17:34 03/06/24 17:36 Temperature Temperature Source Pulse Rate 96 H 95 H Pulse Rate [Bilateral Apical] Pulse Rhythm Regular Pulse Rhythm [Bilateral Apical] Pulse Strength Pulse Strength [Bilateral Apical] Respiratory Rate 20 Respiratory Effort / Characteristics Respiratory Depth Respiratory Pattern Blood Pressure Blood Pressure [Right Arm] Blood Pressure Mean Blood Pressure Mean [Right Arm] Blood Pressure Position Blood Pressure Position [Right Arm] Pulse Oximetry 95 Oxygen Delivery Method Room Air Sepsis Recent Fever Within 48 Hours Sepsis New/Unexplained Change in Mental Status Sepsis Action Taken by Nursing General: Well developed well nourished older male who in no acute distress, breathing comfortably on room air. Normal speech HEENT: Normal cephalic atraumatic. Pupils are equal round and reactive to light. Extraocular movements are intact. Oropharynx is pink with moist mucous membranes. No swelling of the mouth lips or tongue. Neck: Supple with a midline trachea. No meningeal signs or stiffness, no JVD or bruits. No Stridor. Chest: Clear to auscultation bilaterally. No wheezes or rhonchi. No increased work of breathing. Heart: Regular rate and rhythm without murmurs or gallops. Abdomen: Soft nontender, nondistended without rebound guarding or rigidity. Rectum: I do not see any external masses. He has normal rectal tone brown stool guaiac negative. On internal exam he does have some tenderness but no fluctuance or masses felt Extremities: No cyanosis clubbing or edema. No calf tenderness or assymetry. He has some bruises on the right hand and left hand from where he fell a week and a half ago. Spine/Back. Non tender to palpation. No CVA tenderness Skin: Good turgor without rashes. Neurologic exam: Cranial nerves two through 12 are intact. Motor and sensation are intact and symmetrical throughout. He walks with a cane and does require assistance. Medical Decision Making Differential Diagnosis Concussion, intracranial hemorrhage, closed head injury, traumatic injuries, cardiac disease, electrolyte or metabolic abnormality, infection Medical Records Attestation: I reviewed the patient's medical records. Home Medications Current Medication List: was personally reviewed by me Laboratory Data Attestation: I reviewed the patient's lab results. 03/06/24 14:14 03/06/24 14:14 Lab Results 03/06/24 03/06/24 Range/Units 14:14 16:07 WBC 11.44 H (4.8-10.8) K/ul RBC 4.52 L (4.70-6.10) M/uL Hgb 15.8 (14.0-18.0) g/dl Hct 45.5 (42.0-52.0) % MCV 100.7 H (80.0-100.0) fL MCH 35.0 H (25.0-34.0) pg MCHC 34.7 (32.0-36.0) g/dL RDW Std Deviation 47.1 H (36.4-46.3) fL RDW Coeff of Joseph 12.7 (11.5-14.5) % Plt Count 151 (130-400) K/uL MPV 10.2 (9.4-12.4) fL Immature Gran % (Auto) 0.5 % Neut % (Auto) 82.3 % Lymph % (Auto) 9.4 % Crowley % (Auto) 6.8 % Eos % (Auto) 0.6 % Baso % (Auto) 0.4 % Neut # (Auto) 9.41 H (1.40-6.50) K/uL Lymph # (Auto) 1.07 L (1.20-3.40) K/uL Crowley # (Auto) 0.78 H (0.11-0.59) K/uL Eos # (Auto) 0.07 (0.00-0.50) K/uL Baso # (Auto) 0.05 (0.00-0.20) K/uL Immature Gran # (Auto) 0.06 (0.01-0.20) K/uL PT 10.8 (9.0-12.0) Seconds INR 1.0 (0.9-1.1) APTT 27 (21-31) Seconds PTT Ratio 1.0 Sodium 139 (136-145) mmol/L Potassium 3.5 (3.5-5.1) mmol/L Chloride 102 (98-107) mmol/L Carbon Dioxide 26 (21-32) mmol/L Anion Gap 11 (3-11) BUN 9 (6-23) mg/dl Creatinine 0.75 (0.6-1.4) mg/dl Est Cr Clr Drug Dosing Not Reportable Est GFR ( Amer) 104.0 ml/min Est GFR (Non-Af Amer) 89.7 ml/min BUN/Creatinine Ratio 12.0 (10-20) Glucose 118 H (70-99(Fasting)) mg/dl Calcium 9.2 (8.6-10.3) mg/dl Total Bilirubin 1.9 H (0.2-1.0) mg/dl AST 24 (13-39) U/L ALT 11 (7-52) U/L Alkaline Phosphatase 89 (34-104) U/L Troponin I High Sens 27.5 H 21.5 H (0-20) pg/ml Total Protein 7.5 (6.0-8.3) gm/dl Albumin 3.8 (3.4-5.0) gm/dl Globulin 3.7 (2.5-4.0) gm/dl Albumin/Globulin Ratio 1.0 (0.9-2) Imaging Data Attestation: I personally reviewed and interpreted this imaging study as follows: My Impression: Chest x-rayno acute infiltrate, failure, pneumothorax seen Head CTno hemorrhage or mass effect seen Radiologist's Impression: Chest X-Ray 03/06/24 13:55 XR chest 1V not portable CLINICAL HISTORY: Chest pain, nonspecific COMPARISON STUDY: Chest CT March 17, 2023. Chest radiograph January 05, 2024. FINDINGS: Lung volumes are normal. Lungs are clear. There is no pneumothorax or pleural effusion. Cardiomegaly is unchanged. Upper mediastinal widening with leftward deviation of the trachea is unchanged and due to a thyroid goiter, as shown on on prior CT. There is no evidence for pulmonary edema. Several old left-sided rib fractures. IMPRESSION: No acute cardiopulmonary findings. No change in appearance of the chest. ACT 112: Negative or not required by law. Electronically signed by: Minh Leon M.D. 03/06/2024 2:[address] 03/06/24 13:55 CT OF THE HEAD WITHOUT CONTRAST CLINICAL HISTORY: fall, head injury COMPARISON STUDY: Head CT January 05, 2024. CT DOSE: 1250.21 mGy.cm TECHNIQUE: Helical axial images of the head were obtained without IV contrast. Automated exposure control was utilized for the study. A dose lowering technique was utilized adhering to the principles of ALARA. FINDINGS: No acute intracranial hemorrhage, midline shift or mass effect is present. Ventricular dilatation is unchanged. Basal cisterns are patent. There are no extra axial collections. White matter hypodensities are similar to prior exam and favor small vessel disease. There are no calvarial fractures. Patient is status post right parietal craniotomy. Postoperative findings within the sinuses are noted with mild mucosal thickening of the ethmoid sinuses. IMPRESSION: 1. No acute intracranial findings. No change in appearance of the brain. 2. No calvarial fractures. ACT 112: Negative or not required by law. Electronically signed by: Minh Leon M.D. 03/06/2024 2:27 PM Abdomen/Pelvis CT 03/06/24 16:43 CT abd pelvis wo con, CT lumbar spine wo con CLINICAL HISTORY: fall TECHNIQUE: Helical axial images of the abdomen and pelvis were obtained. Automated dose lowering techniques and/or adjustment according to patient size were utilized for this exam. Dedicated images of the lumbar spine were obtained. This exam was performed without intravenous contrast. CT DOSE: 1306.03 mGy.cm COMPARISON: Comparison is made to CT abdomen pelvis 03/17/2023 FINDINGS: Lower chest: No acute abnormality. Liver: Hepatic steatosis is noted. Gallbladder and biliary tree: No calcified gallstones. Normal caliber wall. No intra- or extrahepatic biliary ductal dilation. Pancreas: Unremarkable, no focal lesions. Spleen: Unremarkable. Adrenals: Unremarkable. Kidneys and ureters: Perinephric stranding is noted bilaterally. Nonobstructive stones are seen on the right. Bladder: Unremarkable. Reproductive organs: Unremarkable. Bowel: There is a perirectal hypodensity measuring 32 mm. Prominent fat stranding is seen about the rectum. Diverticulosis is seen without diverticulitis. The appendix is unremarkable. There is a small hiatal hernia. Lymph nodes Retroperitoneal: Unremarkable. Pelvic: Unremarkable. Mesenteric: Unremarkable. Peritoneum: Normal. Vessels: Unremarkable. Abdominal wall: Unremarkable. Bones: Degenerative changes in the visualized spine. L2 compression deformity is unchanged from prior exams. IMPRESSION: 1. Perirectal hypodensity measuring 32 mm with surrounding fat stranding. This is favored to represent a perirectal abscess. Rectal carcinoma is considered less likely. Correlation with physical exam is recommended. 2. Otherwise no acute abnormalities in particular no evidence of acute fractures. 3. Nonobstructive nephrolithiasis. 4. Left renal lesion is unchanged in size and measures greater than simple fluid density, likely representing proteinaceous/hemorrhagic cyst. 5. Additional findings as above.. ACT 112: Negative or not required by law. Electronically signed by: Rajesh Alcala M.D. 03/06/2024 5:[address] 03/06/24 16:43 CT abd pelvis wo con, CT lumbar spine wo con CLINICAL HISTORY: fall TECHNIQUE: Helical axial images of the abdomen and pelvis were obtained. Automated dose lowering techniques and/or adjustment according to patient size were utilized for this exam. Dedicated images of the lumbar spine were obtained. This exam was performed without intravenous contrast. CT DOSE: 1306.03 mGy.cm COMPARISON: Comparison is made to CT abdomen pelvis 03/17/2023 FINDINGS: Lower chest: No acute abnormality. Liver: Hepatic steatosis is noted. Gallbladder and biliary tree: No calcified gallstones. Normal caliber wall. No intra- or extrahepatic biliary ductal dilation. Pancreas: Unremarkable, no focal lesions. Spleen: Unremarkable. Adrenals: Unremarkable. Kidneys and ureters: Perinephric stranding is noted bilaterally. Nonobstructive stones are seen on the right. Bladder: Unremarkable. Reproductive organs: Unremarkable. Bowel: There is a perirectal hypodensity measuring 32 mm. Prominent fat stranding is seen about the rectum. Diverticulosis is seen without diverticulitis. The appendix is unremarkable. There is a small hiatal hernia. Lymph nodes Retroperitoneal: Unremarkable. Pelvic: Unremarkable. Mesenteric: Unremarkable. Peritoneum: Normal. Vessels: Unremarkable. Abdominal wall: Unremarkable. Bones: Degenerative changes in the visualized spine. L2 compression deformity is unchanged from prior exams. IMPRESSION: 1. Perirectal hypodensity measuring 32 mm with surrounding fat stranding. This is favored to represent a perirectal abscess. Rectal carcinoma is considered less likely. Correlation with physical exam is recommended. 2. Otherwise no acute abnormalities in particular no evidence of acute fractures. 3. Nonobstructive nephrolithiasis. 4. Left renal lesion is unchanged in size and measures greater than simple fluid density, likely representing proteinaceous/hemorrhagic cyst. 5. Additional findings as above.. ACT 112: Negative or not required by law. Electronically signed by: Rajesh Alcala M.D. 03/06/2024 5:51 PM ECG Data Attestation: I personally reviewed and interpreted this ECG as follows: Indication: + weakness Rate (beats per minute): 105 Rhythm: + sinus tachycardia ECG Intervals/blocks: + Normal QRS, + Normal QT and + Normal [place] ECG [employer]: + Left axis deviation ECG ST segments: + Normal ST segments ECG Findings: + PVCs; no PACs Comparison ECG Date: from (01/05/2024) Change: no significant change MDM Narrative This patient is a 74-year-old male comes in after falling about 10 days ago he also started himself on the gabapentin is felt weak since this. He has been taking it but not consistently. He has no definite neurologic deficits CAT scan of his head shows no acute findings he has no significant abnormalities on his blood work acutely. His troponin was mildly elevated second 1 was less than the first and therefore it is unlikely cardiac EKG shows no ischemic changes he strongly desires to go home he thinks he is able. I did order a CAT scan of his abdomen and back just to make shows no fracture or any other new findings. There are no new traumatic findings seen. He does have a 3 cm area near the rectum which could be a perirectal abscess. Talked the patient is at length , he had a large perirectal abscess in the past that was drained by Dr. Aburto. He had a CAT scan in the interim which was normal. He has not had any definite rectal pain although when he had his perirectal abscess apparently had very nonspecific complaints. He does have an elevated white count and he has been having increasing weakness it could be related to this although this may be completely unrelated. His weakness could also be related to gabapentin. I do not think the patient go home with the weakness he is literally crawling to the bathroom and is a fall risk. Also I am concerned about his perirectal abscess I did discuss case with Dr. Nicole on for surgery and he will see the patient ER I did order IV Zosyn as well as IV blood cultures and lactic acid. He will be admitted/observed for further inpatient treatment and evaluation. Continuous cardiac monitoring: Orders placed in EMR for continuous cardiac monitoring: Pulm evaluation patient was noted to be in normal sinus rhythm rate of 100 Impression & Plan Weakness, Fall, Abscess, perirectal, Back pain Discharge Plan Visit Data Chief Complaint: Head Injury, Minor Stated Complaint: HEAD PAIN, LACK OF BALANCE, FALL, HISTORY OF BRAIN ED Provider: Kristopher Dan Discharge Problem: Weakness, Fall, Abscess, perirectal, Back pain Forms Stand Alone Forms: [facility] Prescriptions Prescriptions: No Action omeprazole 20 mg capsule,delayed release(DR/EC) 20 mg PO DAILY aspirin 81 mg tablet,delayed release (DR/EC) 81 mg PO DAILY Qty: 30 2RF metoprolol succinate 25 mg tablet extended release 24 hr 12.5 mg PO DAILY Qty: 60 3RF nitroglycerin 0.4 mg tablet, sublingual 0.4 mg SL Q5M PRN (Reason: chest pain) Qty: 100 1RF Rx Instructions: until response; do not exceed 3 doses per episode. Pt's spouse says this might be /out of date. rosuvastatin 10 mg tablet 10 mg PO DAILY Qty: 90 3RF allopurinol 300 mg Tablet 300 mg PO DAILY fluticasone propionate [Flonase Allergy Relief] 50 mcg/actuation [place],Suspension 1 spray INTRANASAL DAILY PRN (Reason: Congestion) fexofenadine 60 mg tablet 60 mg PO BID PRN (Reason: Congestion) tramadol 50 mg tablet 50 mg PO DAILY PRN (Reason: Pain) magnesium oxide 250 mg magnesium Tablet 125 mg PO DAILY multivitamin Tablet 1 tab PO DAILY levocetirizine [Xyzal] 5 mg Tablet 5 mg PO DAILY PRN (Reason: Allergies/Congestion) acetaminophen [Tylenol Extra Strength] 500 mg tablet 1,000 mg PO Q8H PRN (Reason: pain) Referrals Referrals: Adrianne Freeman DO [Primary Care Provider] -
--- NOTE | 2024-03-06 17:52 | CT Scan Report ---
CT abd pelvis wo con, CT lumbar spine wo con CLINICAL HISTORY: fall TECHNIQUE: Helical axial images of the abdomen and pelvis were obtained. Automated dose lowering tech niques and/or adjustment according to patient size were utilized for this exam. Dedicated images of t he lumbar spine were obtained. This exam was performed without intravenous contrast. CT DOSE: 1306.03 mGy.cm COMPARISON: Comparison is made to CT abdomen pelvis 03/17/2023 FINDINGS: Lower chest: No acute abnormality. Liver: Hepatic steatosis is noted. Gallbladder and biliary tree: No calcified gallstones. Normal caliber wall. No intra- or extrahepatic biliary ductal dilation. Pancreas: Unremarkable, no focal lesions. Spleen: Unremarkable. Adrenals: Unremarkable. Kidneys and ureters: Perinephric stranding is noted bilaterally. Nonobstructive stones are seen on th e right. Bladder: Unremarkable. Reproductive organs: Unremarkable. Bowel: There is a perirectal hypodensity measuring 32 mm. Prominent fat stranding is seen about the r ectum. Diverticulosis is seen without diverticulitis. The appendix is unremarkable. There is a small hiatal hernia. Lymph nodes Retroperitoneal: Unremarkable. Pelvic: Unremarkable. Mesenteric: Unremarkable. Peritoneum: Normal. Vessels: Unremarkable. Abdominal wall: Unremarkable. Bones: Degenerative changes in the visualized spine. L2 compression deformity is unchanged from prior exams. IMPRESSION: 1. Perirectal hypodensity measuring 32 mm with surrounding fat stranding. This is favored to represe nt a perirectal abscess. Rectal carcinoma is considered less likely. Correlation with physical exam i s recommended. 2. Otherwise no acute abnormalities in particular no evidence of acute fractures. 3. Nonobstructive nephrolithiasis. 4. Left renal lesion is unchanged in size and measures greater than simple fluid density, likely rep resenting proteinaceous/hemorrhagic cyst. 5. Additional findings as above.. ACT 112: Negative or not required by law. Electronically signed by: Rajesh Alcala M.D. 03/06/2024 5:51 PM
--- NOTE | 2024-03-06 19:04 | Surgery Consultation ---
Date of Consultation March 06, 2024 Assessment & Plan (1) Weakness: (2) Fall: (3) Back pain: (4) Mass of perirectal soft tissue: Plan 74-year-old with multiple medical problems presents to the hospital with increasing frequency of falls, and weakness. Incidental finding of perirectal fluid collection versus soft tissue mass on CT scan. No external evidence of perirectal abscess. Perirectal abscess in the past. He is not having any symptoms related to this finding. this finding on CT scan may be completely incidental. I would not recommend surgical intervention at this time. He will be placed on antibiotics. He will be admitted to the medicine service. He may require limited colonoscopy/sigmoidoscopy by GI for further evaluation. We will monitor and follow for now. History of Present Illness Reason for Consultation: ? perirectal abscess vs mass Requesting Physician: Kristopher Dan MD Attending Physician: Kristopher Dan MD History of Present Illness 74-year-old gentleman with multiple medical problems presents to the emergency department for increasingly frequent falls and weakness. He has a prior spinal fracture and neuropathy. He has been dealing with weakness for a while and is progressively getting weaker. He denies fevers or chills. He denies any rectal pain. He is having fairly normal bowel movements, 2-3 times per week. They are formed. He denies blood or purulence. He is Not having issues eating. As part of his workup, a CT scan of the abdomen pelvis was done which demonstrates a 3 cm hypodensity near the lower rectum, possible fluid collection/abscess versus mass. Of note, he did have a very large perirectal abscess drained in November 2022. He has not had problems since then. He has not had a colonoscopy since then. His last colonoscopy was approximately 5 years ago. Again, he does not note any abdominal or rectal pain. A rectal exam was done by the ER physician and noted some discomfort/pain on exam Allergies Allergy/AdvReac Type Severity Reaction Status Date / Time lisinopril Allergy Severe Swollen Verified 03/06/24 18:45 Tongue and Throat Tightness soy Allergy Severe THROAT Verified 03/06/24 18:45 TIGHTENED W/SOY SAUCE Sulfa (Sulfonamide Allergy Intermediate HIVES AND Verified 03/06/24 18:45 Antibiotics) ITHCING zolpidem [From Ambien] AdvReac Severe " Verified 03/06/24 18:45 Hallucinates and sleepwalks" baclofen AdvReac Intermediate Tired and Verified 03/06/24 18:45 sluggish gabapentin AdvReac Intermediate " [place] Verified 03/06/24 18:45 like " out of body" gluten AdvReac Intermediate ABD PAIN Verified 03/06/24 18:45 milk AdvReac Intermediate STOMACH Verified 03/06/24 18:45 PAIN Edtpudw-YZP-ZhL Reductase AdvReac Intermediate MUSCLE Verified 03/06/24 18:45 Inhibitor WEAKNESS [Midmizw-Agt-Myo Reductase Inhibitor] Home Medications Medication Instructions Recorded Confirmed Type allopurinol 300 mg tablet 300 mg PO DAILY 07/07/18 03/06/24 History fluticasone propionate 50 1 spray intranasal DAILY PRN 09/03/18 03/06/24 History mcg/actuation nasal Congestion spray,suspension (Flonase Allergy Relief) omeprazole 20 mg capsule,delayed 20 mg PO DAILY 05/12/20 03/06/24 History release fexofenadine 60 mg tablet 60 mg PO BID PRN Congestion 03/17/23 03/06/24 History tramadol 50 mg tablet 50 mg PO DAILY PRN Pain 03/17/23 03/06/24 History aspirin 81 mg tablet,delayed 81 mg PO DAILY #30 tabs 07/12/23 03/06/24 Rx release acetaminophen 500 mg tablet 1,000 mg PO Q8H PRN pain 12/22/23 03/06/24 History (Tylenol Extra Strength) levocetirizine 5 mg tablet (Xyzal) 5 mg PO DAILY PRN 12/22/23 03/06/24 History Allergies/Congestion multivitamin 1 tab PO DAILY 12/22/23 03/06/24 History magnesium oxide 125 mg PO DAILY 01/05/24 03/06/24 History metoprolol succinate 25 mg 12.5 mg (1/2 x 25 mg) PO DAILY #60 01/17/24 03/06/24 Rx tablet,extended release 24 hr tabs nitroglycerin 0.4 mg sublingual 0.4 mg sublingual Q5M PRN chest 01/17/24 03/06/24 Rx tablet pain #100 tabs rosuvastatin 10 mg tablet 10 mg PO DAILY #90 tabs 01/17/24 03/06/24 Rx Patient History Medical History Encounter for recheck of abscess following incision and drainage Arteriosclerotic coronary artery disease Benign essential hypertension (10/09/12) Excessive sweating Numbness Post concussion syndrome Osteoarthritis GERD (gastroesophageal reflux disease) Myocardial Infarction 7-10 YEARS AGO Surgical History Polyp, nasal History of tonsillectomy History of heart artery stent 7-10 YEARS AGO INSERTED>[facility] History of cardiac cath Family History Mother Family history of diabetes mellitus Heart disease Father Heart disease Sister Asthma Other No family history of adverse response to anesthesia No family history of bleeding disorder Social History Smoking Status: Never smoker Tobacco Type: Cigarettes Cigarettes Per Day: quit smoking 18 years ago; Second Hand Exposure: No; Do You Dip or Chew Tobacco: No; Hx Alcohol Use: Yes Alcohol type: wine Alcohol Intake Frequency: 4 or More x per/Week Alcohol Intake Frequency Comment: 1-2 glasses per day Hx Substance Use: No Preferred Language: Latvian Communication Ability: Effective Visual Impairment: Limited Hearing Ability: Normal Fifth Hand Required: No Beliefs That Will Affect Care: None marital status: Current Living Situation: Spouse current occupational status: retired Feels Safe at Home: Yes Diet: gluten free and lactose free Diet Comment: Soy free Do you think of yourself as: straight/heterosexual Gender Identity: Male Assistive Devices: None Review of Systems Review of Systems: All systems reviewed & are unremarkable except as noted in HPI & below Physical Exam Constitutional: WD/WN, vitals as above Eyes: PERRL, conjunctivae normal, anicteric sclerae Neck: trachea midline, no thyromegaly Respiratory: normal respiratory effort; no respiratory distress and no labored breathing Cardiovascular: Rate/Rhythm: regular rate and regular rhythm Gastrointestinal (Abdomen): Inspection/Auscultation: abdomen normal to inspection; abdomen not distended Percussion/Palpation: abdomen soft; abdomen nontender, no guarding and abdomen not rigid rectal exam was deferred ( per patient request) as he had just had a rectal exam by the ER physician, however external exam yielded no induration, erythema, fluctuance, tenderness to palpation Skin: no rashes, warm and dry Psychiatric: A+Ox3, euthymic affect Results & Data Vital Signs (Past 12 Hours) Vital Signs Temp Pulse Pulse Resp BP BP Pulse Ox 03/06/24 17:36 95 H 03/06/24 17:34 96 H 20 95 03/06/24 17:34 95 03/06/24 17:29 97 H 18 139/100 95 03/06/24 13:50 36.6 C 110 H 20 130/87 95 O2 Del Method 03/06/24 17:36 03/06/24 17:34 Room Air 03/06/24 17:34 Room Air 03/06/24 17:29 Room Air 03/06/24 13:50 Room Air Laboratory Results 03/06/24 03/06/24 Range/Units 16:07 14:14 WBC 11.44 H (4.8-10.8) K/ul RBC 4.52 L (4.70-6.10) M/uL Hgb 15.8 (14.0-18.0) g/dl Hct 45.5 (42.0-52.0) % MCV 100.7 H (80.0-100.0) fL MCH 35.0 H (25.0-34.0) pg MCHC 34.7 (32.0-36.0) g/dL RDW Std Deviation 47.1 H (36.4-46.3) fL RDW Coeff of Joseph 12.7 (11.5-14.5) % Plt Count 151 (130-400) K/uL MPV 10.2 (9.4-12.4) fL Immature Gran % (Auto) 0.5 % Neut % (Auto) 82.3 % Lymph % (Auto) 9.4 % [place] % (Auto) 6.8 % Eos % (Auto) 0.6 % Baso % (Auto) 0.4 % Neut # (Auto) 9.41 H (1.40-6.50) K/uL Lymph # (Auto) 1.07 L (1.20-3.40) K/uL [place] # (Auto) 0.78 H (0.11-0.59) K/uL Eos # (Auto) 0.07 (0.00-0.50) K/uL Baso # (Auto) 0.05 (0.00-0.20) K/uL Immature Gran # (Auto) 0.06 (0.01-0.20) K/uL PT 10.8 (9.0-12.0) Seconds INR 1.0 (0.9-1.1) APTT 27 (21-31) Seconds PTT Ratio 1.0 Sodium 139 (136-145) mmol/L Potassium 3.5 (3.5-5.1) mmol/L Chloride 102 (98-107) mmol/L Carbon Dioxide 26 (21-32) mmol/L Anion Gap 11 (3-11) BUN 9 (6-23) mg/dl Creatinine 0.75 (0.6-1.4) mg/dl Est Cr Clr Drug Dosing Not Reportable Est GFR ( Amer) 104.0 ml/min Est GFR (Non-Af Amer) 89.7 ml/min BUN/Creatinine Ratio 12.0 (10-20) Glucose 118 H (70-99(Fasting)) mg/dl Calcium 9.2 (8.6-10.3) mg/dl Total Bilirubin 1.9 H (0.2-1.0) mg/dl AST 24 (13-39) U/L ALT 11 (7-52) U/L Alkaline Phosphatase 89 (34-104) U/L Troponin I High Sens 21.5 H 27.5 H (0-20) pg/ml Total Protein 7.5 (6.0-8.3) gm/dl Albumin 3.8 (3.4-5.0) gm/dl Globulin 3.7 (2.5-4.0) gm/dl Albumin/Globulin Ratio 1.0 (0.9-2) Diagnostic Findings CT abd pelvis wo con, CT lumbar spine wo con CLINICAL HISTORY: fall TECHNIQUE: Helical axial images of the abdomen and pelvis were obtained. Automated dose lowering techniques and/or adjustment according to patient size were utilized for this exam. Dedicated images of the lumbar spine were obtained. This exam was performed without intravenous contrast. CT DOSE: 1306.03 mGy.cm COMPARISON: Comparison is made to CT abdomen pelvis 03/17/2023 FINDINGS: Lower chest: No acute abnormality. Liver: Hepatic steatosis is noted. Gallbladder and biliary tree: No calcified gallstones. Normal caliber wall. No intra- or extrahepatic biliary ductal dilation. Pancreas: Unremarkable, no focal lesions. Spleen: Unremarkable. Adrenals: Unremarkable. Kidneys and ureters: Perinephric stranding is noted bilaterally. Nonobstructive stones are seen on the right. Bladder: Unremarkable. Reproductive organs: Unremarkable. Bowel: There is a perirectal hypodensity measuring 32 mm. Prominent fat stranding is seen about the rectum. Diverticulosis is seen without diverticulitis. The appendix is unremarkable. There is a small hiatal hernia. Lymph nodes Retroperitoneal: Unremarkable. Pelvic: Unremarkable. Mesenteric: Unremarkable. Peritoneum: Normal. Vessels: Unremarkable. Abdominal wall: Unremarkable. Bones: Degenerative changes in the visualized spine. L2 compression deformity is unchanged from prior exams. IMPRESSION: 1. Perirectal hypodensity measuring 32 mm with surrounding fat stranding. This is favored to represent a perirectal abscess. Rectal carcinoma is considered less likely. Correlation with physical exam is recommended. 2. Otherwise no acute abnormalities in particular no evidence of acute fractures. 3. Nonobstructive nephrolithiasis. 4. Left renal lesion is unchanged in size and measures greater than simple fluid density, likely representing proteinaceous/hemorrhagic cyst. 5. Additional findings as above.. ACT 112: Negative or not required by law.
[2024-03-06] MEDS: PIPERACILLIN/TAZOBACTAM 4.5 GM/100 ML BAG IV ONE (20:06)
--- NOTE | 2024-03-06 20:28 | History & Physical Report ---
Date of Service March 06, 2024 Assessment & Plan (1) Abscess, perirectal: Plan: 74yo male with history of CAD, HTN and HLP presenting with generalized weakness, fatigue and chills. Found to have perirectal abscess on CT scan with some stranding. Patient did have history of this before as well. He does have leukocytosis with wbc=11.44. Afebrile and HD stable. He has been evaluated by General Surgery - appreciate assistance with management. -Observation to medical -Follow cultures sent from ER -Continue Zosyn - consider continued antibiotics with repeat imaging to assess abscess size -Consider GI consultation -Tylenol PRN pain or fever -Colace and Miralax PRN constipation (2) Weakness: Plan: Likely secondary to infection -Treatment as above (3) CAD (coronary artery disease): Plan: Patient with CAD. Mild elevation of troponin on arrival at 27.5 with repeat of 21.5. Likely demand ischemia in setting of infection. Patient denies chest pain or shortness of breath. PVCs present on EKG. No acute ischemic changes -Continue ASA, Metoprolol and Crestor Plan Hypertension: Chronic, stable -Continue Metoprolol GERD: Chronic, stable -Continue Protonix History of Present Illness Chief Complaint: weakness Primary Care Provider: Adrianne Freeman DO 74yo male with history of CAD, HTN, HLP and GERD presenting with severe generalized weakness and fatigue as well as chills. He denies fever, chest pain, cough or shortness of breath. No vomiting or diarrhea. He reports he is eating well. Normal bowel movements - occasional rectal pain with defecation. No rectal bleeding or drainage. No change in bowel habits. Patient with history of perirectal abscess which was drained in November 2022. Rectal exam performed by ER physician with no obvious fullness/fluctuance or abscess. Some discomfort on exam. ER Course: Zosyn Allergies Allergy/AdvReac Type Severity Reaction Status Date / Time lisinopril Allergy Severe Swollen Verified 03/06/24 18:45 Tongue and Throat Tightness soy Allergy Severe THROAT Verified 03/06/24 18:45 TIGHTENED W/SOY SAUCE Sulfa (Sulfonamide Allergy Intermediate HIVES AND Verified 03/06/24 18:45 Antibiotics) ITHCING zolpidem [From Ambien] AdvReac Severe " Verified 05/21/24 18:45 Hallucinates and sleepwalks" baclofen AdvReac Intermediate Tired and Verified 03/06/24 18:45 sluggish gabapentin AdvReac Intermediate " [place] Verified 03/06/24 18:45 like " out of body" gluten AdvReac Intermediate ABD PAIN Verified 03/06/24 18:45 milk AdvReac Intermediate STOMACH Verified 03/06/24 18:45 PAIN Vmqcxne-LDZ-BpC Reductase AdvReac Intermediate MUSCLE Verified 03/06/24 18:45 Inhibitor WEAKNESS [Kuuxsfe-Qbs-Shw Reductase Inhibitor] Home Medications Medication Instructions Recorded Confirmed Type allopurinol 300 mg tablet 300 mg PO DAILY 07/07/18 03/06/24 History fluticasone propionate 50 1 spray intranasal DAILY PRN 09/03/18 03/06/24 History mcg/actuation nasal Congestion spray,suspension (Flonase Allergy Relief) omeprazole 20 mg capsule,delayed 20 mg PO DAILY 05/12/20 03/06/24 History release fexofenadine 60 mg tablet 60 mg PO BID PRN Congestion 03/17/23 03/06/24 History tramadol 50 mg tablet 50 mg PO DAILY PRN Pain 03/17/23 03/06/24 History aspirin 81 mg tablet,delayed 81 mg PO DAILY #30 tabs 07/12/23 03/06/24 Rx release acetaminophen 500 mg tablet 1,000 mg PO Q8H PRN pain 12/22/23 03/06/24 History (Tylenol Extra Strength) levocetirizine 5 mg tablet (Xyzal) 5 mg PO DAILY PRN 12/22/23 03/06/24 History Allergies/Congestion multivitamin 1 tab PO DAILY 12/22/23 03/06/24 History magnesium oxide 125 mg PO DAILY 01/05/24 03/06/24 History metoprolol succinate 25 mg 12.5 mg (1/2 x 25 mg) PO DAILY #60 01/17/24 03/06/24 Rx tablet,extended release 24 hr tabs nitroglycerin 0.4 mg sublingual 0.4 mg sublingual Q5M PRN chest 01/17/24 03/06/24 Rx tablet pain #100 tabs rosuvastatin 10 mg tablet 10 mg PO DAILY #90 tabs 01/17/24 03/06/24 Rx Past Med/Surg History Problem List Mass of perirectal soft tissue Back pain (Acute) Abscess, perirectal (Acute) Weakness (Acute) Fall (Acute) Stented coronary artery Gram-negative bacteremia Emily-rectal abscess Generalized weakness (Acute) Rhabdomyolysis (Acute) Acute hypokalemia (Acute) Hypomagnesemia (Acute) Non-ST elevation NE (NSTEMI) (Acute) Excessive vitamin B6 intake Arthralgia Hypersomnolence Hypertension Fatigue Vitamin B12 deficiency Vitamin D deficiency Post concussion syndrome Sensory ataxia Hypertrophy of both inferior nasal turbinates Nasal septal deviation Chronic pansinusitis Idiopathic peripheral neuropathy Allergic rhinitis (Acute) Angina pectoris (Acute) Depression (Acute) Hypercholesterolemia (Acute) Lateral plantar neuropathy (Acute) Lightheadedness (Acute) Nasal congestion with rhinorrhea (Acute) Post-nasal drip (Acute) Presence of stent in artery (Acute) Stented coronary artery (Acute 10/09/12) Hyperlipidemia CAD (coronary artery disease) Myofascial pain Sacroiliitis Precordial chest pain (Acute) Hypertensive emergency (Acute) Headache above the eye region Compression fracture (Chronic) L2 Frequent falls (Chronic) Gait instability (Chronic) Thoracic facet syndrome (Chronic) Spinal stenosis (Chronic) Lumbar facet joint syndrome (Chronic) Lumbago (Chronic) Encounter for pre-operative examination Hypertension (Chronic) Bronchitis (Chronic) Stomach problems (Chronic) Kidney stones (Chronic) Esophageal reflux (Acute) Hiatal hernia (Acute) Hypotension (Acute) Left arm pain (Acute) Medical History Encounter for recheck of abscess following incision and drainage Arteriosclerotic coronary artery disease Benign essential hypertension (10/09/12) Excessive sweating Numbness Post concussion syndrome Osteoarthritis GERD (gastroesophageal reflux disease) Myocardial Infarction 7-10 YEARS AGO Surgical History Polyp, nasal History of tonsillectomy History of heart artery stent 7-10 YEARS AGO INSERTED>BERRY History of cardiac cath Family History Mother Family history of diabetes mellitus Heart disease Father Heart disease Sister Asthma Other No family history of adverse response to anesthesia No family history of bleeding disorder Social History Smoking Status: Never smoker Tobacco Type: Cigarettes Cigarettes Per Day: quit smoking 18 years ago; Second Hand Exposure: No; Do You Dip or Chew Tobacco: No; Tobacco Cessation Education Requested by Patient: No Hx Alcohol Use: No Hx Substance Use: No Preferred Language: [place] Communication Ability: Effective Visual Impairment: Limited Hearing Ability: Normal Packaging Mechanic Required: No Beliefs That Will Affect Care: None marital status: Current Living Situation: Spouse Current Living Situation Comment: ranch current occupational status: retired Other Information That Helps Us Care for You: No Feels Safe at Home: Yes Safety Concerns: Feels Safe At This Time Diet: gluten free and lactose free Diet Comment: Soy free Do you think of yourself as: straight/heterosexual Gender Identity: Male Assistive Devices: Cane and Walker Review of Systems Review of Systems: All systems reviewed & are unremarkable except as noted in HPI & below Physical Exam Physical Exam: General: patient resting comfortably, NAD, non-toxic in appearance, AA&O x 4 Skin: warm, dry, intact, no rashes or lesions HEENT: NC/AT, PERRL, EOMI, anicteric sclera, conjunctiva without injection, external ear normal to inspection and nontender, nares patent, moist mucus membranes, dentition intact, no oropharyngeal lesions, neck supple, trachea midline, no LAD, no thyromegaly, no JVD Heart: +S1/S2, regular, no m/r/g Lungs: equal air entry bilaterally, no rales/rhonchi/wheezes Abd: +BS, soft, NT/ND, no masses/organomegaly/ascites Ext: warm, 2+ pulses in UE/LE bilaterally, no clubbing/cyanosis or edema Neuro: nonfocal, patient AA&O x 4, speech intact, no facial droop, moving all extremities on command with equal strength 5/5 Rectal exam deferred Results & Data Results & Data Vital Signs (Past 12 Hours) Vital Signs Temp Pulse Pulse Resp BP BP Pulse Ox 03/06/24 17:36 95 H 03/06/24 17:34 96 H 20 95 03/06/24 17:34 95 03/06/24 17:29 97 H 18 139/100 95 03/06/24 13:50 36.6 C 110 H 20 130/87 95 O2 Del Method 03/06/24 17:36 03/06/24 17:34 Room Air 03/06/24 17:34 Room Air 03/06/24 17:29 Room Air 03/06/24 13:50 Room Air Laboratory Results Laboratory Results WBC 11.44 K/ul (4.8-10.8) H 03/06/24 14:14 RBC 4.52 M/uL (4.70-6.10) L 03/06/24 14:14 Hgb 15.8 g/dl (14.0-18.0) 03/06/24 14:14 Hct 45.5 % (42.0-52.0) 03/06/24 14:14 MCV 100.7 fL (80.0-100.0) H 03/06/24 14:14 MCH 35.0 pg (25.0-34.0) H 03/06/24 14:14 MCHC 34.7 g/dL (32.0-36.0) 03/06/24 14:14 RDW Std Deviation 47.1 fL (36.4-46.3) H 03/06/24 14:14 RDW Coeff of Joseph 12.7 % (11.5-14.5) 03/06/24 14:14 Plt Count 151 K/uL (130-400) 03/06/24 14:14 MPV 10.2 fL (9.4-12.4) 03/06/24 14:14 Immature Gran % (Auto) 0.5 % 03/06/24 14:14 Neut % (Auto) 82.3 % 03/06/24 14:14 Lymph % (Auto) 9.4 % 03/06/24 14:14 [place] % (Auto) 6.8 % 03/06/24 14:14 Eos % (Auto) 0.6 % 03/06/24 14:14 Baso % (Auto) 0.4 % 03/06/24 14:14 Neut # (Auto) 9.41 K/uL (1.40-6.50) H 03/06/24 14:14 Lymph # (Auto) 1.07 K/uL (1.20-3.40) L 03/06/24 14:14 [place] # (Auto) 0.78 K/uL (0.11-0.59) H 03/06/24 14:14 Eos # (Auto) 0.07 K/uL (0.00-0.50) 03/06/24 14:14 Baso # (Auto) 0.05 K/uL (0.00-0.20) 03/06/24 14:14 Immature Gran # (Auto) 0.06 K/uL (0.01-0.20) 03/06/24 14:14 PT 10.8 Seconds (9.0-12.0) 03/06/24 14:14 INR 1.0 (0.9-1.1) 03/06/24 14:14 APTT 27 Seconds (21-31) 03/06/24 14:14 PTT Ratio 1.0 03/06/24 14:14 Sodium 139 mmol/L (136-145) 03/06/24 14:14 Potassium 3.5 mmol/L (3.5-5.1) 03/06/24 14:14 Chloride 102 mmol/L (98-107) 03/06/24 14:14 Carbon Dioxide 26 mmol/L (21-32) 03/06/24 14:14 Anion Gap 11 (3-11) 03/06/24 14:14 BUN 9 mg/dl (6-23) 03/06/24 14:14 Creatinine 0.75 mg/dl (0.6-1.4) 03/06/24 14:14 Est Cr Clr Drug Dosing Not Reportable 03/06/24 14:14 Est GFR ( Amer) 104.0 ml/min 03/06/24 14:14 Est GFR (Non-Af Amer) 89.7 ml/min 03/06/24 14:14 BUN/Creatinine Ratio 12.0 (10-20) 03/06/24 14:14 Glucose 118 mg/dl (70-99(Fasting)) H 03/06/24 14:14 Lactate 1.8 mmol/L (0.4-2.0) 03/06/24 19:28 Calcium 9.2 mg/dl (8.6-10.3) 03/06/24 14:14 Total Bilirubin 1.9 mg/dl (0.2-1.0) H 03/06/24 14:14 AST 24 U/L (13-39) 03/06/24 14:14 ALT 11 U/L (7-52) 03/06/24 14:14 Alkaline Phosphatase 89 U/L (34-104) 03/06/24 14:14 Troponin I High Sens 21.5 pg/ml (0-20) H 03/06/24 16:07 Total Protein 7.5 gm/dl (6.0-8.3) 03/06/24 14:14 Albumin 3.8 gm/dl (3.4-5.0) 03/06/24 14:14 Globulin 3.7 gm/dl (2.5-4.0) 03/06/24 14:14 Albumin/Globulin Ratio 1.0 (0.9-2) 03/06/24 14:14 Impressions Chest X-Ray 03/06/24 13:55 XR chest 1V not portable CLINICAL HISTORY: Chest pain, nonspecific COMPARISON STUDY: Chest CT March 17, 2023. Chest radiograph January 05, 2024. FINDINGS: Lung volumes are normal. Lungs are clear. There is no pneumothorax or pleural effusion. Cardiomegaly is unchanged. Upper mediastinal widening with leftward deviation of the trachea is unchanged and due to a thyroid goiter, as shown on on prior CT. There is no evidence for pulmonary edema. Several old left-sided rib fractures. IMPRESSION: No acute cardiopulmonary findings. No change in appearance of the chest. ACT 112: Negative or not required by law. Electronically signed by: Minh Leon M.D. 03/06/2024 2:[address] 03/06/24 13:55 CT OF THE HEAD WITHOUT CONTRAST CLINICAL HISTORY: fall, head injury COMPARISON STUDY: Head CT January 05, 2024. CT DOSE: 1250.21 mGy.cm TECHNIQUE: Helical axial images of the head were obtained without IV contrast. Automated exposure control was utilized for the study. A dose lowering technique was utilized adhering to the principles of ALARA. FINDINGS: No acute intracranial hemorrhage, midline shift or mass effect is present. Ventricular dilatation is unchanged. Basal cisterns are patent. There are no extra axial collections. White matter hypodensities are similar to prior exam and favor small vessel disease. There are no calvarial fractures. Patient is status post right parietal craniotomy. Postoperative findings within the sinuses are noted with mild mucosal thickening of the ethmoid sinuses. IMPRESSION: 1. No acute intracranial findings. No change in appearance of the brain. 2. No calvarial fractures. ACT 112: Negative or not required by law. Electronically signed by: Minh Leon M.D. 03/06/2024 2:27 PM Abdomen/Pelvis CT 03/06/24 16:43 CT abd pelvis wo con, CT lumbar spine wo con CLINICAL HISTORY: fall TECHNIQUE: Helical axial images of the abdomen and pelvis were obtained. Automated dose lowering techniques and/or adjustment according to patient size were utilized for this exam. Dedicated images of the lumbar spine were obtained. This exam was performed without intravenous contrast. CT DOSE: 1306.03 mGy.cm COMPARISON: Comparison is made to CT abdomen pelvis 03/17/2023 FINDINGS: Lower chest: No acute abnormality. Liver: Hepatic steatosis is noted. Gallbladder and biliary tree: No calcified gallstones. Normal caliber wall. No intra- or extrahepatic biliary ductal dilation. Pancreas: Unremarkable, no focal lesions. Spleen: Unremarkable. Adrenals: Unremarkable. Kidneys and ureters: Perinephric stranding is noted bilaterally. Nonobstructive stones are seen on the right. Bladder: Unremarkable. Reproductive organs: Unremarkable. Bowel: There is a perirectal hypodensity measuring 32 mm. Prominent fat stranding is seen about the rectum. Diverticulosis is seen without diverticulitis. The appendix is unremarkable. There is a small hiatal hernia. Lymph nodes Retroperitoneal: Unremarkable. Pelvic: Unremarkable. Mesenteric: Unremarkable. Peritoneum: Normal. Vessels: Unremarkable. Abdominal wall: Unremarkable. Bones: Degenerative changes in the visualized spine. L2 compression deformity is unchanged from prior exams. IMPRESSION: 1. Perirectal hypodensity measuring 32 mm with surrounding fat stranding. This is favored to represent a perirectal abscess. Rectal carcinoma is considered less likely. Correlation with physical exam is recommended. 2. Otherwise no acute abnormalities in particular no evidence of acute fractures. 3. Nonobstructive nephrolithiasis. 4. Left renal lesion is unchanged in size and measures greater than simple fluid density, likely representing proteinaceous/hemorrhagic cyst. 5. Additional findings as above.. ACT 112: Negative or not required by law. Electronically signed by: Rajesh Alcala M.D. 03/06/2024 5:[address] 03/06/24 16:43 CT abd pelvis wo con, CT lumbar spine wo con CLINICAL HISTORY: fall TECHNIQUE: Helical axial images of the abdomen and pelvis were obtained. Automated dose lowering techniques and/or adjustment according to patient size were utilized for this exam. Dedicated images of the lumbar spine were obtained. This exam was performed without intravenous contrast. CT DOSE: 1306.03 mGy.cm COMPARISON: Comparison is made to CT abdomen pelvis 03/17/2023 FINDINGS: Lower chest: No acute abnormality. Liver: Hepatic steatosis is noted. Gallbladder and biliary tree: No calcified gallstones. Normal caliber wall. No intra- or extrahepatic biliary ductal dilation. Pancreas: Unremarkable, no focal lesions. Spleen: Unremarkable. Adrenals: Unremarkable. Kidneys and ureters: Perinephric stranding is noted bilaterally. Nonobstructive stones are seen on the right. Bladder: Unremarkable. Reproductive organs: Unremarkable. Bowel: There is a perirectal hypodensity measuring 32 mm. Prominent fat stranding is seen about the rectum. Diverticulosis is seen without diverticulitis. The appendix is unremarkable. There is a small hiatal hernia. Lymph nodes Retroperitoneal: Unremarkable. Pelvic: Unremarkable. Mesenteric: Unremarkable. Peritoneum: Normal. Vessels: Unremarkable. Abdominal wall: Unremarkable. Bones: Degenerative changes in the visualized spine. L2 compression deformity is unchanged from prior exams. IMPRESSION: 1. Perirectal hypodensity measuring 32 mm with surrounding fat stranding. This is favored to represent a perirectal abscess. Rectal carcinoma is considered less likely. Correlation with physical exam is recommended. 2. Otherwise no acute abnormalities in particular no evidence of acute fractures. 3. Nonobstructive nephrolithiasis. 4. Left renal lesion is unchanged in size and measures greater than simple fluid density, likely representing proteinaceous/hemorrhagic cyst. 5. Additional findings as above.. ACT 112: Negative or not required by law. Electronically signed by: Rajesh Alcala M.D. 03/06/2024 5:51 PM PG Care Time/CCT Total # of Minutes Spent Total Time Spent with Patient: Total time spent is greater than 50% in coordination of care (as documented) at patient's floor/unit and/or counseling patient: Coding Level of Care Code 46059 INT INP/OBS CARE 2/55MIN Diagnoses Abscess, perirectal K61.1 Weakness R53.1 CAD (coronary artery disease) I25.10
[2024-03-06] MEDS ORDERED: ONDANSETRON INJ 2 MG/ML 2 ML VIAL IV PRN (21:34)
[2024-03-06] MEDS ORDERED: FLUTICASONE PROPIONATE NA SPR 16 GM BTL PRN (21:34)
[2024-03-06] MEDS ORDERED: ACETAMINOPHEN 500 MG TAB PO PRN (21:34)
[2024-03-06] MEDS ORDERED: POLYETHYLENE (MIRALAX) 17 GM PACK PO PRN (21:34)
[2024-03-06] MEDS ORDERED: ACETAMINOPHEN 325 MG TAB PO PRN (21:34)
[2024-03-06] MEDS ORDERED: DOCUSATE SODIUM 100 MG CAP PO PRN (21:34)
[2024-03-07] MEDS: PIPERACILLIN/TAZOBACTAM 4.5 GM in DEXTROSE 5% MINI-B 100 ML IV SCH (00:15)
--- NOTE | 2024-03-07 03:17 | Surgery Progress Note ---
Date of Service March 07, 2024 Assessment & Plan (1) Mass of perirectal soft tissue: (2) Back pain: Plan doing well. Continue current medical management. Continue IV antibiotics. No surgical therapy planned. May require colonoscopy versus limited sigmoidoscopy for further evaluation of this area in the rectum. Admission and Anticipated Discharge Date Admission Date: March 06, 2024 Subjective No complaints. Resting comfortably in bed. Had 3 bowel movements. Normal. No rectal pain. Physical Exam Physical Exam: NAD, A&O x 3 AFVSS Abdomen: Soft, nontender Results & Data Vital Signs (Past 12 Hours) Vital Signs Temp Pulse Pulse Resp BP BP Pulse Ox 03/06/24 21:42 36.7 C 103 H 18 128/78 97 03/06/24 21:16 104 H 22 146/97 H 97 03/06/24 21:07 107 H 22 146/97 H 95 03/06/24 17:36 95 H 03/06/24 17:34 96 H 20 95 03/06/24 17:34 95 03/06/24 17:29 97 H 18 139/100 95 O2 Del Method 03/06/24 21:42 Room Air 03/06/24 21:16 Room Air 03/06/24 21:07 Room Air 03/06/24 17:36 03/06/24 17:34 Room Air 03/06/24 17:34 Room Air 03/06/24 17:29 Room Air
[2024-03-07] MEDS: ASPIRIN 81 MG ECTAB PO SCH (07:15)
[2024-03-07] MEDS: PANTOprazole 40 MG TAB PO SCH (07:16)
[2024-03-07] MEDS: allopurinoL 300 MG TAB PO SCH (07:16)
[2024-03-07] MEDS: ROSUVASTATIN CALCIUM 10 MG TAB PO SCH (07:16)
[2024-03-07] MEDS: METOPROLOL SUCC 25MG EXT REL TAB PO SCH (07:17)
[2024-03-07 07:45] LABS: Hematocrit (blood only) 41.1 % (42.0-52.0); Mean Corpuscular Hemoglobin 34.6 pg (25.0-34.0); Mean Corpuscular Hgb Conc 34.1 g/dL (32.0-36.0); Mean Corpuscular Volume 101.5 fL (80.0-100.0); Mean Platelet Volume 10.3 fL (9.4-12.4); Platelet Count 132 K/uL (130-400); RDW Coefficient of Variation 12.4 % (11.5-14.5); RDW Standard Deviation 46.7 fL (36.4-46.3); Red Blood Count 4.05 M/uL (4.70-6.10); White Blood Count 11.43 K/ul (4.8-10.8)
[2024-03-07 08:12] LABS: Albumin Level 3.4 gm/dl (3.4-5.0); BUN Creatinine Ratio 15.1 (10-20); Bilirubin Direct 0.4 mg/dl (0-0.2); Bilirubin,Total 1.3 mg/dl (0.2-1.0); Creatinine Clr Calc Pharmacy 101.1 ml/min; Est GFR (African American) 105.2 ml/min; Est GFR (Non-African American) 90.7 ml/min; Potassium 3.2 mmol/L (3.5-5.1); Total Protein 6.9 gm/dl (6.0-8.3)
[2024-03-07] MEDS: traMADol HCL 50 MG TABLET PO PRN (09:31)
--- OUTSIDE RECORDS SUMMARY | 2024-03-07 10:20 | External Medical Summary | Continuity of Care Document ---
Author Name Unknown Organization [facility] [id number] [place] [address] [id number] Care Team Providers Care Veterinary Inspector Name Role Phone Adrianne Freeman Primary Care Physicia n [phone] Encounter [facility] [id number] Date(s): 02/02/24 - 02/02/24 [facility] [address] Medical [facility] [address] [place] [address] [place] [phone] Encounter Diagnosis Chronic back pain(Discharge Diagnosis) - 02/02/24 Perirectal abscess(Discharge Diagnosis) - 02/02/24 Discharge Disposition: Home or Self Care Attending Physician: DO Freeman Gretchen Elizabeth Allergies, Adverse Reactions, Alerts Substance Reaction Severity Status lisinopril swollen tongue Active simvastatin muscle pain Active baclofen felt tired, sluggish, Active gabapentin felt outside his body Active alendronate GI upset, nausea Active atorvastatin general "ill feeling" Active sulfa drugs hives Active Ambien sleepwalks, hallucinates Act dorothy Ragweed runny eyes and nose Active Glutens unknown Active milk products unknown Active soy explosive diarrhea Active Immunizations Given and Recorded Vaccine Date Status Refusal Reason tetanus/diphtheria/pertuss, acel (Tdap) 12/27/22 G iven tetanus/diphtheria/pertuss, acel (Tdap) 11/17/11 G iven influenza virus vaccine, inactivated 07/01/22 Luis Felipe rded influenza virus vaccine, inactivated 07/09/21 Luis Felipe rded influenza virus vaccine, inactivated 07/01/21 Luis Felipe rded influenza virus vaccine, inactivated 1 06/27/20 Re corded influenza virus vaccine, inactivated 07/11/18 Luis Felipe rded influenza virus vaccine, inactivated 07/11/17 Luis Felipe rded influenza virus vaccine, inactivated 07/15/16 Luis Felipe rded influenza virus vaccine, inactivated 07/05/15 Luis Felipe rded influenza virus vaccine, inactivated 2 07/19/13 Re corded SARS-CoV-2 mRNA (Pfizer 12+) bivalent 3 07/01/22 R ecorded SARS-CoV-2 mRNA ([id number]) 4 01/20/22 Recorded SARS-CoV-2 (COVID-19) mRNA BNT-162b2 vax 5 06/30/21 Recorded SARS-CoV-2 (COVID-19) mRNA BNT-162b2 vax 12/29/20 Recorded SARS-CoV-2 (COVID-19) mRNA BNT-162b2 vax 12/29/20 Recorded SARS-CoV-2 (COVID-19) mRNA BNT-162b2 vax 12/03/20 Recorded SARS-CoV-2 (COVID-19) mRNA BNT-162b2 vax 12/03/20 Recorded zoster vaccine, inactivated 07/11/18 Recorded zoster vaccine, inactivated 04/04/18 Recorded pneumococcal 23-valent vaccine 06/23/17 Given pneumococcal 23-valent vaccine 06/23/17 Given pneumococcal 13-valent vaccine 08/18/15 Given influenza virus vaccine, H1N1 07/03/12 Recorded influenza virus vaccine, H1N1 6 09/05/09 Recorded zoster vaccine live 11/17/11 Given hepatitis A adult vaccine 09/04/01 Recorded hepatitis A adult vaccine 11/22/00 Recorded poliovirus vaccine, inactivated 11/22/00 Recorded hepatitis B adult vaccine 09/18/99 Recorded hepatitis B adult vaccine 04/15/99 Recorded hepatitis B adult vaccine 03/18/99 Recorded tetanus toxoids-diphtheria, Td (Adult) 03/30/96 Re corded 1Result Comment: Given at [facility]. 2Result Comment: [07/20/2013] Received at [facility] 3Result Comment: 2022-08-31: Historical information-source unspecified 4Result Comment: 2022-08-31: Historical information-source unspecified 5Result Comment: 2021-09-21: Historical information-source unspecified 6Result Comment: 2020-02-07: Historical information-source unspecified Medications allopurinol 300 mg oral tablet Start: 11/01/23 14:25:00 EST, See Instructions, Disp# 90 tab, Refills: 3, take 1 tablet by mouth once daily, Pharmacy: [facility] Start Date: 11/01/23 Status: Ordered aspirin 81 mg oral capsule Start: 03/22/23 12:01:00 EDT, 1 cap, PO, Daily, Disp# 30 cap, Pharmacy: [facility] Start Date: 03/22/23 Status: Ordered fluticasone 50 mcg/inh nasal spray Start: 08/06/23 14:53:00 EDT, 1 spray, each nostril, Daily, Disp# 15.8 mL, Refills: 3, [id number] Start Date: 08/06/23 Stop Date: 07/31/24 Status: Ordered Magnesium 64mg Start: 05/27/23 10:30:00 EDT, Magnesium 64mg, 1 tab po BID Start Date: 05/27/23 Status: Ordered metoprolol extended release Start: 12/29/23 13:54:00 EDT Start Date: 12/29/23 Status: Ordered omeprazole 20 mg oral delayed release capsule Start: 11/01/23 14:25:00 EST, 1 cap, PO, Daily, Disp# 90 cap, Refills: 1, Pharmacy: [facility] Start Date: 11/01/23 Status: Ordered rosuvastatin 10 mg oral tablet Start: 03/07/23 14:35:00 EDT, 1 tab, PO, Daily Start Date: 03/07/23 Status: Ordered thiamine 100 mg oral tablet Start: 03/22/23 11:59:00 EDT, 2 tab, PO, Daily, Disp# 30 tab, Pharmacy: [facility] Start Date: 03/22/23 Status: Ordered traMADol 50 mg oral tablet Start: 01/12/24 16:45:00 EDT, 1 tab, PO, bid, Disp# 60 tab, Refills: 0, PRN: as needed for pain, Pharmacy: [facility] #[id number] Start Date: 01/12/24 Status: Ordered Tylenol 500 mg oral tablet Start: 03/22/23 11:59:00 EDT, 2 tab, PO, q6h, PRN: as needed for pain Start Date: 03/22/23 Status: Ordered Vitamin B12 Start: 05/27/23 10:31:00 EDT, 1999mcg po daily Start Date: 05/27/23 Status: Ordered Xyzal 5 mg oral tablet Start: 08/26/23 15:54:00 EST Start Date: 08/26/23 Status: Ordered Mental Status 02/02/24 Barriers to Learning one year None evide nt Mandatory Health Literacy Documentation Yes Health Literacy Communication Barriers N ever Primary Language Frisian Problem List Condition Confirmation Course Effective Dates Status H ealth Status Informant Alcohol dependence, uncomplicated Confirmed Active High risk for hip fracture Confirmed Active Atherosclerosis of aorta 1 Confirmed Active CORONARY ATHEROSCLEROSIS OF [place] CORONARY ARTERY Confirmed Active Diverticulosis of colon Confirmed Active Dupuytren contracture Confirmed 07/10/12 Active Eosinophilia Confirmed Active Esophageal dysmotility Confirmed Active Esophagitis 2 Confirmed 08/04/12 Active Fatigue Confirmed Active Chronic foot pain Confirmed Active Gluten intolerance Confirmed Active Subdural hemorrhage Confirmed Active Hiatal hernia Confirmed Active History of adenomatous polyp of colon Confirmed 2004 Active History of smoking Confirmed Active Hyperlipidemia Confirmed Active HYPERTENSION. 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 Knee pain, left Confirmed Active Unspecified mononeuropathy of bilateral lower limbs Confirmed Active Chronic myofascial pain Confirmed Active Nasal polyp Confirmed Active Neuropathy of both feet 3, 4 Confirmed 10/02/20 Active Bilateral leg numbness Confirmed Active Osteoarthrosis of knee Confirmed Active Osteopenia Confirmed Active Leg weakness, bilateral Confirmed Active Post-nasal drip Confirmed Active Restless leg syndrome 5 Confirmed Active Uric acid kidney stone Confirmed Active Arterial calcification 6 Confirmed Active Vitamin B12 deficiency Confirmed Active 01/11/22- CT of the chest, abdomen, and pelvis with contrast FINDINGS: Chest Heart and Great vessels: Coronary atherosclerosis. Mild ectasia of ascending thoracic aorta. Calcific atherosclerosis of the thoracic aorta and branch vessels. 2EGD 3error : has significant polyneuropathy, involving sensory and motor fibers of mixed pathology. There no myopathy or lumbosacral radiculpathy bilaterally 4from back 5shown in a previous sleep study, which was neg. for [place] 6on bilateral knee x-rays Diagnosis Diagnosis Type Effective Dates Health Status Clinical Service Informant Perirectal abscess Discharge Diagnosis 02/02/24 Chronic back pain Discharge Diagnosis 02/02/24 Procedures Procedure Date Related Diagnosis Body Site Status Chest X-ray 1 03/17/[address] of abdomen and pelvis 2 03/17/[address] of cervical spine 3 03/17/[address] of chest 4 03/17/[address] of head 5 03/17/[address] of head 6 03/07/23 Completed Chest x-ray 7 11/27/[address] of abdomen and pelvis wit h contrast 8 11/27/[address] of lumbar spine 9 11/27/22 Comp leted X-ray of rib 10 11/23/22 Completed X-ray of thoracic spine 11 11/23/22 Completed MRI of lumbar spine without contrast 12 10/03/22 Completed Upper GI (gastrointestinal) endoscopy 06/22/22 Completed Knee X-ray 13 09/21/21 Completed Colonoscopy 14 03/30/21 Completed Upper GI endoscopy 15, 16 03/30/21 Completed EMG - Electromyography 17 10/20/20 Completed MRI of forefoot 18 10/20/20 Comple jerry DIAGNOSTIC COLONOSCOPY 19, 20 05/26/20 Completed Upper GI endoscopy 21 12/26/19 Com pleted EKG 22 10/22/19 Completed Plain x-ray - hip LT 2vw w pelvis 23 07/12/19 Completed X-ray of thoracic spine 24 03/23/19 Completed MRI of the brain without and with IV contrast 25 10/06/[address] of facial bones 26 09/03/[address] of head 27 09/03/18 Completed Tibia and fibula X-ray 28 07/26/18 Completed X-ray of thoracic spine 29 07/26/18 Completed Upper GI endoscopy 30 07/14/18 Com pleted DXA BONE DENSITY STUDY 31 07/06/18 Completed Lumbothoracic spine X-ray 32 04/19/18 Completed X-ray of rib 33 04/19/18 Completed EMG & NCV 34 01/31/18 Completed Surgery nasal polypectomy 35, 36 08/26/[address] of sinuses 37 06/28/17 Complete d Chest x-ray 38 04/29/17 Completed Upper GI endoscopy 39 04/11/17 Com pleted Barium swallow 12/09/16 Completed Ultrasound scan of abdominal aorta 40 06/29/16 Completed Procedure--video swallow 41 04/29/16 Completed Videofluoroscopy swallow 42, 43 04/29/16 Completed Upper GI endoscopy 44 01/21/16 Com pleted Chest x-ray 45 07/19/15 Completed CXR - Chest X-ray 46 04/11/15 Comp leted Barium swallow normal 47 08/17/12 Completed Upper GI endoscopy 48, 49 08/04/12 Completed percutaneous coronary stent 03/28/12 Completed kidney stone removal; lithotrypsy 11/26/09 Completed Colonoscopy normal 50 05/16/09 Com pleted Cholecystectomy 2008 Completed Percutaneous angioplasty of coronary artery 51 10/20/06 Completed Colonoscopy 52, 53, 54 03/24/05 Co mpleted Tonsillectomy 1953 Completed Upper GI endoscopy 55 49 Com pleted Chest x-ray 56 Completed Procedure on hand 57 Comp leted [facility] ED IMPRESSION: Cardiomegaly and emphysema with no acute cardiopulmonary abnormality identified. [facility] ED IMPRESSION: 1. A mildly displaced right posterior 10th rib fracture. 2. Otherwise, no additional acute traumatic abnormality within the abdomen or pelvis. 3. Bilateral nephrolithiasis. No hydronephrosis. 4. An indeterminate 1 cm left renal lesion, unchanged. 5. Additional findings as described above. 3IMPRESSION: 1. Degenerative changes without evidence of acute bony injury. 2. Prominent right thyroid nodules. If not previously evaluated, nonemergent thyroid ultrasound canbe performed. [facility] ED IMPRESSION: 1. Acute right posterior 10th rib fracture. 2. No additional acute fracture is clearly identified. There are numerous subacute-appearing left-sided rib fractures. 3. There is no airspace consolidation typical for pneumonia, pleural effusion, or pneumothorax. 4. Cardiomegaly. 5. Thyroid goiter. 6. Mildly enlarged mediastinal lymph nodes are nonspecific and may be reactive. 7. Hiatal hernia. 8. Additional findings as above. [facility] ED Impression: 1. Interval development of a large right acute subdural hematoma measuring up to 2.2 cm in thickness. 2. This results in significant mass effect on the right cerebral hemisphere with partial effacementof the right lateral ventricle and 1 cm of left midline shift. 3. Tiny left frontal subdural hematoma measuring 2 mm in thickness. 6Impression: No acute intracranial abnormality. Atrophy and microvascular ischemic changes. 7Impression: Emphysema. Otherwise, no acute process within the chest 8Impression: 1. Large complex multiloculated perirectal abscess with transsphincteric and supralevator components. 2. Bilateral nephrolithiasis. No ureteral calculi or hydronephrosis. Distended bladder 3. Multiple healing bilateral lower rib fractures/ Trace left pleural effusion 4. No bowel obstruction. Colonic diverticulosis 9Impression: 1. No acute fracture or subluxation within the lumbar spine. 2. Old L2 compression deformity again noted 10Impression: 1. No acute process of the chest. 2. No acute displaced rib fracture or pneumothorax as identified. 3. Healed chronic left-sided rib fractures. 11Impression: No thoracic spine fracture or subluxation identified. 12Impression: 1. Mild lumbosacral spondylosis as above with mild to moderate central canal stenosis at L4-L5. 2. The chronic superior endplae compression deformity of L2 is similar to previous. No acute bony abnormality is seen. 3. Additional findings as above. 131. no acute fracture or dislocation 2. small right knee joint effusion 14Impression: - preparation of the colon was fair. - diverticulosis in the entire examined colon. - non-bleeding internal hemorrhoids. -normal mucosa in the entire examined colon. Biopsied. 15Impression: -Z-Line regular, 41cm from the incisor - Low grade of narrowing Schatzki ring. - Normal Stomach. - Normal second portion of the duodenum. Biopsied. - Dilation performed at the gastroesophageal junction. 16No significant Abnormalities. Small intestine and colon. Colonoscopy in 10 years for colon cancer screening. 17This study is remarkable for a significant polyneuropathy, involving sensory and motor fibers of mixed pathology. There was no myopathy or lumbosacral radiculopathy bilaterally. 18Normal MR of the right forefoot. 19-Diverticulosis in the sigmoid colon. -One 7 mm polyp in the transverse colon, removed with a hot snare. Resected and retrieved. -One 4 mm polyp at the hepatic flexure, removed with a hot snare. Resected and retrieved. -Two 4 to 5 mm polyps at the hepatic flexure, removed with a hot snare. Resected and retrieved. -Two 4 to 5 mm polyps in the cecum, removed with a hot snare. Resected and retrieved. -One 17 mm polyp at the hepatic flexure, removed with a hot snare. Resected and retrieved. Clip wasplaced. 20Repeat in 1 year 21Z-line regular, 42 cm from the incisors Moderate Schatzki ring. Dilated. Normal stomach. Normal examined duodenum. No specimens collected. 22Sinus rhythm @ [address] elevation Incomplete right bundle branch block 23no radiographic evidence of acute osseous injury or advanced degenerative change of the pelvis or left hip 24no fracture or subluxation within the thoracic spine 25Impression: 1. No acute intracranial findings. 2. No intracranial mass or pathologic enhancement. 3. Moderate atrophy and mild small vessel disease. 261. Superficial soft tissue hematoma in the right premaxillary region without subjacent osseous injury. No orbital hematoma. 2. Postsurgical changes of the paranasal sinuses. 271. No acute intracranial abnormality. 2. Focal soft tissue hematoma in the right premaxiallary subcutaneous fat without apparent subjacent osseous injury. 28Impression: mild soft tissue swelling with no acute osseous abnormality identified 29Impression: multilevel degenerative changes of the thoracic spine without rediographic evidence of a compression fracture 30Z-line regular, 40 cm from the incisors Medium-sized hiatal hernia. Mild Schatzki ring. Dilated. Normal stomacy. Normal examined duodenum No specimens collected 31With a Z-score of -1.0, this patient's BMD is low for someone of this age. A follow up exam is recommended in 2019. 32Mild compression deformity of L2, which is new since 2009. Correlate with point tenderness to assess for acuity. MRI could characterize presence of edema to suggest acute or subacute time course of injury if clinically indicated. 33No acute cardiopulmonary disease. No displaced right rib fracture. Old left rib fracture. 34Study was unremarkable, no eidence for polyneuropathy, myopathy or right lumboscaral radiculopathy.Suspect a small lateral plantar sensory nerve irritation clinically 35Right and left frontal, right and left sphenoid, right and left total ethmoid and right and left maxillary sinus antrostomies. 36Left nose polyp: benign inflammatory nasal polyp, negative for malignancy. 37Moderate mucosal thickening of ethmoid and frontal sinuses with mild mucosal thickening of maxillary and sphenoid sinuses. Occluded bilateral frontoethmoidal and sphenoethmoidal recesses. Cocha bullosa of right middle turbinate. No bone destruction. 38Negative chest. 39Impression: Small Hiatus hernia Mild Schatzki Ring Gastritis Normal examined duodenum 40no evidence of abdominal aortic aneurysm-pt aware LC 411) No aspiration identified. 2) Please see the speech pathologist report for detailed findings and recommendations. 42No aspiration. See speech pathologist report for details. 43Speech pathologist report: Pt presents with normal oral-pharyngeal swallow function. The following is recommended: 1) Regular diet as tolerated. Given history of esopahgeal dysfunction, would recommend avoiding dry, doughy, pasty foods. 2) Compensatory strategies: to minimize pill dyspahgia recommend taking medications in a carrier (e.g. pudding applsouce, yogurt, etc) 3) Consideration of utilizing diet changes to promote alkalinity and decrease acidity in the body. 44Moderate Schatzki right. Gastritis. Erythematous duodenopathy. 45Mild cardiac enlargement with no acute cardiopulmonary abnormality. 46Stable cardiac prominence. Hiatal hernia 47except for small hiatal hernia 48Abnormal appearance to hypopharynx. 49inlet patchin the upper esophagus; GE junction ring, moderately obstructing; markedly diminished esophageal motility 50except for right and left diverticulosis 51RCA, with bare metal stent 52tubular adenoma 537 mm in transverse colon; 5 mmin distal descending colon 54polypectomy 55- Ectopic gastric mucosa at the cricopharyngeus. -Medium sized hiatal hernia - Moderate Schatzki ring, Dilated -Gastritis -Noraml examined duodenum -No specimens collected 56Negative chest. 57right hand Vital Signs Most recent to oldest [Reference Range]: 1 Patient Weight 97.8 kg (02/02/24 3:55 PM) Heart Rate 70 bpm (02/02/24 3:55 PM) Respiratory Rate 20 br/min (02/02/24 3:55 PM) Blood Pressure 118/70mmHg (02/02/24 3:55 PM) Cuff Pulse Pressure 48 mmHg (02/02/24 3:55 PM) Social History Social History Type Response Tobacco Former smoker, Cigar ettes, .1 per day. 46 year(s). Total pack years: 5. Started age 12 Years. Stopped age 58 Years. Smoking Status Never smoked cigaret moo Sex Male Implantable Device List Procedure Provider Procedure Date Device Type Site Unknown Unknown 03/29/23 Unknown Unknown Device Identifier Serial Number Lot or Batch Number Manufacturing Date Expiration Date Distinct Identification Code MRI Safety Implantable Status Assigning Authority Unknown Unknown [id number] Unknown 11/16/24 Unknown Unknown Active Unk nown Unknown Unknown n/a Unknown Unknown Unknown Unknown Active Unkn own Unknown Unknown n/a Unknown Unknown Unknown Unknown Active Unkn own Patient Care team information Care Team Personnel Name: MD Shearer Jonathan D Position: Physician - Family Med Member Role: Lifetime Relationship Address: Address: [address] [facility] [address] [place] [address] [place] Name: KRISTIN Kenyon Kimberly A Position: Physician Asst Exmpt - Family Med Member Role: Lifetime Relationship Address: Address: [address] [facility] [address] [place] [address] [place] Name: DO Lucas Amanda Position: Resident Member Role: Lifetime Relationship Address: Address: [address] [place] [address] [place] Name: KRISTIN Contreras Ashley Position: Physician Ug Designer - Neurosurgery Member Role: Lifetime Relationship Address: Address: [facility] [address] [place] [address] [place] Name: DO Freeman Gretchen Elizabeth Position: Physician - Family Med Member Role: Primary Care Provider Address: Address: [address] [place] [address] [place] Name: MD Saritha, Coy Nuñez Position: Physician - Pathologist Member Role: Lifetime Relationship Address: Address: [facility] [address] [place] [address] [place] Name: Catina Watson Kyle Position: Pharmacist Member Role: Pharmacy - Lifetime Address: Address: [address] [facility] [place] [address] [place] Name: HEIDY Vo Lorella G Position: Referring DIRECT Member Role: Lifetime Relationship Address: Address: [address] [place] [address] [place] [address] Care Team Related Persons Name: BRAULIO JOYCE Address: home [address] [facility] [place] [id number]
--- OUTSIDE RECORDS SUMMARY | 2024-03-07 10:20 | External Medical Summary | Continuity of Care Document ---
Author Name Unknown Organization [facility] [id number] [place] [id number] Care Team Providers Care Plunger Scoop Operator Name Role Phone Adrianne Freeman Primary Care Physicia n [phone] [id number] Date(s): 02/06/24 - 02/06/24 [facility] 0 [facility] [address] [place] [address] [place] [phone] Encounter Diagnosis Rectal abscess(Final) - Discharge Disposition: Home or Self Care Attending Physician: DO Freeman Gretchen Elizabeth Allergies, Adverse Reactions, Alerts Substance Reaction Severity Status lisinopril swollen tongue Active soy explosive diarrhea Active simvastatin muscle pain Active baclofen felt tired, sluggish, Active gabapentin felt outside his body Active Ambien sleepwalks, hallucinates Act dorothy alendronate GI upset, nausea Active atorvastatin general "ill feeling" Active sulfa drugs hives Active Ragweed runny eyes and nose Active Glutens unknown Active milk products unknown Active Immunizations Given and Recorded Vaccine Date [...] bivalent 3 07/01/22 R ecorded SARS-CoV-2 mRNA ([id number]-ios) 4 01/20/22 Recorded SARS-CoV-2 (COVID-19) mRNA BNT-162b2 [...] 03/30/96 Re corded 1Result Comment[facility] 2Result Comment: [07/20/2013] Received at [facility] 3Result Comment: 2022-08-31: Historical information-source unspecified 4Result Comment: 2022-08-31: Historical information-source unspecified 5Result Comment: 2021-09-21: Historical information-source unspecified 6Result Comment: 2020-02-07: Historical information-source unspecified Medications allopurinol 300 mg oral tablet Start: 11/01/23 14:25:00 EST, See Instructions, Disp# 90 tab, Refills: 3, take 1 tablet by mouth once daily, Pharmacy: [facility] Start Date: 11/01/23 Status: Ordered aspirin 81 mg oral capsule Start: 03/22/23 12:01:00 EDT, 1 cap, PO, Daily, Disp# 30 cap, Pharmacy: [facility] Start Date: 03/22/23 Status: Ordered fluticasone 50 mcg/inh nasal spray Start: 08/06/23 14:53:00 EDT, 1 spray, each nostril, Daily, Disp# 15.8 mL, Refills: 3, [id number] Start Date: 08/06/23 Stop Date: 07/31/24 Status: Ordered Magnesium 64mg Start: 05/27/23 10:30:00 EDT, Magnesium 64mg, 1 tab po BID Start Date: 05/27/23 Status: Ordered metoprolol extended release Start: 12/29/23 13:54:00 EDT Start Date: 12/29/23 Status: Ordered omeprazole 20 mg oral delayed release capsule Start: 11/01/23 14:25:00 EST, 1 cap, PO, Daily, Disp# 90 cap, Refills: 1, Pharmacy: [facility] Start Date: 11/01/23 Status: Ordered rosuvastatin 10 mg oral tablet Start: 03/07/23 14:35:00 EDT, 1 tab, PO, Daily Start Date: 03/07/23 Status: Ordered thiamine 100 mg oral tablet Start: 03/22/23 11:59:00 EDT, 2 tab, PO, Daily, Disp# 30 tab, Pharmacy: [facility] Start Date: 03/22/23 Status: Ordered traMADol 50 mg oral tablet Start: 02/06/24 8:39:00 EDT, 1 tab, PO, bid, Disp# 60 tab, Refills: 0, PRN: as needed for pain, Pharmacy: [id number] Start Date: 02/06/24 Stop Date: 03/07/24 Status: Ordered Tylenol 500 mg oral tablet Start: 03/22/23 11:59:00 EDT, 2 tab, PO, q6h, PRN: as needed for pain Start Date: 03/22/23 Status: Ordered Vitamin B12 Start: 05/27/23 10:31:00 EDT, 2000mcg po daily Start Date: 05/27/23 Status: Ordered Xyzal 5 mg oral tablet Start: 08/26/23 15:54:00 EST Start Date: 08/26/23 Status: Ordered Problem List Condition Confirmation Course Effective Dates Status H ealth Status Informant Alcohol dependence, uncomplicated Confirmed Active High risk for hip fracture Confirmed Active Atherosclerosis of aorta 1 Confirmed Active CORONARY ATHEROSCLEROSIS OF [place] CORONARY ARTERY Confirmed Active Diverticulosis of colon [...] Testosterone deficiency Confirmed Active Scoliosis Confirmed Active [place]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 for KAROLINA 6on bilateral knee x-rays Procedures Procedure Date Related Diagnosis Body Site [...] Completed Procedure on hand 57 Comp leted [facility] ED IMPRESSION: Cardiomegaly and emphysema with no acute cardiopulmonary abnormality identified. [facility] ED IMPRESSION: 1. A mildly displaced right [...] previously evaluated, nonemergent thyroid ultrasound canbe performed. [facility] ED IMPRESSION: 1. Acute right posterior 10th rib fracture. 2. No additional acute fracture is clearly identified. There are numerous subacute-appearing left-sided rib fractures. 3. There is no airspace consolidation typical for pneumonia, pleural effusion, or pneumothorax. 4. Cardiomegaly. 5. Thyroid goiter. 6. Mildly enlarged mediastinal lymph nodes are nonspecific and may be reactive. 7. Hiatal hernia. 8. Additional findings as above. [facility] ED Impression: 1. Interval development of a [...] -No specimens collected 56Negative chest. 57right hand Results Laboratory List Name Date C Reactive Protein, High Sensitivity (C REAC PROT,HI SENS) 02/06/24 Complete Blood Count w Differential (CBC ,DIFFH) 02/06/24 Procalcitonin (PROCALCITONIN) 02/06/24 Most recent to oldest [Reference Range]: 1 C Reactive Prot, high sens 0.6 mg/L 1 (02/06/24 3:09 PM) Procalcitonin. [<0.08 ng/mL] 0.07 ng/mL 2 (02/06/24 3:09 PM) MPV [9.0-12.2 fL] 10.3 fL (02/06/24 3:09 PM) Immature Gran% 0.0 % (02/06/24 3:09 PM) Neut% 48.7 % (02/06/24 3:09 PM) Lymph% 30.1 % (02/06/24 3:09 PM) [place]% 15.0 % (02/06/24 3:09 PM) Baso% 0.9 % (02/06/24 3:09 PM) Eos% 5.3 % (02/06/24 3:09 PM) Immat Gran, Abs [0.0-0.4 K/uL] 0.00 K/uL (02/06/24 3:09 PM) Neut, Abs [2.0-7.7 K/uL] 1.86 K/uL *LOW* (02/06/24 3:09 PM) Lymph, Abs [1.0-3.4 K/uL] 1.15 K/uL (02/06/24 3:09 PM) [place], Abs [0-1.0 K/uL] 0.57 K/uL (02/06/24 3:09 PM) Baso, Abs [0-0.1 K/uL] 0.03 K/uL (02/06/24 3:09 PM) Eos, Abs [0-0.5 K/uL] 0.20 K/uL (02/06/24 3:09 PM) Type of Diff: MANUAL *Unknown* (02/06/24 3:09 PM) RBC Morphology NORMAL *Unknown* (02/06/24 3:09 PM) RDW [11.5-14.2 %] 13.0 % (02/06/24 3:09 PM) Hct [39-48 %] 48.4 % *HI* (02/06/24 3:09 PM) Hgb [13.0-17.0 g/dL] 16.3 g/dL (02/06/24 3:09 PM) MCH [28-33 pg] 34.6 pg *HI* (02/06/24 3:09 PM) MCHC [32-36 g/dL] 33.7 g/dL (02/06/24 3:09 PM) MCV [81-96 fL] 102.8 fL *HI* (02/06/24 3:09 PM) Plts [150-350 K/uL] 167 K/uL (02/06/24 3:09 PM) RBC [4.40-5.60 M/uL] 4.71 M/uL (02/06/24 3:09 PM) Smudge Cell [FEW] MANY *Abnormal* (02/06/24 3:09 PM) WBC [4.0-10.4 K/uL] 3.82 K/uL *LOW* (02/06/24 3:09 PM) 1Result Comment: Classification for Cardiovascular Disease Risk Conventional and SI Units (mg/L). LOW <1.0 AVERAGE 1.0-3.0 HIGH >3.0-10.0 INDETERMINANT >10.0 2Result Comment: For possible community-acquired pneumonia (CAP), if there is diagnostic uncertainty: <0.10 ng/mL Antibiotics strongly discouraged 0.10 - 0.25 ng/mL Antibiotics discouraged 0.26 - 0.50 ng/mL Antibiotics recommended >0.5 ng/mL Antibiotics strongly recommended For sepsis or hospital-acquired pneumonia (HAP). if the patient has stabilized and there is diagnostic uncertainty: <0.51 ng/ml or decrease of >79% Consider stopping antibiotics unless needed for another diagnosis. Social History Social History Type Response Tobacco [...] Safety Implantable Status Assigning Authority Unknown Unknown [id number] Unknown 11/16/24 Unknown Unknown Active Unk nown Unknown Unknown n/a Unknown Unknown Unknown Unknown Active Unkn own Unknown Unknown n/a Unknown Unknown Unknown Unknown Active Unkn own Patient Care team information Care Team Personnel Name: MD Manfred, Jay Han Position: Physician - Family Med Member Role: Lifetime Relationship Address: Address: [address] [place] [address] [place] Name: KRISTIN Kenyon Kimberly A Position: Physician Asst Exmpt - Family Med Member Role: Lifetime Relationship Address: Address: [place] [address] [place] Name: DO Lucas Amanda Position: Resident Member Role: Lifetime Relationship Address: Address: [place] [address] [place] Name: KRISTIN Contreras Ashley Position: Physician Psychological Assistant - Neurosurgery Member Role: Lifetime Relationship Address: Address: [facility] [address] [place] [address] [place] Name: DO Freeman Gretchen Elizabeth Position: Physician - Family Med Member Role: Primary Care Provider Address: Address: [address] [place] [id number] [place] Name: MD Saritha, Coy Nuñez Position: Physician - Pathologist Member Role: Lifetime Relationship Address: Address: [facility] [address] [place] [address] [place] Name: Catina Watson Kyle Position: Pharmacist Member Role: Pharmacy - Lifetime Address: Address: [address] [place] [address] J[place] Rios [address] Name: HEIDY Vo Lorella G Position: Referring DIRECT Member Role: Lifetime Relationship Address: Address: [address] [place], [place] [address]EN [id number] Care Team Related Persons Name: ISIAH BRAULIO Emmie Address: home [address] [facility], [place] [id number]
[2024-03-07] MEDS: POTASSIUM CHLORIDE CRTAB 20 MEQ TABCR PO STA (11:32)
--- NOTE | 2024-03-07 11:47 | Hospitalist Progress Note ---
Date of Service March 07, 2024 Assessment & Plan (1) Abscess, perirectal: Plan: 74yo male with history of CAD, HTN and HLP presenting with generalized weakness, fatigue and chills. Found to have perirectal abscess on CT scan with some stranding. He does have leukocytosis with wbc=11.44. Afebrile and HD stable. A CT was done which showed A perirectal hypodensity measuring 32 mm with surrounding fat stranding could be abscess or carcinoma. Patient endorses a previous history of perirectal abscess Currently on IV antibiotics,WBC is elevated,however procalcitonin is normal. General surgery recommends no surgery. Will consult GI, patient may need sigmoidoscopy Patient has had a couple of bowel movements denies any pain (2) Weakness: Plan: Likely secondary to infection -Treatment as above (3) CAD (coronary artery disease): Plan: Patient with CAD. Mild elevation of troponin on arrival at 27.5 with repeat of 21.5. Likely demand ischemia in setting of infection. Patient denies chest pain or shortness of breath. PVCs present on EKG. No acute ischemic changes -Continue ASA, Metoprolol and Crestor (4) Compression fracture: Plan: History of compression fracture and chronic pain for more than 5 years Takes tramadol at home, continue Plan Continue to monitor in the hospital, awaiting evaluation by GI DNR/DNI Admission and Anticipated Discharge Date Admission Date: March 06, 2024 Subjective Patient seen and examined, denies any rectal pain only complains of chronic back pain. Review of Systems Review of Systems: All systems reviewed are negative, apart from the ones contained in the history. Physical Exam Physical Exam: The patient is awake, alert and oriented 3, well developed and well nourished, normocephalic and atraumatic, lying in bed and in no acute distress. HEENT--PERRL, EOMI, mucous membranes and oropharynx mildly dry Neck--supple. No JVD. No bruits. Thyroid normal, trachea midline, no adenopathy. Heart--normal S1 and S2. No murmurs, rubs or gallops. Lungs--clear bilaterally, no respiratory distress, no accessory muscle use. Abdomen--normal bowel sounds and soft. Extremities--no cyanosis or clubbing. No edema. Dermatologic--normal skin turgor, normal color, no abnormal lymph nodes, no rash. Neurologic--cranial nerves II through XII grossly intact. Rheumatologic--normal range of motion. Psychiatric--normal affect. Results & Data Results & Data Vital Signs (Past 12 Hours) Vital Signs Temp Pulse Resp BP Pulse Ox O2 Del Method 03/07/24 09:26 152/106 H 03/07/24 07:28 98.4 F 83 16 162/92 H 93 Room Air PG Care Time/CCT Total # of Minutes Spent Total Time Spent with Patient: Total time spent is greater than 50% in coordination of care (as documented) at patient's floor/unit and/or counseling patient: Coding Level of Care Code 41614 SUB INP/OBS CARE 2/35MIN Diagnoses Abscess, perirectal K61.1 Weakness R53.1 CAD (coronary artery disease) I25.10 Compression fracture Time Spent (min) 35
--- NOTE | 2024-03-07 13:01 | Gastrointestinal Consultation ---
Date of Consultation March 07, 2024 Assessment & Plan (1) Abscess, perirectal: Plan Patient is a 74 year old male here today after a fall with weakness. he had imaging done suggestive of perirectal fluid collection that favors an abscess. Patient has had perianal abscesses in the past and just had this last year that was drained. Surgery saw the patient and no surgery planned currently. they recommended treatment with antibiotics and evaluation for possible colonoscopy. - discussed performing a colonoscopy with the patient. He prefers to hold off at this time. He would prefer to discuss having this done as an outpatient, though currently he feels that given his history of abscess, he wants to see how he does with antibiotics first and possibly have updated imaging to assess before colonoscopy. - continue with james at this time. - will plan to see him as an outpatient in 2 weeks or so. At that time we can decide if he wishes to pursue updated imaging or a colonoscopy. He is going to consider these options. Supervising Physician Co-Signing Physician Notes Agree with LENORA Wallace as above Interviewed and examined patient and agree with above Abd: Soft, NT, ND Continue current therapy and supportive care Will f/u in our office in 2 weeks Consider outpatient colonoscopy History of Present Illness Reason for Consultation: Perirectal mass Requesting Physician: Luis Gan MD Attending Physician: Luis Gan MD History of Present Illness Patient tone 74 year old male with a history of CAD, HTN, and HLP presenting with generalized weakness, fatigue, and chills. He was found to have perirectal abscess on CT scan with some stranding. Patient did have history of this before as well and tells me he had 2 of these abscesses last year that were surgically drained. He does have leukocytosis. Surgery saw the patient who did not feel that surgical intervention was needed but rather they recommended antibiotics and possible evaluation for a colonoscopy. I went to see the patient today with his at bedside. He is eating his lunch and tolerating this well. He tells me he only gets rectal discomfort if he passes a hard stool. he denies any nausea, vomiting, heartburn, abdominal pain, changes in bowels, brbpr, or melena. he had rectal exam in ED without any masses felt. he tells me he predominantly has constipation and can move bowels 2-3 times a week. he uses colace as an outpatient and finds this helpful. Patient has followed with [facility] on his GI care in the past. He tells me that his last EGD and colonoscopy were done 5 years ago. EGD shown medium hiatal hernia and schatzkis ring. dilation done. I do not have colonoscopy records but patient reports this is unremarkable and he was advised follow up in [address] 03/06/24 Perirectal hypodensity measuring 32 mm with surrounding fat stranding. This is favored to represent a perirectal abscess. Rectal carcinoma is considered less likely. Correlation with physical exam is recommended. Allergies Allergy/AdvReac Type Severity Reaction Status Date / Time lisinopril Allergy Severe Swollen Verified 03/06/24 18:45 Tongue and Throat Tightness soy Allergy Severe THROAT Verified 03/06/24 18:45 TIGHTENED W/SOY SAUCE Sulfa (Sulfonamide Allergy Intermediate HIVES AND Verified 03/06/24 18:45 Antibiotics) ITHCING zolpidem [From Ambien] AdvReac Severe " Verified 03/06/24 18:45 Hallucinates and sleepwalks" baclofen AdvReac Intermediate Tired and Verified 03/06/24 18:45 sluggish gabapentin AdvReac Intermediate " [place]aring Verified 03/06/24 18:45 like " out of body" gluten AdvReac Intermediate ABD PAIN Verified 03/06/24 18:45 milk AdvReac Intermediate STOMACH Verified 03/06/24 18:45 PAIN Lqdvjgh-FTT-EpN Reductase AdvReac Intermediate MUSCLE Verified 03/06/24 18:45 Inhibitor WEAKNESS [Ztiswca-Onn-Fdf Reductase Inhibitor] Home Medications Medication Instructions Recorded Confirmed Type allopurinol 300 mg tablet 300 mg PO DAILY 07/07/18 03/06/24 History fluticasone propionate 50 1 spray intranasal DAILY PRN 09/03/18 03/06/24 History mcg/actuation nasal Congestion spray,suspension (Flonase Allergy Relief) omeprazole 20 mg capsule,delayed 20 mg PO DAILY 05/12/20 03/06/24 History release fexofenadine 60 mg tablet 60 mg PO BID PRN Congestion 03/17/23 03/06/24 History tramadol 50 mg tablet 50 mg PO DAILY PRN Pain 03/17/23 03/06/24 History aspirin 81 mg tablet,delayed 81 mg PO DAILY #30 tabs 07/12/23 03/06/24 Rx release acetaminophen 500 mg tablet 1,000 mg PO Q8H PRN pain 12/22/23 03/06/24 History (Tylenol Extra Strength) levocetirizine 5 mg tablet (Xyzal) 5 mg PO DAILY PRN 12/22/23 03/06/24 History Allergies/Congestion multivitamin 1 tab PO DAILY 12/22/23 03/06/24 History magnesium oxide 125 mg PO DAILY 01/05/24 03/06/24 History metoprolol succinate 25 mg 12.5 mg (1/2 x 25 mg) PO DAILY #60 01/17/24 03/06/24 Rx tablet,extended release 24 hr tabs nitroglycerin 0.4 mg sublingual 0.4 mg sublingual Q5M PRN chest 01/17/24 03/06/24 Rx tablet pain #100 tabs rosuvastatin 10 mg tablet 10 mg PO DAILY #90 tabs 01/17/24 03/06/24 Rx Patient History Medical History Encounter for recheck of abscess following incision and drainage Arteriosclerotic coronary artery disease Benign essential hypertension (10/09/12) Excessive sweating Numbness Post concussion syndrome Osteoarthritis GERD (gastroesophageal reflux disease) Myocardial Infarction 7-10 YEARS AGO Surgical History Polyp, nasal History of tonsillectomy History of heart artery stent 7-10 YEARS AGO INSERTED>TECUMSEH History of cardiac cath Family History Mother Family history of diabetes mellitus Heart disease Father Heart disease Sister Asthma Other No family history of adverse response to anesthesia No family history of bleeding disorder Social History Smoking Status: Never smoker Tobacco Type: Cigarettes Cigarettes Per Day: quit smoking 18 years ago; Second Hand Exposure: No; Do You Dip or Chew Tobacco: No; Tobacco Cessation Education Requested by Patient: No Hx Alcohol Use: No Hx Substance Use: No Preferred Language: Telugu Communication Ability: Effective Visual Impairment: Limited Hearing Ability: Normal Penology Teacher Required: No Beliefs That Will Affect Care: None marital status: Current Living Situation: Spouse Current Living Situation Comment: ranch current occupational status: retired Other Information That Helps Us Care for You: No Feels Safe at Home: Yes Safety Concerns: Feels Safe At This Time Diet: gluten free and lactose free Diet Comment: Soy free Do you think of yourself as: straight/heterosexual Gender Identity: Male Assistive Devices: Cane and Walker Review of Systems Review of Systems: All systems reviewed & are unremarkable except as noted in HPI & below Physical Exam Constitutional: WD/WN, vitals as above Respiratory: normal respiratory effort, lungs clear to auscultation Cardiovascular: RRR, no murmur, no edema Gastrointestinal (Abdomen): normal bowel sounds, soft, nontender, no hepatosplenomegaly Psychiatric: Orientation: alert and oriented x 3 Affect: euthymic affect Results & Data Vital Signs (Past 12 Hours) Vital Signs Temp Pulse Resp BP Pulse Ox O2 Del Method 03/07/24 09:26 152/106 H 03/07/24 07:28 98.4 F 83 16 162/92 H 93 Room Air Coding Level of Care Code 15908 INT INP/OBS CARE 2/55MIN Diagnoses Abscess, perirectal K61.1
--- NOTE | 2024-03-07 15:31 | Discharge Summary ---
Date of Service March 07, 2024 Admission HPI Per Admitting Provider 74yo male with history of CAD, HTN, HLP and GERD presenting with severe generalized weakness and fatigue as well as chills. He denies fever, chest pain, cough or shortness of breath. No vomiting or diarrhea. He reports he is eating well. Normal bowel movements - occasional rectal pain with defecation. No rectal bleeding or drainage. No change in bowel habits. Patient with history of perirectal abscess which was drained in November 2022. Rectal exam performed by ER physician with no obvious fullness/fluctuance or abscess. Some discomfort on exam. ER Course: Marva Principal Diagnosis perirectal abscess Discharge Exam The patient is awake, alert and oriented 3, well developed and well nourished, normocephalic and atraumatic, lying in bed and in no acute distress. HEENT--PERRL, EOMI, mucous membranes and oropharynx mildly dry Neck--supple. No JVD. No bruits. Thyroid normal, trachea midline, no memo opathy. Heart--normal S1 and S2. No murmurs, rubs or gallops. Lungs--clear bilaterally, no respiratory distress, no accessory muscle use. Abdomen--normal bowel sounds and soft. Extremities--no cyanosis or clubbing. No edema. Dermatologic--normal skin turgor, normal color, no abnormal lymph nodes, no rash. Neurologic--cranial nerves II through XII grossly intact. Rheumatologic--normal range of motion. Psychiatric--normal affect. Discharge Data Allergies Allergy/AdvReac Type Severity Reaction Status Date / Time lisinopril Allergy Severe Swollen Verified 03/06/24 18:45 Tongue and Throat Tightness soy Allergy Severe THROAT Verified 03/06/24 18:45 TIGHTENED W/SOY SAUCE Sulfa (Sulfonamide Allergy Intermediate HIVES AND Verified 03/06/24 18:45 Antibiotics) ITHCING zolpidem [From Ambien] AdvReac Severe " Verified 03/06/24 18:45 Hallucinates and sleepwalks" baclofen AdvReac Intermediate Tired and Verified 03/06/24 18:45 sluggish gabapentin AdvReac Intermediate " [place] Verified 03/06/24 18:45 like " out of body" gluten AdvReac Intermediate ABD PAIN Verified 03/06/24 18:45 milk AdvReac Intermediate STOMACH Verified 03/06/24 18:45 PAIN Emmjsrz-ACH-BkR Reductase AdvReac Intermediate MUSCLE Verified 03/06/24 18:45 Inhibitor WEAKNESS [Ezuxaqb-Moj-Lzg Reductase Inhibitor] Consultations 03/06/24 19:20 ED Decision to Admit Stat 03/07/24 11:39 Consult Gastroenterology Routine Ordered Studies 03/06/24 13:55 CT head/brain wo con Stat 03/06/24 16:43 CT Abd and Pelvis [CT abd pelvis wo con] Stat CT lumbar spine wo con Stat Hospital Course (1) Abscess, perirectal: 74yo male with history of CAD, HTN and HLP presenting with generalized weakness, fatigue and chills. Found to have perirectal abscess on CT scan with some stranding. He does have leukocytosis with wbc=11.44. Afebrile and HD stable. A CT was done which showed A perirectal hypodensity measuring 32 mm with surrounding fat stranding could be abscess or carcinoma. Patient endorses a previous history of perirectal abscess Currently on IV antibiotics,WBC is elevated,however procalcitonin is normal. General surgery recommends no surgery. GI recommends out patient follow up in 2 weeks Will discharge on PO CIpro 750mg daily and PO Flagyl 375mg BID for 10 days (2) Weakness: Likely secondary to infection -Treatment as above (3) CAD (coronary artery disease): Patient with CAD. Mild elevation of troponin on arrival at 27.5 with repeat of 21.5. Likely demand ischemia in setting of infection. Patient denies chest pain or shortness of breath. PVCs present on EKG. No acute ischemic changes -Continue ASA, Metoprolol and Crestor (4) Compression fracture: History of compression fracture and chronic pain for more than 5 years Takes tramadol at home, continue Plan d/c Total Time Total Time Spent Total Time Spent (In Minutes): 35 Discharge Plan Discharge Items Patient Disposition: Home - Self-Care Reason For Visit: WEAKNESS Discharge Diagnosis: perianal abscess Activity: Resume your previous activity Non-emergency contact: Primary Care Provider and Final Armature Tester Call non-emergency contact if: you have any medication questions and your symptoms worsen Follow-up/Referrals: Adrianne Freeman DO [Primary Care Provider] - Diet: Regular Addtl Attending Provider Instructions: please follow up with Gastroenterology in 2 weeks Pending Studies at Discharge: No Stand-Alone Forms: My [facility], Smoking Cessation Medications and DC Order Prescriptions: New ciprofloxacin HCl 750 mg tablet 750 mg PO DAILY Qty: 10 0RF metronidazole [Flagyl] 375 mg capsule 375 mg PO BID 10 Days Qty: 20 0RF Continued omeprazole 20 mg capsule,delayed release(DR/EC) 20 mg PO DAILY aspirin 81 mg tablet,delayed release (DR/EC) 81 mg PO DAILY Qty: 30 2RF metoprolol succinate 25 mg tablet extended release 24 hr 12.5 mg PO DAILY Qty: 60 3RF nitroglycerin 0.4 mg tablet, sublingual 0.4 mg SL Q5M PRN (Reason: chest pain) Qty: 100 1RF Rx Instructions: until response; do not exceed 3 doses per episode. Pt's spouse says this might be /out of date. rosuvastatin 10 mg tablet 10 mg PO DAILY Qty: 90 3RF allopurinol 300 mg Tablet 300 mg PO DAILY fluticasone propionate [Flonase Allergy Relief] 50 mcg/actuation [place],Suspension 1 spray INTRANASAL DAILY PRN (Reason: Congestion) fexofenadine 60 mg tablet 60 mg PO BID PRN (Reason: Congestion) tramadol 50 mg tablet 50 mg PO DAILY PRN (Reason: Pain) magnesium oxide 250 mg magnesium Tablet 125 mg PO DAILY multivitamin Tablet 1 tab PO DAILY levocetirizine [Xyzal] 5 mg Tablet 5 mg PO DAILY PRN (Reason: Allergies/Congestion) acetaminophen [Tylenol Extra Strength] 500 mg tablet 1,000 mg PO Q8H PRN (Reason: pain) Discharge Orders: Discharge Order (Routine); Ordered 03/07/24 Ordered By: Luis Gan Admission Data Admit Date/Time: 03/06/24 20:28 Attending Provider: Luis Gan Admit Provider: Kae Paredes Primary Care Provider: Adrianne Freeman Other Providers: Kae Paredes; Edilberto Vergara Coding Level of Care Code 97153 INP/OBS DISCH >30 MIN Diagnoses Abscess, perirectal K61.1 Weakness R53.1 CAD (coronary artery disease) I25.10 Compression fracture Time Spent (min) 35
== END 2024-03-07 16:15 | disposition home or self-care (01) ==
LOC: 3W 13:47 → ED 13:47 → SUATTDRO 20:28 → 3W 21:16

== ENCOUNTER 2024-08-01 07:48 | Observation (INO) ==
--- NOTE | 2024-08-01 08:03 | Emergency Department Note ---
Impression & Plan Fall, Alcohol intoxication ADMIT ED Provider Note HPI: History obtained from patient. The patient is a 74-year-old gentleman with history of coronary artery disease, who presents the emergency department with a chief complaint of fall. Patient states that he fell out of bed this morning and woke up on the ground. He states he also had a fall last night but is unsure of what time. Patient is an overall very poor historian, he states he does have some pain in his bilateral knees but he is able to flex and extend both of his knees without issue. Patient also complains of some pain in the area of his left lower back/left lumbar spine. Patient does admit to drinking alcohol last night, he is otherwise alert and hemodynamically stable on arrival. ROS: - Per HPI Differential Diagnosis: Alcohol intoxication, intracranial hemorrhage to include subdural hematoma, cervical spine fracture, lumbar spine fracture, rib fractures, pneumothorax, hemothorax, fracture dislocation of the knees, amongst other potential pathologies. *Outpatient medications and allergy history reviewed. PE: General: Alert, intoxicated appearing HEENT: Normocephalic, trachea midline Eyes: Extraocular eye movement is intact, no scleral erythema Pulmonary: Clear to auscultation bilaterally, no wheezing Cardio: Regular rate and rhythm GI: Abdomen is soft to palpation : No suprapubic tenderness MSK: No evidence of trauma or malformation of the extremities, no edema, ambulates all extremity spontaneously without issue, patient is able to flex at the hips bilaterally, patient maintains full range of motion of the bilateral knees Skin: No evidence of rash Neuro: Alert, no focal deficits Psychiatric: Cooperative INDEPENDENT INTERPRETATIONS: monitor technician: (As interpreted by myself): - An order was placed for continuous cardiac monitoring - Patient was noted to be in sinus rhythm with a rate of 75 EKG: (As interpreted by myself): Rate: 71 Rhythm: Normal sinus rhythm Intervals: QRS 136 ms, otherwise within normal limits ST changes: No ST elevation Time: 0817 Chest x-ray: (As interpreted by myself): No acute disease ED interventions: Potassium chloride Medical Decision Making: CT imaging of the head and cervical spine did not show any evidence of any traumatic injuries. Chest x-ray does not show any evidence of acute disease. X-ray of the pelvis as well as x-ray imaging of the bilateral knees does not show any evidence of fracture or acute traumatic findings. Lab work shows white blood cell count of 4.75, hemoglobin is stable at 13.9, platelet count is normal, CMP shows hypokalemia at 3.1 which was ordered for oral repletion, alcohol level is noted to be markedly elevated at 248. Urinalysis is negative. Patient was able to ambulate short distances with the bedside RN however he had significant amount of pain in the bilateral knees. At this time the patient and his who later arrived at the bedside state that they are not comfortable with discharge home as the patient does have some chronic ambulatory dysfunction and they have concerns about his multiple falls at home even in the setting of alcohol use. They feel he would benefit from inpatient admission for assessment by physical therapy and possibly placement to inpatient physical therapy. Patient is not noted to have any history of alcohol withdrawal. On my reassessment he is able to have a lucid conversation with me despite his alcohol being elevated at 248. [facility] hospitalist service was consulted for admission. Patient was placed for admission in stable condition. Consultants/Discussions held with other healthcare providers: -Hospitalist, Dr. Juarez Disposition discussion held by myself with: -Patient and patient's Diagnosis: 1. Fall, acute 2. Alcohol intoxication, acute 3. Ambulatory dysfunction, acute on chronic 4. Hypokalemia, acute Disposition: Admission Roman Valdes DO Emergency Medicine Past Med/Surg History Problem List (Updated 08/01/24 @ 11:14 by Roman Valdes DO) Alcohol intoxication (Acute) Hematuria Mass of perirectal soft tissue Back pain (Acute) Abscess, perirectal (Acute) Weakness (Acute) Fall (Acute) Stented coronary artery Gram-negative bacteremia Emily-rectal abscess Generalized weakness (Acute) Rhabdomyolysis (Acute) Acute hypokalemia (Acute) Hypomagnesemia (Acute) Non-ST elevation [place] (NSTEMI) (Acute) Excessive vitamin B6 intake Arthralgia Hypersomnolence Hypertension Fatigue Vitamin B12 deficiency Vitamin D deficiency Post concussion syndrome Sensory ataxia Hypertrophy of both inferior nasal turbinates Nasal septal deviation Chronic pansinusitis Idiopathic peripheral neuropathy Allergic rhinitis (Acute) Angina pectoris (Acute) Depression (Acute) Hypercholesterolemia (Acute) Lateral plantar neuropathy (Acute) Lightheadedness (Acute) Nasal congestion with rhinorrhea (Acute) Post-nasal drip (Acute) Presence of stent in artery (Acute) Stented coronary artery (Acute 10/09/12) Hyperlipidemia CAD (coronary artery disease) Myofascial pain Sacroiliitis Precordial chest pain (Acute) Hypertensive emergency (Acute) Headache above the eye region Compression fracture (Chronic) L2 Frequent falls (Chronic) Gait instability (Chronic) Thoracic facet syndrome (Chronic) Spinal stenosis (Chronic) Lumbar facet joint syndrome (Chronic) Lumbago (Chronic) Encounter for pre-operative examination Hypertension (Chronic) Bronchitis (Chronic) Stomach problems (Chronic) Kidney stones (Chronic) Esophageal reflux (Acute) Hiatal hernia (Acute) Hypotension (Acute) Left arm pain (Acute) Medical History Encounter for recheck of abscess following incision and drainage Arteriosclerotic coronary artery disease Benign essential hypertension (10/09/12) Excessive sweating Numbness Post concussion syndrome Osteoarthritis GERD (gastroesophageal reflux disease) Myocardial Infarction 7-10 YEARS AGO Surgical History Polyp, nasal History of tonsillectomy History of heart artery stent 7-10 YEARS AGO INSERTED>[place] History of cardiac cath Family History Mother Family history of diabetes mellitus Heart disease Father Heart disease Sister Asthma Other No family history of adverse response to anesthesia No family history of bleeding disorder Social History Smoking Status: Former smoker Tobacco Type: Cigarettes Cigarettes Per Day: quit smoking 18 years ago; Second Hand Exposure: No; Do You Dip or Chew Tobacco: No; Hx Alcohol Use: No Hx Substance Use: No Preferred Language: Greenlandic Communication Ability: Effective Visual Impairment: Limited Hearing Ability: Normal Contribution Solicitor Required: No Beliefs That Will Affect Care: None marital status: Current Living Situation: Spouse Current Living Situation Comment: spring current occupational status: retired Feels Safe at Home: Yes Diet: gluten free and lactose free Diet Comment: Soy free Do you think of yourself as: straight/heterosexual Gender Identity: Male Assistive Devices: Cane and Walker Allergies Allergies Allergy/AdvReac Type Severity Reaction Status Date / Time lisinopril Allergy Severe Swollen Verified 03/21/24 14:37 Tongue and Throat Tightness soy Allergy Severe THROAT Verified 03/21/24 14:37 TIGHTENED W/SOY SAUCE Sulfa (Sulfonamide Allergy Intermediate HIVES AND Verified 03/21/24 14:37 Antibiotics) ITHCING zolpidem [From Ambien] AdvReac Severe " Verified 03/21/24 14:37 Hallucinates and sleepwalks" baclofen AdvReac Intermediate Tired and Verified 03/21/24 14:37 sluggish gabapentin AdvReac Intermediate " [place] Verified 03/21/24 14:37 like " out of body" gluten AdvReac Intermediate ABD PAIN Verified 03/21/24 14:37 milk AdvReac Intermediate STOMACH Verified 03/21/24 14:37 PAIN [id number] Reductase AdvReac Intermediate MUSCLE Verified 03/21/24 14:37 Inhibitor WEAKNESS [Tjyneed-Vbr-Iek Reductase Inhibitor] Home Meds Home Medications Medication Instructions Recorded Confirmed allopurinol 300 mg tablet 300 mg PO DAILY 07/07/18 08/01/24 fluticasone propionate 50 1 spray intranasal DAILY PRN 09/03/18 08/01/24 mcg/actuation nasal Congestion spray,suspension (Flonase Allergy Relief) omeprazole 20 mg capsule,delayed 20 mg PO DAILY 05/12/20 08/01/24 release fexofenadine 60 mg tablet 60 mg PO BID PRN Congestion 03/17/23 08/01/24 tramadol 50 mg tablet 50 mg PO TID PRN Pain 03/17/23 08/01/24 acetaminophen 500 mg tablet 1,000 mg PO Q8H PRN pain 12/22/23 08/01/24 (Tylenol Extra Strength) levocetirizine 5 mg tablet (Xyzal) 5 mg PO DAILY PRN 12/22/23 08/01/24 Allergies/Congestion multivitamin 1 tab PO DAILY 12/22/23 08/01/24 magnesium oxide 125 mg PO DAILY 01/05/24 08/01/24 gabapentin 100 mg capsule 200 mg PO DAILY 08/01/24 08/01/24 Previous Rx's Medication Instructions Recorded aspirin 81 mg tablet,delayed 81 mg PO DAILY #30 tabs 07/12/23 release metoprolol succinate 25 mg 12.5 mg (1/2 x 25 mg) PO DAILY #60 01/17/24 tablet,extended release 24 hr tabs nitroglycerin 0.4 mg sublingual 0.4 mg sublingual Q5M PRN chest 01/17/24 tablet pain #100 tabs rosuvastatin 10 mg tablet 10 mg PO DAILY #90 tabs 01/17/24 Results & Data (ED) Vital Signs Vital Signs - 24 hr 08/01/24 07:59 08/01/24 07:59 08/01/24 07:59 Temperature 36.4 C L 36.4 C L Temperature Source Oral Oral Pulse Rate 77 Pulse Rate [Apical] 77 Respiratory Rate 14 14 Respiratory Effort / Characteristics Non-Labored Spontaneous Non-Labored Spontaneous Respiratory Depth Normal Normal Respiratory Pattern Regular Blood Pressure 137/90 Blood Pressure [Right Arm] 137/90 Blood Pressure Mean 105 Blood Pressure Mean [Right Arm] 105 Blood Pressure Position [Right Arm] Semi-fowlers Pulse Oximetry 95 Oxygen Delivery Method Room Air Room Air Room Air Sepsis Recent Fever Within 48 Hours No Sepsis New/Unexplained Change in Mental Status N/A Sepsis Action Taken by Nursing No Action Required 08/01/24 08:28 08/01/24 08:28 08/01/24 09:00 Temperature Temperature Source Pulse Rate 71 69 Pulse Rate [Apical] 72 Respiratory Rate 16 17 Respiratory Effort / Characteristics Non-Labored Spontaneous Respiratory Depth Normal Respiratory Pattern Blood Pressure Blood Pressure [Right Arm] 137/102 H Blood Pressure Mean Blood Pressure Mean [Right Arm] 113 Blood Pressure Position [Right Arm] Semi-fowlers Pulse Oximetry 97 95 Oxygen Delivery Method Room Air Room Air Sepsis Recent Fever Within 48 Hours Sepsis New/Unexplained Change in Mental Status Sepsis Action Taken by Nursing 08/01/24 09:08 08/01/24 11:00 Temperature Temperature Source Pulse Rate Pulse Rate [Apical] 75 Respiratory Rate 17 Respiratory Effort / Characteristics Non-Labored Spontaneous Respiratory Depth Normal Respiratory Pattern Blood Pressure Blood Pressure [Right Arm] 192/133 H Blood Pressure Mean Blood Pressure Mean [Right Arm] 152 Blood Pressure Position [Right Arm] Semi-fowlers Pulse Oximetry 95 96 Oxygen Delivery Method Room Air Room Air Sepsis Recent Fever Within 48 Hours Sepsis New/Unexplained Change in Mental Status Sepsis Action Taken by Nursing Laboratory Data 08/01/24 08:23 08/01/24 08:23 Lab Results 08/01/24 08/01/24 08/01/24 Range/Units 08:23 08:35 09:40 WBC 4.75 L (4.8-10.8) K/ul RBC 3.95 L (4.70-6.10) M/uL Hgb 13.9 L (14.0-18.0) g/dl POC Hgb 15.0 (14.0-18.0) g/dl Hct 40.4 L (42.0-52.0) % POC Hct 44 (42-52) % MCV 102.3 H (80.0-100.0) fL MCH 35.2 H (25.0-34.0) pg MCHC 34.4 (32.0-36.0) g/dL RDW Std Deviation 54.3 H (36.4-46.3) fL RDW Coeff of Joseph 14.4 (11.5-14.5) % Plt Count 143 (130-400) K/uL MPV 10.5 (9.4-12.4) fL Immature Gran % (Auto) 1.1 % Neut % (Auto) 42.7 % Lymph % (Auto) 37.9 % Roberts % (Auto) 12.4 % Eos % (Auto) 4.4 % Baso % (Auto) 1.5 % Neut # (Auto) 2.03 (1.40-6.50) K/uL Lymph # (Auto) 1.80 (1.20-3.40) K/uL Roberts # (Auto) 0.59 (0.11-0.59) K/uL Eos # (Auto) 0.21 (0.00-0.50) K/uL Baso # (Auto) 0.07 (0.00-0.20) K/uL Immature Gran # (Auto) 0.05 (0.01-0.20) K/uL POC Sodium 146 H (135-144) mmol/L Sodium 147 H (136-145) mmol/L POC Potassium 2.9 L (3.3-5.0) mmol/L Potassium 3.1 L (3.5-5.1) mmol/L POC Chloride 104 (101-112) mmol/L Chloride 107 (98-107) mmol/L Carbon Dioxide 32 (21-32) mmol/L POC Total CO2 26 (24-31) mmol/L Anion Gap 8 (3-11) POC Anion Gap 19.0 (16-25) mmol/L POC BUN 9 (7-18) mg/dl BUN 10 (6-23) mg/dl Creatinine 0.54 L (0.6-1.4) mg/dl POC Creatinine 0.9 (0.6-1.3) mg/dl Est Cr Clr Drug Dosing 137.1 ml/min eGFR 103.92 BUN/Creatinine Ratio 18.5 (10-20) Glucose 101 H (70-99(Fasting)) mg/dl POC Glucose (other) 101 H (70-99) mg/dl Calcium 8.3 L (8.6-10.3) mg/dl POC Ioniz Calcium Parker 1.07 L (1.12-1.32) mmol/l Total Bilirubin 0.5 (0.2-1.0) mg/dl AST 52 H (13-39) U/L ALT 23 (7-52) U/L Alkaline Phosphatase 83 (34-104) U/L Total Protein 6.3 (6.0-8.3) gm/dl Albumin 3.4 (3.4-5.0) gm/dl Globulin 2.9 (2.5-4.0) gm/dl Albumin/Globulin Ratio 1.2 (0.9-2) Urine Color Yellow Urine Appearance Clear (Clear) Urine pH 5.5 (4.5-7.5) Ur Specific [place] 1.017 (1.000-1.030) Urine Protein Negative (Negative) Urine Glucose (UA) Negative (Negative) Urine Ketones Negative (Negative) Urine Blood Negative (Negative) Urine Nitrite Negative (Negative) Urine Bilirubin Negative (Negative) Urine Urobilinogen Negative (Negative) Ur Leukocyte Esterase Negative (Negative) Ethyl Alcohol mg/dL 248.0 H (<10.0) mg/dl Administered Medications Discontinued Medications Potassium Chloride (Potassium Chloride Pwd 20 Meq Pack) 40 meq PO NOW STA Stop: 08/01/24 09:05 Last Admin: 08/01/24 09:31 Dose: 40 meq Documented By: [facility] Imaging Data Radiologist's Impression: Hip/Pelvis X-Ray 08/01/24 07:58 XR hip ALEJANDRA 2v w pelvis CLINICAL HISTORY: fall TECHNIQUE: 2 views of the bilateral hips and single frontal view of the pelvis were obtained. Comparison: None available at the time of this dictation. FINDINGS: There is no evidence of an acute fracture. Joint spaces are well-preserved. Vascular calcifications are noted. IMPRESSION: No evidence of acute osseous injury. ACT 112: Negative or not required by law. Electronically signed by: Rajesh Alcala M.D. 08/01/2024 8:33 AM Knee X-Ray 08/01/24 07:58 XR knee LT 1 or 2V routine CLINICAL HISTORY: fall TECHNIQUE: 2 views of the bilateral knees were obtained. Comparison: None available at the time of this dictation. FINDINGS: There is no evidence of an acute fracture. Joint spaces are well-preserved. No joint effusion is seen. Vascular calcifications are noted. IMPRESSION: No evidence of acute osseous injury. ACT 112: Negative or not required by law. Electronically signed by: Rajesh Alcala M.D. 08/01/2024 8:32 AM Knee X-Ray 08/01/24 07:58 XR knee RT 1 or 2V routine CLINICAL HISTORY: fall TECHNIQUE: 2 views of the right knee were obtained. Comparison: Comparison is made to line length radiograph 09/25/2021 FINDINGS: There is no evidence of an acute fracture. Joint spaces are well-preserved. No joint effusion is seen. No soft tissue abnormality is seen. IMPRESSION: No evidence of acute osseous injury. ACT 112: Negative or not required by law. Electronically signed by: Rajesh Alcala M.D. 08/01/2024 8:[address] 08/01/24 07:59 CT cervical spine wo con CLINICAL HISTORY: Trauma TECHNIQUE: Multidetector row helical CT of the cervical spine was performed without administration of intravenous contrast. Coronal and sagittal reformations were obtained. Automated dose lowering techniques and/or adjustment according to patient size were utilized for this exam. Comparison: None available at the time of this dictation. FINDINGS: No acute fractures or subluxations are identified. Degenerative changes are seen in the visualized spine. The alignment is normal. There is a right thyroid nodule measuring 42 mm. IMPRESSION: 1. Degenerative changes without evidence of acute bony injury. 2. There is a right thyroid nodule. If not previously evaluated, nonemergent ultrasound can be performed. ACT 112: Positive. There are findings on this exam that require communication between the performing entity and the patient following Patient Test Result Information Act ([place] Act 112) guidelines. Electronically signed by: Rajesh Alcala M.D. 08/01/2024 9:11 AM Chest X-Ray 08/01/24 07:59 XR chest 1V portable CLINICAL HISTORY: fall COMPARISON STUDY: Chest radiograph March 16, 2024. Chest CT March 17, 2023. FINDINGS: There is no pneumothorax or pleural effusion. No consolidation is identified. Cardiomegaly is unchanged. No evidence for pulmonary edema. Multiple old left-sided rib fractures are again noted. The appearance of the chest is unchanged. IMPRESSION: No acute cardiopulmonary findings. No change in appearance of the chest. ACT 112: Negative or not required by law. Electronically signed by: Minh Leon M.D. 08/01/2024 8:[address] 08/01/24 07:59 CT OF THE HEAD WITHOUT CONTRAST CLINICAL HISTORY: Trauma COMPARISON STUDY: Head CT May 02, 2024. CT DOSE: 2334.25 mGy.cm TECHNIQUE: Helical axial images of the head were obtained without IV contrast. Automated exposure control was utilized for the study. A dose lowering technique was utilized adhering to the principles of ALARA. FINDINGS: No acute intracranial hemorrhage, midline shift or mass effect is present. The ventricular system is stable. Basal cisterns are patent. There are no extra-axial collections. White matter hypodensity suggests small vessel disease. The appearance of the brain is unchanged. A right parietal craniotomy is unchanged in appearance. There are no calvarial fracture. There are postoperative findings within the sinuses. Sinus mucosal thickening is similar to prior exam. IMPRESSION: 1. No acute intracranial findings. No change in appearance of the brain. 2. No calvarial fractures. ACT 112: Negative or not required by law. Electronically signed by: Minh Leon M.D. 08/01/2024 9:[address] 08/01/24 08:03 CT lumbar spine wo con CLINICAL HISTORY: Right lower back pain, fall COMPARISON STUDY: Lumbar spine CT T. Mar 06 2024. Lumbar spine radiographs May 02, 2024. TECHNIQUE: Axial images of the lumbar spine were obtained without IV contrast. Sagittal and coronal reconstructions were viewed. Automated exposure control was utilized for the study. A dose lowering technique was utilized adhering to the principles of ALARA. FINDINGS: For purposes of numbering on this exam, the L5-S1 disc space is assigned to axial image 343 of 403. Mild rightward curvature of the lumbar spine is present. There is an old L2 compression fracture. This is unchanged in appearance. No additional lumbar spine fractures are identified. There are no osseous lesions. Facet joints are intact. There is moderate multilevel facet arthrosis and mild degenerative disc disease within the lumbar spine. Several small right renal calculi are present. Visualized portions of the SI joints are intact. IMPRESSION: 1. No acute lumbar spine fractures. 2. Old L2 compression fracture. 3. Moderate facet arthrosis and mild degenerative disc disease within the lumbar spine. 4. Mild lumbar spine dextroscoliosis. ACT 112: Negative or not required by law. Electronically signed by: Minh Leon M.D. 08/01/2024 9:09 AM Discharge Plan Visit Data Chief Complaint: Trauma Stated Complaint: FALL, KNEE PAIN ED Provider: Roman Valdes Discharge Problem: Fall, Alcohol intoxication Forms Stand Alone Forms: [facility] [employer] Prescriptions Prescriptions: No Action omeprazole 20 mg capsule,delayed release(DR/EC) 20 mg PO DAILY aspirin 81 mg tablet,delayed release (DR/EC) 81 mg PO DAILY Qty: 30 2RF Rx Instructions: Unable to verify OTC meds at this date/time. metoprolol succinate 25 mg tablet extended release 24 hr 12.5 mg PO DAILY Qty: 60 3RF nitroglycerin 0.4 mg tablet, sublingual 0.4 mg SL Q5M PRN (Reason: chest pain) Qty: 100 1RF Rx Instructions: until response; do not exceed 3 doses per episode. Pt's spouse says this might be /out of date. rosuvastatin 10 mg tablet 10 mg PO DAILY Qty: 90 3RF allopurinol 300 mg Tablet 300 mg PO DAILY fluticasone propionate [Flonase Allergy Relief] 50 mcg/actuation Kenefic,Suspension 1 spray INTRANASAL DAILY PRN (Reason: Congestion) fexofenadine 60 mg tablet 60 mg PO BID PRN (Reason: Congestion) Rx Instructions: Unable to verify OTC meds at this date/time. tramadol 50 mg tablet 50 mg PO TID PRN (Reason: Pain) magnesium oxide 250 mg magnesium Tablet 125 mg PO DAILY Rx Instructions: Unable to verify OTC meds at this date/time. multivitamin Tablet 1 tab PO DAILY Rx Instructions: Unable to verify OTC meds at this date/time. levocetirizine [Xyzal] 5 mg Tablet 5 mg PO DAILY PRN (Reason: Allergies/Congestion) Rx Instructions: Unable to verify OTC meds at this date/time. acetaminophen [Tylenol Extra Strength] 500 mg tablet 1,000 mg PO Q8H PRN (Reason: pain) Rx Instructions: Unable to verify OTC meds at this date/time. gabapentin 100 mg capsule 200 mg PO DAILY Referrals Referrals: Adrianne Freeman DO [Primary Care Provider] -
--- NOTE | 2024-08-01 08:26 | XRay Report ---
XR chest 1V portable CLINICAL HISTORY: fall COMPARISON STUDY: Chest radiograph March 16, 2024. Chest CT March 17, 2023. FINDINGS: There is no pneumothorax or pleural effusion. No consolidation is identified. Cardiomegaly is unchanged. No evidence for pulmonary edema. Multiple old left-sided rib fractures are again noted. The appearance of the chest is unchanged. IMPRESSION: No acute cardiopulmonary findings. No change in appearance of the chest. ACT 112: Negative or not required by law. Electronically signed by: Minh Leon M.D. 08/01/2024 8:24 AM
--- NOTE | 2024-08-01 08:34 | XRay Report ---
XR knee LT 1 or 2V routine CLINICAL HISTORY: fall TECHNIQUE: 2 views of the bilateral knees were obtained. Comparison: None available at the time of this dictation. FINDINGS: There is no evidence of an acute fracture. Joint spaces are well-preserved. No joint effusion is seen . Vascular calcifications are noted. IMPRESSION: No evidence of acute osseous injury. ACT 112: Negative or not required by law. Electronically signed by: Rajesh Alcala M.D. 08/01/2024 8:32 AM
--- NOTE | 2024-08-01 08:35 | XRay Report ---
XR hip ALEJANDRA 2v w pelvis CLINICAL HISTORY: fall TECHNIQUE: 2 views of the bilateral hips and single frontal view of the pelvis were obtained. Comparison: None available at the time of this dictation. FINDINGS: There is no evidence of an acute fracture. Joint spaces are well-preserved. Vascular calcifications a re noted. IMPRESSION: No evidence of acute osseous injury. ACT 112: Negative or not required by law. Electronically signed by: Rajesh Alcala M.D. 08/01/2024 8:33 AM
--- NOTE | 2024-08-01 08:44 | XRay Report ---
XR knee RT 1 or 2V routine CLINICAL HISTORY: fall TECHNIQUE: 2 views of the right knee were obtained. Comparison: Comparison is made to line length radiograph 09/25/2021 FINDINGS: There is no evidence of an acute fracture. Joint spaces are well-preserved. No joint effusion is seen . No soft tissue abnormality is seen. IMPRESSION: No evidence of acute osseous injury. ACT 112: Negative or not required by law. Electronically signed by: Rajesh Alcala M.D. 08/01/2024 8:43 AM
[2024-08-01 08:48] LABS: iSTAT Creatinine 0.9 mg/dl (0.6-1.3); iSTAT Ionized Calcium 1.07 mmol/l (1.12-1.32); iSTAT Potassium 2.9 mmol/L (3.3-5.0)
[2024-08-01 08:55] LABS: Albumin Globulin Ratio 1.2 (0.9-2); Albumin Level 3.4 gm/dl (3.4-5.0); BUN Creatinine Ratio 18.5 (10-20); Bilirubin,Total 0.5 mg/dl (0.2-1.0); Calcium 8.3 mg/dl (8.6-10.3); Creatinine Clr Calc Pharmacy 137.1 ml/min; Globulin 2.9 gm/dl (2.5-4.0); Potassium 3.1 mmol/L (3.5-5.1); Total Protein 6.3 gm/dl (6.0-8.3)
[2024-08-01 09:02] LABS: Basophils # (auto) 0.07 K/uL (0.00-0.20); Basophils % (auto) 1.5 %; Eosinophils # (auto) 0.21 K/uL (0.00-0.50); Eosinophils % (auto) 4.4 %; Hematocrit (blood only) 40.4 % (42.0-52.0); Hemoglobin 13.9 g/dl (14.0-18.0); Immature Granulocytes # (auto) 0.05 K/uL (0.01-0.20); Immature Granulocytes % (auto) 1.1 %; Lymphocytes % (auto) 37.9 %; Mean Corpuscular Hemoglobin 35.2 pg (25.0-34.0); Mean Corpuscular Hgb Conc 34.4 g/dL (32.0-36.0); Mean Corpuscular Volume 102.3 fL (80.0-100.0); Mean Platelet Volume 10.5 fL (9.4-12.4); Monocytes # (auto) 0.59 K/uL (0.11-0.59); Monocytes % (auto) 12.4 %; Neutrophils # (auto) 2.03 K/uL (1.40-6.50); Neutrophils % (auto) 42.7 %; Platelet Count 143 K/uL (130-400); RDW Coefficient of Variation 14.4 % (11.5-14.5); RDW Standard Deviation 54.3 fL (36.4-46.3); Red Blood Count 3.95 M/uL (4.70-6.10); White Blood Count 4.75 K/ul (4.8-10.8)
--- NOTE | 2024-08-01 09:05 | CT Scan Report ---
CT OF THE HEAD WITHOUT CONTRAST CLINICAL HISTORY: Trauma COMPARISON STUDY: Head CT May 02, 2024. CT DOSE: 2334.25 mGy.cm TECHNIQUE: Helical axial images of the head were obtained without IV contrast. Automated exposure con trol was utilized for the study. A dose lowering technique was utilized adhering to the principles o f ALARA. FINDINGS: No acute intracranial hemorrhage, midline shift or mass effect is present. The ventricular system is stable. Basal cisterns are patent. There are no extra-axial collections. White matter hypod ensity suggests small vessel disease. The appearance of the brain is unchanged. A right parietal cran iotomy is unchanged in appearance. There are no calvarial fracture. There are postoperative findings within the sinuses. Sinus mucosal thickening is similar to prior exam. IMPRESSION: 1. No acute intracranial findings. No change in appearance of the brain. 2. No calvarial fractures. ACT 112: Negative or not required by law. Electronically signed by: Minh Leon M.D. 08/01/2024 9:03 AM
--- NOTE | 2024-08-01 09:11 | CT Scan Report ---
CT lumbar spine wo con CLINICAL HISTORY: Right lower back pain, fall COMPARISON STUDY: Lumbar spine CT T. Mar 06 2024. Lumbar spine radiographs May 02, 2024. TECHNIQUE: Axial images of the lumbar spine were obtained without IV contrast. Sagittal and coronal r econstructions were viewed. Automated exposure control was utilized for the study. A dose lowering t echnique was utilized adhering to the principles of ALARA. FINDINGS: For purposes of numbering on this exam, the L5-S1 disc space is assigned to axial image 343 of 403. Mild rightward curvature of the lumbar spine is present. There is an old L2 compression frac ture. This is unchanged in appearance. No additional lumbar spine fractures are identified. There are no osseous lesions. Facet joints are intact. There is moderate multilevel facet arthrosis and mild d egenerative disc disease within the lumbar spine. Several small right renal calculi are present. Visu alized portions of the SI joints are intact. IMPRESSION: 1. No acute lumbar spine fractures. 2. Old L2 compression fracture. 3. Moderate facet arthrosis and mild degenerative disc disease within the lumbar spine. 4. Mild lumbar spine dextroscoliosis. ACT 112: Negative or not required by law. Electronically signed by: Minh Leon M.D. 08/01/2024 9:09 AM
--- NOTE | 2024-08-01 09:12 | CT Scan Report ---
CT cervical spine wo con CLINICAL HISTORY: Trauma TECHNIQUE: Multidetector row helical CT of the cervical spine was performed without administration of intravenous contrast. Coronal and sagittal reformations were obtained. Automated dose lowering techn iques and/or adjustment according to patient size were utilized for this exam. Comparison: None available at the time of this dictation. FINDINGS: No acute fractures or subluxations are identified. Degenerative changes are seen in the visualized sp ine. The alignment is normal. There is a right thyroid nodule measuring 42 mm. IMPRESSION: 1. Degenerative changes without evidence of acute bony injury. 2. There is a right thyroid nodule. If not previously evaluated, nonemergent ultrasound can be perfo rmed. ACT 112: Positive. There are findings on this exam that require communication between the performing entity and the patient following Patient Test Result Information Act ([place] Act 112) guidelines. Electronically signed by: Rajesh Alcala M.D. 08/01/2024 9:11 AM
[2024-08-01] MEDS: POTASSIUM CHLORIDE PWD 20 MEQ PACK PO STA (09:31)
[2024-08-01 10:14] LABS: Appearance Urine Clear (Clear); Bilirubin Urine Negative (Negative); Blood Urine Negative (Negative); Color Urine Yellow; Glucose Urine UA Negative (Negative); Ketones Urine Negative (Negative); Leukocyte Esterase Urine Negative (Negative); Nitrite Urine Negative (Negative); Protein Urine Negative (Negative); Specific Gravity Urine 1.017 (1.000-1.030); Urobilinogen Urine Negative (Negative); pH Urine 5.5 (4.5-7.5)
--- NOTE | 2024-08-01 10:46 | Electrocardiogram Report ---
Test Reason : Blood Pressure : */* mmHG Vent. Rate : 71 BPM Atrial Rate : 71 BPM P-R Int : 194 ms QRS Dur : 136 ms QT Int : 432 ms P-R-T Axes : 93 -68 41 degrees QTcB Int : 469 ms Normal sinus rhythm Left anterior fascicular block Right bundle branch block Abnormal ECG When compared with ECG of 06-Mar-2024 14:01, Premature ventricular complexes are no longer Present Confirmed by Charan Esquivel ([id number]) on 08/01/2024 10:45:46 AM Referred By: REFERRED SELF Confirmed By: Charan Esquivel
--- NOTE | 2024-08-01 12:14 | History & Physical Report ---
Date of Service August 01, 2024 Assessment & Plan (1) Alcohol intoxication: Plan: Acute - Admit to med/tele - GF diet ordered - Vital signs per unit protocol - Start on AWSS at-risk protocol with PO Ativan - Counseled on importance of not masking pain with alcohol - Wound benefit from referral to outpatient alcohol counseling services (2) Ambulatory dysfunction: Plan: Acute - Consult PT/OT to eval treat - May need short stay in skilled rehab upon d/c (3) Bilateral knee pain: Plan: Chronic - Radiology studies reviewed, no acute fractures seen - Continue Tramadol 50mg q8h for moderate pain, added 100mg q8 prn severe pain - Continue Gabapentin 200mg qHS (4) Acute hypokalemia: Plan: Acute - Given a dose of KCl 40meq po x1 in ED - Second dose ordered at 1500 of KCl 40meq x1 - Repeat BMP in AM (5) Hypertension: Plan: Chronic and uncontrolled - Currently BP 192/133 in the ER, did not take his morning medications - Given a dose of Metoprolol Succinate 25mg po x1 now - Follow BP - Resume routine dose of Toprol XL 12.5mg in AM, adjust accordingly Plan Noted thyroid nodule on imaging, will need outpatient US which can be arranged by his PCP on discharge follow up. AM labs ordered. Lovenox ordered for VTE prophylaxis. Above plan of care discussed with Dr. Moses who will also see and evaluate this patient, further orders as warranted by attending. History of Present Illness Chief Complaint: Weakness, knee pain Primary Care Provider: Adrianne Freeman DO Marcus is a 74 yo M with a pmhx of CAD, HTN, peripheral neuropathy following compression fracture, HLD and chronic alcohol use who presents today c/o falls, leg weakness, and bilateral knee pain. He is currently accompanied by his who reports that he fell last evening but was able to get back up. This morning, he fell again and was not able to get back up and subsequently EMS was called and he was transferred here for eval. He reports that his pain was significant in his knees this morning and he decided to self medicate by consuming a large amount of vodka and allyssa-edmar. He does consume hard liquor on a daily basis, and believes that he may consume a fifth once a week. He has 1-2 drinks every evening, but does not quantify how much alcohol is in each serving. He is currently managed with Tramadol for pain as well as gabapentin 200mg q HS for his neuropathy, and has recently in the last 4 days began taking 100mg every morning as well. He currently rates his leg/knee pain a 10. He is hypertensive with a BP of 192/133 and notes that he did not take his medications this morning. His labs revealed hypokalemia with a K+ of 3.1 and his Na level is up at 147. His serum ethyl alcohol level is 248. He was medicated in the ER with a dose of potassium chloride. ER attempted to get him up out of bed to ambulate, but he was not able to and subsequently he has been referred to the hospital medicine team for admission. Allergies Allergy/AdvReac Type Severity Reaction Status Date / Time lisinopril Allergy Severe Swollen Verified 08/01/24 12:11 Tongue and Throat Tightness soy Allergy Severe THROAT Verified 08/01/24 12:11 TIGHTENED W/SOY SAUCE Sulfa (Sulfonamide Allergy Intermediate HIVES AND Verified 08/01/24 12:11 Antibiotics) ITHCING zolpidem [From Ambien] AdvReac Severe " Verified 08/01/24 12:11 Hallucinates and sleepwalks" baclofen AdvReac Intermediate Tired and Verified 08/01/24 12:11 sluggish gabapentin AdvReac Intermediate " [facility] Verified 08/01/24 12:11 like " out of body" gluten AdvReac Intermediate ABD PAIN Verified 08/01/24 12:11 milk AdvReac Intermediate STOMACH Verified 08/01/24 12:11 PAIN Aplcpkb-CHQ-NjI Reductase AdvReac Intermediate MUSCLE Verified 08/01/24 12:11 Inhibitor WEAKNESS [Rrbjxqi-Yln-Aio Reductase Inhibitor] Home Medications Medication Instructions Recorded Confirmed Type allopurinol 300 mg tablet 300 mg PO DAILY 07/07/18 08/01/24 History fluticasone propionate 50 1 spray intranasal DAILY PRN 09/03/18 08/01/24 History mcg/actuation nasal Congestion spray,suspension (Flonase Allergy Relief) omeprazole 20 mg capsule,delayed 20 mg PO DAILY 05/12/20 08/01/24 History release fexofenadine 60 mg tablet 60 mg PO BID PRN Congestion 03/17/23 08/01/24 History tramadol 50 mg tablet 50 mg PO TID PRN Pain 03/17/23 08/01/24 History aspirin 81 mg tablet,delayed 81 mg PO DAILY #30 tabs 07/12/23 08/01/24 Rx release acetaminophen 500 mg tablet 1,000 mg PO Q8H PRN pain 12/22/23 08/01/24 History (Tylenol Extra Strength) levocetirizine 5 mg tablet (Xyzal) 5 mg PO DAILY PRN 12/22/23 08/01/24 History Allergies/Congestion multivitamin 1 tab PO DAILY 12/22/23 08/01/24 History magnesium oxide 125 mg PO DAILY 01/05/24 08/01/24 History metoprolol succinate 25 mg 12.5 mg (1/2 x 25 mg) PO DAILY #60 01/17/24 08/01/24 Rx tablet,extended release 24 hr tabs nitroglycerin 0.4 mg sublingual 0.4 mg sublingual Q5M PRN chest 01/17/24 08/01/24 Rx tablet pain #100 tabs rosuvastatin 10 mg tablet 10 mg PO DAILY #90 tabs 01/17/24 08/01/24 Rx gabapentin 100 mg capsule 200 mg PO DAILY 08/01/24 08/01/24 History Past Med/Surg History Problem List (Updated 08/01/24 @ 12:23 by Bonnie Hodgson PA-C) Bilateral knee pain Ambulatory dysfunction Alcohol intoxication (Acute) Hematuria Mass of perirectal soft tissue Back pain (Acute) Abscess, perirectal (Acute) Weakness (Acute) Fall (Acute) Stented coronary artery Gram-negative bacteremia Emily-rectal abscess Generalized weakness (Acute) Rhabdomyolysis (Acute) Acute hypokalemia (Acute) Hypomagnesemia (Acute) Non-ST elevation NV (NSTEMI) (Acute) Excessive vitamin B6 intake Arthralgia Hypersomnolence Hypertension Fatigue Vitamin B12 deficiency Vitamin D deficiency Post concussion syndrome Sensory ataxia Hypertrophy of both inferior nasal turbinates Nasal septal deviation Chronic pansinusitis Idiopathic peripheral neuropathy Allergic rhinitis (Acute) Angina pectoris (Acute) Depression (Acute) Hypercholesterolemia (Acute) Lateral plantar neuropathy (Acute) Lightheadedness (Acute) Nasal congestion with rhinorrhea (Acute) Post-nasal drip (Acute) Presence of stent in artery (Acute) Stented coronary artery (Acute 10/09/12) Hyperlipidemia CAD (coronary artery disease) Myofascial pain Sacroiliitis Precordial chest pain (Acute) Hypertensive emergency (Acute) Headache above the eye region Compression fracture (Chronic) L2 Frequent falls (Chronic) Gait instability (Chronic) Thoracic facet syndrome (Chronic) Spinal stenosis (Chronic) Lumbar facet joint syndrome (Chronic) Lumbago (Chronic) Encounter for pre-operative examination Hypertension (Chronic) Bronchitis (Chronic) Stomach problems (Chronic) Kidney stones (Chronic) Esophageal reflux (Acute) Hiatal hernia (Acute) Hypotension (Acute) Left arm pain (Acute) Medical History Encounter for recheck of abscess following incision and drainage Arteriosclerotic coronary artery disease Benign essential hypertension (10/09/12) Excessive sweating Numbness Post concussion syndrome Osteoarthritis GERD (gastroesophageal reflux disease) Myocardial Infarction 7-10 YEARS AGO Surgical History Polyp, nasal History of tonsillectomy History of heart artery stent 7-10 YEARS AGO INSERTED>RINGOLD History of cardiac cath Family History Mother Family history of diabetes mellitus Heart disease Father Heart disease Sister Asthma Other No family history of adverse response to anesthesia No family history of bleeding disorder Social History Smoking Status: Former smoker Tobacco Type: Cigarettes Cigarettes Per Day: quit smoking 18 years ago; Second Hand Exposure: No; Do You Dip or Chew Tobacco: No; Hx Alcohol Use: Yes Alcohol type: hard liquor Alcohol Intake Frequency: 4 or More x per/Week Alcohol Intake Frequency Comment: 1-2 glasses per day Hx Substance Use: No Preferred Language: Bol[place]ian Communication Ability: Effective Visual Impairment: Limited Hearing Ability: Normal Ambulance Operations Supervisor Required: No Beliefs That Will Affect Care: None marital status: Current Living Situation: Spouse Current Living Situation Comment: spring current occupational status: retired Feels Safe at Home: Yes Safety Concerns: Feels Safe At This Time Diet: gluten free and lactose free Diet Comment: Soy free Do you think of yourself as: straight/heterosexual Gender Identity: Male Assistive Devices: None Review of Systems 2 Review of Systems: All systems reviewed and are unremarkable except as noted in HPI and below. Denies fever, chills, fatigue, headache, nasal congestion, sore throat, cough, chest pain, shortness of breath, palpitations, orthopnea, PND, abdominal pain, n/v/d, constipation, dysuria, hematuria, frequency, back pain, or swelling, easy bruising or bleeding, skin lesions or rashes. Physical Exam 2 Physical Exam: GENERAL: 74 yo Well-developed, well-nourished elderly M. NAD. EYES: EOMI. PERRLA. Anicteric. HENT: Moist mucous membranes. No cervical lymphadenopathy. LUNGS: Clear to auscultation bilaterally. No accessory muscle use. No W/R/R. CARDIOVASCULAR: Regular rate and rhythm. ABDOMEN: Soft, non-tender and non-distended. Bowel sounds normoactive x 4 quad. EXTREMITIES: No edema. Non-tender. Peripheral pulses +2/4. NEUROLOGIC: A&O x3. No focal neurological deficits. CN II-XII grossly intact. PSYCHIATRIC: Cooperative. Appropriate mood and affect. SKIN: Warm, dry, intact. No rashes or lesions. Results & Data Results & Data Vital Signs (Past 12 Hours) Vital Signs Temp Pulse Pulse Resp BP BP Pulse Ox 08/01/24 11:00 75 17 192/133 H 96 08/01/24 09:08 95 08/01/24 09:00 72 17 137/102 H 95 08/01/24 08:28 69 08/01/24 08:28 71 16 97 08/01/24 07:59 36.4 C L 77 14 137/90 08/01/24 07:59 08/01/24 07:59 36.4 C L 77 14 137/90 95 O2 Del Method 08/01/24 11:00 Room Air 08/01/24 09:08 Room Air 08/01/24 09:00 Room Air 08/01/24 08:28 08/01/24 08:28 Room Air 08/01/24 07:59 Room Air 08/01/24 07:59 Room Air 08/01/24 07:59 Room Air Laboratory Results 08/01/24 08:23 08/01/24 08:23 Diagnostic Findings Hip/Pelvis X-Ray 08/01/24 07:58 XR hip ALEJANDRA 2v w pelvis CLINICAL HISTORY: fall TECHNIQUE: 2 views of the bilateral hips and single frontal view of the pelvis were obtained. Comparison: None available at the time of this dictation. FINDINGS: There is no evidence of an acute fracture. Joint spaces are well-preserved. Vascular calcifications are noted. IMPRESSION: No evidence of acute osseous injury. ACT 112: Negative or not required by law. Electronically signed by: Rajesh Alcala M.D. 08/01/2024 8:33 AM Knee X-Ray 08/01/24 07:58 XR knee LT 1 or 2V routine CLINICAL HISTORY: fall TECHNIQUE: 2 views of the bilateral knees were obtained. Comparison: None available at the time of this dictation. FINDINGS: There is no evidence of an acute fracture. Joint spaces are well-preserved. No joint effusion is seen. Vascular calcifications are noted. IMPRESSION: No evidence of acute osseous injury. ACT 112: Negative or not required by law. Electronically signed by: Rajesh Alcala M.D. 08/01/2024 8:32 AM Knee X-Ray 08/01/24 07:58 XR knee RT 1 or 2V routine CLINICAL HISTORY: fall TECHNIQUE: 2 views of the right knee were obtained. Comparison: Comparison is made to line length radiograph 09/25/2021 FINDINGS: There is no evidence of an acute fracture. Joint spaces are well-preserved. No joint effusion is seen. No soft tissue abnormality is seen. IMPRESSION: No evidence of acute osseous injury. ACT 112: Negative or not required by law. Electronically signed by: Rajesh Alcala M.D. 08/01/2024 8:[address] 08/01/24 07:59 CT cervical spine wo con CLINICAL HISTORY: Trauma TECHNIQUE: Multidetector row helical CT of the cervical spine was performed without administration of intravenous contrast. Coronal and sagittal reformations were obtained. Automated dose lowering techniques and/or adjustment according to patient size were utilized for this exam. Comparison: None available at the time of this dictation. FINDINGS: No acute fractures or subluxations are identified. Degenerative changes are seen in the visualized spine. The alignment is normal. There is a right thyroid nodule measuring 42 mm. IMPRESSION: 1. Degenerative changes without evidence of acute bony injury. 2. There is a right thyroid nodule. If not previously evaluated, nonemergent ultrasound can be performed. ACT 112: Positive. There are findings on this exam that require communication between the performing entity and the patient following Patient Test Result Information Act ([place] Act 112) guidelines. Electronically signed by: Rajesh Alcala M.D. 08/01/2024 9:11 AM Chest X-Ray 08/01/24 07:59 XR chest 1V portable CLINICAL HISTORY: fall COMPARISON STUDY: Chest radiograph March 16, 2024. Chest CT March 17, 2023. FINDINGS: There is no pneumothorax or pleural effusion. No consolidation is identified. Cardiomegaly is unchanged. No evidence for pulmonary edema. Multiple old left-sided rib fractures are again noted. The appearance of the chest is unchanged. IMPRESSION: No acute cardiopulmonary findings. No change in appearance of the chest. ACT 112: Negative or not required by law. Electronically signed by: Minh Leon M.D. 08/01/2024 8:[address] 08/01/24 07:59 CT OF THE HEAD WITHOUT CONTRAST CLINICAL HISTORY: Trauma COMPARISON STUDY: Head CT May 02, 2024. CT DOSE: 2334.25 mGy.cm TECHNIQUE: Helical axial images of the head were obtained without IV contrast. Automated exposure control was utilized for the study. A dose lowering technique was utilized adhering to the principles of ALARA. FINDINGS: No acute intracranial hemorrhage, midline shift or mass effect is present. The ventricular system is stable. Basal cisterns are patent. There are no extra-axial collections. White matter hypodensity suggests small vessel disease. The appearance of the brain is unchanged. A right parietal craniotomy is unchanged in appearance. There are no calvarial fracture. There are postoperative findings within the sinuses. Sinus mucosal thickening is similar to prior exam. IMPRESSION: 1. No acute intracranial findings. No change in appearance of the brain. 2. No calvarial fractures. ACT 112: Negative or not required by law. Electronically signed by: Minh Leon M.D. 08/01/2024 9:[address] 08/01/24 08:03 CT lumbar spine wo con CLINICAL HISTORY: Right lower back pain, fall COMPARISON STUDY: Lumbar spine CT T. Mar 06 2024. Lumbar spine radiographs May 02, 2024. TECHNIQUE: Axial images of the lumbar spine were obtained without IV contrast. Sagittal and coronal reconstructions were viewed. Automated exposure control was utilized for the study. A dose lowering technique was utilized adhering to the principles of ALARA. FINDINGS: For purposes of numbering on this exam, the L5-S1 disc space is assigned to axial image 343 of 403. Mild rightward curvature of the lumbar spine is present. There is an old L2 compression fracture. This is unchanged in appearance. No additional lumbar spine fractures are identified. There are no osseous lesions. Facet joints are intact. There is moderate multilevel facet arthrosis and mild degenerative disc disease within the lumbar spine. Several small right renal calculi are present. Visualized portions of the SI joints are intact. IMPRESSION: 1. No acute lumbar spine fractures. 2. Old L2 compression fracture. 3. Moderate facet arthrosis and mild degenerative disc disease within the lumbar spine. 4. Mild lumbar spine dextroscoliosis. ACT 112: Negative or not required by law. Electronically signed by: Minh Leon M.D. 08/01/2024 9:09 AM Code Status & VTE Plan Code Status DNR/DNI confirmed with patient VTE Prophylaxis Plan VTE Prophylaxis will be ordered: Yes Supervising Physician Co-Signing Physician Notes Patient was seen and examined independently I discussed the case with Bonnie Hodgson PAC I reviewed pertinent past medical social family history and also the plan of care and agree with the plan of care. Patient was seen in the emergency department independently with in the presence of the patient's . Reportedly the patient had escalation of bilateral knee discomfort over some time. He typically has seen physicians in the past but has not had any intervention for it. The patient fell at home. He typically has 1- 2 drinks of alcohol a night but this particular morning he has for a large glass of vodka with orange juice. They presented to the ED after on being unable to get up from the floor by his own power and calling 911 he had a blood alcohol level of 248 hypokalemia and slight elevation of sodium. Patient is with some knee discomfort. specifically the medial joint line bilaterally there is no large joint effusion maybe a small joint effusion there is no varus or valgus deformities there is no instability of the joint Patient be admitted to the facility for correction of his electrolyte abnormalities, trying to achieve sobriety with concern for alcohol withdrawal. Eventual PT OT evaluation. Will attempt to improve his pain by providing scheduled Tylenol, Voltaren gel continuing his gabapentin and having as needed parenteral opiates Any exceptions will be noted below PG Care Time/CCT Total # of Minutes Spent Total Time Spent with Patient: Total time spent is greater than 50% in coordination of care (as documented) at patient's floor/unit and/or counseling patient: 77 minutes Coding Level of Care Code 55332 INT INP/OBS CARE 75MIN Diagnoses Alcohol intoxication F10.929 Ambulatory dysfunction R26.2 Bilateral knee pain M25.561; M25.562 Acute hypokalemia E87.6 Hypertension I10
[2024-08-01] MEDS: METOPROLOL SUCC 25MG EXT REL TAB PO STA (12:32)
--- OUTSIDE RECORDS SUMMARY | 2024-08-01 12:52 | External Medical Summary | Continuity of Care Document ---
Author Name Unknown Organization [facility] [address] [place] [id number] Care Team Providers Care Field Traffic Investigator Name Role Phone Adrianne Freeman Primary Care Physicia n [phone] [id number] Date(s): 05/10/24 - 05/10/24 [facility] [address] [address] [place] [phone] Encounter Diagnosis Body mass index [BMI] 32.0-32.9, adult(Discharge Diagnosis) - 05/10/24 Recurrent falls(Discharge Diagnosis) - 05/10/24 Chronic pain(Discharge Diagnosis) - 05/10/24 Perirectal abscess(Discharge Diagnosis) - 05/10/24 Discharge Disposition: Home or Self Care Attending Physician: DO Freeman Gretchen Elizabeth Allergies, Adverse Reactions, Alerts Substance Criticality Severity Reaction Reaction Severity Status lisinopril swollen tongue Acti ve soy explosive diarrhea A ctive milk products unknown Active simvastatin muscle pain Active baclofen felt tired, sluggish, Active gabapentin felt outside his body Active Ambien sleepwalks, hallucinates Active alendronate GI upset, nausea A ctive atorvastatin general "ill feeling" Active sulfa drugs hives Active Ragweed runny eyes and nose Active Glutens unknown Active Assessment and Plan Extracted from: Title:FCM: Chronic pain and falls, ER f/u Author :DO Lucas Amanda Date:05/10/24 1.Recurrent falls Chronic condition not at goal/exacerbated/progressive/side effects of treatment Goal: _ Data:_ Plan: Discussed with pt and his significant other that I am concerned about his frequent falls. His mobility is limited by pain and neuropathy, leading to his frequent falls. They do not want to reattempt PT at this time since it has not provided much benefit before as his pain is neuropathic in nature. They note desire to increase Tramadol as pain relief provides him with more mobility. I agree he should get pain relief and we can increase dosing Tramadol slightly from BID to TID, but also highly recommend retrial of gabapentin as a slow increase starting with 100 mg nightly for 2 weeks then 200 mg nightly for 2 weeks until next appt.In the long-term, I think gabapentin would help his specific pain more and be safer than increasing tramadol further. I also strongly advised he use a walker due to his instability and hxof frequentfalls. He does have one and uses it occasionally. Plan is Tramadol increase from 50 mg BID -> TID and slow uptitration of gabapentin. If tolerating gabapentin at next visit will continue to titrate up. If not tolerating, consider other medications like lyricaor duloxetine. 2.Chronic pain See above plan. 3.Perirectal abscess Chronic condition, at goal Goal: _Resolution Data:_Reviewed notefromGi on03/21 [facility], reviewedCT abd03/06and 04/18 Plan: Resolved at this time, no further management. F/u 1 mo for chronic pain and recurrent falls. Immunizations Given and Recorded Vaccine Date Status [...] bivalent 3 07/01/22 R ecorded SARS-CoV-2 mRNA ([id number]) 4 01/20/22 Recorded SARS-CoV-2 (COVID-19) mRNA BNT-162b2 [...] 03/30/96 Re corded 1Result Comment: Given at [facility]. 2Result Comment: [07/20/2013] Received at [facility] 3Result Comment: 2022-08-31: Historical information-source unspecified 4Result Comment: 2022-08-31: Historical information-source unspecified 5Result Comment: 2021-09-21: Historical information-source unspecified 6Result Comment: 2020-02-07: Historical information-source unspecified Medications allopurinol 300 mg oral tablet Start: 11/01/23 2:25:00 PM EST, See Instructions, Disp# 90 tab, Refills: 3, take 1 tablet by mouth once daily, Pharmacy: [facility] Start Date: 11/01/23 Status: Ordered aspirin 81 mg oral capsule Start: 03/22/23 12:01:00 PM EDT, 1 cap, PO, Daily, Disp# 30 cap, Pharmacy: [facility] Start Date: 03/22/23 Status: Ordered ciprofloxacin Start: 03/16/24 3:46:00 PM EDT Start Date: 03/16/24 Status: Ordered Flagyl Start: 03/16/24 3:46:00 PM EDT Start Date: 03/16/24 Status: Ordered fluticasone 50 mcg/inh nasal spray Start: 04/16/24 10:53:00 AM EDT, 1 spray, intranasal, Daily, Disp# 16 mL, Refills: 3, Pharmacy: [id number] Start Date: 04/16/24 Status: Ordered gabapentin 100 mg oral capsule Start: 05/10/24 5:40:00 PM EDT, 1 cap, PO, Daily, Disp# 60 cap, Refills: 1, Please take 1 capsule nightly for 2 weeks, then increase to 2 capsules nightly, [id number] Start Date: 05/10/24 Status: Ordered Magnesium 64mg Start: 05/27/23 10:30:00 AM EDT, Magnesium 64mg, 1 tab po BID Start Date: 05/27/23 Status: Ordered metoprolol extended release Start: 12/29/23 1:54:00 PM EDT Start Date: 12/29/23 Status: Ordered omeprazole 20 mg oral delayed release capsule Start: 05/10/24 6:44:00 PM EDT, 1 cap, PO, Daily, Disp# 90 cap, Refills: 1, [id number] Start Date: 05/10/24 Status: Ordered rosuvastatin 10 mg oral tablet Start: 03/07/23 2:35:00 PM EDT, 1 tab, PO, Daily Start Date: 03/07/23 Status: Ordered thiamine 100 mg oral tablet Start: 03/22/23 11:59:00 AM EDT, 2 tab, PO, Daily, Disp# 30 tab, Pharmacy: [facility] Start Date: 03/22/23 Status: Ordered traMADol 50 mg oral tablet Start: 04/05/24 2:45:00 PM EDT, 1 tab, PO, bid, Disp# 60 tab, Refills: 0, PRN: as needed for pain, [id number] Start Date: 04/05/24 Stop Date: 04/16/24 Status: Ordered traMADol 50 mg oral tablet Start: 05/10/24 5:43:00 PM EDT, 1 tab, PO, tid, Disp# 90 tab, Refills: 0, PRN: as needed for pain, Pharmacy: [id number] Start Date: 05/10/24 Status: Ordered Tylenol 500 mg oral tablet Start: 03/22/23 11:59:00 AM EDT, 2 tab, PO, q6h, PRN: as needed for pain Start Date: 03/22/23 Status: Ordered Vitamin B12 Start: 05/27/23 10:31:00 AM EDT, 2000mcg po daily Start Date: 05/27/23 Status: Ordered Xyzal 5 mg oral tablet Start: 08/26/23 3:54:00 PM EST Start Date: 08/26/23 Status: Ordered Mental Status 05/10/24 Barriers to Learning one year None evide nt Mandatory Health Literacy Documentation Yes Health Literacy Communication Barriers N ever Primary Language Libyan Problem List Condition Confirmation Course Effective Dates Status H ealth Status Informant Alcohol dependence, uncomplicated Confirmed Active High risk for hip fracture Confirmed Active Atherosclerosis of aorta 1 Confirmed Active CORONARY ATHEROSCLEROSIS OF YOCHA DEHE CORONARY ARTERY Confirmed Active Diverticulosis of colon [...] Testosterone deficiency Confirmed Active Scoliosis Confirmed Active [place]thing[place]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 Knee pain, [...] Effective Dates Health Status Clinical Service Informant Body mass index [BMI] 32.0-32.9, adult Discharge Diagnosis 05/10/24 Non-Specified Recurrent falls Discharge Diagnosis 05/10/24 Non-Specified Perirectal abscess Discharge Diagnosis 05/10/24 Non-Specified Chronic pain Discharge Diagnosis 05/10/24 Non-Specified Procedures Procedure Date Related Diagnosis Body Site [...] Completed Procedure on hand 57 Comp leted [facility] ED IMPRESSION: Cardiomegaly and emphysema with no acute cardiopulmonary abnormality identified. [facility] ED IMPRESSION: 1. A mildly displaced [...] previously evaluated, nonemergent thyroid ultrasound canbe performed. [facility]: 1. Acute right posterior 10th rib fracture. 2. No additional acute fracture is clearly identified. There are numerous subacute-appearing left-sided rib fractures. 3. There is no airspace consolidation typical for pneumonia, pleural effusion, or pneumothorax. 4. Cardiomegaly. 5. Thyroid goiter. 6. Mildly enlarged mediastinal lymph nodes are nonspecific and may be reactive. 7. Hiatal hernia. 8. Additional findings as above. [facility] ED Impression: 1. Interval development of a [...] Most recent to oldest [Reference Range]: 1 Height 175.5 cm (05/10/24 3:46 PM) Patient Weight 98.7 kg (05/10/24 3:46 PM) Body Mass Index 32.05 kg/m2 (05/10/24 3:46 PM) Heart Rate 72 bpm (05/10/24 3:46 PM) Respiratory Rate 17 br/min (05/10/24 3:46 PM) Blood Pressure 136/72mmHg (05/10/24 3:46 PM) Social History Social History Type Response Tobacco Former smoker, Cigar ettes, .1 per day. 46 year(s). Total pack years: 5. Started age 12 Years. Stopped age 58 Years. Smoking Status Never smoked cigaret moo Sex Male Sex Representation Male (finding) Implantable Device List Procedure Provider Procedure Date Device Type Site Unknown Unknown 03/29/23 Unknown Unknown Device Identifier Serial Number Lot or Batch Number Manufacturing Date Expiration Date Distinct Identification Code MRI Safety Implantable Status Assigning Authority Unknown Unknown [id number] Unknown 11/16/24 Unknown Unknown Active Unk nown Unknown Unknown n/a Unknown Unknown Unknown Unknown Active Unkn own Unknown Unknown n/a Unknown Unknown Unknown Unknown Active Unkn own FCM Outpt Note * DO Palafox Franklin J: MODIFY DO Palafox Franklin J: MODIFY Event Display: FCM Outpt Note Authored Date: [id number] Chief Complaint prilesec refill disscuss higher dose of tramadol, stopped gabapentin discuss that and follow up from ER visit, 3 falls recent one tue. hosp. wont fill narc. discuss doses/marina/diff meds not sleeping from back pain. balance resulting in falls. History of Present Illness Pt is a 74 yo male who presents for #Back pain #Recurrent falls - fall on May 02 in a parking lot leading to head injury and went to ER for eval, also on April 22 fall in the kitchen at home - was given 100 mg tramadol dose in the ER and felt great but states they would not give him a script for anything - has been out of tramadol, so notramadol the last 3 days - pain has been awful, restless leg syndrome has been bad - 3 totalnew falls since last visit in March 16 - states that he falls due to vertigo triggered by pain - PT done in the past but unhelpful since he is too painful to do PT/PT does not help with his neuropathy symptoms - was using 50 mg BID tramadol when he has tramadol - previously tried 100 mg gabapentin but did not do anything, then tried 300 mg and that dose knocked him out and he was found on the floor #Perirectal mass - was on antibiotics and now cleared up - saw GI March 21 and they had him redo a CT which showed resolution of the abscess so no further workup needed, they did note in their note colonoscopy could be done but pt deferred Review of Systems Per HPI. Physical Exam Vitals & Measurements HR:72(Monitored) RR:17 BP:136/72 SpO2:98% HT:175.5cm WT:98.700kg(Dosing) WT:98.7kg BMI:32.05 PHQ2 Data(Data Documented on:05/10/2024 15:42) Emotional health assessment NEGATIVE General:Alert and oriented, no acute distress, but uncomfortable appearing towards end of the visit today HEENT: Normocephalic, moist oral mucosa, Cardiovascular:Regular rate and rhythm, Respiratory: No increased resp effort, no resp distress Integumentary:Warm, pink, dry, Assessment/Plan 1.Recurrent falls Chronic condition not at goal/exacerbated/progressive/side effects of treatment Goal: _ Data:_ Plan: Discussed with pt and his significant other that I am concerned about his frequent falls. Hismobility is limited by pain and neuropathy, leading to his frequent falls. They do not want to reattempt PT at this time since it has not provided much benefit before as his pain is neuropathic in nature. They note desire to increase Tramadol as pain relief provides him with more mobility. I agree he should get pain relief and we can increase dosing Tramadol slightly from BID to TID, but also highly recommend retrial of gabapentin as a slow increase starting with 100 mg nightly for 2 weeks [id number] mg nightly for 2 weeks until next appt.In the long-term, I think gabapentin would help his specific pain more and be safer than increasing tramadol further. I also strongly advised he use a walker due to his instability and hxof frequentfalls. He does have one and uses it occasionally. Plan is Tramadol increase from 50 mg BID -> TID and slow uptitration of gabapentin. If tolerating gabapentin at next visit will continue to titrate up. If not tolerating, consider other medications like lyricaor duloxetine. 2.Chronic pain See above plan. 3.Perirectal abscess Chronic condition, at goal Goal: _Resolution Data:_[facility] 04/18 Plan: Resolved at this time, no further management. F/u 1 mo for chronic pain and recurrent falls. Attestation I also saw the patient andconfirmed mahmood portions of the clinical history and physical examination. I agree with the impression and plan as noted in resident documentation above. Agree with increase of tramadol 50 mg 3 times daily as needed.Discussed the potential side effects oftramadol, includingfalls. Discussed thedifficulties with using such medications for chronic pain,includingtolerance which she may buildresulting anddecreased efficacy and need forhigher dosing. Also strongly encouraged the patient toretrialgabapentin. Carefullyset expectationsthat he should not see any immediate pain relief from the 100 mg dose; will likely [id number] mgthree times dailyto have effect, but offset the side effects, will need to titrate very slowly. Problem List/Past Medical History Ongoing Alcohol dependence, uncomplicated Arterial calcification Atherosclerosis of aorta Bilateral leg numbness Chronic foot pain Chronic myofascial pain CORONARY ATHEROSCLEROSIS OF [place] DEHE CORONARY ARTERY Diverticulosis of colon Dupuytren contracture Eosinophilia Esophageal dysmotility Esophagitis Fatigue Gluten intolerance Hiatal hernia High risk for hip fracture History of adenomatous polyp of colon History of smoking Hyperlipidemia HYPERTENSION. Worthing[place] light chain disease Knee pain, left Leg weakness, bilateral Nasal polyp Neuropathy of both feet Osteoarthrosis of knee Osteopenia Post-nasal drip Restless leg syndrome Scoliosis Subdural hemorrhage Testosterone deficiency Unspecified mononeuropathy of bilateral lower limbs Uric acid kidney stone Vitamin B12 deficiency Resolved Alcohol use Compression fracture of L2 Concussion DIVERTICULITIS OF COLON WITHOUT MENTION OF HEMORRHAGE Hand fracture Polycythemia Seizure Procedure/Surgical History CT of chest| Service Date: 03/17/2023T of abdomen and pelvis| Service Date: 03/17/2023T of head| Service Date: 03/17/2023T of cervical spine| Service Date: 03/17/2023hest X-ray| Service Date: 03/17/2023T of head| Service Date: 03/07/2023T of lumbar spine| Service Date: 11/27/2022hest x-ray| Service Date: 11/27/2022T of abdomen and pelvis with contrast| Service Date: 11/27/2022X-ray of rib| Service Date: 11/23/2022X-ray of thoracic spine| Service Date: 11/23/2022MRI of lumbar spine without contrast| Service Date: 10/03/2022Upper GI (gastrointestinal) endoscopy| Service Date: 06/22/2022Knee X-ray| Service Date: 09/21/2021Upper GI endoscopy|Service Date: 03/30/2021olonoscopy| Service Date: 03/30/2021MG - Electromyography| Service Date: 10/20/2020MRI of forefoot| Service Date: 10/20/2020IAGNOSTIC COLONOSCOPY| Service Date:05/26/2020Upper GI endoscopy| Service Date: 12/26/2019EKG| Service Date: 10/22/2019Plain x- ray - hip LT 2vw w pelvis| Service Date: 07/12/2019X-ray of thoracic spine| Service Date: 03/23/2019MRI of the brain without and with IV contrast| Service Date: 10/06/2018CT of head| ServiceDate: 09/03/2018CT of facial bones| Service Date: 09/03/2018X-ray of thoracic spine| Service Date: 07/26/2018Tibia and fibula X-ray| Service Date: 07/26/2018Upper GI endoscopy| Service Date: 07/14/2018DXA BONE DENSITY STUDY| Service Date: 07/06/2018X-ray of rib| Service Date: 04/19/2018 Lumbothoracic spine X-ray| Service Date: 04/19/2018 EMG & NCV| Service Date: 01/31/2018Surgery nasal polypectomy| Service Date: 08/26/2017CT of sinuses| Service Date: 06/28/2017Chest x-ray| Service Date: 04/29/2017Upper GI endoscopy| Service Date: 04/11/2017Barium swallo w| Service Date: 12/09/2016Ultrasound scan of abdominal aorta| Service Date: 06/29/2016Videofluoroscopy swallow| Service Date: 04/29/2016Procedure--video swallow| Service Date: 04/29/2016Upper GI endoscopy| Service Date: 01/21/2016Chest x-ray| Service Date: 07/19/2015CXR - Chest X-ray| Service Date: 04/11/2015Barium swallow normal| Service Date: 08/17/2012Upper GI endoscopy| Service Date: 08/04/2012percutaneous coronary stent| Service Date: 03/28/2012kidney stone removal; lithotrypsy| Service Date: 11/26/2009Colonoscopy normal| Service Date: 05/16/2009Cholecystectomy| Service Date: 2008Percutaneous angioplasty of coronary artery| Service Date: 10/20/2006Colonoscopy| Service Date: 03/24/2005Tonsillectomy| Service Date: 1953Upper GI endoscopy| Service Date: 1949Procedure on handChest x-ray Medications acetaminophen(Tylenol 500 mg oral tablet), 1000 mg= 2 tab, PO, q6h, PRN allopurinol(allopurinol 300 mg oral tablet), See Instructions, 3 refills aspirin(aspirin 81 mg oral capsule), 81 mg= 1 cap, PO, Daily ciprofloxacin cyanocobalamin(Vitamin B12) fluticasone nasal(fluticasone 50 mcg/inh nasal spray), 1 spray, intranasal, Daily gabapentin(gabapentin 100 mg oral capsule), 100 mg= 1 cap, PO, Daily, 1 refills levocetirizine(Xyzal 5 mg oral tablet) metoprolol(metoprolol extended release) metroNIDAZOLE(Flagyl) omeprazole(omeprazole 20 mg oral delayed release capsule), 1 cap, PO, Daily, 1 refills rosuvastatin(rosuvastatin 10 mg oral tablet), 10 mg= 1 tab, PO, Daily thiamine(thiamine 100 mg oral tablet), 200 mg= 2 tab, PO, Daily traMADol(traMADol 50 mg oral tablet), 50 mg= 1 tab, PO, bid, PRN traMADol(traMADol 50 mg oral tablet), 50 mg= 1 tab, PO, tid, PRN unknown medication(Magnesium 64mg) Allergies Ambiensleepwalks, hallucinates Glutensunknown Ragweedrunny eyes and nose alendronateGI upset, nausea atorvastatingeneral "ill feeling" baclofenfelt tired, sluggish, gabapentinfelt outside his body lisinoprilswollen tongue milk productsunknown simvastatinmuscle pain soyexplosive diarrhea sulfa drugshives Social History Smoking Status Never smoked cigarettes Alcohol - Medium Risk Use:Current Type:Wine Frequency:Daily Average drinks per episode in last year:3 Employment/School - Not employed or in school 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 Diabetes: Mother. Diverticulitis: Sister. Heart failure: Father. High Blood Pressure: Mother and Father. Hypercholesterolemia: Father. Irritable bowel syndrome: Sister. Obesity: Mother. Osteoporosis: Sister and Sister. Pacemaker rhythm: Father. Health Status Family Member(s) Daughter: History is negative Family Member(s) Relationship: Mother, Age: 82 Years, Cause: hospital acquired infection Relationship: Father, Name: Reggie Smith, Age: 99 Years Immunizations Vaccine Date Status tetanus/diphtheria/pertuss, acel (Tdap) 12/27/2022 Given influenza virus vaccine, inactivated 07/01/2022 Recorded SARS-CoV-2 mRNA (Pfizer 12+) bivalent 07/01/2022 Recorded Comments : 2022-08-31: Historical information-source unspecified SARS-CoV-2 mRNA ([id number]) 01/20/2022 Recorded Comments : 2022-08-31: Historical information-source unspecified influenza virus vaccine, inactivated 07/09/2021 Recorded influenza virus vaccine, inactivated 07/01/2021 Recorded SARS-CoV-2 (COVID-19) mRNA BNT-162b2 vax 06/30/2021 Recorded Comments : 2021-09-21: Historical information-source unspecified SARS-CoV-2 (COVID-19) mRNA BNT-162b2 vax 12/29/2020 Recorded SARS-CoV-2 (COVID-19) mRNA BNT-162b2 vax 12/29/2020 Recorded SARS-CoV-2 (COVID-19) mRNA BNT-162b2 vax 12/03/2020 Recorded SARS-CoV-2 (COVID-19) mRNA BNT-162b2 vax 12/03/2020 Recorded influenza virus vaccine, inactivated 06/27/2020 Recorded Comments : Given at [facility]. influenza virus vaccine, inactivated 07/11/2018 Recorded zoster vaccine, inactivated 07/11/2018 Recorded zoster vaccine, inactivated 04/04/2018 Recorded influenza virus vaccine, inactivated 07/11/2017 Recorded pneumococcal 23-valent vaccine 06/23/2017 Given pneumococcal 23-valent vaccine 06/23/2017 Given influenza virus vaccine, inactivated 07/15/2016 Recorded pneumococcal 13-valent vaccine 08/18/2015 Given influenza virus vaccine, inactivated 07/05/2015 Recorded influenza virus vaccine, inactivated 07/19/2013 Recorded Comments : [07/20/2013] Received at [facility] influenza virus vaccine, H1N1 07/03/2012 Recorded tetanus/diphtheria/pertuss, acel (Tdap) 11/17/2011 Given zoster vaccine live 11/17/2011 Given influenza virus vaccine, H1N1 09/05/2009 Recorded Comments : 2020-02-07: Historical information-source unspecified hepatitis A adult vaccine 09/04/2001 Recorded hepatitis A adult vaccine 11/22/2000 Recorded poliovirus vaccine, inactivated 11/22/2000 Recorded hepatitis B adult vaccine 09/18/1999 Recorded hepatitis B adult vaccine 04/15/1999 Recorded hepatitis B adult vaccine 03/18/1999 Recorded tetanus toxoids-diphtheria, Td (Adult) 03/30/1996 Recorded Recommendations Health Maintenance Pending(in the next year) OverDue Falls Plan of Care due04/11/20and every 1year Medicare Annual Wellness Visit due09/23/23and every 1year Due Adult Influenza Vaccine due04/15/24and every 1year Adult COVID-19 Vaccination due05/10/24Unknown Frequency Adult Social Determinants of Health Screening due05/10/24Unknown Frequency Satisfied(in the past 1 year) Satisfied Body Mass Index on05/10/24.Satisfied by JERRY Samuel Emma Electronic Signature on File Electronically Reviewed/Signed by: Maritza Lucas DO Author Signature Dt/Tm:05/10/2024 06:59 PM Resident Department of Family Medicine Electronically Reviewed/Signed by: Christiano Palafox DO Cosigner Signature Dt/Tm: 05/11/2024 07:46AM Department of Family Medicine AB Patient Care team information Care Team Personnel Name: MD Manfred, Jay Han Position: Physician - Family Med Member Role: Lifetime Relationship Address: [address] [place] [id number] [place] Name: KRISTIN Kenyon Kimberly A Position: Physician Asst Exmpt - Family Med Member Role: Lifetime Relationship Address: [address] [facility] [address] [place] [address] [place] Name: DO Lucas Amanda Position: Resident Member Role: Lifetime Relationship Address: [address] [facility] [address] [place] [address] [place] Name: KRISTIN Contreras Ashley Position: Physician Nuclear Equipment Test Engineer - Neurosurgery Member Role: Lifetime Relationship Address: [facility] [address] [place] [address] [place] Name: DO Freeman Gretchen Elizabeth Position: Physician - Family Med Member Role: Primary Care Provider Address: [address] [place] [address] [place] Name: MD Saritha, Coy Nuñez Position: Provider - Terminated Member Role: Lifetime Relationship Address: [facility] [address] [place] [address] [place] Name: Catina Watson Kyle Position: Pharmacist Member Role: Pharmacy - Lifetime Address: [address] [place] [address] [place] Name: HEIDY Vo Lorella G Position: Referring DIRECT Member Role: Lifetime Relationship Address: [address] [facility] [place] [address] [place] Care Team Related Persons Name: BRAULIO JOYCE
--- OUTSIDE RECORDS SUMMARY | 2024-08-01 12:52 | External Medical Summary | Continuity of Care Document ---
Author Name Unknown Organization [facility] [address] [place] [phone] Care Team Providers Care Seal Mixing Operator Name Role Phone Adrianne Freeman Primary Care Physicia n [phone] [id number] Date(s): 06/05/24 - 06/05/24 [facility] 0 [facility] 207 [facility] [address] [address] [place] [phone] Discharge Disposition: Home or Self Care Attending Physician: MD Mckeon Christopher Allergies, Adverse Reactions, Alerts Substance Criticality Severity Reaction Reaction Severity Status lisinopril swollen tongue Acti ve soy explosive diarrhea A ctive simvastatin muscle pain Active baclofen felt tired, [...] bivalent 3 07/01/22 R ecorded SARS-CoV-2 mRNA ([id number]) 4 01/20/22 Recorded SARS-CoV-2 (COVID-19) mRNA BNT-162b2 [...] 03/30/96 Re corded 1Result Comment: Given at [facility]. 2Result Comment: [07/20/2013] Received at [facility] 3Result Comment: 2022-08-31: Historical information-source unspecified 4Result Comment: 2022-08-31: Historical information-source unspecified 5Result Comment: 2021-09-21: Historical information-source unspecified 6Result Comment: 2020-02-07: Historical information-source unspecified Medications allopurinol 300 mg oral tablet Start: 11/01/23 2:25:00 PM EST, See Instructions, Disp# 90 tab, Refills: 3, take 1 tablet by mouth once daily, Pharmacy: [facility] Start Date: 11/01/23 Status: Ordered aspirin 81 mg oral capsule Start: 03/22/23 12:01:00 PM EDT, 1 cap, PO, Daily, Disp# 30 cap, Pharmacy: [facility] Start Date: 03/22/23 Status: Ordered ciprofloxacin Start: 03/16/24 3:46:00 PM EDT Start Date: 03/16/24 Status: Ordered Flagyl Start: 03/16/24 3:46:00 PM EDT Start Date: 03/16/24 Status: Ordered fluticasone 50 mcg/inh nasal spray Start: 04/16/24 10:53:00 AM EDT, 1 spray, intranasal, Daily, Disp# 16 mL, Refills: 3, Pharmacy: [id number] Start Date: 04/16/24 Status: Ordered gabapentin 100 mg oral capsule Start: 05/10/24 5:40:00 PM EDT, 1 cap, PO, Daily, Disp# 60 cap, Refills: 1, Please take 1 capsule nightly for 2 weeks, then increase to 2 capsules nightly, Pharmacy: [facility] #[id number] Start Date: 05/10/24 Status: Ordered Magnesium 64mg Start: 05/27/23 10:30:00 AM EDT, Magnesium 64mg, 1 tab po BID Start Date: 05/27/23 Status: Ordered metoprolol extended release Start: 12/29/23 1:54:00 PM EDT Start Date: 12/29/23 Status: Ordered omeprazole 20 mg oral delayed release capsule Start: 05/10/24 6:44:00 PM EDT, 1 cap, PO, Daily, Disp# 90 cap, Refills: 1, Pharmacy: [facility]/pharmacy #[id number] Start Date: 05/10/24 Status: Ordered rosuvastatin 10 mg oral tablet Start: 03/07/23 2:35:00 PM EDT, 1 tab, PO, Daily Start Date: 03/07/23 Status: Ordered thiamine 100 mg oral tablet Start: 03/22/23 11:59:00 AM EDT, 2 tab, PO, Daily, Disp# 30 tab, Pharmacy: [facility] Start Date: 03/22/23 Status: Ordered traMADol 50 mg oral tablet Start: 04/05/24 2:45:00 PM EDT, 1 tab, PO, bid, Disp# 60 tab, Refills: 0, PRN: as needed for pain, Pharmacy: [facility]/pharmacy #[id number] Start Date: 04/05/24 Stop Date: 04/16/24 Status: Ordered traMADol 50 mg oral tablet Start: 05/10/24 5:43:00 PM EDT, 1 tab, PO, tid, Disp# 90 tab, Refills: 0, PRN: as needed for pain, Pharmacy: [facility]/pharmacy #[id number] Start Date: 05/10/24 Status: Ordered Tylenol 500 mg oral tablet Start: 03/22/23 11:59:00 AM EDT, 2 tab, PO, q6h, PRN: as needed for pain Start Date: 03/22/23 Status: Ordered Vitamin B12 Start: 05/27/23 10:31:00 AM EDT, 2000mcg po daily Start Date: 05/27/23 Status: Ordered Xyzal 5 mg oral tablet Start: 08/26/23 3:54:00 PM EST Start Date: 08/26/23 Status: Ordered Mental Status 06/05/24 Barriers to Learning one year None evide nt Mandatory Health Literacy Documentation Yes Health Literacy Communication Barriers N ever Primary Language Danish Problem List Condition Confirmation Course Effective Dates Status H ealth Status Informant Alcohol dependence, uncomplicated Confirmed Active High risk for hip fracture Confirmed Active Atherosclerosis of aorta 1 Confirmed Active CORONARY ATHEROSCLEROSIS OF [place] CORONARY ARTERY Confirmed Active Diverticulosis of colon [...] Testosterone deficiency Confirmed Active Scoliosis Confirmed Active [place]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 [facility] ED IMPRESSION: 1. A mildly displaced [...] previously evaluated, nonemergent thyroid ultrasound canbe performed. [facility] ED IMPRESSION: 1. Acute right posterior [...] hernia. 8. Additional findings as above. [facility] ED Impression: 1. Interval development of a [...] -No specimens collected 56Negative chest. 57right hand Social History Social History Type Response Tobacco [...] Safety Implantable Status Assigning Authority Unknown Unknown [id number] Unknown 11/16/24 Unknown Unknown Active Unk nown Unknown Unknown n/a Unknown Unknown Unknown Unknown Active Unkn own Unknown Unknown n/a Unknown Unknown Unknown Unknown Active Unkn own Patient Care team information Care Team Personnel Name: MD Manfred, Jay Han Position: Physician - Family Med Member Role: Lifetime Relationship Address: [address] [address] [place] Name: KRISTIN Kenyon Kimberly A Position: Physician Asst Exmpt - Family Med Member Role: Lifetime Relationship Address: [address] [address] [place] Name: DO Lucas Amanda Position: Resident Member Role: Lifetime Relationship Address: [address] [address] [place] Name: KRISTIN Contreras Ashley Position: Physician Printing Supervisor - Neurosurgery Member Role: Lifetime Relationship Address: [facility] [address] [place] [address] [place] Name: DO Freeman Gretchen Elizabeth Position: Physician - Family Med Member Role: Primary Care Provider Address: [address] [place] [address] [place] Name: MD Saritha, Coy Nuñez Position: Provider - Terminated Member Role: Lifetime Relationship Address: [facility] [address] [place] [address] [place] Name: Catina Watson Kyle Position: Pharmacist Member Role: Pharmacy - Lifetime Address: [address] [place] [address] [place] Name: HEIDY Vo Lorella G Position: Referring DIRECT Member Role: Lifetime Relationship Address: [address] [place] [address] [place] Care Team Related Persons Name: BRAULIO JOYCE
[2024-08-01] MEDS ORDERED: MAGNESIUM HYDROXIDE SUSP 30 ML UDC PO PRN (14:38)
[2024-08-01] MEDS ORDERED: LORazepam 1 MG TAB PO PRN (14:38)
[2024-08-01] MEDS ORDERED: ALUMINUM/MAGNESIUM SUSP 30 ML UDC PO PRN (14:38)
[2024-08-01] MEDS ORDERED: traMADol HCL 50 MG TABLET PO PRN (14:38)
[2024-08-01] MEDS ORDERED: ACETAMINOPHEN 325 MG TAB PO PRN (14:38)
[2024-08-01] MEDS ORDERED: FLUTICASONE PROPIONATE NA SPR 16 GM BTL PRN (14:38)
[2024-08-01] MEDS: MULTI-VITAMIN INFUSION 10 ML, THIAMINE HCL 100 MG, FOLIC ACID 1 MG in SODIUM CHLORIDE 0... IV ONE (15:37)
[2024-08-01] MEDS: cloNIDine HCL 0.1 MG TAB PO PRN (15:37)
[2024-08-01] MEDS: MoRPHine SULFATE 2 MG/ML CARP IV PRN (15:37)
[2024-08-01] MEDS: traMADol HCL 50 MG TABLET PO PRN (16:47)
[2024-08-01] MEDS: ONDANSETRON INJ 2 MG/ML 2 ML VIAL IV PRN (17:31)
[2024-08-01] MEDS: hydrALAZINE HCL 20 MG/ML VIAL IV PRN (17:31)
[2024-08-01] MEDS: HYDROmorphone INJ 1 MG/ML SYRINGE IV STA (17:51)
[2024-08-01] MEDS: KETOROLAC TROMETHAMINE 15 MG/ML VIAL IV ONE (18:28)
[2024-08-01] MEDS: DICLOFENAC SOD 1% GEL 100 GM TUBE EXT SCH (20:05)
[2024-08-01] MEDS: ACETAMINOPHEN 500 MG TAB PO SCH (20:08)
[2024-08-01] MEDS: GABAPENTIN 100 MG CAP PO SCH (20:09)
[2024-08-01] MEDS: MELATONIN 3 MG TAB PO PRN (22:15)
[2024-08-02 00:04] VITALS: RESP 18
[2024-08-02 05:50] LABS: Basophils # (auto) 0.05 K/uL (0.00-0.20); Eosinophils # (auto) 0.14 K/uL (0.00-0.50); Eosinophils % (auto) 2.9 %; Hematocrit (blood only) 38.4 % (42.0-52.0); Hemoglobin 12.8 g/dl (14.0-18.0); Immature Granulocytes # (auto) 0.06 K/uL (0.01-0.20); Immature Granulocytes % (auto) 1.2 %; Lymphocytes # (auto) 1.43 K/uL (1.20-3.40); Lymphocytes % (auto) 29.4 %; Mean Corpuscular Hemoglobin 35.3 pg (25.0-34.0); Mean Corpuscular Hgb Conc 33.3 g/dL (32.0-36.0); Mean Corpuscular Volume 105.8 fL (80.0-100.0); Mean Platelet Volume 10.2 fL (9.4-12.4); Monocytes # (auto) 0.83 K/uL (0.11-0.59); Monocytes % (auto) 17.1 %; Neutrophils # (auto) 2.35 K/uL (1.40-6.50); Neutrophils % (auto) 48.4 %; Platelet Count 128 K/uL (130-400); RDW Coefficient of Variation 14.7 % (11.5-14.5); Red Blood Count 3.63 M/uL (4.70-6.10); White Blood Count 4.86 K/ul (4.8-10.8)
[2024-08-02 05:54] VITALS: TEMP 97.9
[2024-08-02 06:08] LABS: Calcium 7.8 mg/dl (8.6-10.3); Magnesium 1.4 mg/dl (1.7-2.4); Potassium 3.5 mmol/L (3.5-5.1)
[2024-08-02 06:14] LABS: BUN Creatinine Ratio 24.1 (10-20); Creatinine Clr Calc Pharmacy 135.5 ml/min
--- NOTE | 2024-08-02 07:39 | Hospitalist Progress Note ---
Date of Service August 02, 2024 Assessment & Plan (1) Bilateral knee pain: Plan: acute on chronic, - Radiology studies reviewed, no acute fractures seen pain control is the biggest issue at this time, ortho consult pending results in fall risk and ambulator dysfuction Consult PT/OT to eval treat - May need short stay in skilled rehab upon d/c (2) Alcohol intoxication: Plan: Acute, with history of chronic use -monitor with some arrythmia associated with low magnesium, replete - AWSS at-risk protocol with PO Ativan - Counseled on importance of not masking pain with alcohol - Wound benefit from referral to outpatient alcohol counseling services (3) Hypertension: Plan: Chronic and uncontrolled - improved with pain control and resumption of home meds Plan Noted thyroid nodule on imaging, will need outpatient US which can be arranged by his PCP on discharge follow up. AM labs ordered. Lovenox ordered for VTE prophylaxis. . Admission and Anticipated Discharge Date Admission Date: August 01, 2024 Results & Data Results & Data Vital Signs (Past 12 Hours) Vital Signs Temp Pulse Pulse Resp BP BP Pulse Ox 08/02/24 07:33 97.9 F 61 18 143/91 H 96 08/02/24 07:32 08/02/24 07:25 08/02/24 05:49 97.9 F 62 18 147/91 H 96 08/02/24 02:39 97.7 F 63 18 133/85 96 08/02/24 00:03 97.9 F 73 18 136/89 96 08/01/24 21:58 79 08/01/24 20:04 97.5 F L 88 20 146/89 H 93 O2 Del Method 08/02/24 07:33 Room Air 08/02/24 07:32 Room Air 08/02/24 07:25 Room Air 08/02/24 05:49 Room Air 08/02/24 02:39 Room Air 08/02/24 00:03 Room Air 08/01/24 21:58 08/01/24 20:04 Room Air PG Care Time/CCT Total # of Minutes Spent Total Time Spent with Patient: Total time spent is greater than 50% in coordination of care (as documented) at patient's floor/unit and/or counseling patient: Coding Diagnoses Bilateral knee pain M25.561; M25.562 Alcohol intoxication F10.929 Hypertension I10
[2024-08-02] MEDS: PANTOprazole 40 MG TAB PO SCH (08:08)
[2024-08-02] MEDS: allopurinoL 300 MG TAB PO SCH (08:08)
[2024-08-02] MEDS: MULTIVITAMIN TAB PO SCH (08:08)
[2024-08-02] MEDS: ROSUVASTATIN CALCIUM 10 MG TAB PO SCH (08:08)
[2024-08-02] MEDS: METOPROLOL SUCC 25MG EXT REL TAB PO SCH (08:08)
[2024-08-02] MEDS: THIAMINE HCL 100 MG TAB PO SCH (08:08)
[2024-08-02] MEDS: ASPIRIN 81 MG ECTAB PO SCH (08:09)
[2024-08-02] MEDS: FOLIC ACID 1 MG TAB PO SCH (08:09)
[2024-08-02] MEDS: ENOXAPARIN INJ 40 MG/0.4 ML SYR SQ SCH (08:09)
[2024-08-02] MEDS: POTASSIUM CHLORIDE CRTAB 20 MEQ TABCR PO STA (08:17)
[2024-08-02] MEDS: MAGNESIUM SULFATE / D5W 1 GM/100 ML BAG IV SCH (08:31)
[2024-08-02 15:12] VITALS: O2SAT 98
[2024-08-02 16:49] VITALS: BP 136/89; PULSE 85
--- NOTE | 2024-08-02 16:50 | Discharge Summary ---
Discharge Summary Date of Service August 02, 2024 Principal Dx & Hospital Course #1 = Principal Diagnosis (1) Bilateral knee pain: acute on chronic, - Radiology studies reviewed, no acute fractures seen pain control is the biggest issue at this time, ortho consult pending results in fall risk and ambulator dysfunction Consult PT/OT to eval treat - Pt and did not agree with requrest for short stay in skilled rehab upon d/c (2) Alcohol intoxication: Acute, with history of chronic use -monitor with some arrythmia associated with low magnesium, replete -no sign of withdrawal other than poorly controlled blood pressure (3) Hypertension: Chronic and uncontrolled - improved with pain control and resumption of home meds will ask pt to increase metoprolol to 25 mg and have a low salt diet plus to avoid and try to eliminate alcohol Plan Noted thyroid nodule on imaging, will need outpatient US which can be arranged by his PCP on discharge follow up. AM labs ordered. pt understands thyroid nodule will need follow up . Notes For Next Care Provider will need eye on BP control and follow up on thyroid nodule Admission HPI Per Admitting Provider Marcus is a 74 yo M with a pmhx of CAD, HTN, peripheral neuropathy following compression fracture, HLD and chronic alcohol use who presents today c/o falls, leg weakness, and bilateral knee pain. He is currently accompanied by his who reports that he fell last evening but was able to get back up. This morning, he fell again and was not able to get back up and subsequently EMS was called and he was transferred here for eval. He reports that his pain was significant in his knees this morning and he decided to self medicate by consuming a large amount of vodka and allyssa-edmar. He does consume hard liquor on a daily basis, and believes that he may consume a fifth once a week. He has 1-2 drinks every evening, but does not quantify how much alcohol is in each serving. He is currently managed with Tramadol for pain as well as gabapentin 200mg q HS for his neuropathy, and has recently in the last 4 days began taking 100mg every morning as well. He currently rates his leg/knee pain a 9/10. He is hypertensive with a BP of 192/133 and notes that he did not take his medications this morning. His labs revealed hypokalemia with a K+ of 3.1 and his Na level is up at 147. His serum ethyl alcohol level is 248. He was medicated in the ER with a dose of potassium chloride. ER attempted to get him up out of bed to ambulate, but he was not able to and subsequently he has been referred to the hospital medicine team for admission. Discharge Exam PT with , not shaky but some pressured speech agreeable to increase bp med agreeable to home health Discharge Plan Discharge Items Patient Disposition: Home - Home Health Services Reason For Visit: AMBULATORY DYSFUNCTION Discharge Diagnosis: fall and could not get up musculoskeletal leg pain uncontrolled hypertension Activity: Resume your previous activity Non-emergency contact: Primary Care Provider Call non-emergency contact if: your symptoms worsen Follow-up/Referrals: Adrianne Freeman, [Primary Care Provider] - Diet: Regular and Low Sodium (2gm) Addtl Attending Provider Instructions: consider abstinence of alcohol follow up with your primary care doctor continue to use Voltaren cream to knees and ankles, it comes otc now Addtl Capacitor Assembler Provider Instructions: consider a low salt diet to help control your blood pressure and take your blood pressure pills around the same time each day Pending Studies at Discharge: Yes Stand-Alone Forms: My [facility] [employer], Smoking Cessation Medications and DC Order Prescriptions: Continued omeprazole 20 mg capsule,delayed release(DR/EC) 20 mg PO DAILY aspirin 81 mg tablet,delayed release (DR/EC) 81 mg PO DAILY Qty: 30 2RF Rx Instructions: Unable to verify OTC meds at this date/time. nitroglycerin 0.4 mg tablet, sublingual 0.4 mg SL Q5M PRN (Reason: chest pain) Qty: 100 1RF Rx Instructions: until response; do not exceed 3 doses per episode. Pt's spouse says this mookie ht be /out of date. rosuvastatin 10 mg tablet 10 mg PO DAILY Qty: 90 3RF allopurinol 300 mg Tablet 300 mg PO DAILY fluticasone propionate [Flonase Allergy Relief] 50 mcg/actuation [place],Suspension 1 spray INTRANASAL DAILY PRN (Reason: Congestion) fexofenadine 60 mg tablet 60 mg PO BID PRN (Reason: Congestion) Rx Instructions: Unable to verify OTC meds at this date/time. tramadol 50 mg tablet 50 mg PO TID PRN (Reason: Pain) magnesium oxide 250 mg magnesium Tablet 125 mg PO DAILY Rx Instructions: Unable to verify OTC meds at this date/time. multivitamin Tablet 1 tab PO DAILY Rx Instructions: Unable to verify OTC meds at this date/time. levocetirizine [Xyzal] 5 mg Tablet 5 mg PO DAILY PRN (Reason: Allergies/Congestion) Rx Instructions: Unable to verify OTC meds at this date/time. acetaminophen [Tylenol Extra Strength] 500 mg tablet 1,000 mg PO Q8H PRN (Reason: pain) Rx Instructions: Unable to verify OTC meds at this date/time. gabapentin 100 mg capsule 200 mg PO DAILY Changed metoprolol succinate 25 mg tablet extended release 24 hr 25 mg PO DAILY Qty: 60 3RF Discharge Orders: Discharge Order (Routine); Ordered 08/02/24 Ordered By: Tavo Moses Admission Data Admit Date/Time: 08/01/24 12:05 Attending Provider: Tavo Moses Admit Provider: Tavo Moses Primary Care Provider: Adrianne Freeman Other Providers: Jay Juarez; [facility] Hospital Stay Data Consultations 08/01/24 11:04 ED Decision to Admit Stat Diagnostic Imagining Performed 08/01/24 07:59 CT cervical spine wo con Stat CT head/brain wo con Stat 08/01/24 08:03 CT lumbar spine wo con Stat Pending Results Patient Have Any Pending Studies at Discharge: Yes Discharge Instructions Given to Patient (Per Discharging Provider) consider abstinence of alcohol follow up with your primary care doctor continue to use Voltaren cream to knees and ankles, it comes otc now Total Time Total Time Spent Total Time Spent (In Minutes): greater than 30 minutes required to create discharge Coding Level of Care Code 37951 INP/OBS DISCH >30 MIN Diagnoses Bilateral knee pain M25.561; M25.562 Alcohol intoxication F10.929 Hypertension I10
== END 2024-08-02 17:28 | disposition home health service (06) | DRG 93 ==
LOC: ED 07:48 → INTOOBSV 12:05 → 2N 12:05

== ENCOUNTER 2025-02-05 02:21 | Inpatient (IN) ==
--- NOTE | 2025-02-05 02:41 | Emergency Department Note ---
History of Present Illness General Chief complaint: Trauma Stated complaint: fall Time Seen by Provider: 02/05/25 02:28 History of Present Illness 74 yo M with a pmhx of CAD, HTN, peripheral neuropathy following compression fracture, HLD and chronic alcohol use who presents tonight for fall who is intoxicated. Patient hit his head and complains of right shoulder pain. Partner called EMS as patient could not get up. Patient mainly complains of right shoulder pain. Patient has chest pain, dyspnea, abdominal pain, leg pain, headache, neck pain. No numbness or tingling. Home Medications Medication Instructions Recorded Confirmed Type allopurinol 300 mg tablet 300 mg PO DAILY 07/07/18 01/10/25 History fluticasone propionate 50 1 spray intranasal DAILY PRN 09/03/18 01/10/25 History mcg/actuation nasal Congestion spray,suspension (Flonase Allergy Relief) omeprazole 20 mg capsule,delayed 20 mg PO DAILY 05/12/20 01/10/25 History release fexofenadine 60 mg tablet 60 mg PO BID PRN Congestion 03/17/23 01/10/25 History tramadol 50 mg tablet 50 mg PO TID PRN Pain 03/17/23 01/10/25 History aspirin 81 mg tablet,delayed 81 mg PO DAILY #30 tabs 07/12/23 01/10/25 Rx release acetaminophen 500 mg tablet 1,000 mg PO Q8H PRN pain 12/22/23 01/10/25 History (Tylenol Extra Strength) levocetirizine 5 mg tablet (Xyzal) 5 mg PO DAILY PRN 12/22/23 01/10/25 History Allergies/Congestion multivitamin 1 tab PO DAILY 12/22/23 01/10/25 History magnesium oxide 125 mg PO DAILY 01/05/24 01/10/25 History nitroglycerin 0.4 mg sublingual 0.4 mg sublingual Q5M PRN chest 01/17/24 01/10/25 Rx tablet pain #100 tabs gabapentin 100 mg capsule 200 mg PO DAILY 08/01/24 01/10/25 History metoprolol succinate 25 mg 25 mg PO DAILY #60 tabs 08/20/24 01/10/25 Rx tablet,extended release 24 hr naproxen 250 mg tablet 500 mg PO BID PRN 11/19/24 01/10/25 History rosuvastatin 10 mg tablet 10 mg PO DAILY #90 tabs 12/16/24 01/10/25 Rx Allergies Allergy/AdvReac Type Severity Reaction Status Date / Time lisinopril Allergy Severe Swollen Verified 01/10/25 14:58 Tongue and Throat Tightness soy Allergy Severe THROAT Verified 01/10/25 14:58 TIGHTENED W/SOY SAUCE Sulfa (Sulfonamide Allergy Intermediate HIVES AND Verified 01/10/25 14:58 Antibiotics) ITHCING zolpidem [From Ambien] AdvReac Severe " Verified 01/10/25 14:58 Hallucinates and sleepwalks" baclofen AdvReac Intermediate Tired and Verified 01/10/25 14:58 sluggish gluten AdvReac Intermediate ABD PAIN Verified 01/10/25 14:58 milk AdvReac Intermediate STOMACH Verified 01/10/25 14:58 PAIN [id number] Reductase AdvReac Intermediate MUSCLE Verified 01/10/25 14:58 Inhibitor WEAKNESS [Fspqdsk-Kdj-Yjn Reductase Inhibitor] Past Med/Surg History Problem List (Updated 02/05/25 @ 04:13 by Monika England PA-C) Abscess, perianal (Acute) Fall (Acute) Closed fracture of head of right humerus (Acute) Acute alcohol intoxication (Acute) Peripheral neuropathy Lumbar stenosis without neurogenic claudication Lumbosacral facet joint syndrome Hematuria Mass of perirectal soft tissue Back pain (Acute) Abscess, perirectal (Acute) Weakness (Acute) Stented coronary artery Gram-negative bacteremia Emily-rectal abscess Generalized weakness (Acute) Rhabdomyolysis (Acute) Hypomagnesemia (Acute) Non-ST elevation MN (NSTEMI) (Acute) Excessive vitamin B6 intake Arthralgia Hypersomnolence Fatigue Vitamin B12 deficiency Vitamin D deficiency Post concussion syndrome Sensory ataxia Hypertrophy of both inferior nasal turbinates Nasal septal deviation Chronic pansinusitis Idiopathic peripheral neuropathy Allergic rhinitis (Acute) Angina pectoris (Acute) Depression (Acute) Hypercholesterolemia (Acute) Lateral plantar neuropathy (Acute) Lightheadedness (Acute) Nasal congestion with rhinorrhea (Acute) Post-nasal drip (Acute) Presence of stent in artery (Acute) Stented coronary artery (Acute 10/09/12) Hyperlipidemia CAD (coronary artery disease) Myofascial pain Sacroiliitis Precordial chest pain (Acute) Hypertensive emergency (Acute) Headache above the eye region Compression fracture (Chronic) L2 Frequent falls (Chronic) Gait instability (Chronic) Thoracic facet syndrome (Chronic) Spinal stenosis (Chronic) Lumbar facet joint syndrome (Chronic) Lumbago (Chronic) Encounter for pre-operative examination Hypertension (Chronic) Bronchitis (Chronic) Stomach problems (Chronic) Kidney stones (Chronic) Esophageal reflux (Acute) Hiatal hernia (Acute) Hypotension (Acute) Left arm pain (Acute) Medical History Bilateral knee pain Ambulatory dysfunction Alcohol intoxication Hypertension Encounter for recheck of abscess following incision and drainage Arteriosclerotic coronary artery disease Benign essential hypertension (10/09/12) Excessive sweating Numbness Post concussion syndrome Osteoarthritis GERD (gastroesophageal reflux disease) Myocardial Infarction 7-10 YEARS AGO Surgical History Polyp, nasal History of tonsillectomy History of heart artery stent 7-10 YEARS AGO INSERTED>[place] History of cardiac cath Family History Mother Family history of diabetes mellitus Heart disease Father Heart disease Sister Asthma Other No family history of adverse response to anesthesia No family history of bleeding disorder Social History Smoking Status: Current every day smoker Tobacco Type: Cigarettes Cigarettes Per Day: quit smoking 18 years ago; Second Hand Exposure: No; Do You Dip or Chew Tobacco: No; Hx Alcohol Use: Yes Alcohol type: hard liquor Alcohol Intake Frequency: 4 or More x per/Week Alcohol Intake Frequency Comment: 1-2 glasses per day Hx Substance Use: No Preferred Language: Welsh Communication Ability: Effective Visual Impairment: Limited Hearing Ability: Normal Industrial Equipment Mechanic Required: No Beliefs That Will Affect Care: None marital status: Current Living Situation: Spouse Current Living Situation Comment: spring current occupational status: retired Feels Safe at Home: Yes Diet: gluten free and lactose free Diet Comment: Soy free Do you think of yourself as: straight/heterosexual Gender Identity: Male Assistive Devices: Cane and Walker Review of Systems A total of 10 systems reviewed and were otherwise negative Physical Exam Vital Signs Vital Signs - 24 hr 02/05/25 02:55 02/05/25 03:24 Temperature 36.5 C Temperature Source Oral Pulse Rate 68 67 Respiratory Rate 18 Respiratory Effort / Characteristics Non-Labored Spontaneous Respiratory Depth Normal Respiratory Pattern Regular Blood Pressure 153/102 H Blood Pressure Mean 119 Blood Pressure Position Lying Pulse Oximetry 93 Oxygen Delivery Method Room Air Sepsis Recent Fever Within 48 Hours No Sepsis New/Unexplained Change in Mental Status N/A Sepsis Action Taken by Nursing No Action Required VITALS: Vitals are noted on the nurse's note and reviewed by myself. Vital signs stable. GENERAL: White male with EtOH odor, in no acute distress, nondiaphoretic, well- developed well-nourished. SKIN: Forehead contusion, the rest of the skin was without rashes, erythema, edema, or bruising. There is no tenting of the skin. Capillary reflex less than 2 seconds. HEAD: Normocephalic EARS: External auditory canals clear EYES: Pupils equal round and reactive to light and accommodation. Conjunctivae with mild injection, sclerae without icterus. Extraocular movements intact. NOSE: Patent, no discharge. MOUTH: Mucous membranes moist. Pharynx without erythema or exudate. Uvula midline. Airway patent. Tongue does not deviate. NECK: Supple without nuchal rigidity. No lymphadenopathy. No thyromegaly. Cervical spine is nontender. No JVD. HEART: Regular rate and rhythm LUNGS: Clear to auscultation bilaterally without wheezes, rales or rhonchi. No retractions or accessory muscle use. ABDOMEN: Positive bowel sounds x 4. Normal tympanic percussion. Soft, nontender, without masses or organomegaly. Gutierrez sign negative. No guarding or rebound tenderness. No CVA tenderness MUSCULOSKELETAL: No muscle atrophy, erythema, or edema noted. Right shoulder tender to palpation with increased pain with range of motion. No thoracic or lumbar tenderness. All other extremities nontender to palpation. NEURO: Patient was alert and oriented to person place and time. Normal sensation to light and sharp touch. No focal neurological deficits. Course Administered Medications Discontinued Medications Ioversol (Optiray 320 100ml) 100 ml IV ONCE ONE Stop: 02/05/25 03:13 Last Admin: 02/05/25 03:12 Dose: 93 ml Documented By: ARLET Medical Decision Making Medical Records Attestation: I reviewed the patient's medical records. Home Medications Current Medication List: was personally reviewed by me Laboratory Data Attestation: I reviewed the patient's lab results. 02/05/25 02:38 02/05/25 02:38 Lab Results 02/05/25 02/05/25 Range/Units 02:38 02:52 WBC 9.35 (4.8-10.8) K/ul RBC 4.77 (4.70-6.10) M/uL Hgb 15.5 (14.0-18.0) g/dl POC Hgb 15.6 (14.0-18.0) g/dl Hct 46.2 (42.0-52.0) % POC Hct 46 (42-52) % MCV 96.9 (80.0-100.0) fL MCH 32.5 (25.0-34.0) pg MCHC 33.5 (32.0-36.0) g/dL RDW Std Deviation 52.9 H (36.4-46.3) fL RDW Coeff of Joseph 14.6 H (11.5-14.5) % Plt Count 232 (130-400) K/uL MPV 9.1 L (9.4-12.4) fL Immature Gran % (Auto) 1.7 % Neut % (Auto) 64.6 % Lymph % (Auto) 27.3 % Ector % (Auto) 5.2 % Eos % (Auto) 0.6 % Baso % (Auto) 0.6 % Neut # (Auto) 6.03 (1.40-6.50) K/uL Lymph # (Auto) 2.55 (1.20-3.40) K/uL Ector # (Auto) 0.49 (0.11-0.59) K/uL Eos # (Auto) 0.06 (0.00-0.50) K/uL Baso # (Auto) 0.06 (0.00-0.20) K/uL Immature Gran # (Auto) 0.16 (0.01-0.20) K/uL POC Sodium 146 H (135-144) mmol/L Sodium 145 (136-145) mmol/L POC Potassium 3.7 (3.3-5.0) mmol/L Potassium 3.9 (3.5-5.1) mmol/L POC Chloride 107 (101-112) mmol/L Chloride 109 H (98-107) mmol/L Carbon Dioxide 29 (21-32) mmol/L POC Total CO2 24 (24-31) mmol/L Anion Gap 7 (3-11) POC Anion Gap 20.0 (16-25) mmol/L POC BUN 17 (7-18) mg/dl BUN 17 (6-23) mg/dl Creatinine 0.76 (0.6-1.4) mg/dl POC Creatinine 1.0 (0.6-1.3) mg/dl Est Cr Clr Drug Dosing Not Reportable eGFR 93.73 BUN/Creatinine Ratio 22.4 H (10-20) Glucose 121 H (70-99(Fasting)) mg/dl POC Glucose (other) 122 H (70-99) mg/dl Calcium 8.6 (8.6-10.3) mg/dl POC Ioniz Calcium Parker 1.11 L (1.12-1.32) mmol/l Magnesium 1.9 (1.7-2.4) mg/dl Total Bilirubin 0.3 (0.2-1.0) mg/dl AST 16 (13-39) U/L ALT 17 (7-52) U/L Alkaline Phosphatase 73 (34-104) U/L Total Creatine Kinase 94 (30-223) U/L Troponin I High Sens 7.2 (0-20) pg/ml Total Protein 6.7 (6.0-8.3) gm/dl Albumin 3.7 (3.4-5.0) gm/dl Globulin 3.0 (2.5-4.0) gm/dl Albumin/Globulin Ratio 1.2 (0.9-2) Ethyl Alcohol mg/dL 238.0 H (<10.0) mg/dl Imaging Data Attestation: I personally reviewed and interpreted this imaging study as follows: Radiologist's Impression: Cervical Spine CT 02/05/25 02:36 EXAM: CT cervical spine wo con CLINICAL HISTORY: ETOH, HI, AMS, ASA TECHNIQUE: Computed tomography of the cervical spine performed without intravenous contrast. Contiguous axial images were obtained from the skull base to T2, with sagittal and coronal reformatted images reconstructed from the axial data. CT scan was performed according to ALARA (as low as reasonably achievable). COMPARISON: 01 August 2024. FINDINGS: Straightening of the cervical spine is noted. Alignment of spine is maintained. Vertebral bodies are normal in height. No evidence of fracture. Lateral masses of C1 are symmetrical, and the dens is intact. Prevertebral soft tissues are not widened. The remaining suprahyoid and infrahyoid soft tissues in the neck are unremarkable. Degenerative changes are noted in the cervical spine in the form of marginal osteophytes, facetal arthropathy changes at multiple levels. C2-C3: No disc bulge, mass effect on the cord or neuroforaminal narrowing. C3-C4: No disc bulge, mass effect on the cord or neuroforaminal narrowing. C4-C5: No disc bulge, mass effect on the cord or neuroforaminal narrowing. C5-C6: No disc bulge, mass effect on the cord or neuroforaminal narrowing. C6-C7: No disc bulge, mass effect on the cord or neuroforaminal narrowing. C7-T1: No disc bulge, mass effect on the cord or neuroforaminal narrowing. Right lobe of the thyroid gland appears enlarged and shows a hypodense nodule. Suggested ultrasound correlation. IMPRESSION: 1. No acute fracture or subluxation in the cervical spine. 2. Degenerative changes. Stable. 3. Right lobe of the thyroid gland appears enlarged and shows hypodense nodule. Suggested ultrasound correlation. Stable Electronically signed by Amol Price 02-05-2025 04:[address] 02/05/25 02:36 EXAM: CT head/brain wo con CLINICAL HISTORY: ETOH, HI, AMS, ASA TECHNIQUE: Multiple axial images are obtained from the skull base to the vertex without contrast. CT scan was performed according to ALARA (as low as reasonably achievable). COMPARISON: 01 August 2024. FINDINGS: Craniotomy defects are noted in the right parietal bone. There is cerebral atrophy. The vargas-white matter differentiation is preserved. There are scattered periventricular hypodensities as can be seen with chronic microvascular ischemic changes. No evidence of space occupying lesion, hemorrhage, edema, mass effect, midline shift, extra axial collection, or hydrocephalus is noted. Basal cisterns are symmetric and normal in size and configuration. Visualized paranasal sinuses and mastoid air cells are well aerated. Orbital contents are within normal limits. Rest of the findings are unchanged. IMPRESSION: 1. No evidence of acute intracranial abnormality is demonstrated. 2. Chronic microvascular ischemic changes. 3. Cerebral atrophy. No significant interval new abnormality detected. Electronically signed by Amol Price 02-05-2025 03:57 AM Abdomen/Pelvis CT 02/05/25 02:47 EXAM: CT abd pelvis IV con only CLINICAL HISTORY: fall, ETOH TECHNIQUE: Contiguous axial images were obtained from the level of the diaphragm to the pubic symphysis with intravenous contrast. Coronal and sagittal reconstructions were likewise performed and indicated to increase the sensitivity for detecting clinically relevant pathology. If IV contrast material had not been administered, the likelihood of detecting abnormalities relevant to the patient's condition would have been substantially decreased. CT scan was performed according to ALARA (as low as reasonable achievable). 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 Sliding hiatus hernia.-stable. The liver is normal in size and attenuation. No focal liver lesions are seen. There is no intra or extrahepatic biliary ductal dilatation. Hepatic vasculature is patent. The gallbladder is present. The spleen, pancreas, and adrenal glands are unremarkable. The kidneys are normal in size and attenuation. There is no hydronephrosis . Mild bilateral perinephric fat stranding. Tiny right renal concretion. The ureters are normal in caliber and no ureteral calculi are seen. The bladder is normal in contour. Pelvic viscera are unremarkable. No focal or diffuse bowel wall thickening or evidence of bowel obstruction is identified. The appendix is visualized in the right lower quadrant and appears within normal limits. Abdominal and pelvic vasculature is patent. No adenopathy or fluid collections are seen. No aggressive appearing osseous lesions are identified. Old central compression of L2 vertebra Multiple small uncomplicated colonic diverticulosis. Approximately 3 x 1.1 cm sized peripherally enhancing perianal abscess with mild adjacent fat stranding is noted in left ischioanal fossa, just reaching above the left levator ani muscle. IMPRESSION: 1. Mild bilateral perinephric fat stranding. -stable. 2. Tiny right renal concretion.-stable. 3. Multiple small uncomplicated colonic diverticulosis.-stable. 4. Small left perianal abscess as described.-new finding. 5. No obvious acute trauma related abnormality seen. Electronically signed by Amol Price 02-05-2025 03:[address] 02/05/25 02:47 EXAM: CT chest diagnostic w con CLINICAL HISTORY: fall, ETOH, AMS TECHNIQUE: Contiguous axial images were obtained from the neck base through the upper abdomen following intravenous administration of contrast material. If IV contrast material had not been administered, the likelihood of detecting abnormalities relevant to the patient's condition would have been substantially decreased. In addition, sagittal and coronal reconstructions were performed. CT scan was performed according to ALARA (as low as reasonable achievable). 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 FINDINGS: Old healed fracture of left seventh to tenth ribs. Old healed fracture of right ninth and tenth ribs. Old fracture of sternum mid body seen. Few linear atelectatic bands are noted involving bilateral lower lobes. Rest of lungs are clear The central airways are patent. There are no pleural effusions. No pneumothorax is seen. No axillary, hilar, or mediastinal adenopathy is identified. The visualized thyroid shows nodular lesion in both lobes - USG correlation suggested The heart, aorta, and pulmonary arteries are of normal size and configuration. No pericardial effusion is identified. Imaged portions of the upper abdomen are unremarkable. No aggressive appearing osseous lesions are identified. IMPRESSION: 1. Old healed fracture of left seventh to tenth ribs.-stable. 2. Old healed fracture of right ninth and tenth ribs-stable. Old fracture of sternum mid body seen. 3. Few linear atelectatic bands are noted involving bilateral lower lobes.-stable. 4. No other new interval abnormality since prior study. Electronically signed by Amol Price 02-05-2025 03:53 AM MDM Narrative Prior records/ancillary studies reviewed and summarized above. Nursing notes reviewed. Additional history obtained from EMS. The patient's history was concerning for alcoholism with frequent falls. Differential diagnosis: Etiologies such as metabolic, infection, hypo/hyperglycemia, electrolyte abnormalities, cardiac sources, intracerebral event, toxicologic, neurologic, as well as others were entertained. Physical examination: As above. ER treatment provided: IV Lock An order was placed for continuous cardiac monitoring. The monitor shows a rate of 60-100 with a sinus rhythm per my interpretation. IV fluids, patient was placed in a sling for humeral head fracture and neurovascular status was rechecked after placement and is intact. Patient was given Zosyn for perianal abscess On reassessment the patient felt better. Diagnostics interpretation by me: ECG: Ordered for weakness EKG: Poor baseline, normal sinus, incomplete right bundle, rate of 67. Impression normal sinus rhythm with incomplete right bundle branch block poor baseline independently interpreted by myself The labs Independently Interpreted by myself revealed no worrisome leukocytosis, alcohol 238. Glucose 121. Imaging studies: Imaging was reviewed and read by radiology Consultation: A consultation was placed with the hospitalist. The case was discussed and diagnostics were reviewed. The patient was evaluated in the ER for further treatment. Exam and history seem consistent with acute alcohol intoxication who fell and has a humeral head fracture and several healing old fractures in the ribs. He also has a small perianal abscess. He started antibiotics. Medicine was consulted case discussed. He will be evaluated for possible admission. By the evaluation outlined above emergent etiologies such as electrolyte abnormalities, cardiac sources, intracerebral event, neurologic, abnormalities blood glucose, metabolic, as well as others were deemed relatively unlikely. The pt informed about the findings as listed above. All questions were answered and pleased with the treatment. The chart was completed utilizing [employer] Speech voice recognition software. Grammatical errors, random word insertions, pronoun errors, and incomplete sentences are an occassional consequence of this system due to software limitations, ambient noise, and hardware issues. Any formal questions or concerns about the content, text, or information contained within the body of this dictation should be directly addressed to the physician admissions assistant for clarification. Impression & Plan Acute alcohol intoxication, Closed fracture of head of right humerus, Fall, Abscess, perianal Discharge Plan Visit Data Chief Complaint: Trauma Stated Complaint: fall ED Provider: Radha Aguilar ED Midlevel Provider: Monika England Discharge Problem: Acute alcohol intoxication, Closed fracture of head of right humerus, Fall, Abscess, perianal Patient Disposition: Admitted As Inpatient Condition: Fair Forms Stand Alone Forms: [facility] [place] [employer] Prescriptions Prescriptions: No Action naproxen 250 mg tablet 500 mg PO BID PRN metoprolol succinate 25 mg tablet extended release 24 hr 25 mg PO DAILY Qty: 60 3RF rosuvastatin 10 mg tablet 10 mg PO DAILY Qty: 90 3RF omeprazole 20 mg capsule,delayed release(DR/EC) 20 mg PO DAILY aspirin 81 mg tablet,delayed release (DR/EC) 81 mg PO DAILY Qty: 30 2RF Rx Instructions: Unable to verify OTC meds at this date/time. nitroglycerin 0.4 mg tablet, sublingual 0.4 mg SL Q5M PRN (Reason: chest pain) Qty: 100 1RF Rx Instructions: until response; do not exceed 3 doses per episode. Pt's spouse says this might be /out of date. allopurinol 300 mg Tablet 300 mg PO DAILY fluticasone propionate [Flonase Allergy Relief] 50 mcg/actuation [place],Suspension 1 spray INTRANASAL DAILY PRN (Reason: Congestion) fexofenadine 60 mg tablet 60 mg PO BID PRN (Reason: Congestion) Rx Instructions: Unable to verify OTC meds at this date/time. tramadol 50 mg tablet 50 mg PO TID PRN (Reason: Pain) magnesium oxide 250 mg magnesium Tablet 125 mg PO DAILY Rx Instructions: Unable to verify OTC meds at this date/time. multivitamin Tablet 1 tab PO DAILY Rx Instructions: Unable to verify OTC meds at this date/time. levocetirizine [Xyzal] 5 mg Tablet 5 mg PO DAILY PRN (Reason: Allergies/Congestion) Rx Instructions: Unable to verify OTC meds at this date/time. acetaminophen [Tylenol Extra Strength] 500 mg tablet 1,000 mg PO Q8H PRN (Reason: pain) Rx Instructions: Unable to verify OTC meds at this date/time. gabapentin 100 mg capsule 200 mg PO DAILY Referrals Referrals: Adrianne Freeman DO [Primary Care Provider] - Discharge Problem: Acute alcohol intoxication Qualifiers: Complication of substance-induced condition: uncomplicated Qualified Code(s): F 10.920 - Alcohol use, unspecified with intoxication, uncomplicated
[2025-02-05 03:04] LABS: iSTAT Hemoglobin 15.6 g/dl (14.0-18.0); iSTAT Ionized Calcium 1.11 mmol/l (1.12-1.32); iSTAT Potassium 3.7 mmol/L (3.3-5.0)
[2025-02-05] MEDS: OPTIRAY 320 100ml IV ONE (03:12)
[2025-02-05 03:17] LABS: Alanine Aminotransferase 17 U/L (7-52); Albumin Globulin Ratio 1.2 (0.9-2); Albumin Level 3.7 gm/dl (3.4-5.0); Alkaline Phosphatase 73 U/L (34-104); Anion Gap 7 (3-11); Aspartate Aminotransferase 16 U/L (13-39); BUN Creatinine Ratio 22.4 (10-20); Basophils # (auto) 0.06 K/uL (0.00-0.20); Basophils % (auto) 0.6 %; Bilirubin,Total 0.3 mg/dl (0.2-1.0); Blood Urea Nitrogen 17 mg/dl (6-23); Calcium 8.6 mg/dl (8.6-10.3); Carbon Dioxide 29 mmol/L (21-32); Chloride 109 mmol/L (98-107); Creatine Kinase 94 U/L (30-223); Eosinophils # (auto) 0.06 K/uL (0.00-0.50); Eosinophils % (auto) 0.6 %; Glucose 121 mg/dl (70-99(Fasting)); Hematocrit (blood only) 46.2 % (42.0-52.0); Hemoglobin 15.5 g/dl (14.0-18.0); Immature Granulocytes # (auto) 0.16 K/uL (0.01-0.20); Immature Granulocytes % (auto) 1.7 %; Lymphocytes # (auto) 2.55 K/uL (1.20-3.40); Lymphocytes % (auto) 27.3 %; Magnesium 1.9 mg/dl (1.7-2.4); Mean Corpuscular Hemoglobin 32.5 pg (25.0-34.0); Mean Corpuscular Hgb Conc 33.5 g/dL (32.0-36.0); Mean Corpuscular Volume 96.9 fL (80.0-100.0); Mean Platelet Volume 9.1 fL (9.4-12.4); Monocytes # (auto) 0.49 K/uL (0.11-0.59); Monocytes % (auto) 5.2 %; Neutrophils # (auto) 6.03 K/uL (1.40-6.50); Neutrophils % (auto) 64.6 %; Platelet Count 232 K/uL (130-400); Potassium 3.9 mmol/L (3.5-5.1); RDW Coefficient of Variation 14.6 % (11.5-14.5); RDW Standard Deviation 52.9 fL (36.4-46.3); Red Blood Count 4.77 M/uL (4.70-6.10); Sodium 145 mmol/L (136-145); Total Protein 6.7 gm/dl (6.0-8.3); White Blood Count 9.35 K/ul (4.8-10.8)
--- OUTSIDE RECORDS SUMMARY | 2025-02-05 03:18 | External Medical Summary | Continuity of Care Document ---
Author Name Unknown Organization [facility] [id number] [place] [id number] Care Team Providers Care Natural Gas Technician Name Role Phone Adrianne Freeman Primary Care Physicia n [phone] Encounter [facility] [id number] Date(s): 01/25/25 - 01/25/25 [facility] 0 [facility] [address] [address] [phone] Encounter Diagnosis Rectal pain(Discharge Diagnosis) - 01/27/25 Left leg weakness(Discharge Diagnosis) - 01/27/25 Discharge Disposition: Home or Self Care Attending Physician: MD Jamar, [place] Encounter Type: Clinic Allergies, Adverse Reactions, Alerts Substance Criticality Severity Reaction Reaction Severity Status soy explosive diarrhea A ctive lisinopril swollen tongue Acti ve simvastatin muscle pain Active baclofen felt tired, sluggish, Active Ambien sleepwalks, hallucinates Active alendronate GI upset, nausea A ctive atorvastatin general "ill feeling" Active sulfa drugs hives Active Ragweed runny eyes and nose Active Glutens unknown Active milk products unknown Active Immunizations Given and Recorded Vaccine Date Status Refusal Reason influenza virus vaccine, inactivated 08/09/24 Give n influenza virus vaccine, inactivated 07/01/22 Luis Felipe [...] virus vaccine, inactivated 2 07/19/13 Re corded tetanus/diphtheria/pertuss, acel (Tdap) 12/27/22 G iven tetanus/diphtheria/pertuss, acel (Tdap) 11/17/11 G iven SARS-CoV-2 mRNA (Pfizer 12+) bivalent 3 07/01/22 R ecorded SARS-CoV-2 mRNA (oqmowvjnild-dzdv-dem) 4 01/20/22 Recorded SARS-CoV-2 (COVID-19) mRNA BNT-162b2 [...] 03/30/96 Re corded 1Result Comment: Given at [facility]. 2Result Comment: [07/20/2013] Received at [facility] 3Result Comment: 2022-08-31: Historical information-source unspecified 4Result Comment: 2022-08-31: Historical information-source unspecified 5Result Comment: 2021-09-21: Historical information-source unspecified 6Result Comment: 2020-02-07: Historical information-source unspecified Medications allopurinol 300 mg oral tablet Start: 11/02/24 2:28:00 PM EST, See Instructions, Disp# 90 tab, Refills: 3, take 1 tablet by mouth once daily, [id number] Start Date: 11/02/24 Status: Ordered Quantity: 90.0 Unit: tab Repeat number: 4 aspirin 81 mg oral capsule Start: 03/22/23 12:01:00 PM EDT, 1 cap, PO, Daily, Disp# 30 cap, Pharmacy: [facility] Start Date: 03/22/23 Status: Ordered Quantity: 30.0 Unit: cap Repeat number: 1 fluticasone 50 mcg/inh nasal spray Start: 08/20/24 4:49:00 PM EST, 1 spray, intranasal, Daily, Disp# 16 mL, Refills: 3, [id number] Start Date: 08/20/24 Status: Ordered Quantity: 16.0 Unit: mL Repeat number: 4 gabapentin 100 mg oral capsule Start: 01/18/25 8:53:00 AM EDT, See Instructions, Disp# 90 cap, Refills: 2, Take 1 cap (100mg) in afternoon and 2 cap (200 mg) nightly, Pharmacy: [facility][id number] Start Date: 01/18/25 Status: Ordered Quantity: 90.0 Unit: cap Repeat number: 3 Magnesium 64mg Start: 05/27/23 10:30:00 AM EDT, Magnesium 64mg, 1 tab po BID Start Date: 05/27/23 Status: Ordered Repeat number: 1 metoprolol extended release Start: 12/29/23 1:54:00 PM EDT Start Date: 12/29/23 Status: Ordered Repeat number: 1 naproxen 250 mg oral tablet Start: 11/08/24 2:15:00 PM EST, 1 tab, PO, bid, PRN: as needed for arthritis Start Date: 11/08/24 Status: Ordered Repeat number: 1 nitroglycerin Start: 08/09/24 1:03:00 PM EDT Start Date: 08/09/24 Status: Ordered Repeat number: 1 omeprazole 20 mg oral delayed release capsule Start: 11/08/24 2:32:00 PM EST, 1 cap, PO, Daily, Disp# 90 cap, Refills: 9, Pharmacy: [id number] Start Date: 11/08/24 Status: Ordered Quantity: 90.0 Unit: cap Repeat number: 10 rosuvastatin 10 mg oral tablet Start: 03/07/23 2:35:00 PM EDT, 1 tab, PO, Daily Start Date: 03/07/23 Status: Ordered Repeat number: 1 thiamine 100 mg oral tablet Start: 03/22/23 11:59:00 AM EDT, 2 tab, PO, Daily, Disp# 30 tab, Pharmacy: [facility] Start Date: 03/22/23 Status: Ordered Quantity: 30.0 Unit: tab Repeat number: 1 traMADol 50 mg oral tablet Start: 12/04/24 12:28:00 PM EST, 1 tab, PO, tid, Disp# 90 tab, Refills: 1, Note to Pharmacy: PDMP reviewed, last fill 11/02, PRN: as needed for pain, Pharmacy: [facility] #[id number] Start Date: 12/04/24 Status: Ordered Quantity: 90.0 Unit: tab Repeat number: 2 Tylenol 500 mg oral tablet Start: 03/22/23 11:59:00 AM EDT, 2 tab, PO, q6h, PRN: as needed for pain Start Date: 03/22/23 Status: Ordered Repeat number: 1 Vitamin B12 Start: 05/27/23 10:31:00 AM EDT, 2000mcg po daily Start Date: 05/27/23 Status: Ordered Repeat number: 1 Xyzal 5 mg oral tablet Start: 08/26/23 3:54:00 PM EST Start Date: 08/26/23 Status: Ordered Repeat number: 1 Mental Status 01/25/25 Barriers to Learning one year None evide nt Mandatory Health Literacy Documentation Yes Health Literacy Communication Barriers N ever Primary Language Citizen Of [place] Problem List Condition Confirmation Course Effective Dates Status H ealth Status Informant Alcohol dependence, uncomplicated Confirmed Active High risk for hip fracture Confirmed Active Atherosclerosis of aorta 1 Confirmed Active CORONARY ATHEROSCLEROSIS OF [place] CORONARY ARTERY Confirmed Active Diverticulosis of colon [...] Testosterone deficiency Confirmed Active Scoliosis Confirmed Active [place]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 Knee pain, left Confirmed Active Unspecified mononeuropathy of bilateral lower limbs Confirmed Active Chronic myofascial pain Confirmed Active Nasal polyp Confirmed Active Neuropathy of both feet 3, 4 Confirmed 10/02/20 Active Bilateral leg numbness Confirmed Active Osteoarthrosis of knee Confirmed Active Polyosteoarthritis, unspecified 5 Confirmed 11/08/24 Active Osteopenia Confirmed Active Leg weakness, bilateral Confirmed Active Post-nasal drip Confirmed Active Restless leg syndrome 6 Confirmed Active Tobacco user Confirmed Active Uric acid kidney stone Confirmed Active Arterial calcification 7 Confirmed Active Vitamin B12 deficiency Confirmed Active 01/11/22- CT of the chest, abdomen, and pelvis with contrast FINDINGS: Chest Heart and Great vessels: Coronary atherosclerosis. Mild ectasia of ascending thoracic aorta. Calcific atherosclerosis of the thoracic aorta and branch vessels. 2EGD 3error : has significant polyneuropathy, involving sensory and motor fibers of mixed pathology. There no myopathy or lumbosacral radiculpathy bilaterally 4from back 5Added per Accounts Payable Bookkeeper Review-JW-11/20/24 6shown in a previous sleep study, which was neg. for KAROLINA 7on bilateral knee x-rays Diagnosis Diagnosis Type Effective Dates Health Status Cl inical Service Informant Rectal pain Discharge Diagnosis 01/27/25 Non-Specified Left leg weakness Discharge Diagnosis 01/27/25 Non-Specified Procedures Procedure Date Related Diagnosis Body [...] Completed Procedure on hand 57 Comp leted 1[facility] ED IMPRESSION: Cardiomegaly and emphysema with no acute cardiopulmonary abnormality identified. [facility] ED IMPRESSION: 1. A mildly displaced [...] previously evaluated, nonemergent thyroid ultrasound canbe performed. [facility] ED IMPRESSION: 1. Acute right posterior 10th rib fracture. 2. No additional acute fracture is clearly identified. There are numerous subacute-appearing left-sided rib fractures. 3. There is no airspace consolidation typical for pneumonia, pleural effusion, or pneumothorax. 4. Cardiomegaly. 5. Thyroid goiter. 6. Mildly enlarged mediastinal lymph nodes are nonspecific and may be reactive. 7. Hiatal hernia. 8. Additional findings as above. [facility] ED Impression: 1. Interval development of a [...] to oldest [Reference Range]: 1 Patient Weight 97.5 kg (01/25/25 1:58 PM) Temperature [36.5-37.9 DegC] 36.4 DegC *LOW* (01/25/25 1:58 PM) Blood Pressure 138/102mmHg (01/25/25 1:58 PM) BP Location # 1 Right Arm (01/25/25 1:58 PM) Social History Social History Type Response Tobacco Former smoker, Cigar ettes, .1 per day. 46 year(s). Total pack years: 5. Started age 12 Years. Stopped age 58 Years. Smoking Status Current every day li ght smoker Sex Male Sex Representation Male (finding) Implantable Device List Procedure Provider Procedure Date Device Type Site Unknown Unknown 03/29/23 Unknown Unknown Device Identifier Serial Number Lot or Batch Number Manufacturing Date Expiration Date Distinct Identification Code MRI Safety Implantable Status Assigning Authority Unknown Unknown [id number] Unknown 11/16/24 Unknown Unknown Active Unk nown Unknown Unknown n/a Unknown Unknown Unknown Unknown Active Unkn own Unknown Unknown n/a Unknown Unknown Unknown Unknown Active Unkn own Patient Care team information Care Team Personnel Name: MD Manfred, Jay Han Position: Physician - Family Med Member Role: Lifetime Relationship Address: [address] [place] [address] GeoGRAFIcom: [phone] Name: KRISTIN Kenyon Kimberly A Position: Physician Asst Exmpt - Family Med Member Role: Lifetime Relationship Address: [address] [place] [address] Telecom: [phone] Name: DO Lucas Amanda Position: Resident Member Role: Lifetime Relationship Address: [address] [place] [address] Telecom: [phone] Name: KRISTIN Contreras Ashley Position: Physician On Line Csr - Neurosurgery Member Role: Lifetime Relationship Address: [address] [facility] [address] [place] [address] Telecom: [phone] Name: DO Freeman Gretchen Elizabeth Position: Physician - Family Med Member Role: Primary Care Provider Address: [address] [facility] [address] [place] [address] Telecom: [phone] Name: Catina Watson Kyle Position: Pharmacist Member Role: Pharmacy - Lifetime Address: [address] [place] [address] Name: HEIDY Vo Lorella G Position: Referring DIRECT Member Role: Lifetime Relationship Address: [address] [facility] [place] [address] Telecom: [phone] Care Team Related Persons Name: BRAULIO JOYCE Insurance Providers Guarantor name: MAN GUSMAN Health Plan Information #: 1 Payer: [employer] Member Number: [id number] Policy Number: NA Group Number: [id number] Health Plan Information #: 2 Payer: [employer] Member Number: [id number] Policy Number: NA Group Number: NA Health Plan Information #: 3 Payer: MEDICARE Member Number: NA Policy Number: NA Group Number: NA
[2025-02-05 03:23] LABS: Troponin I High Sensitivity 7.2 pg/ml (0-20)
--- NOTE | 2025-02-05 03:54 | CT Scan Report ---
EXAM: CT chest diagnostic w con CLINICAL HISTORY: fall, ETOH, AMS TECHNIQUE: Contiguous axial images were obtained from the neck base through the upper abdomen following intravenous administration of contrast material. If IV contrast material had not been administered, the likelihood of detecting abnormalities relevant to the patient's condition would have been substantially decreased. In addition, sagittal and coronal reconstructions were performed. CT scan was performed according to ALARA (as low as reasonable achievable). 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 FINDINGS: Old healed fracture of left seventh to tenth ribs. Old healed fracture of right ninth and tenth ribs. Old fracture of sternum mid body seen. Few linear atelectatic bands are noted involving bilateral lower lobes. Rest of lungs are clear The central airways are patent. There are no pleural effusions. No pneumothorax is seen. No axillary, hilar, or mediastinal adenopathy is identified. The visualized thyroid shows nodular lesion in both lobes - USG correlation suggested The heart, aorta, and pulmonary arteries are of normal size and configuration. No pericardial effusion is identified. Imaged portions of the upper abdomen are unremarkable. No aggressive appearing osseous lesions are identified. IMPRESSION: 1. Old healed fracture of left seventh to tenth ribs.-stable. 2. Old healed fracture of right ninth and tenth ribs-stable. Old fracture of sternum mid body seen. 3. Few linear atelectatic bands are noted involving bilateral lower lobes.-stable. 4. No other new interval abnormality since prior study. Electronically signed by Amol rPice 02-05-2025 03:53 AM
--- NOTE | 2025-02-05 03:56 | CT Scan Report ---
EXAM: CT abd pelvis IV con only CLINICAL HISTORY: fall, ETOH TECHNIQUE: Contiguous axial images were obtained from the level of the diaphragm to the pubic symphysis with intravenous contrast. Coronal and sagittal reconstructions were likewise performed and indicated to increase the sensitivity for detecting clinically relevant pathology. If IV contrast material had not been administered, the likelihood of detecting abnormalities relevant to the patient's condition would have been substantially decreased. CT scan was performed according to ALARA (as low as reasonable achievable). COMPARISON: 15:58:17 WORKFORCE MANAGEMENT ANALYST FINDINGS: The visualized lung bases are clear. Sliding hiatus hernia.-stable. The liver is normal in size and attenuation. No focal liver lesions are seen. There is no intra or extrahepatic biliary ductal dilatation. Hepatic vasculature is patent. The gallbladder is present. The spleen, pancreas, and adrenal glands are unremarkable. The kidneys are normal in size and attenuation. There is no hydronephrosis . Mild bilateral perinephric fat stranding. Tiny right renal concretion. The ureters are normal in caliber and no ureteral calculi are seen. The bladder is normal in contour. Pelvic viscera are unremarkable. No focal or diffuse bowel wall thickening or evidence of bowel obstruction is identified. The appendix is visualized in the right lower quadrant and appears within normal limits. Abdominal and pelvic vasculature is patent. No adenopathy or fluid collections are seen. No aggressive appearing osseous lesions are identified. Old central compression of L2 vertebra Multiple small uncomplicated colonic diverticulosis. Approximately 3 x 1.1 cm sized peripherally enhancing perianal abscess with mild adjacent fat stranding is noted in left ischioanal fossa, just reaching above the left levator ani muscle. IMPRESSION: 1. Mild bilateral perinephric fat stranding. -stable. 2. Tiny right renal concretion.-stable. 3. Multiple small uncomplicated colonic diverticulosis.-stable. 4. Small left perianal abscess as described.-new finding. 5. No obvious acute trauma related abnormality seen. Electronically signed by Amol Price 02-05-2025 03:55 AM
--- NOTE | 2025-02-05 03:57 | CT Scan Report ---
EXAM: CT head/brain wo con CLINICAL HISTORY: ETOH, HI, AMS, ASA TECHNIQUE: Multiple axial images are obtained from the skull base to the vertex without contrast. CT scan was performed according to ALARA (as low as reasonably achievable). COMPARISON: 01 August 2024. FINDINGS: Craniotomy defects are noted in the right parietal bone. There is cerebral atrophy. The vargas-white matter differentiation is preserved. There are scattered periventricular hypodensities as can be seen with chronic microvascular ischemic changes. No evidence of space occupying lesion, hemorrhage, edema, mass effect, midline shift, extra axial collection, or hydrocephalus is noted. Basal cisterns are symmetric and normal in size and configuration. Visualized paranasal sinuses and mastoid air cells are well aerated. Orbital contents are within normal limits. Rest of the findings are unchanged. IMPRESSION: 1. No evidence of acute intracranial abnormality is demonstrated. 2. Chronic microvascular ischemic changes. 3. Cerebral atrophy. No significant interval new abnormality detected. Electronically signed by Amol Price 02-05-2025 03:57 AM
--- NOTE | 2025-02-05 04:15 | CT Scan Report ---
EXAM: CT cervical spine wo con CLINICAL HISTORY: ETOH, HI, AMS, ASA TECHNIQUE: Computed tomography of the cervical spine performed without intravenous contrast. Contiguous axial images were obtained from the skull base to T2, with sagittal and coronal reformatted images reconstructed from the axial data. CT scan was performed according to ALARA (as low as reasonably achievable). COMPARISON: 01 August 2024. FINDINGS: Straightening of the cervical spine is noted. Alignment of spine is maintained. Vertebral bodies are normal in height. No evidence of fracture. Lateral masses of C1 are symmetrical, and the dens is intact. Prevertebral soft tissues are not widened. The remaining suprahyoid and infrahyoid soft tissues in the neck are unremarkable. Degenerative changes are noted in the cervical spine in the form of marginal osteophytes, facetal arthropathy changes at multiple levels. C2-C3: No disc bulge, mass effect on the cord or neuroforaminal narrowing. C3-C4: No disc bulge, mass effect on the cord or neuroforaminal narrowing. C4-C5: No disc bulge, mass effect on the cord or neuroforaminal narrowing. C5-C6: No disc bulge, mass effect on the cord or neuroforaminal narrowing. C6-C7: No disc bulge, mass effect on the cord or neuroforaminal narrowing. C7-T1: No disc bulge, mass effect on the cord or neuroforaminal narrowing. Right lobe of the thyroid gland appears enlarged and shows a hypodense nodule. Suggested ultrasound correlation. IMPRESSION: 1. No acute fracture or subluxation in the cervical spine. 2. Degenerative changes. Stable. 3. Right lobe of the thyroid gland appears enlarged and shows hypodense nodule. Suggested ultrasound correlation. Stable Electronically signed by Amol Price 02-05-2025 04:15 AM
--- NOTE | 2025-02-05 04:34 | XRay Report ---
EXAM: XR shoulder RT min 2V routine CLINICAL HISTORY: Fall, pain, ETOH. TECHNIQUE: X-ray images of the right shoulder were obtained in anteroposterior (AP), lateral and Grashay projections. COMPARISON: CT 03/17/2023. FINDINGS: Bone Structure: Comminuted fractures in proximal humerus involving greater tuberosity and neck. Mild superior subluxation of humeral head. Joint Spaces: Mild degenerative changes in acromioclavicular joint. Glenohumeral joint space normal. No evidence of joint effusion. Soft Tissues: Soft tissue swelling along humeral head. No soft tissue calcifications, or foreign bodies noted. IMPRESSION: 1. Comminuted fractures in proximal humerus involving greater tuberosity and neck. 2. Mild superior subluxation of humeral head. 3. These findings are interval new. Disclaimer: A subtle bone abnormality or fracture may not be readily apparent on X-rays, thus clinical correlation and further imaging including follow-up CT, MRI, or follow-up X-rays are advised as needed. Electronically signed by Srinivas Pearce 02-05-2025 04:33 AM
--- NOTE | 2025-02-05 04:46 | History & Physical Report ---
Date of Service February 05, 2025 Assessment & Plan (1) Fall: (2) Closed fracture of head of right humerus: (3) Acute alcohol intoxication: (4) Abscess, perianal: Plan Patient is a 74-year-old male with past medical history of CAD s/p stent placement 2006 and 2011, hypertension, peripheral neuropathy s/p compression fracture, HLD, Chronic alcohol use, GERD. Patient presented via EMS as an injury alert after 3 falls between 02/04 to 02/05, positive head strike on fireplace, alcohol level of 238, chest CT showed multiple old rib fractures, shoulder XR showed proximal humerus fracture. Patient with ongoing perianal abscess, seen on AP CT at time of admission. #Fall/Humerus fracture - Patient reports 3 mechanical falls 2/2 chronic peripheral neuropathy and chronic alcohol use, alcohol level 238 on admission. CK negative. Chest CT showed numerous old healing rib fractures. Shoulder XR showed commuted fracture proximal humerus and mild superior subluxation. - Shoulder sling ordered - Orthopedics consulted, possible surgical management - Pain control with scheduled IV Tylenol, IV Toradol as needed, IV morphine as needed for breakthrough pain - PT/OT consulted with recurrent falls - fall precautions #Perianal abscess - Chronic, previously followed with GI and denied colonoscopy. Small left perianal abscess seen on AP CT. Nonseptic - No leukocytosis, procal < 0.02, VSS. - 1 dose of Zosyn 4.5 g in ED; continue as per surgery recommendation - General Surgery team consulted, possible I&D - blood cultures ordered - trend CBC #Chronic alcohol use - Pt reports typically drinks 2 glasses on wine every other day. ETOH level 238 on admission. No symptoms of withdrawal on admission. LFTs wnl. - AWSS at risk protocol with IV Ativan prn - encourage alcohol cessation #HTN - mildly elevated, suspect 2/2 pain - continue metoprolol #CAD - s/p RCA stent 2006, proximal LAD stent 2011 - continue daily ASA #Healed rib fractures - With recurrent falls. Chest CT showed healed fractures of left 7th-10th ribs, right 9th through 10th ribs, old fracture of sternum mid body with atelectatic bands. #Thyroid nodules - noted on previous scans. Cervical spine CT showed right lobe of thyroid gland appears enlarged and shows hypodense nodule. - Follow with PCP for possible ultrasound VTE ppx: SCDs, defer chemical ppx with possible surgical management Diet: NPO for possible surgical management; maintenance fluids with LR @ 80 ml/hr x1L, hold nonessential PO medications (resume when no longer NPO) Dispo: med/tele Admission and Anticipated Discharge Date Admission Date: 02/05/25 History of Present Illness Chief Complaint: trauma Primary Care Provider: Adrianne Freeman DO Patient is a 74-year-old male with past medical history of CAD s/p stent placement 2006 in 2011, hypertension, peripheral neuropathy s/p compression fracture, HLD, Chronic alcohol use, GERD. patient presented via EMS after 3 falls between 02/04 to 02/05, positive head strike on fireplace, alcohol level of 238, chest CT showed multiple old rib fractures, shoulder XR showed proximal humerus fracture. Patient with ongoing perianal abscess, seen on AP CT at time of admission. Patient seen at bedside. He stated he fell 3 times today due to his ongoing peripheral neuropathy of his bilateral feet. He has chronic issues with following and most recent admission was in July 2024. Patient stated that he hit his head off the fireplace and called EMS because he could not get up. He now has 12/10 right shoulder pain and a headache. Patient is currently neurovascularly intact at bedside. He stated he does chronically drink alcohol, typically wine every other day, reports approximately 2 glasses. He occasionally uses nicotine products. Patient stated he has been following with his PCP for a perianal abscess. This was noted to be present in August 05Oct, followed with GI however declined colonoscopy. Patient stated he completed a course of antibiotics and it resolved. Over the past few months it has returned and been about the same since it started, currently bothering him but stable, denies any recent antibiotic use. ROS otherwise negative denies fevers, chills, lightheadedness, dizziness, chest pain, shortness of breath, abdominal pain, nausea, vomiting, diarrhea. He does endorse chronic bilateral knee pain, unchanged. He is unsure if he got his evening medications last night. He does not use oxygen at baseline. He wishes to be DNR/DNI. He stated his last meal was around dinnertime at approximately 1700. Allergies Allergy/AdvReac Type Severity Reaction Status Date / Time lisinopril Allergy Severe Swollen Verified 01/10/25 14:58 Tongue and Throat Tightness soy Allergy Severe THROAT Verified 01/10/25 14:58 TIGHTENED W/SOY SAUCE Sulfa (Sulfonamide Allergy Intermediate HIVES AND Verified 01/10/25 14:58 Antibiotics) ITHCING zolpidem [From Ambien] AdvReac Severe " Verified 01/10/25 14:58 Hallucinates and sleepwalks" baclofen AdvReac Intermediate Tired and Verified 01/10/25 14:58 sluggish gluten AdvReac Intermediate ABD PAIN Verified 01/10/25 14:58 milk AdvReac Intermediate STOMACH Verified 01/10/25 14:58 PAIN Pdkdlcb-ATD-FgY Reductase AdvReac Intermediate MUSCLE Verified 01/10/25 14:58 Inhibitor WEAKNESS [Lukekji-Trs-Sxf Reductase Inhibitor] Home Medications Medication Instructions Recorded Confirmed Type allopurinol 300 mg tablet 300 mg PO DAILY 07/07/18 02/05/25 History fluticasone propionate 50 1 spray intranasal DAILY PRN 09/03/18 02/05/25 History mcg/actuation nasal Congestion spray,suspension (Flonase Allergy Relief) omeprazole 20 mg capsule,delayed 20 mg PO DAILY 05/12/20 02/05/25 History release fexofenadine 60 mg tablet 60 mg PO BID PRN Congestion 03/17/23 02/05/25 History tramadol 50 mg tablet 50 mg PO TID PRN Pain 03/17/23 02/05/25 History aspirin 81 mg tablet,delayed 81 mg PO DAILY #30 tabs 07/12/23 02/05/25 Rx release acetaminophen 500 mg tablet 1,000 mg PO Q8H PRN pain 12/22/23 02/05/25 History (Tylenol Extra Strength) levocetirizine 5 mg tablet (Xyzal) 5 mg PO DAILY PRN 12/22/23 02/05/25 History Allergies/Congestion multivitamin 1 tab PO DAILY 12/22/23 02/05/25 History magnesium oxide 125 mg PO DAILY 01/05/24 02/05/25 History nitroglycerin 0.4 mg sublingual 0.4 mg sublingual Q5M PRN chest 01/17/24 02/05/25 Rx tablet pain #100 tabs gabapentin 100 mg capsule 200 mg PO DAILY 08/01/24 02/05/25 History metoprolol succinate 25 mg 25 mg PO DAILY #60 tabs 08/20/24 02/05/25 Rx tablet,extended release 24 hr naproxen 250 mg tablet 500 mg PO BID PRN Pain 11/19/24 02/05/25 History rosuvastatin 10 mg tablet 10 mg PO DAILY #90 tabs 12/16/24 02/05/25 Rx Past Med/Surg History Problem List Abscess, perianal (Acute) Fall (Acute) Closed fracture of head of right humerus (Acute) Acute alcohol intoxication (Acute) Peripheral neuropathy Lumbar stenosis without neurogenic claudication Lumbosacral facet joint syndrome Hematuria Mass of perirectal soft tissue Back pain (Acute) Abscess, perirectal (Acute) Weakness (Acute) Stented coronary artery Gram-negative bacteremia Emily-rectal abscess Generalized weakness (Acute) Rhabdomyolysis (Acute) Hypomagnesemia (Acute) Non-ST elevation KS (NSTEMI) (Acute) Excessive vitamin B6 intake Arthralgia Hypersomnolence Fatigue Vitamin B12 deficiency Vitamin D deficiency Post concussion syndrome Sensory ataxia Hypertrophy of both inferior nasal turbinates Nasal septal deviation Chronic pansinusitis Idiopathic peripheral neuropathy Allergic rhinitis (Acute) Angina pectoris (Acute) Depression (Acute) Hypercholesterolemia (Acute) Lateral plantar neuropathy (Acute) Lightheadedness (Acute) Nasal congestion with rhinorrhea (Acute) Post-nasal drip (Acute) Presence of stent in artery (Acute) Stented coronary artery (Acute 10/09/12) Hyperlipidemia CAD (coronary artery disease) Myofascial pain Sacroiliitis Precordial chest pain (Acute) Hypertensive emergency (Acute) Headache above the eye region Compression fracture (Chronic) L2 Frequent falls (Chronic) Gait instability (Chronic) Thoracic facet syndrome (Chronic) Spinal stenosis (Chronic) Lumbar facet joint syndrome (Chronic) Lumbago (Chronic) Encounter for pre-operative examination Hypertension (Chronic) Bronchitis (Chronic) Stomach problems (Chronic) Kidney stones (Chronic) Esophageal reflux (Acute) Hiatal hernia (Acute) Hypotension (Acute) Left arm pain (Acute) Medical History Bilateral knee pain Ambulatory dysfunction Alcohol intoxication Hypertension Encounter for recheck of abscess following incision and drainage Arteriosclerotic coronary artery disease Benign essential hypertension (10/09/12) Excessive sweating Numbness Post concussion syndrome Osteoarthritis GERD (gastroesophageal reflux disease) Myocardial Infarction 7-10 YEARS AGO Surgical History Polyp, nasal History of tonsillectomy History of heart artery stent 7-10 YEARS AGO INSERTED>[place] History of cardiac cath Family History Mother Family history of diabetes mellitus Heart disease Father Heart disease Sister Asthma Other No family history of adverse response to anesthesia No family history of bleeding disorder Social History Smoking Status: Current every day smoker Tobacco Type: Cigarettes Cigarettes Per Day: quit smoking 18 years ago; Second Hand Exposure: No; Do You Dip or Chew Tobacco: No; Hx Alcohol Use: Yes Alcohol type: hard liquor Alcohol Intake Frequency: 4 or More x per/Week Alcohol Intake Frequency Comment: 1-2 glasses per day Hx Substance Use: No Preferred Language: Emirati Communication Ability: Effective Visual Impairment: Limited Hearing Ability: Normal Manager Case Required: No Beliefs That Will Affect Care: None marital status: Current Living Situation: Spouse Current Living Situation Comment: spring current occupational status: retired Feels Safe at Home: Yes Diet: gluten free and lactose free Diet Comment: Soy free Do you think of yourself as: straight/heterosexual Gender Identity: Male Assistive Devices: Cane and Walker Review of Systems Review of Systems: see HPI Physical Exam Physical Exam: The patient is awake, alert and oriented 3, abrasion to left forehead. HEENT- EOMI, mucous membranes dry. Hearing grossly intact. Heart-normal S1 and S2. No murmurs, rubs or gallops. Lungs-clear bilaterally, no respiratory distress, no accessory muscle use. Abdomen-normal bowel sounds and soft. No ascites noted. Non-tender. Extremities- no clubbing, cyanosis, or edema. Right UE neurovascularly intact. Psychiatric-normal affect. Results & Data Results & Data Vital Signs (Past 12 Hours) Vital Signs Temp Pulse Pulse Resp BP BP Pulse Ox 02/05/25 03:43 36.4 C L 76 22 179/113 H 93 02/05/25 03:43 74 18 179/113 H 95 02/05/25 03:24 36.5 C 67 18 153/102 H 93 02/05/25 02:55 68 O2 Del Method O2 Flow Rate 04/22/25 03:43 Room Air 0 02/05/25 03:43 Room Air 02/05/25 03:24 Room Air 02/05/25 02:55 Laboratory Results CBC, CMP, magnesium, troponin, CRP, procalcitonin, etoh level Diagnostic Findings Reviewed chest CT, AP CT, shoulder XR, head CT, cervical spine CT Medications Administered EDZosyn 4.5 Mg IV [id number] IV Tylenol, 2mg IV morphine, LR 80 mL/hour ECG Additional Comments: ordered Code Status & VTE Plan Code Status dnr/dni VTE Prophylaxis Plan VTE Prophylaxis will be ordered: Yes Supervising Physician Co-Signing Physician Notes I personally saw and examined the patient. I independently reviewed the labs, EKG, imaging, problem list, medication list, past medical history and family history. I verified all mahmood points and agree with Kianna Motnez PA-C with the following exceptions and/or additions: 74-year-old male presents to the ER following a fall last night. No chest pain, shortness of breath or dz A/P Of note this patient is my uncle in law however there is no other provider available for the [facility] physician group at night to sign notes for the PA. Will handover to another provider tomorrow. PG Care Time/CCT Total # of Minutes Spent Total Time Spent with Patient: Total time spent is greater than 50% in coordination of care (as documented) at patient's floor/unit and/or counseling patient: Coding Level of Care Code 59541 INT INP/OBS CARE 75MIN Diagnoses Fall W19.XXXA Closed fracture of head of right humerus S42.291A Acute alcohol intoxication F10.920 Complication of substance-induced condition: uncomplicated Abscess, perianal K61.0 (3) Acute alcohol intoxication Complication of substance-induced condition: uncomplicated Qualified Code(s): F10.920 - Alcohol use, unspecified with intoxication, uncomplicated
[2025-02-05 05:04] LABS: C Reactive Protein 0.62 mg/dl (0-0.5)
[2025-02-05] MEDS: ACETAMINOPHEN 1,000 MG/100 ML VIAL IV STA (05:13)
--- NOTE | 2025-02-05 05:21 | Emergency Department Note ---
ED Visit Note I was consulted by the Advanced Practice Provider. I personally approved the management plan and take responsibility for the patient management. This includes the aspects of: -History/Physical -MDM -I independently interpreted the following studies:Studies and results .
[2025-02-05] MEDS: PIPERACILLIN/TAZOBACTAM 4.5 GM/100 ML BAG IV ONE (05:46)
--- NOTE | 2025-02-05 05:49 | Surgery Consultation ---
<Statement entered by Elaina Riggins DO - 02/05/25 16:18> I have seen and examined this patient. I agree with this plan Date of Consultation February 05, 2025 Assessment & Plan (1) Abscess, perianal: The patient is being admitted on the hospitalist service. Per general surgery perspective we recommend the following: Antibiotics in form of Zosyn has been initiated and should continue Patient does have a small perianal abscess noted on CT scan. It is not obviously/readily apparent on visual inspection. The question is whether antibiotics alone will be enough to treat the abscess due to its small size or if you require incision and drainage. Patient will be evaluated by Dr. Collins on 02/05/2025 the determination will be made if incision and drainage will be required or if antibiotics alone will be adequate If operative intervention is required, it may need to be coordinated with orthopedics who is seeing the patient for right humeral fracture Patient should be kept n.p.o. for the present time Additional recommendations will be forthcoming based on his clinical course as unfolds History of Present Illness Reason for Consultation: Perianal abscess History of Present Illness This is a 74-year-old male who presented to the emergency department secondary to suffering multiple falls over the past 24 to 48 hours. Patient notes that most recently he rolled out of bed accidentally striking his head on the fireplace and also landing on his right arm. He notes that he did not lose consciousness. At the present time he does report some pain in his head but denies any visual changes. He denies any fevers, shakes, or chills. He denies any nausea or vomiting. General surgery was asked to see the patient secondary to the perianal abscess. The patient notes that he has had a perianal abscess in the past requiring incision and drainage (this was performed on November 29, 2022.). Patient notes that currently he has been having discomfort in his rectal area for approximately 2 weeks. He notes that he has pain on the left side of his rectum that is worse when applying pressure. He notes that it does not hurt when he moves his bowels and he denies any drainage or pus. He also denies any bright blood per rectum or melanotic stools. He does note that with his current episode he has not received any medical treatment such as repeat incision and drainage or has not been placed on any antibiotics since his pain began. Since arrival to the hospital the patient has had labs and imaging which) reviewed. Chest x-ray showed some old healed fractures of the left sided ribs numbers 7 through 10. Is also noted to have old healed fractures of the right ribs numbers 9 through 10. An old fracture of the sternal body was noted. A CT T scan of the abdomen pelvis showed the patient had a 3 x 1 cm perianal abscess just left of the ischial anal fossa. A shoulder x-ray showed a fracture in the proximal humerus on the right side. A CT scan of the head showed no evidence of acute intercranial abnormality. CT scan of the cervical spine showed no fractures or subluxations. Labs including CBC were white blood cell count, hemoglobin, hematocrit, and platelet count were normal. Chemistry profile showed sodium and potassium were normal. BUN and creatinine were both within the normal range. An ethyl alcohol level was elevated at 238. At the time of my interview the patient was resting comfortably in bed and is in no distress. Allergies Allergy/AdvReac Type Severity Reaction Status Date / Time lisinopril Allergy Severe Swollen Verified 01/10/25 14:58 Tongue and Throat Tightness soy Allergy Severe THROAT Verified 01/10/25 14:58 TIGHTENED W/SOY SAUCE Sulfa (Sulfonamide Allergy Intermediate HIVES AND Verified 01/10/25 14:58 Antibiotics) ITHCING zolpidem [From Ambien] AdvReac Severe " Verified 01/10/25 14:58 Hallucinates and sleepwalks" baclofen AdvReac Intermediate Tired and Verified 01/10/25 14:58 sluggish gluten AdvReac Intermediate ABD PAIN Verified 01/10/25 14:58 milk AdvReac Intermediate STOMACH Verified 01/10/25 14:58 PAIN Aakmuwu-DBN-CvC Reductase AdvReac Intermediate MUSCLE Verified 01/10/25 14:58 Inhibitor WEAKNESS [Btzfncr-Bkh-Nwn Reductase Inhibitor] Home Medications Medication Instructions Recorded Confirmed Type allopurinol 300 mg tablet 300 mg PO DAILY 07/07/18 01/10/25 History fluticasone propionate 50 1 spray intranasal DAILY PRN 09/03/18 01/10/25 History mcg/actuation nasal Congestion spray,suspension (Flonase Allergy Relief) omeprazole 20 mg capsule,delayed 20 mg PO DAILY 05/12/20 01/10/25 History release fexofenadine 60 mg tablet 60 mg PO BID PRN Congestion 03/17/23 01/10/25 History tramadol 50 mg tablet 50 mg PO TID PRN Pain 03/17/23 01/10/25 History aspirin 81 mg tablet,delayed 81 mg PO DAILY #30 tabs 07/12/23 01/10/25 Rx release acetaminophen 500 mg tablet 1,000 mg PO Q8H PRN pain 12/22/23 01/10/25 History (Tylenol Extra Strength) levocetirizine 5 mg tablet (Xyzal) 5 mg PO DAILY PRN 12/22/23 01/10/25 History Allergies/Congestion multivitamin 1 tab PO DAILY 12/22/23 01/10/25 History magnesium oxide 125 mg PO DAILY 01/05/24 01/10/25 History nitroglycerin 0.4 mg sublingual 0.4 mg sublingual Q5M PRN chest 01/17/24 01/10/25 Rx tablet pain #100 tabs gabapentin 100 mg capsule 200 mg PO DAILY 08/01/24 01/10/25 History metoprolol succinate 25 mg 25 mg PO DAILY #60 tabs 08/20/24 01/10/25 Rx tablet,extended release 24 hr naproxen 250 mg tablet 500 mg PO BID PRN 11/19/24 01/10/25 History rosuvastatin 10 mg tablet 10 mg PO DAILY #90 tabs 12/16/24 01/10/25 Rx Patient History Medical History Bilateral knee pain Ambulatory dysfunction Alcohol intoxication Hypertension Encounter for recheck of abscess following incision and drainage Arteriosclerotic coronary artery disease Benign essential hypertension (10/09/12) Excessive sweating Numbness Post concussion syndrome Osteoarthritis GERD (gastroesophageal reflux disease) Myocardial Infarction 7-10 YEARS AGO Surgical History Polyp, nasal History of tonsillectomy History of heart artery stent 7-10 YEARS AGO INSERTED>[place] History of cardiac cath Family History Mother Family history of diabetes mellitus Heart disease Father Heart disease Sister Asthma Other No family history of adverse response to anesthesia No family history of bleeding disorder Social History Smoking Status: Current every day smoker Tobacco Type: Cigarettes Cigarettes Per Day: quit smoking 18 years ago; Second Hand Exposure: No; Do You Dip or Chew Tobacco: No; Hx Alcohol Use: Yes Alcohol type: hard liquor Alcohol Intake Frequency: 4 or More x per/Week Alcohol Intake Frequency Comment: 1-2 glasses per day Hx Substance Use: No Preferred Language: Czech Communication Ability: Effective Visual Impairment: Limited Hearing Ability: Normal Proprietary Trader Required: No Beliefs That Will Affect Care: None marital status: Current Living Situation: Spouse Current Living Situation Comment: ranch current occupational status: retired Feels Safe at Home: Yes Diet: gluten free and lactose free Diet Comment: Soy free Do you think of yourself as: straight/heterosexual Gender Identity: Male Assistive Devices: Cane and Walker Review of Systems Review of Systems: All systems reviewed & are unremarkable except as noted in HPI & below Physical Exam Physical Exam: Patient is noted to have bruising on his forehead. Constitutional: WD/WN, vitals as above Eyes: PERRL ENMT: Ears: no hearing impairment and no external ear abnormality Mouth: no oropharynx abnormality Neck: trachea midline Respiratory: normal respiratory effort; no respiratory distress and no labored breathing Cardiovascular: Rate/Rhythm: regular rate and regular rhythm Gastrointestinal (Abdomen): Abdomen is soft without distention. No pain with palpation. With the nurse electronics supervisor present rectal examination was performed. On the external rectum patient did have some slight pain with palpation just to the left of the anus. There were no obvious visible areas of fluctuance or induration. There were no open areas or areas of drainage. Musculoskeletal: No calf tenderness. Right arm is in a sling. Skin: no rashes Neurologic: Patient is able to move all 4 extremities and follow simple commands without noted deficits Results & Data Vital Signs (Past 12 Hours) Vital Signs Temp Pulse Pulse Resp BP BP Pulse Ox 02/05/25 05:21 74 02/05/25 05:21 73 16 176/108 H 91 02/05/25 05:19 92 02/05/25 04:43 73 16 176/116 H 95 02/05/25 03:43 36.4 C L 76 22 179/113 H 93 02/05/25 03:43 74 18 179/113 H 95 02/05/25 03:24 36.5 C 67 18 153/102 H 93 02/05/25 02:55 68 O2 Del Method O2 Flow Rate 02/05/25 05:21 02/05/25 05:21 Room Air 02/05/25 05:19 Room Air 02/05/25 04:43 Room Air 02/05/25 03:43 Room Air 0 02/05/25 03:43 Room Air 02/05/25 03:24 Room Air 02/05/25 02:55 PG Care Time/CCT Total # of Minutes Spent Total Time Spent with Patient: Total time spent is greater than 50% in coordination of care (as documented) at patient's floor/unit and/or counseling patient: Coding Level of Care Code 00800 INT INP/OBS CARE MIN Diagnoses Abscess, perianal K61.0
[2025-02-05] MEDS: LACTATED RINGER'S 1,000 ML IV SCH (05:59)
[2025-02-05] MEDS: MoRPHine SULFATE 2 MG/ML CARP IV STA (06:00)
[2025-02-05] MEDS ORDERED: MoRPHine SULFATE 2 MG/ML CARP IV PRN (07:20)
[2025-02-05] MEDS ORDERED: FLUTICASONE PROPIONATE NA SPR 16 GM BTL PRN (07:20)
[2025-02-05] MEDS ORDERED: NALOXONE HCL 0.4 MG/1 ML VIAL/CARP IV PRN (07:20)
[2025-02-05] MEDS: MoRPHine SULFATE 4 MG/ML 1 ML CARP\\VIAL IV PRN (07:33)
[2025-02-05] MEDS: ACETAMINOPHEN 1,000 MG/100 ML VIAL IV SCH ×2 (07:40→13:00)
[2025-02-05] MEDS: METOPROLOL SUCC 25MG EXT REL TAB PO SCH (08:58)
[2025-02-05] MEDS: ASPIRIN 81 MG ECTAB PO SCH (08:58)
--- NOTE | 2025-02-05 09:47 | Orthopedic Consultation ---
Date of Consultation February 05, 2025 Assessment & Plan (1) Closed fracture of head of right humerus: IMPRESSION: Right proximal humerus fracture, non-displaced, closed. Fall out of bed resulting in acute right shoulder pain. No additional injuries appreciated. Swelling and focal tenderness over the proximal humerus/shoulder with decreased range of motion and pain with any range of motion in the shoulder. Neurovascularly intact. X-ray demonstrates a comminuted but well aligned proximal humerus fracture involving the humeral neck and greater tuberosity. PLAN: Currently nonoperable given appropriate alignment, however if the fracture displaces, this could be surgical in the future. Will need to evaluate rotator cuff function in future as well once pain and range of motion improves. Sling is appropriate. He should be in this at all times, can be removed for hygiene. If tolerable can lean forward to clean in the right axilla. Arm should be kept in the neutral sling position for the next 2 weeks. No range of motion of the shoulder. No lifting. Can work on range of motion of the elbow, wrist, and hand as tolerated. PT/OT. Pain management per primary service. Ice to the right shoulder 20 minutes every 1-2 hours for pain and swelling. Can elevate the hand on the chest for swelling. Follow-up in 2 weeks in our office with repeat shoulder x-rays. Plan will be to then follow-up with Dr. Gomes at 4-week najma as long as x-rays continue to remain nondisplaced. Will check on patient intermittently while admitted. Present on Admission?: Yes Supervising Physician Co-Signing Physician Notes I, Dr. Gomes, saw and examined the patient with my PA. I discussed the management with my PA. I reviewed my PAs note and agree with the documented findings and attest to completing the substantive portion (medical decision making)/ plan of care I developed. History of Present Illness Attending Physician: Marcos Villa History of Present Illness Marcus is a 74-year-old male with a history of chronic alcohol use, hypertension, coronary artery disease, who presented to the emergency department overnight secondary to a fall out of bed resulting in right shoulder pain. X- ray of the right shoulder demonstrated a nondisplaced comminuted proximal humerus fracture involving the humeral neck and the greater tuberosity. CT of the head, neck, chest, abdomen pelvis did not show any additional acute injuries. Incidental perianal abscess noted which patient was evaluated by general surgery, pending surgeon evaluation to determine surgical management versus IV antibiotics. Patient was given a sling for the shoulder and orthopedics was consulted for the proximal humerus fracture. Patient denies any other pain anywhere else. All of his pain is located in his right shoulder. He endorses a history of neuropathy in his lower extremities but denies any numbness or tingling in his hand. Allergies Allergy/AdvReac Type Severity Reaction Status Date / Time lisinopril Allergy Severe Swollen Verified 01/10/25 14:58 Tongue and Throat Tightness soy Allergy Severe THROAT Verified 01/10/25 14:58 TIGHTENED W/SOY SAUCE Sulfa (Sulfonamide Allergy Intermediate HIVES AND Verified 01/10/25 14:58 Antibiotics) ITHCING zolpidem [From Ambien] AdvReac Severe " Verified 01/10/25 14:58 Hallucinates and sleepwalks" baclofen AdvReac Intermediate Tired and Verified 01/10/25 14:58 sluggish gluten AdvReac Intermediate ABD PAIN Verified 01/10/25 14:58 milk AdvReac Intermediate STOMACH Verified 01/10/25 14:58 PAIN [id number] Reductase AdvReac Intermediate MUSCLE Verified 01/10/25 14:58 Inhibitor WEAKNESS [Mzyzykr-Ovh-Pds Reductase Inhibitor] Home Medications Medication Instructions Recorded Confirmed Type allopurinol 300 mg tablet 300 mg PO DAILY 07/07/18 02/05/25 History fluticasone propionate 50 1 spray intranasal DAILY PRN 09/03/18 02/05/25 History mcg/actuation nasal Congestion spray,suspension (Flonase Allergy Relief) omeprazole 20 mg capsule,delayed 20 mg PO DAILY 05/12/20 02/05/25 History release fexofenadine 60 mg tablet 60 mg PO BID PRN Congestion 03/17/23 02/05/25 History tramadol 50 mg tablet 50 mg PO TID PRN Pain 03/17/23 02/05/25 History aspirin 81 mg tablet,delayed 81 mg PO DAILY #30 tabs 07/12/23 02/05/25 Rx release acetaminophen 500 mg tablet 1,000 mg PO Q8H PRN pain 12/22/23 02/05/25 History (Tylenol Extra Strength) levocetirizine 5 mg tablet (Xyzal) 5 mg PO DAILY PRN 12/22/23 02/05/25 History Allergies/Congestion multivitamin 1 tab PO DAILY 12/22/23 02/05/25 History magnesium oxide 125 mg PO DAILY 01/05/24 02/05/25 History nitroglycerin 0.4 mg sublingual 0.4 mg sublingual Q5M PRN chest 01/17/24 02/05/25 Rx tablet pain #100 tabs gabapentin 100 mg capsule 200 mg PO DAILY 08/01/24 02/05/25 History metoprolol succinate 25 mg 25 mg PO DAILY #60 tabs 08/20/24 02/05/25 Rx tablet,extended release 24 hr naproxen 250 mg tablet 500 mg PO BID PRN Pain 11/19/24 02/05/25 History rosuvastatin 10 mg tablet 10 mg PO DAILY #90 tabs 12/16/24 02/05/25 Rx Patient History Medical History Bilateral knee pain Ambulatory dysfunction Alcohol intoxication Hypertension Encounter for recheck of abscess following incision and drainage Arteriosclerotic coronary artery disease Benign essential hypertension (10/09/12) Excessive sweating Numbness Post concussion syndrome Osteoarthritis GERD (gastroesophageal reflux disease) Myocardial Infarction 7-10 YEARS AGO Surgical History Polyp, nasal History of tonsillectomy History of heart artery stent 7-10 YEARS AGO INSERTED>CABIN JOHN History of cardiac cath Family History Mother Family history of diabetes mellitus Heart disease Father Heart disease Sister Asthma Other No family history of adverse response to anesthesia No family history of bleeding disorder Social History Smoking Status: Current every day smoker Tobacco Type: Cigarettes Cigarettes Per Day: quit smoking 18 years ago; Second Hand Exposure: No; Do You Dip or Chew Tobacco: No; Hx Alcohol Use: Yes Alcohol type: hard liquor Alcohol Intake Frequency: 4 or More x per/Week Alcohol Intake Frequency Comment: 1-2 glasses per day Hx Substance Use: No Preferred Language: Bruneian Communication Ability: Effective Visual Impairment: Limited Hearing Ability: Normal Manager Metal Required: No Beliefs That Will Affect Care: None marital status: Current Living Situation: Spouse Current Living Situation Comment: spring current occupational status: retired Feels Safe at Home: Yes Diet: gluten free and lactose free Diet Comment: Soy free Do you think of yourself as: straight/heterosexual Gender Identity: Male Assistive Devices: Cane and Walker Physical Exam Constitutional: Laying in bed with arm sling on right upper extremity. Resting comfortably in no distress. Discomfort appreciated in the right shoulder with changes in position in bed. Cardiovascular: Right radial pulse 2+ Musculoskeletal: Right upper extremity: Swelling noted to the right shoulder with focal tenderness about the shoulder and proximal humerus. Skin is closed. No ecchymosis appreciated. Any range of motion of the shoulder elicits pain. Able to actively flex the elbow from 90 degrees with no additional pain. Motor function with wrist extension, thumb extension, okay sign, index and middle finger crossed, and resisted finger abduction intact. Skin: Pain, warm, dry. Brisk capillary refill in right fingers Neurologic: Slight decrease sensation to light touch bilaterally, unchanged per patient Results & Data Vital Signs (Past 12 Hours) Vital Signs Temp Pulse Pulse Resp BP BP Pulse Ox 02/05/25 08:42 73 02/05/25 07:50 178/100 H 02/05/25 07:48 67 17 96 02/05/25 07:00 67 12 192/114 H 02/05/25 06:38 78 02/05/25 06:00 77 16 178/122 H 97 02/05/25 05:21 74 02/05/25 05:21 73 16 176/108 H 91 02/05/25 05:19 92 02/05/25 04:43 73 16 176/116 H 95 02/05/25 03:43 97.5 F L 76 22 179/113 H 93 02/05/25 03:43 74 18 179/113 H 95 02/05/25 03:24 97.7 F 67 18 153/102 H 93 02/05/25 02:55 68 O2 Del Method O2 Flow Rate 02/05/25 08:42 02/05/25 07:50 02/05/25 07:48 Room Air 02/05/25 07:00 02/05/25 06:38 02/05/25 06:00 Room Air 02/05/25 05:21 02/05/25 05:21 Room Air 02/05/25 05:19 Room Air 02/05/25 04:43 Room Air 02/05/25 03:43 Room Air 0 02/05/25 03:43 Room Air 02/05/25 03:24 Room Air 02/05/25 02:55 Laboratory Results 02/05/25 05:11 Aerobic Blood Culture - Pending Blood Anaerobic Blood Culture - Pending 02/05/25 05:00 Aerobic Blood Culture - Pending Blood Anaerobic Blood Culture - Pending 02/05/25 02/05/25 02:52 02:38 WBC 9.35 RBC 4.77 Hgb 15.5 POC Hgb 15.6 Hct 46.2 POC Hct 46 MCV 96.9 MCH 32.5 MCHC 33.5 RDW Std Deviation 52.9 H RDW Coeff of Joseph 14.6 H Plt Count 232 MPV 9.1 L Immature Gran % (Auto) 1.7 Neut % (Auto) 64.6 Lymph % (Auto) 27.3 [place] % (Auto) 5.2 Eos % (Auto) 0.6 Baso % (Auto) 0.6 Neut # (Auto) 6.03 Lymph # (Auto) 2.55 [place] # (Auto) 0.49 Eos # (Auto) 0.06 Baso # (Auto) 0.06 Immature Gran # (Auto) 0.16 POC Sodium 146 H Sodium 145 POC Potassium 3.7 Potassium 3.9 POC Chloride 107 Chloride 109 H Carbon Dioxide 29 POC Total CO2 24 Anion Gap 7 POC Anion Gap 20.0 POC BUN 17 BUN 17 Creatinine 0.76 POC Creatinine 1.0 Est Cr Clr Drug Dosing Not Reportable eGFR 93.73 BUN/Creatinine Ratio 22.4 H Glucose 121 H POC Glucose (other) 122 H Calcium 8.6 POC Ioniz Calcium Parker 1.11 L Phosphorus 3.0 Magnesium 1.9 Total Bilirubin 0.3 AST 16 ALT 17 Alkaline Phosphatase 73 Total Creatine Kinase 94 Troponin I High Sens 7.2 C-Reactive Protein 0.62 H Total Protein 6.7 Albumin 3.7 Globulin 3.0 Albumin/Globulin Ratio 1.2 Procalcitonin < 0.02 Ethyl Alcohol mg/dL 238.0 H Diagnostic Findings Cervical Spine CT 02/05/25 02:36 EXAM: CT cervical spine wo con CLINICAL HISTORY: ETOH, HI, AMS, ASA TECHNIQUE: Computed tomography of the cervical spine performed without intravenous contrast. Contiguous axial images were obtained from the skull base to T2, with sagittal and coronal reformatted images reconstructed from the axial data. CT scan was performed according to ALARA (as low as reasonably achievable). COMPARISON: 01 August 2024. FINDINGS: Straightening of the cervical spine is noted. Alignment of spine is maintained. Vertebral bodies are normal in height. No evidence of fracture. Lateral masses of C1 are symmetrical, and the dens is intact. Prevertebral soft tissues are not widened. The remaining suprahyoid and infrahyoid soft tissues in the neck are unremarkable. Degenerative changes are noted in the cervical spine in the form of marginal osteophytes, facetal arthropathy changes at multiple levels. C2-C3: No disc bulge, mass effect on the cord or neuroforaminal narrowing. C3-C4: No disc bulge, mass effect on the cord or neuroforaminal narrowing. C4-C5: No disc bulge, mass effect on the cord or neuroforaminal narrowing. C5-C6: No disc bulge, mass effect on the cord or neuroforaminal narrowing. C6-C7: No disc bulge, mass effect on the cord or neuroforaminal narrowing. C7-T1: No disc bulge, mass effect on the cord or neuroforaminal narrowing. Right lobe of the thyroid gland appears enlarged and shows a hypodense nodule. Suggested ultrasound correlation. IMPRESSION: 1. No acute fracture or subluxation in the cervical spine. 2. Degenerative changes. Stable. 3. Right lobe of the thyroid gland appears enlarged and shows hypodense nodule. Suggested ultrasound correlation. Stable Electronically signed by Amol Price 02-05-2025 04:[address] 02/05/25 02:36 EXAM: CT head/brain wo con CLINICAL HISTORY: ETOH, HI, AMS, ASA TECHNIQUE: Multiple axial images are obtained from the skull base to the vertex without contrast. CT scan was performed according to ALARA (as low as reasonably achievable). COMPARISON: 01 August 2024. FINDINGS: Craniotomy defects are noted in the right parietal bone. There is cerebral atrophy. The vargas-white matter differentiation is preserved. There are scattered periventricular hypodensities as can be seen with chronic microvascular ischemic changes. No evidence of space occupying lesion, hemorrhage, edema, mass effect, midline shift, extra axial collection, or hydrocephalus is noted. Basal cisterns are symmetric and normal in size and configuration. Visualized paranasal sinuses and mastoid air cells are well aerated. Orbital contents are within normal limits. Rest of the findings are unchanged. IMPRESSION: 1. No evidence of acute intracranial abnormality is demonstrated. 2. Chronic microvascular ischemic changes. 3. Cerebral atrophy. No significant interval new abnormality detected. Electronically signed by Amol Price 02-05-2025 03:57 AM Shoulder X-Ray 02/05/25 02:37 EXAM: XR shoulder RT min 2V routine CLINICAL HISTORY: Fall, pain, ETOH. TECHNIQUE: X-ray images of the right shoulder were obtained in anteroposterior (AP), lateral and Grashay projections. COMPARISON: CT 03/17/2023. FINDINGS: Bone Structure: Comminuted fractures in proximal humerus involving greater tuberosity and neck. Mild superior subluxation of humeral head. Joint Spaces: Mild degenerative changes in acromioclavicular joint. Glenohumeral joint space normal. No evidence of joint effusion. Soft Tissues: Soft tissue swelling along humeral head. No soft tissue calcifications, or foreign bodies noted. IMPRESSION: 1. Comminuted fractures in proximal humerus involving greater tuberosity and neck. 2. Mild superior subluxation of humeral head. 3. These findings are interval new. Disclaimer: A subtle bone abnormality or fracture may not be readily apparent on X-rays, thus clinical correlation and further imaging including follow-up CT, MRI, or follow-up X-rays are advised as needed. Electronically signed by Srinivas Pearce 02-05-2025 04:33 AM Abdomen/Pelvis CT 02/05/25 02:47 EXAM: CT abd pelvis IV con only CLINICAL HISTORY: fall, ETOH TECHNIQUE: Contiguous axial images were obtained from the level of the diaphragm to the pubic symphysis with intravenous contrast. Coronal and sagittal reconstructions were likewise performed and indicated to increase the sensitivity for detecting clinically relevant pathology. If IV contrast material had not been administered, the likelihood of detecting abnormalities relevant to the patient's condition would have been substantially decreased. CT scan was performed according to ALARA (as low as reasonable achievable). COMPARISON: 15:58:17 DIRECTOR OF RETENTION FINDINGS: The visualized lung bases are clear. Sliding hiatus hernia.-stable. The liver is normal in size and attenuation. No focal liver lesions are seen. There is no intra or extrahepatic biliary ductal dilatation. Hepatic vasculature is patent. The gallbladder is present. The spleen, pancreas, and adrenal glands are unremarkable. The kidneys are normal in size and attenuation. There is no hydronephrosis . Mild bilateral perinephric fat stranding. Tiny right renal concretion. The ureters are normal in caliber and no ureteral calculi are seen. The bladder is normal in contour. Pelvic viscera are unremarkable. No focal or diffuse bowel wall thickening or evidence of bowel obstruction is identified. The appendix is visualized in the right lower quadrant and appears within normal limits. Abdominal and pelvic vasculature is patent. No adenopathy or fluid collections are seen. No aggressive appearing osseous lesions are identified. Old central compression of L2 vertebra Multiple small uncomplicated colonic diverticulosis. Approximately 3 x 1.1 cm sized peripherally enhancing perianal abscess with mild adjacent fat stranding is noted in left ischioanal fossa, just reaching above the left levator ani muscle. IMPRESSION: 1. Mild bilateral perinephric fat stranding. -stable. 2. Tiny right renal concretion.-stable. 3. Multiple small uncomplicated colonic diverticulosis.-stable. 4. Small left perianal abscess as described.-new finding. 5. No obvious acute trauma related abnormality seen. Electronically signed by Amol Price 02-05-2025 03:[address] 02/05/25 02:47 EXAM: CT chest diagnostic w con CLINICAL HISTORY: fall, ETOH, AMS TECHNIQUE: Contiguous axial images were obtained from the neck base through the upper abdomen following intravenous administration of contrast material. If IV contrast material had not been administered, the likelihood of detecting abnormalities relevant to the patient's condition would have been substantially decreased. In addition, sagittal and coronal reconstructions were performed. CT scan was performed according to ALARA (as low as reasonable achievable). COMPARISON: 12:34:03 DIRECTOR OF RETENTION. FINDINGS: Old healed fracture of left seventh to tenth ribs. Old healed fracture of right ninth and tenth ribs. Old fracture of sternum mid body seen. Few linear atelectatic bands are noted involving bilateral lower lobes. Rest of lungs are clear The central airways are patent. There are no pleural effusions. No pneumothorax is seen. No axillary, hilar, or mediastinal adenopathy is identified. The visualized thyroid shows nodular lesion in both lobes - USG correlation suggested The heart, aorta, and pulmonary arteries are of normal size and configuration. No pericardial effusion is identified. Imaged portions of the upper abdomen are unremarkable. No aggressive appearing osseous lesions are identified. IMPRESSION: 1. Old healed fracture of left seventh to tenth ribs.-stable. 2. Old healed fracture of right ninth and tenth ribs-stable. Old fracture of sternum mid body seen. 3. Few linear atelectatic bands are noted involving bilateral lower lobes.-stable. 4. No other new interval abnormality since prior study. Electronically signed by Amol Price 02-05-2025 03:53 AM (1) Closed fracture of head of right humerus Encounter type: initial encounter Qualified Code(s): S42.291A - Other displaced fracture of upper end of right humerus, initial encounter for closed fracture
--- NOTE | 2025-02-05 10:25 | Electrocardiogram Report ---
Test Reason : Blood Pressure : */* mmHG Vent. Rate : 67 BPM Atrial Rate : 67 BPM P-R Int : 206 ms QRS Dur : 96 ms QT Int : 416 ms P-R-T Axes : 10 -24 24 degrees QTcB Int : 439 ms Poor data quality, interpretation may be adversely affected Normal sinus rhythm Incomplete right bundle branch block Leftward axis Abnormal ECG When compared with ECG of 01-Aug-2024 08:17, Incomplete right bundle branch block has replaced Right bundle branch block Confirmed by Stevan Lozano ([id number]) on 02/05/2025 10:24:41 AM Referred By: REFERRED SELF Confirmed By: Stevan Lozano
[2025-02-05] MEDS: KETOROLAC TROMETHAMINE 15 MG/ML VIAL IV PRN (11:15)
[2025-02-05] MEDS: hydrALAZINE HCL 20 MG/ML VIAL IV STA ×2 (11:34→15:31)
[2025-02-05] MEDS: PIPERACILLIN/TAZOBACTAM 4.5 GM/100 ML BAG IV SCH (11:35)
[2025-02-05] MEDS: LABETALOL HCL IV 5 MG/ML 20ML IV STA (13:44)
[2025-02-05] MEDS: ONDANSETRON INJ 2 MG/ML 2 ML VIAL IV PRN (14:34)
[2025-02-06] MEDS: LORazepam 2 MG/1 ML VIAL IV PRN (01:23)
[2025-02-06 07:48] LABS: Basophils # (auto) 0.04 K/uL (0.00-0.20); Basophils % (auto) 0.4 %; Eosinophils # (auto) 0.09 K/uL (0.00-0.50); Eosinophils % (auto) 0.9 %; Hematocrit (blood only) 42.9 % (42.0-52.0); Hemoglobin 14.5 g/dl (14.0-18.0); Immature Granulocytes # (auto) 0.08 K/uL (0.01-0.20); Immature Granulocytes % (auto) 0.8 %; Lymphocytes # (auto) 1.89 K/uL (1.20-3.40); Lymphocytes % (auto) 18.7 %; Mean Corpuscular Hemoglobin 32.3 pg (25.0-34.0); Mean Corpuscular Hgb Conc 33.8 g/dL (32.0-36.0); Mean Corpuscular Volume 95.5 fL (80.0-100.0); Mean Platelet Volume 9.5 fL (9.4-12.4); Monocytes # (auto) 0.69 K/uL (0.11-0.59); Monocytes % (auto) 6.8 %; Neutrophils # (auto) 7.31 K/uL (1.40-6.50); Neutrophils % (auto) 72.4 %; Platelet Count 175 K/uL (130-400); RDW Coefficient of Variation 14.9 % (11.5-14.5); Red Blood Count 4.49 M/uL (4.70-6.10)
[2025-02-06] MEDS: PANTOprazole 40 MG TAB PO SCH (08:08)
[2025-02-06 08:17] LABS: BUN Creatinine Ratio 23.1 (10-20); Calcium 8.3 mg/dl (8.6-10.3); Potassium 3.8 mmol/L (3.5-5.1)
--- NOTE | 2025-02-06 10:05 | Orthopedic Progress Note ---
Date of Service February 06, 2025 Assessment & Plan (1) Closed fracture of head of right humerus: Plan: IMPRESSION: Right proximal humerus fracture, non-displaced, closed. PLAN: Currently nonoperable given appropriate alignment, however if the fracture displaces, this could be surgical in the future. Will need to evaluate rotator cuff function in future as well once pain and range of motion improves. Sling is appropriate. He should be in this at all times, can be removed for hygiene. If tolerable can lean forward to clean in the right axilla. Arm should be kept in the neutral sling position for the next 2 weeks. No range of motion of the shoulder. No lifting. Can work on range of motion of the elbow, wrist, and hand as tolerated. PT/OT. Pain management per primary service. Ice to the right shoulder 20 minutes every 1-2 hours for pain and swelling. Can elevate the hand on the chest for swelling. Follow-up in 2 weeks in our office with repeat shoulder x-rays as scheduled. Will check on patient intermittently while admitted. Please call with questions. Will sign off for now. Admission and Anticipated Discharge Date Admission Date: February 05, 2025 Subjective Patient sleeping in bed. Resting comfortably. Did not awaken for visit. Physical Exam Musculoskeletal: Exam of right upper extremity: Sling in place RUE. Adequate placement. Ecchymosis right proximal arm. Mild distal edema right hand. Distal pulses 1+. No Active ROM tested due to him sleeping. Results & Data Vital Signs (Past 12 Hours) Vital Signs Temp Pulse Pulse Resp BP Pulse Ox O2 Del Method 02/06/25 07:42 36.7 C 77 18 180/99 H 91 Room Air 02/06/25 03:23 36.9 C 78 16 174/102 H 96 Room Air 02/05/25 23:22 36.8 C 85 16 161/103 H 95 Room Air 02/05/25 23:00 91 H Laboratory Results 02/06/25 Range/Units 07:24 WBC 10.10 (4.8-10.8) K/ul RBC 4.49 L (4.70-6.10) M/uL Hgb 14.5 (14.0-18.0) g/dl Hct 42.9 (42.0-52.0) % MCV 95.5 (80.0-100.0) fL MCH 32.3 (25.0-34.0) pg MCHC 33.8 (32.0-36.0) g/dL RDW Std Deviation 52.0 H (36.4-46.3) fL RDW Coeff of Joseph 14.9 H (11.5-14.5) % Plt Count 175 (130-400) K/uL MPV 9.5 (9.4-12.4) fL Immature Gran % (Auto) 0.8 % Neut % (Auto) 72.4 % Lymph % (Auto) 18.7 % [place] % (Auto) 6.8 % Eos % (Auto) 0.9 % Baso % (Auto) 0.4 % Neut # (Auto) 7.31 H (1.40-6.50) K/uL Lymph # (Auto) 1.89 (1.20-3.40) K/uL [place] # (Auto) 0.69 H (0.11-0.59) K/uL Eos # (Auto) 0.09 (0.00-0.50) K/uL Baso # (Auto) 0.04 (0.00-0.20) K/uL Immature Gran # (Auto) 0.08 (0.01-0.20) K/uL Sodium 140 (136-145) mmol/L Potassium 3.8 (3.5-5.1) mmol/L Chloride 106 (98-107) mmol/L Carbon Dioxide 27 (21-32) mmol/L Anion Gap 7 (3-11) BUN 15 (6-23) mg/dl Creatinine 0.65 (0.6-1.4) mg/dl Est Cr Clr Drug Dosing 116.0 ml/min eGFR 98.26 BUN/Creatinine Ratio 23.1 H (10-20) Glucose 101 H (70-99(Fasting)) mg/dl Calcium 8.3 L (8.6-10.3) mg/dl (1) Closed fracture of head of right humerus Encounter type: initial encounter Qualified Code(s): S42.291A - Other displaced fracture of upper end of right humerus, initial encounter for closed fracture
--- NOTE | 2025-02-06 10:29 | Surgery Progress Note ---
<Statement entered by Elaina Riggins, DO - 02/06/25 10:58> I have seen and examined this patient. I agree with this plan. Date of Service February 06, 2025 Assessment & Plan (1) Abscess, perianal: Plan: Patient here s/p fall has R humerus fracture CT abd/pelvis was performed during ER workup and showed an 3cm marsha anal abscess wbc 10, he is afebrile has been on iv abx and reports pain is improving there is no obvious areas noted on exam to drain, he has minimal tenderness as well pt in pain related to shoulder and it is hard for him to mobilize easily recommend complete course of abx for his abscess, already improving, can complete course of po at home we will sign off, but call with any questions/concerns Admission and Anticipated Discharge Date Admission Date: February 05, 2025 Subjective Patient reports marsha-anal pain is improved. he feels tired this am Physical Exam Physical Exam: awake, no distress. hard for him to move around due to shoulder pain Respiratory: normal respiratory effort Gastrointestinal (Abdomen): marsha-anal region inspected alongside dr. riggins, he has minimal tenderness to palpation, no obvious areas of induration or fluctuance, no open draining sites Results & Data Vital Signs (Past 12 Hours) Vital Signs Temp Pulse Pulse Resp BP Pulse Ox O2 Del Method 02/06/25 07:42 98.1 F 77 18 180/99 H 91 Room Air 02/06/25 03:23 98.4 F 78 16 174/102 H 96 Room Air 02/05/25 23:22 98.2 F 85 16 161/103 H 95 Room Air 02/05/25 23:00 91 H PG Care Time/CCT Total # of Minutes Spent Total Time Spent with Patient: Total time spent is greater than 50% in coordination of care (as documented) at patient's floor/unit and/or counseling patient: Coding Level of Care Code 83872 SUB INP/OBS CARE 11/10MIN Diagnoses Abscess, perianal K61.0
[2025-02-06] MEDS ORDERED: chlordiazePOXIDE ALCOHOL WITHDRAWL 25MG PO STA (11:47)
[2025-02-06] MEDS: chlordiazePOXIDE HCl 25 MG CAP PO SCH (13:00)
[2025-02-06] MEDS: THIAMINE HCL 500 MG in SODIUM CHLORIDE 0.9% 50 ML IV ONE (13:01)
--- NOTE | 2025-02-06 22:52 | Hospitalist Progress Note ---
Date of Service February 06, 2025 Assessment & Plan (1) Fall: (2) Closed fracture of head of right humerus: (3) Acute alcohol intoxication: (4) Abscess, perianal: Plan Patient is a 74-year-old male with past medical history of CAD s/p stent placement 2006 and 2011, hypertension, peripheral neuropathy s/p compression fracture, HLD, Chronic alcohol use, GERD. Patient presented via EMS as an injury alert after 3 falls between 02/04 to 02/05, positive head strike on fireplace, alcohol level of 238, chest CT showed multiple old rib fractures, shoulder XR showed proximal humerus fracture. Patient with ongoing perianal abscess, seen on AP CT at time of admission. #Fall/Humerus fracture - Patient reports 3 mechanical falls 2/2 chronic peripheral neuropathy and chronic alcohol use, alcohol level 238 on admission. CK negative. Chest CT showed numerous old healing rib fractures. Shoulder XR showed commuted fracture proximal humerus and mild superior subluxation. - Shoulder sling ordered - Orthopedics consulted, possible surgical management - Pain control with scheduled IV Tylenol, IV Toradol as needed, IV morphine as needed for breakthrough pain - PT/OT consulted with recurrent falls - fall precautions #Perianal abscess - Chronic, previously followed with GI and denied colonoscopy. Small left perianal abscess seen on AP CT. Nonseptic - No leukocytosis, procal < 0.02, VSS. - Zosyn 4.5 g ; continue as per surgery recommendation - General Surgery team consulted, no surgical intervention - blood cultures ordered #Chronic alcohol use - Pt reports typically drinks 2 glasses on wine every other day. ETOH level 238 on admission. No symptoms of withdrawal on admission. LFTs wnl. - AWSS at risk protocol with IV Ativan prn - encourage alcohol cessation -ordered chlordiazepoxide #HTN - mildly elevated, suspect 2/2 pain - continue metoprolol #CAD - s/p RCA stent 2006, proximal LAD stent 2011 - continue daily ASA #Healed rib fractures - With recurrent falls. Chest CT showed healed fractures of left 7th-10th ribs, right 9th through 10th ribs, old fracture of sternum mid body with atelectatic bands. #Thyroid nodules - noted on previous scans. Cervical spine CT showed right lobe of thyroid gland appears enlarged and shows hypodense nodule. - Follow with PCP for possible ultrasound VTE ppx: SCDs, defer chemical ppx with possible surgical management Dispo: med/tele patient will require placement Admission and Anticipated Discharge Date Admission Date: February 05, 2025 Subjective Patient reports pain in right shoulder. Nurse reports patient has been intermittently confused. Physical Exam Physical Exam: The patient is awake, alert and oriented 3, abrasion to left forehead. Hearing grossly intact. Heart-normal S1 and S2. No murmurs, rubs or gallops. Lungs-clear bilaterally, no respiratory distress, no accessory muscle use. Abdomen-normal bowel sounds and soft. No ascites noted. Non-tender. Extremities- no clubbing, cyanosis, or edema. Right UE neurovascularly intact. Psychiatric-normal affect. Results & Data Results & Data Vital Signs (Past 12 Hours) Vital Signs Temp Pulse Pulse Pulse Resp BP Pulse Ox 02/06/25 19:46 36.8 C 87 20 170/108 H 95 02/06/25 17:36 80 180/105 H 02/06/25 16:26 84 02/06/25 15:59 02/06/25 15:13 36.8 C 79 20 188/101 H 99 02/06/25 11:10 36.6 C 77 20 208/110 H 96 O2 Del Method 02/06/25 19:46 Room Air 02/06/25 17:36 02/06/25 16:26 02/06/25 15:59 Room Air 02/06/25 15:13 Room Air 02/06/25 11:10 Room Air PG Care Time/CCT Total # of Minutes Spent Total Time Spent with Patient: Total time spent is greater than 50% in coordination of care (as documented) at patient's floor/unit and/or counseling patient: Coding Level of Care Code 68310 SUB INP/OBS CARE 3/50MIN Diagnoses Fall W19.XXXA Closed fracture of head of right humerus, initial encounter S42.291A Encounter type: initial encounter Acute alcohol intoxication F10.920 Complication of substance-induced condition: uncomplicated Abscess, perianal K61.0 (2) Closed fracture of head of right humerus Encounter type: initial encounter Qualified Code(s): S42.291A - Other displaced fracture of upper end of right humerus, initial encounter for closed fracture (3) Acute alcohol intoxication Complication of substance-induced condition: uncomplicated Qualified Code(s): F10.920 - Alcohol use, unspecified with intoxication, uncomplicated
[2025-02-07] MEDS: hydrALAZINE HCL 20 MG/ML VIAL IM STA (05:08)
[2025-02-07 07:23] LABS: Hematocrit (blood only) 44.9 % (42.0-52.0); Hemoglobin 15.3 g/dl (14.0-18.0); Mean Corpuscular Hemoglobin 32.6 pg (25.0-34.0); Mean Corpuscular Hgb Conc 34.1 g/dL (32.0-36.0); Mean Corpuscular Volume 95.7 fL (80.0-100.0); Mean Platelet Volume 9.4 fL (9.4-12.4); Platelet Count 187 K/uL (130-400); RDW Coefficient of Variation 14.6 % (11.5-14.5); RDW Standard Deviation 50.5 fL (36.4-46.3); Red Blood Count 4.69 M/uL (4.70-6.10); White Blood Count 8.06 K/ul (4.8-10.8)
[2025-02-07 07:46] LABS: BUN Creatinine Ratio 23.2 (10-20); C Reactive Protein 2.18 mg/dl (0-0.5); Calcium 8.9 mg/dl (8.6-10.3); Creatinine Clr Calc Pharmacy 109.5 ml/min; Potassium 3.7 mmol/L (3.5-5.1)
[2025-02-07] MEDS: THIAMINE HCL 200 MG in SODIUM CHLORIDE 0.9% 50 ML IV SCH (08:25)
[2025-02-07] MEDS: FOLIC ACID 1 MG TAB PO SCH (08:26)
[2025-02-07] MEDS: ENOXAPARIN INJ 40 MG/0.4 ML SYR SQ SCH (08:26)
[2025-02-07] MEDS: AMPICILLIN/SULBACTAM SOD 3,000 MG/100 ML BAG IV SCH (11:42)
[2025-02-07] MEDS: chlordiazePOXIDE HCl 25 MG CAP PO SCH (13:11)
--- NOTE | 2025-02-07 16:54 | Hospitalist Progress Note ---
Date of Service February 07, 2025 Assessment & Plan (1) Fall: (2) Closed fracture of head of right humerus: (3) Acute alcohol intoxication: (4) Abscess, perianal: Plan Patient is a 74-year-old male with past medical history of CAD s/p stent placement 2006 and 2011, hypertension, peripheral neuropathy s/p compression fracture, HLD, Chronic alcohol use, GERD. Patient presented via EMS as an injury alert after 3 falls between 02/04 to 02/05, positive head strike on fireplace, alcohol level of 238, chest CT showed multiple old rib fractures, shoulder XR showed proximal humerus fracture. Patient with ongoing perianal abscess, seen on AP CT at time of admission. Placement/disposition: Was seen by PT/OT. Was recommended for acute rehab. Patient has had multiple falls with evidence of multiple healed rib fractures, and a humeral fraction on admission. He did meet with the [facility] liaison 02/07. Patient declined to go to rehab today and intends to return home with home health services. Discussed this at bedside 02/07 and strongly recommended that patient progress to rehab due to his multiple falls, high risk of recurrent fracture, ambulatory limitation given his additional humeral fracture and high risk of further morbidity and mortality. Additionally progression to acute rehab would allow for daily monitoring while he is on medical management for his perianal abscess. Patient expresses an understanding of the benefits of rehab, and the risks of returning home however Clines to pursue rehab at this time. Given that he is declining rehab I do feel that he should be watched further in the hospital to make sure that he is clinically stable with his antibiotics being narrowed, remains without evidence of significant alcohol withdrawal, and to have repeat PT/OT evaluations. #Fall/Humerus fracture - Patient reports 3 mechanical falls 2/2 chronic peripheral neuropathy and chronic alcohol use, alcohol level 238 on admission. CK negative. Chest CT showed numerous old healing rib fractures. Shoulder XR showed commuted fracture proximal humerus and mild superior subluxation. - Shoulder sling in place - Orthopedics consulted, nonoperative management at this time. - Pain adequately controlled, greatly improved with adjustments made to sling. Multimodal pain control Tylenol, Toradol, morphine if needed. Placement considerations as noted #Perianal abscess Afebrile, no leukocytosis - Chronic, previously followed with GI and denied colonoscopy. Small left perianal abscess seen on AP CT. Nonseptic - No leukocytosis, procal < 0.02, VSS. Surgery consulted, nonoperative management at this time - Zosyn 4.5 g narrowed to Unasyn with a goal of Augmentin transition if remaining well/stable #Chronic alcohol use - Pt reports typically drinks 2 glasses on wine every other day. ETOH level 238 on admission. No symptoms of withdrawal on admission. LFTs wnl. - AWSS at risk protocol with IV Ativan prn - encourage alcohol cessation On Librium protocol, doing well. No signs of withdrawal on assessment/24 #HTN - mildly elevated, suspect 2/2 pain - continue metoprolol #CAD - s/p RCA stent 2006, proximal LAD stent 2011 - continue daily ASA #Healed rib fractures - With recurrent falls. Chest CT showed healed fractures of left 7th-10th ribs, right 9th through 10th ribs, old fracture of sternum mid body with atelectatic bands. #Thyroid nodules - noted on previous scans. Cervical spine CT showed right lobe of thyroid g land appears enlarged and shows hypodense nodule. - Follow with PCP for possible ultrasound VTE ppx: SCDs, Lovenox PPx added as no operative intervention is anticipated at this time Dispo: med/tele Admission and Anticipated Discharge Date Admission Date: February 05, 2025 Subjective Seen at the bedside. Right shoulder pain is markedly improved since his sling was adjusted by occupational therapy. Denies fevers chills shakes. Denies pain at time of assessment although does have pain in his right arm if he moves it. Denies tremor shakes or sweats. Patient expressed that he talked to the [facility] liaison today and plans on going home with home health services rather than to rehab as initially planned, but notes if he does not do well at home then he will reach out to [facility] where he has been told he could potentially be directly admitted. No other concerns. Denies rectal pain today. Physical Exam Physical Exam: General: A&Ox3. NAD. Cooperative. HEENT: Atraumatic, normocephalic. Pulm: CTAB A&P. -wheezes, -rales, -rhonchi. Symmetrical chest rise. No increase in work of breathing. No respiratory distress. Cardiac: RRR, -mrg. Radial pulses intact and symmetrical. Extremities: Right arm resting comfortably in sling. Able to wiggle all fingers. Cap refill in the thumb brisk bilaterally. Sensation intact to soft touch in the hands bilaterally. Results & Data Results & Data Vital Signs (Past 12 Hours) Vital Signs Temp Pulse Pulse Resp BP Pulse Ox O2 Del Method 02/07/25 15:41 36.7 C 80 18 136/89 94 Room Air 02/07/25 15:00 79 02/07/25 12:08 36.7 C 78 18 127/77 97 Room Air 02/07/25 07:34 36.6 C 76 18 170/116 H 94 Room Air 02/07/25 07:29 73 02/07/25 05:55 85 20 199/110 H 97 Room Air PG Care Time/CCT Total # of Minutes Spent Total Time Spent with Patient: Total time spent is greater than 50% in coordination of care (as documented) at patient's floor/unit and/or counseling patient: Coding Level of Care Code 42371 SUB INP/OBS CARE 3/50MIN Diagnoses Fall W19.XXXA Closed fracture of head of right humerus, initial encounter S42.291A Encounter type: initial encounter Acute alcohol intoxication F10.920 Complication of substance-induced condition: uncomplicated Abscess, perianal K61.0 (2) Closed fracture of head of right humerus Encounter type: initial encounter Qualified Code(s): S42.291A - Other displaced fracture of upper end of right humerus, initial encounter for closed fracture (3) Acute alcohol intoxication Complication of substance-induced condition: uncomplicated Qualified Code(s): F10.920 - Alcohol use, unspecified with intoxication, uncomplicated
[2025-02-07] MEDS: NICOTINE 21 MG/24 HR TDSY TD SCH (17:49)
[2025-02-08] MEDS: LORazepam 2 MG/1 ML VIAL IV STA (04:49)
[2025-02-08 06:52] LABS: Basophils # (auto) 0.04 K/uL (0.00-0.20); Basophils % (auto) 0.5 %; Eosinophils % (auto) 2.5 %; Hematocrit (blood only) 41.7 % (42.0-52.0); Hemoglobin 14.2 g/dl (14.0-18.0); Immature Granulocytes # (auto) 0.06 K/uL (0.01-0.20); Immature Granulocytes % (auto) 0.7 %; Lymphocytes # (auto) 1.18 K/uL (1.20-3.40); Lymphocytes % (auto) 14.6 %; Mean Corpuscular Hemoglobin 32.6 pg (25.0-34.0); Mean Corpuscular Hgb Conc 34.1 g/dL (32.0-36.0); Mean Corpuscular Volume 95.6 fL (80.0-100.0); Mean Platelet Volume 9.1 fL (9.4-12.4); Monocytes # (auto) 0.46 K/uL (0.11-0.59); Monocytes % (auto) 5.7 %; Neutrophils # (auto) 6.12 K/uL (1.40-6.50); Platelet Count 169 K/uL (130-400); RDW Coefficient of Variation 14.3 % (11.5-14.5); Red Blood Count 4.36 M/uL (4.70-6.10); White Blood Count 8.06 K/ul (4.8-10.8)
[2025-02-08 07:20] LABS: BUN Creatinine Ratio 20.9 (10-20); Calcium 8.7 mg/dl (8.6-10.3); Creatinine Clr Calc Pharmacy 113.4 ml/min; Potassium 3.8 mmol/L (3.5-5.1)
[2025-02-08 08:22] VITALS: TEMP 97.3
[2025-02-08 12:55] VITALS: O2SAT 97
[2025-02-08] MEDS: traMADol HCL 50 MG TABLET PO STA (13:05)
--- NOTE | 2025-02-08 15:10 | Discharge Summary ---
Discharge Summary Date of Service February 08, 2025 Principal Dx & Hospital Course #1 = Principal Diagnosis (1) Fall: (2) Closed fracture of head of right humerus: (3) Acute alcohol intoxication: (4) Abscess, perianal: Plan Patient is a 74-year-old male with past medical history of CAD s/p stent placement 2006 and 2011, hypertension, peripheral neuropathy s/p compression fracture, HLD, Chronic alcohol use, GERD. Patient presented via EMS as an injury alert after 3 falls between 02/04 to 02/05, positive head strike on fireplace, alcohol level of 238, chest CT showed multiple old rib fractures, shoulder XR showed proximal humerus fracture. Patient with ongoing perianal abscess, seen on AP CT at time of admission. Placement/disposition: Was seen by PT/OT. Was recommended for acute rehab. Patient has had multiple falls with evidence of multiple healed rib fractures, and a humeral fraction on admission. He did meet with the [facility] liaison 02/07. Patient declined to go to rehab today and intends to return home with home health services. Discussed this at bedside 02/07 and strongly recommended that patient progress to rehab due to his multiple falls, high risk of recurrent fracture, ambulatory limitation given his additional humeral fracture and high risk of further morbidity and mortality. Additionally progression to acute rehab would allow for daily monitoring while he is on medical management for his perianal abscess. Patient expresses an understanding of the benefits of rehab, and the risks of returning home however Clines to pursue rehab at this time. He was watched for 1 additional day. Remained stable. Was able to a sit to stand without assistance/bracing. Rehab was again recommended however he refused this and was discharged home. #Fall/Humerus fracture - Patient reports 3 mechanical falls 2/2 chronic peripheral neuropathy and chronic alcohol use, alcohol level 238 on admission. CK negative. Chest CT showed numerous old healing rib fractures. Shoulder XR showed commuted fracture proximal humerus and mild superior subluxation. - Shoulder sling in place - Orthopedics consulted, nonoperative management at this time. - Pain adequately controlled, greatly improved with adjustments made to sling. Multimodal pain control Tylenol, Toradol, Toradol as needed #Perianal abscess Afebrile, no leukocytosis - Chronic, previously followed with GI and denied colonoscopy. Small left perianal abscess seen on AP CT. Nonseptic - No leukocytosis, procal < 0.02, VSS. Surgery consulted, nonoperative management at this time - Zosyn 4.5 g narrowed to Unasyn. Continues to do well Discharged to continue 10 days of Augmentin with follow-up and adjustment of antibiotic course as needed based on reevaluation. Should have a repeat CBC/CMP within approximately 1 week #Chronic alcohol use - Pt reports typically drinks 2 glasses on wine every other day. ETOH level 238 on admission. No symptoms of withdrawal on admission. LFTs wnl. - AWSSwith IV Ativan prn and Librium protocol was ordered during admission. Did well and was without tachycardia, tremulousness, diaphoresis or confusion day of discharge. No prior withdrawal from alcohol Patient expresses a desire to remain abstinent from alcohol moving forward. Is interested in naltrexone as an outpatient however given his reliance on tramadol and acute pain with his fracture we will follow-up with his PCP for reeval should be on this once his pain is improved #HTN - mildly elevated, suspect 2/2 pain - continue metoprolol #CAD - s/p RCA stent 2006, proximal LAD stent 2011 - continue daily ASA #Healed rib fractures - With recurrent falls. Chest CT showed healed fractures of left 7th-10th ribs, right 9th through 10th ribs, old fracture of sternum mid body with atelectatic bands. #Thyroid nodules - noted on previous scans. Cervical spine CT showed right lobe of thyroid gland appears enlarged and shows hypodense nodule. - Follow with PCP for possible ultrasound Admission HPI Per Admitting Provider Patient is a 74-year-old male with past medical history of CAD s/p stent placement 2006 in 2011, hypertension, peripheral neuropathy s/p compression fracture, HLD, Chronic alcohol use, GERD. patient presented via EMS after 3 falls between 02/04 to 02/05, positive head strike on fireplace, alcohol level of 238, chest CT showed multiple old rib fractures, shoulder XR showed proximal humerus fracture. Patient with ongoing perianal abscess, seen on AP CT at time of admission. Patient seen at bedside. He stated he fell 3 times today due to his ongoing peripheral neuropathy of his bilateral feet. He has chronic issues with following and most recent admission was in July 2024. Patient stated that he hit his head off the fireplace and called EMS because he could not get up. He now has 12/10 right shoulder pain and a headache. Patient is currently neurovascularly intact at bedside. He stated he does chronically drink alcohol, typically wine every other day, reports approximately 2 glasses. He occasionally uses nicotine products. Patient stated he has been following with his PCP for a perianal abscess. This was noted to be present in August 05Oct, followed with GI however declined colonoscopy. Patient stated he completed a course of antibiotics and it resolved. Over the past few months it has returned and been about the same since it started, currently bothering him but stable, denies any recent antibiotic use. ROS otherwise negative denies fevers, chills, lightheadedness, dizziness, chest pain, shortness of breath, abdominal pain, nausea, vomiting, diarrhea. He does endorse chronic bilateral knee pain, unchanged. He is unsure if he got his evening medications last night. He does not use oxygen at baseline. He wishes to be DNR/DNI. He stated his last meal was around dinnertime at approximately 1700. Discharge Exam General: A&Ox3. NAD. Cooperative. HEENT: Atraumatic, normocephalic. Hearing grossly intact. Vision grossly intact. Pupils equal and reactive to light Pulm: CTAB A&P. -wheezes, -rales, -rhonchi. Symmetrical chest rise. No increased work of breathing. No respiratory distress. Cardiac: RRR, -mrg. Radial pulses intact and symmetrical. Abdominal: Nontender, nondistended, soft. BS present. Extremities: Right arm in sling. Bellman Captain strength 5/5 in the right hand. Sensation soft touch intact in the fingertips, radial pulse intact and cap refill is brisk in the hand. No tremors. Skin is warm and dry Discharge Plan Discharge Items Patient Disposition: Home - Home Health Services Reason For Visit: FALL, HUMERAL FX, PERIANAL ABSCESS Discharge Diagnosis: Fall Humeral fracture Perianal abscess Condition on Discharge: Fair Activity: Resume your previous activity Non-emergency contact: Primary Care Provider and Surgeon Call non-emergency contact if: you have any medication questions, your symptoms worsen, your pain is not controlled and your pain is worsening Follow-up/Referrals: Alicia Hood PA-C [Physician Photographic Spotter] - 02/19/25 9:30 am Elaina Riggins DO [Physician] - (Perirectal abscess follow-up) Adrianne Freeman [Primary Care Provider] - Diet: Heart Healthy Addtl Attending Provider Instructions: You are seen in the hospital for a fall and had a nonoperative right humeral fracture. You were also treated for potential alcohol withdrawal with a Librium taper. You did not show signs of ongoing withdrawal at time of discharge. Due to your weakness, history of multiple falls, ambulatory dysfunction, and further ambulatory limitation with humeral fracture it was highly recommended and repeatedly recommended that you go to inpatient rehab prior to returning home. You declined this and expressed an understanding that you are at increased risk of falls, falling within already a fractured arm could lead to permanent harm/di sability, and that use of alcohol, tramadol, and various medications all further increase risk of falling. You expressed an understanding of these risks, but refused rehab and intent to return home. You have had ongoing alcohol use for which you are treated with a Librium taper. Further Librium was not prescribed at time of discharge. You did not show ongoing withdrawal at time of discharge. This is a long acting medication and the librium already in your system will take several days to wear off. Do not drive or operate machinery in the next few days. There is a medication that can help promote sobriety from alcohol, naltrexone. Naltrexone does help prevent forward pathway from alcohol and has been shown to help many patients maintain sobriety however this also antagonizes/reduces the effectiveness of opioid analgesics including tramadol. If your pain can be well-controlled without tramadol then this medication may be a good option for you however due to the risk of worsening your pain in the setting of acute fracture and back pain for which tramadol is currently being used was not recommended at time of discharge from the hospital. As your pain improves please discuss with your primary care provider Multimodal pain control that minimizes the use of tramadol in order to allow for pharmacologic assisted sobriety. You had a perirectal abscess which was small and operative intervention was not recommended. You were recommended to have an extended course of antibiotics and outpatient follow-up. You have declined colonoscopies. Follow-up is being scheduled for you, and you have been prescribed a extended 10-day course of antibiotics with Augmentin due to your abscess. Please have reevaluation with your primary care provider and outpatient blood work performed at your outpatient follow-up appointment. If you develop any new or worsening symptoms including fever, chills, sweats, chest pain, chest pressure, difficulty breathing, uncontrolled nausea/vomiting, rash, wheezing, passing out or nearly passing out, bleeding, black/bloody bowel movements, or other new or concerning symptoms please call your primary care physician, or call 911 for re-evaluation in the emergency department if you are very concerned. Addtl Fish Rod Maker Provider Instructions: Orthopedic instructions Wear the sling at all times. Can remove this for hygiene purposes if tolerable. Can lean forward to clean in the right axilla. Otherwise no range of motion of the shoulder, keep in neutral sling position. Can work on range of motion of the elbow, wrist, and hand as tolerated. Pain management per primary service. Ice to the affected shoulder 20 minutes every 1-2 hours for pain or swelling. Elevate hand on chest for hand swelling. Follow-up in 2 weeks at scheduled appointment. Call [phone] with any questions or concerns in the meantime. Pending Studies at Discharge: No Stand-Alone Forms: My [facility] [employer], Smoking Cessation Medications and DC Order Prescriptions: New amoxicillin-pot clavulanate 875-125 mg tablet 1 tab PO Q12H Qty: 20 0RF Continued naproxen 250 mg tablet 500 mg PO BID PRN (Reason: Pain) metoprolol succinate 25 mg tablet extended release 24 hr 25 mg PO DAILY Qty: 60 3RF rosuvastatin 10 mg tablet 10 mg PO DAILY Qty: 90 3RF omeprazole 20 mg capsule,delayed release(DR/EC) 20 mg PO DAILY aspirin 81 mg tablet,delayed release (DR/EC) 81 mg PO DAILY Qty: 30 2RF Rx Instructions: Unable to verify OTC meds at this date/time. nitroglycerin 0.4 mg tablet, sublingual 0.4 mg SL Q5M PRN (Reason: chest pain) Qty: 100 1RF Rx Instructions: until response; do not exceed 3 doses per episode. Pt's spouse says this might be /out of date. allopurinol 300 mg Tablet 300 mg PO DAILY fluticasone propionate [Flonase Allergy Relief] 50 mcg/actuation [place],Suspension 1 spray INTRANASAL DAILY PRN (Reason: Congestion) fexofenadine 60 mg tablet 60 mg PO BID PRN (Reason: Congestion) Rx Instructions: Unable to verify OTC meds at this date/time. tramadol 50 mg tablet 50 mg PO TID PRN (Reason: Pain) magnesium oxide 250 mg magnesium Tablet 125 mg PO DAILY Rx Instructions: Unable to verify OTC meds at this date/time. multivitamin Tablet 1 tab PO DAILY Rx Instructions: Unable to verify OTC meds at this date/time. levocetirizine [Xyzal] 5 mg Tablet 5 mg PO DAILY PRN (Reason: Allergies/Congestion) Rx Instructions: Unable to verify OTC meds at this date/time. acetaminophen [Tylenol Extra Strength] 500 mg tablet 1,000 mg PO Q8H PRN (Reason: pain) Rx Instructions: Unable to verify OTC meds at this date/time. gabapentin 100 mg capsule 200 mg PO DAILY Discharge Orders: Discharge Order (Routine); Ordered 02/08/25 Ordered By: Zachary Acuña Admission Data Admit Date/Time: 02/05/25 05:27 Attending Provider: Zachary Acuña Admit Provider: Jay Juarez Primary Care Provider: Adrianne Freeman Other Providers: Jay Juarez; Elaina Riggins; Kevin Gomes; [facility] Fax; [facility] Other Interventions: Discharge Summary Assessment (RN) Last Done: 02/08/25 15:19 Hospital Stay Data Consultations 02/05/25 04:23 ED Decision to Admit Stat 02/05/25 05:19 Consult General Surgery Routine 02/05/25 05:27 Consult Orthopedic Surgery Routine Diagnostic Imagining Performed 02/05/25 02:36 CT cervical spine wo con Stat CT head/brain wo con Stat 02/05/25 02:47 CT Abd and Pelvis [CT abd pelvis IV con only] Stat CT chest diagnostic w con Stat Pending Results Patient Have Any Pending Studies at Discharge: No Discharge Instructions Given to Patient (Per Discharging Provider) You are seen in the hospital for a fall and had a nonoperative right humeral fracture. You were also treated for potential alcohol withdrawal with a Librium taper. You did not show signs of ongoing withdrawal at time of discharge. Due to your weakness, history of multiple falls, ambulatory dysfunction, and further ambulatory limitation with humeral fracture it was highly recommended and repeatedly recommended that you go to inpatient rehab prior to returning home. You declined this and expressed an understanding that you are at increased risk of falls, falling within already a fractured arm could lead to permanent oscar m/disability, and that use of alcohol, tramadol, and various medications all further increase risk of falling. You expressed an understanding of these risks, but refused rehab and intent to return home. You have had ongoing alcohol use for which you are treated with a Librium taper. Further Librium was not prescribed at time of discharge. You did not show ongoing withdrawal at time of discharge. This is a long acting medication and the librium already in your system will take several days to wear off. Do not drive or operate machinery in the next few days. There is a medication that can help promote sobriety from alcohol, naltrexone. Naltrexone does help prevent forward pathway from alcohol and has been shown to help many patients maintain sobriety however this also antagonizes/reduces the effectiveness of opioid analgesics including tramadol. If your pain can be well-controlled without tramadol then this medication may be a good option for you however due to the risk of worsening your pain in the setting of acute fracture and back pain for which tramadol is currently being used was not recommended at time of discharge from the hospital. As your pain improves please discuss with your primary care provider Multimodal pain control that minimizes the use of tramadol in order to allow for pharmacologic assisted sobriety. You had a perirectal abscess which was small and operative intervention was not recommended. You were recommended to have an extended course of antibiotics and outpatient follow-up. You have declined colonoscopies. Follow-up is being scheduled for you, and you have been prescribed a extended 10-day course of antibiotics with Augmentin due to your abscess. Please have reevaluation with your primary care provider and outpatient blood work performed at your outpatient follow-up appointment. If you develop any new or worsening symptoms including fever, chills, sweats, chest pain, chest pressure, difficulty breathing, uncontrolled nausea/vomiting, rash, wheezing, passing out or nearly passing out, bleeding, black/bloody bowel movements, or other new or concerning symptoms please call your primary care physician, or call 911 for re-evaluation in the emergency department if you are very concerned. Total Time Total Time Spent Total Time Spent (In Minutes): Time spend day of discharge 40 minutes including direct patient care, documentation, review of labs and images, and coordination of care. Coding Level of Care Code 11131 INP/OBS DISCH >30 MIN Diagnoses Fall W19.XXXA Closed fracture of head of right humerus, initial encounter S42.291A Encounter type: initial encounter Acute alcohol intoxication F10.920 Complication of substance-induced condition: uncomplicated Abscess, perianal K61.0
[2025-02-08 16:06] VITALS: BP 155/72; PULSE 88; RESP 20
[2025-02-09] MEDS ORDERED: chlordiazePOXIDE HCl 5 MG CAP PO SCH (18:00)
== END 2025-02-08 16:07 | disposition home health service (06) | DRG 563 ==
LOC: SUATTDRO → ED 02:21 → EDINP 05:27 → SUATTDRO 05:27 → 2N 07:21
DX: E78.5 Hyperlipidemia, unspecified; E04.1 Nontoxic single thyroid nodule; K61.0 Anal abscess; G62.9 Polyneuropathy, unspecified; K21.9 Gastro-esophageal reflux disease without esophagitis; Z82.49 Family history of ischemic heart disease and other diseases of the circulatory system; Z79.899 Other long term (current) drug therapy; S00.81XA Abrasion of other part of head, initial encounter; R29.6 Repeated falls; Z88.8 Allergy status to other drugs, medicaments and biological substances; Y90.7 Blood alcohol level of 200-239 mg/100 ml; Z95.5 Presence of coronary angioplasty implant and graft; F17.210 Nicotine dependence, cigarettes, uncomplicated; S42.291A Other displaced fracture of upper end of right humerus, initial encounter for closed fracture; W19.XXXA Unspecified fall, initial encounter; Z88.2 Allergy status to sulfonamides; I25.10 Atherosclerotic heart disease of native coronary artery without angina pectoris; F10.129 Alcohol abuse with intoxication, unspecified; I25.2 Old myocardial infarction; Z79.82 Long term (current) use of aspirin; I10 Essential (primary) hypertension